=== PATIENT | female | born 1975 | race Caucasian/White ===

== ENCOUNTER 2023-04-28 08:50 | Outpatient (OUT) | payer OTHER, SELFPAY | END 2023-04-28 08:51 | disposition home or self-care (01) | PROVIDERS: PCP Internal Medicine; Visit Provider Obstetrics & Gynecology | DX: R30.0 Dysuria (principal) | CPT/HCPCS: 87086 ==

== ENCOUNTER 2023-05-01 16:47 | Emergency (ER) | payer OTHER, SELFPAY ==
[2023-05-01 17:24] VITALS: BP 152/109; PULSE 96; RESP 20; TEMP 36.6; O2SAT 97; BMI 27.4
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
== END 2023-05-01 19:35 | disposition home or self-care (01) ==
PROVIDERS: Emergency Provider Emergency Medicine; PCP Internal Medicine
DX: S16.1XXA Strain of muscle, fascia and tendon at neck level, initial encounter (principal); V53.5XXA Driver of pick-up truck or van injured in collision with car, pick-up truck or van in traffic accident, initial encounter
CPT/HCPCS: 70450; 72125; 99284

== ENCOUNTER 2024-03-28 10:57 | Outpatient (OUT) | payer OTHER, SELFPAY ==
--- NOTE | 2024-03-28 11:23 | MM_ITS ---
Patient Name: MARKO SORIANO MR#: [id number] : 1975 Exam Date: 03/28/2024 Ordering Doctor: DR BRISA OCASIO RADIOLOGY REPORT PROCEDURE: MM TOMOSYNTHESIS SCREENING BI COMPARISON: MG MAMM SCREEN 3D [place] CAD, 03/26/2023. MG MAMM SCREEN 3D [place] CAD, 03/24/2022. MG MAMM SCREEN 3D [place] CAD, 02/21/2021. MG MAMM [place] DIAG W CAD DIG, 08/26/2007. INDICATIONS: Screening Calculator Name NCI Breast Cancer Risk Assessment Tool 5 Year Breast Cancer Risk 3.20% Lifetime Breast Cancer Risk 25.30% Personal Breast Cancer No Personal Ovarian Cancer No Treatments None Family Cancers Father with prostate cancer at age 61; Uncle-paternal with prostate cancer at age ~60; Uncle-paternal with prostate cancer at age ~60; Grandmother-paternal with uterine cancer at age ~40; Mother with breast cancer at age 70. LOCATION: [facility] BREAST COMPOSITION: The breasts are almost entirely fatty. FINDINGS: DIAGNOSTIC CATEGORY 2--BENIGN FINDING: RIGHT BREAST: No significant suspicious finding. Scattered benign-appearing calcifications are present. No significant change has occurred. LEFT BREAST: No significant suspicious finding. No significant change has occurred. RECOMMENDATIONS: ROUTINE MAMMOGRAM AND CLINICAL EVALUATION IN 12 MONTHS. PLEASE NOTE: A NORMAL MAMMOGRAM DOES NOT EXCLUDE THE POSSIBILITY OF BREAST CANCER. A CLINICALLY SUSPICIOUS PALPABLE LUMP SHOULD BE BIOPSIED. Dictated by: Tra Olivares M.D. on 03/28/2024 at 11:27 Approved by: Tra Olivares M.D. on 03/28/2024 at 11:29
== END 2024-03-28 10:58 | disposition home or self-care (01) ==
LOC: MAMMO 10:57
PROVIDERS: PCP Internal Medicine; Visit Provider Obstetrics & Gynecology
DX: Z12.31 Encounter for screening mammogram for malignant neoplasm of breast (principal); Z80.42 Family history of malignant neoplasm of prostate; Z80.8 Family history of malignant neoplasm of other organs or systems; Z80.3 Family history of malignant neoplasm of breast
CPT/HCPCS: 77063; 77067

== ENCOUNTER 2025-02-09 09:58 | Outpatient (OUT) | payer OTHER, SELFPAY ==
--- NOTE | 2025-02-09 10:01 | US_ITS ---
The [address] [address] Patient Name: MARKO SORIANO MRN: [id number] date: 1975 Sex: F Assigned Patient Location: US Current Patient Location: US Accession/Order Number: [id number] Exam Date: 02/09/2025 11:43 Report Date: 02/09/2025 11:48 At the request of: BOUCHRA NGO DO Procedure: US right upper quadrant LIMITED RIGHT UPPER QUADRANT ABDOMINAL ULTRASOUND CLINICAL HISTORY: Elevated liver functions. Prior cholecystectomy. COMPARISON: CT 06/16/2021 The gallbladder is surgically absent. No intra- or extrahepatic biliary dilatation is evident. The common duct measures 3 - 4 mm. The liver is normal in echogenicity. There is a left hepatic cyst measuring 1 cm in size. There is appropriate hepatopetal flow within the main portal vein. The pancreas shows no significant sonographic abnormality. Cursory evaluation of the right kidney reveals no hydronephrosis or fluid within Conley's pouch. US/US right upper quadrant IMPRESSION: SMALL LEFT HEPATIC CYST. NO OTHER SIGNIFICANT RIGHT UPPER QUADRANT FINDINGS. Impression dictated by: Caity Kelly M.D.02/09/2025 11:48 AM Dictation Location: [place] [address] Electronically authenticated by: [id number] Y Date: 02/09/2025 11:48
== END 2025-02-09 09:59 | disposition home or self-care (01) ==
LOC: US 09:58
PROVIDERS: PCP Internal Medicine; Visit Provider Internal Medicine
DX: R74.01 Elevation of levels of liver transaminase levels (principal); K76.89 Other specified diseases of liver
CPT/HCPCS: 76705

== ENCOUNTER 2025-03-30 10:13 | Outpatient (OUT) | payer OTHER, SELFPAY ==
--- OUTSIDE RECORDS SUMMARY | 2025-03-27 11:03 | XMS_ITS ---
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) ROSELYN CAMARGO Active [facility] 02/06/2025 Active Vitamin D defici ency / E55.9(ICD-10) [facility] 02/06/2025 Active Thyroid disease / E07.9(ICD-10) [facility] 02/06/2025 Active Elevated sed rat e / R70.0(ICD-10) [facility] 02/06/2025 Active Elevated C-react clint protein (CRP) / R79.82(ICD-10) [facility] 02/06/2025 Active Elevated LFTs / R79.89(ICD-10) [facility] 02/06/2025 Active Screening-pulmon cody TB / Z11.1(ICD-10) [facility] 02/06/2025 Active Anemia of chroni c disease / D63.8(ICD-10) [facility] 02/06/2025 Active Vitamin B12 defi ciency / E53.8(ICD-10) [facility] 02/06/2025 Active Hyperuricemia / E79.0(ICD-10) [facility] 02/06/2025 Active Hypotestosterone gene / E34.9(ICD-10) [facility] 02/06/2025 Active Fatigue, unspeci fied type / R53.83(ICD-10) [facility] 02/06/2025 Active Mixed hyperlipid emia / E78.2(ICD-10) [facility] 02/06/2025 Active Iron deficiency / E61.1(ICD-10) [facility] 01/26/2025 Active Hair Loss / UNK(Unknown) ROSELYN SOLIZ Active [facility] 08/08/2024 Active Encounter for me dication management / Z79.899(ICD-10) TIFFANI TORRES Active [facility] 07/04/2024 Active Telogen effluviu m / L65.0(ICD-10) TIFFANI TORRES Active [facility] 07/04/2024 Active Hypovitaminosis D / E55.9(ICD-10) TIFFANI TORRES Active [facility] PROCEDURES No Procedure Records Found RESULTS CNOV Observed: 03/27/2025 11:15 AM Status: COMPLETED Source: [facility] Office Visit (DERMAV) MARKO WARREN ([id number]) 1975 F Date Time Provider Department 03/27/25 11:15 AM ROSELYN CAMARGO DERMAV During your visit today, we recorded the following information about you: Roselyn Camargo MD 03/27/2025 5:03 PM Signed SUBJECTIVE/OBJECTIVE ESTABLISHED PATIENT Referring provider: No ref. 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 I have seen and examined the patient. I agree with the Chief Complaint, ROS, and Past Histories independently gathered by the clinical manager client support and the remaining scribed note accurately describes [...] Other specified acquired hypothyroidism [E03.8] 09/23/2012 06/16/2016 Kle's thyroiditis [E06.3] 09/23/2012 Chronic fatigue [R53.82] 09/23/2012 [...] Refills Start End TRIAMCINOLONE ACETONIDE 10 MG/ML BCEKY* 03/27/2025 03/27/2025 Route: INTRALESIONA Level of Service: OFFICE/OUTPATIENT ESTABLISHED MOD MDM 30 MIN [58024] Disposition: Return for 4-6 week [address] Camargo for ILK inj. LOS History for Encounter Level of Service: OFFICE/OUTPATIENT ESTABLISHED MOD [facility] 30 MIN[87320] Date AND Time: 03-27-2025 5:03 PM Recorded by User: ROSELYN CAMARGO Follow-up and Disposition History for Encounter Date Provider Department Center 03/27/2025 [id number], STEPHANIEDERMAV Rej Encounter Status:Closed by ROSELYN CAMARGO on 03/27/25 PROGRESS Observed: 03/27/2025 11:15 AM Status: COMPLETED Source: [facility] HNO ID: [id number] Author: ROSELYN CAMARGO MD Service: ? Author Type: Physician Type: Progress Notes Filed: 03/27/2025 17:03 Note Text: SUBJECTIVE/OBJECTIVE ESTABLISHED PATIENT Referring provider: No ref. 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 I have seen and examined the patient. I agree with the Chief Complaint, ROS, and Past Histories independently gathered by the clinical manager client support and the remaining scribed note accurately describes my personal service to the patient. Roselyn Camargo MD Department of Dermatology PROGRESS Observed: 03/23/2025 9:00 AM Status: COMPLETED Source: [facility] HNO ID: [id number] Author: ROSELYN CAMARGO MD Service: ? Author Type: Physician Type: Progress Notes Filed: 03/23/2025 17:00 Note Text: [facility] Department of Dermatology VIRTUAL VISIT PROGRESS NOTE This Team Access Model visit is a virtual encounter. It required patient-provider interaction for the medical decision making as documented below. I have communicated my name and active licensure. The patient's identity and physical location were verified at the time of this visit. Either the patient or their legal representative government relations has been informed of the risks and benefits of -- and alternatives to -- treatment through a remote evaluation and consents to proceed with the evaluation remotely. This visit was completed virtually, using synchronous telemedicine technology ([employer]). New patient/Established patient : Established CHIEF COMPLAINT: Derm Problem HISTORY OF PRESENT ILLNESS: Marko Warren is a 49 year old female here for evaluation of significant erythema of nose. Patient location at time of appointment: [facility] #erythema Location: nose Severity: significant erythema to [...] which included preparing to see the patient, [id number] patient care, completing clinical documentation, performing a [...] Observed: 02/27/2025 11:30 AM Status: COMPLETED Source: [facility] Office Visit (DERMAV) MARKO WARREN ([id number]) 1975 F Date Time Provider Department 02/27/25 11:30 AM ROSELYN CAMARGO DERMOLIVERIO During your visit today, we recorded the following information about you: Roselyn Camargo MD 02/27/2025 2:34 PM Signed SUBJECTIVE/OBJECTIVE ESTABLISHED PATIENT Referring provider: No ref. provider found 02/27/2025 Last Visit to [facility] Dermatology: 01/05/2025 Reason(s) for Visit/History of [...] above named person served as a medical director of engineering during today's visit. I have seen and examined the patient. I agree with the Chief Complaint, ROS, and Past Histories independently gathered by the clinical manager client support and the remaining scribed note accurately describes [...] Service: OFFICE/OUTPATIENT ESTABLISHED MOD MDM 30 MIN [01903] Disposition: Return in about 4 weeks (around 03/27/2025) for 30 min procedure slot 4-6 weeks. LOS History for Encounter Level of Service: OFFICE/OUTPATIENT ESTABLISHED MOD MDM 30 MIN[82969] Date AND Time: 02-27-2025 2:34 PM Recorded by User: ROSELYN CAMARGO Follow-up and Disposition History for Encounter Date Provider Department Center 02/27/2025 [id number], STEPHANIEDERMAV Rej Encounter Status:Closed by ROSELYN CAMARGO on 02/27/25 PROGRESS Observed: 02/27/2025 11:20 AM Status: COMPLETED [id number] Author: ROSELYN CAMARGO MD Service: ? Author Type: Physician Type: Progress Notes Filed: 02/27/2025 14:34 Note Text: SUBJECTIVE/OBJECTIVE ESTABLISHED PATIENT Referring provider: No ref. provider found 02/27/2025 Last Visit to [facility] Dermatology: 01/05/2025 Reason(s) for Visit/History of [...] above named person served as a medical director of engineering during today's visit. I have seen and examined the patient. I agree with the Chief Complaint, ROS, and Past Histories independently gathered by the clinical manager client support and the remaining scribed note accurately describes my personal service to the patient. Electronically Signed: Roselyn Camargo MD at February 27, 2025 2:33 PM. Roselyn Camargo MD Department of Dermatology [facility] Observed: 02/11/2025 12:00 AM Status: COMPLETED Source: [facility] Telephone (FindlineULN) MARKO WARREN ([id number]) 1975 F Date Time Provider Department 02/11/25 AINSLEY NUGENT During your visit today, we recorded the following information about you: Ainsley Nugent MD 02/11/2025 1:11 AM Signed Please Call patient if MyChart note not read to review results/released to My Chart if tests completed at [facility]: Mildly high liver function tests, testosterone- [...] 02/06/2025 11:15 AM S tatus: F Source: [facility] Order Comment: Specimen Type : BLOOD SPECIMEN Ordering Facility: [facility] Address: [address] [place] [address] TYPE CODE TESTS RESULT OUT OF RANGE REFERENCE UNITS LAB 4537-7([facility]) ESR Bld Qn Westrgrn 5 0-20 mm/hr Performed By: #### 4537-7 ## ## [facility] CLIA [id number] [address] [place] [address] [place] [address] [place] 25([place])D3 [facility] Collected: 02/07/20 11:15 AM Status: F Source: [facility] Order Comment: Specimen Type : BLOOD SPECIMEN Ordering Facility: [facility] Address: [address] [place] [address] TYPE CODE TESTS RESULT OUT OF RANGE REFERENCE UNITS LAB 1988-(LOINC) 25([place])D3 SerPl-mCnc 69.6 31.0-80.0 ng/mL Performed By: #### 3 ## ## [facility] CLIA [id number] [address] [place], [place] [address] [id number] [facility] PROGEST SERPL-MCNC Collected: 11:15 AM Status: F Source: [facility] Order Comment: Specimen Type : BLOOD SPECIMEN Ordering Facility: [facility] Address: [address] [place] [address] TYPE CODE TESTS RESULT OUT OF RANGE [...] Progesterone (Progesterone III) [package insert V 1.0 Mauritanian]. [employer] [facility], [place], [place]. August 2015. Performed By: #### 3016-3, 2 4331-1, 82486-2, 2839-9 #### [facility] CLIA [id number] [address] [place] [address] [facility] TSH SERPL-ACNC Collected: 11:15 AM Status: F Source: [facility] Order Comment: Specimen Type : BLOOD SPECIMEN Ordering Facility: [facility] Address: [address] [place] [address] TYPE CODE TESTS RESULT OUT OF RANGE [...] Whitten, et al. 2017 Guidelines of the [place] Thyroid Association for the Diagnosis and Management of Thyroid Disease during and the . Thyroid, 2017:27:3:315-389. Performed By: #### 3016-3, 2 4331-1, 65154-7, 2839-9 #### [facility] CLIA [id number] [address] [place] [address] [place] LIPID 1996 PNL SERPL Collected: 025 11:15 AM Status: F Source: [facility] Order Comment: Specimen Type : BLOOD SPECIMEN Ordering Facility: [facility] Address: [address] [place] [address] TYPE CODE TESTS RESULT OUT OF RANGE [...] risk factor for coronary heart disease LAB 62196-8(LOINC) NonHDLc SerPl-mCnc 80 <130 mg/dL Result Comment: <130 mg/dL, Optimal 130-159 mg/dL, Near optimal/above optimal 160-189 mg/dL, Borderline high 190-219 mg/dL, High >219 mg/dL, Very high Secondary prevention optimal non HDL Cholesterol levels are recommended to be <100 mg/dL LAB FT FASTING TIME 12 hrs LAB 67418-9(LOINC) VLDLc SerPl Calc-mCnc 23 <30 mg/dL LAB 9830-1(LOINC) Cholest/HDLc SerPl 2.07 <5.10 LAB 2089-1(INC) LDLc SerPl-mCnc 57 <100 mg/dL Result Comment: <100 mg/dL, Optimal 100-129 mg/dL, Near optimal/above optimal 130-159 mg/dL, Borderline high 160-189 mg/dL, High >189 mg/dL, Very high Secondary prevention optimal LDL Cholesterol levels are recommended to be < 70 mg/dL LAB 95202-6(LOINC) LDLc/HDLc SerPl 0.76 <2.54 Result Comment: Reference: 1. National Cholesterol Education Program ATP III Guideline At-A-Glance Quick Desk Reference: National Heart, Lung, and Blood [place]. National Institutes of Health. 2001: NIH Publication No. 01-3305. 2. An International Atherosclerosis Society position paper: global recommendations for the management of dyslipidemia: executive summary, Atherosclerosis. 2014: 232(2):410-413. Performed By: #### 3016-3, 2 4331-1, 27134-3, 2839-9 #### [facility] CLIA [id number] [facility] [address] [place], [place] [address] [place] [address] STATES OF [facility] IRON+TIBC PNL SERPL Collected: 02/07/20 11:15 AM Status: F Source: [facility] Order Comment: Specimen Type : BLOOD SPECIMEN Ordering Facility: [facility] Address: [address] [place] [address] TYPE CODE TESTS RESULT OUT OF RANGE REFERENCE UNITS LAB 2498-4(INC) Iron SerPl-mCnc 88 41-186 ug/dL LAB 2500-7(LOINC) TIBC SerPl-mCnc Result Comment: Unable to re port LAB 93112-3([facility]) Iron/TIBC SerPl-sRto Result Comment: Unable to re port Performed By: #### 3016-3, 2 4331-1, 19643-2, 2839-9 #### [facility] CLIA [id number] [address] [place] [address] [place] COMP METAB 2000 PNL SERPL Collected: 11:15 AM Status: F Source: [facility] Order Comment: Specimen Type : BLOOD SPECIMEN Ordering Facility: [facility] Address: [address] [place] [address] TYPE CODE TESTS RESULT OUT OF RANGE REFERENCE UNITS LAB 2885-2(LOINC) Prot SerPl-mCnc 6.2 Low 6.3-8.0 g/dL LAB 1751-7(LOINC) Albumin SerPl-mCnc 3.7 Low 3.9-4.9 g/dL LAB 69429-3(LOINC) Calcium SerPl-mCnc 9.2 8.5-10.2 mg/dL LAB 1975-2(LOINC) Bilirub SerPl-mCnc 0.5 0.2-1.3 mg/dL LAB 6768-6(LOINC) ALP SerPl-cCnc 96 34-123 U/L LAB 1920-8(LOINC) AST SerPl-cCnc 68 High 13-35 U/L LAB 1742-6(LOINC) ALT SerPl-cCnc 88 High 7-38 U/L LAB 2345-7(LOINC) Glucose SerPl-mCnc 85 74-99 mg/dL Result Comment: The [place] Diabetes Association (ADA) provides guidance for cutoff [...] Standards of Medical Care in Diabetes 2016, [place] Diabetes Association. Diabetes Care. 2016.39(Suppl 1). LAB 3094-0(LOINC) BUN SerPl-mCnc 14 7-21 mg/ dL LAB 2160-0(LOINC) Creat SerPl-mCnc 0.80 0.58-0.96 mg/dL LAB 2951-2(LOINC) Sodium SerPl-sCnc 143 136-144 mmol/L LAB 2823-3(LOINC) Potassium SerPl-sCnc 4.7 3.7-5.1 mmol/L LAB 2075-0(LOINC) Chloride SerPl-sCnc 107 98-107 mmol/L LAB 2028-9(LOINC) CO2 SerPl-sCnc 22 22-30 mmo l/L LAB 35585-3(LOINC) Anion Gap SerPl-sCnc 14 8-15 mmol/L LAB 57079-4(LOINC) Creatinine + eGFR Pnl SerPlBld 90 >=60 [...] GFR. Performed By: #### 2243-4, 3 084-1, 02556-9 #### [facility] CLIA [id number] [address] [facility]. [address] OF [facility] URATE SERPL-MCNC Collected: 5 11:15 AM Status: F Source: [facility] Order Comment: Specimen Type : BLOOD SPECIMEN Ordering Facility: [facility] Address: [address] [place] [address] TYPE CODE TESTS RESULT OUT OF RANGE REFERENCE UNITS LAB 3084-1([facility]) Urate SerPl-mCnc 5.1 2.5-6.6 mg/dL Performed By: #### 2243-4, 3 084-1, 26683-6 #### [facility] CLIA [id number] [address] [place] [address] [place] ESTRADIOL SERPL-MCNC Collected: 025 11:15 AM Status: F Source: [facility] Order Comment: Specimen Type : BLOOD SPECIMEN Ordering Facility: [facility] Address: [address] [place], [place] [address] TYPE CODE TESTS RESULT OUT OF RANGE [...] 3243 pg/mL Second trimester : 1561 to 70264 pg/mL Third trimester : 8285 to >21408 pg/mL Post-menopausal Estradiol reference range: < 41 pg/mL Reference: 1. Estradiol - E2 (Estradiol III) [package insert V 3.0 Mauritanian]. [employer], [place], [place], April 2016. Performed By: #### 2243-4, 3 084-1, 04177-0 #### [facility] CLIA [id number] [address] [place] [address] [place] OF [facility] CRP SERPL-MCNC Collected: 11:15 AM Status: F Source: [facility] Order Comment: Specimen Type : BLOOD SPECIMEN Ordering Facility: [facility] Address: [address] [place], [place] [address] TYPE CODE TESTS RESULT OUT OF RANGE REFERENCE UNITS LAB 1988-03(LOINC) CRP SerPl-mCnc <0.3 <0.9 mg/dL Performed By: #### 2276-4, 1 988-5, 9 #### [facility] CLIA [id number] [address] [place] [address] [place] VIT B12 SERPL-MCNC Collected: 5 11:15 AM Status: F Source: [facility] Order Comment: Specimen Type : BLOOD SPECIMEN Ordering Facility: [facility] Address: [address] [place], [place] [address] TYPE CODE TESTS RESULT OUT OF RANGE REFERENCE UNITS LAB 9(LOINC) Vit B12 SerPl-mCnc 721 572-4122 pg/mL Performed By: #### 2276-4, 1 988-5, 2-9 #### [facility] CLIA [id number] [address] [place] [address] [facility] FERRITIN SERPL-MCNC Collected: 02/07/20 11:15 AM Status: F Source: [facility] Order Comment: Specimen Type : BLOOD SPECIMEN Ordering Facility: [facility] Address: [address] [place], [place] [address] TYPE CODE TESTS RESULT OUT OF RANGE REFERENCE UNITS LAB 2276-4([facility]) Ferritin SerPl-mCnc 154.9 14.7-205.1 ng/mL Performed By: #### 2276-4, 1 988-5, 2131-9 #### [facility] CLIA [id number] [address] [place] [address] [facility] CBC PNL BLD AUTO Collected: 5 11:15 AM Status: F Source: [facility] Order Comment: Specimen Type : BLOOD SPECIMEN Ordering Facility: [facility] Address: [address] [place], [place] [address] TYPE CODE TESTS RESULT OUT OF RANGE [...] MCHC RBC Auto-mCnc 34.1 30.5-36.0 g/dL LAB 97822-2(LOINC) RDW RBC-Rto 13.8 11.5-15.0 % LAB 777-3(LOINC) Platelet # Bld Auto 256 150-400 k/uL LAB 40975-0(LOINC) PMV Bld Auto 11.7 9.0-12.7 fL LAB 771-6(INC) nRBC # Bld Auto <0.01 <0.01 k/uL Performed By: #### 43009-4 # ### [facility] CLIA [id number] [place] [address] [place] CCP IGG SERPL-ACNC Collected: 02/06/2025 11:[address] atus: F Source: [facility] Order Comment: Specimen Type : BLOOD SPECIMEN Ordering Facility: [facility] Address: [address] [place] [address] TYPE CODE TESTS RESULT OUT OF RANGE REFERENCE UNITS LAB CCPIGGQ CCP ANTIBODY IGG QUALITATIVE Negative Negative LAB 87966-2([facility]) cCP IgG SerPl-aCnc <15 <20 Units Performed By: #### 99618-6 # ### [facility] CLIA [id number] [address] [place] [address] [place] PRESTON BY IFA WITH REFLEX Collected: 02/06 11:15 AM Status: F Source: [facility] Order Comment: Specimen Type : BLOOD SPECIMEN Ordering Facility: [facility] Address: [address] [place] [address] TYPE CODE TESTS RESULT OUT OF RANGE REFERENCE UNITS LAB 8061-4([facility]) PRESTON Ser Ql Negative Negative Result Comment: Anti-nuclear antibody test is used as an aid in diagnosis of systemic autoimmune diseases. Where positive and clinically warranted, follow-up using disease-specific testing is recommended. Low positive titers are not uncommon with advanced age, certain chronic infections, and malignancies among others. Test methodology: Indirect fluorescence immunoassay (IFA) using HEp-2 cells. Performed By: #### ANAIFR ## ## [facility] CLIA [id number] [address] [place] [address] OF [place] HCV AB SER QL Collected: 11:15 AM Status: F Source: [facility] Order Comment: Specimen Type : BLOOD SPECIMEN Ordering Facility: [facility] Address: [address] [place] [address] TYPE CODE TESTS RESULT OUT OF RANGE REFERENCE UNITS LAB 32303-1(LOINC) HCV Ab Ser Ql Negative Negative Result Comment: The result s uggests no evidence of infection with Hepatitis C virus. Should recent infection be suspected, repeat testing may be considered 4-6 weeks after this draw. Performed By: #### 19882-8 # ### [facility] CLIA [id number] [address] [place] [address] [place] T4 FREE SERPL-MCNC Collected: 11:15 AM Status: F Source: [facility] Order Comment: Specimen Type : BLOOD SPECIMEN Ordering Facility: [facility] Address: [address] [place] [address] TYPE CODE TESTS RESULT OUT OF RANGE REFERENCE UNITS LAB 3024-7(LOINC) T4 Free SerPl-mCnc 1.1 0.9-1.7 ng/dL Performed By: #### 3024-7, 1 1572-5, 3053-6, 2986-8 #### [facility] CLIA [id number] [address] [place] [address] [place] T3 SERPL-MCNC Collected: 5 11:15 AM Status: F Source: [facility] Order Comment: Specimen Type : BLOOD SPECIMEN Ordering Facility: [facility] Address: [address] [place] [address] TYPE CODE TESTS RESULT OUT OF RANGE REFERENCE UNITS LAB 3053-6(LOINC) T3 SerPl-mCnc 114 79-165 ng/d L Performed By: #### 3024-7, 1 1572-5, 3053-6, 2986-8 #### [facility] CLIA [id number] [address] [place] [address] [place] TESTOST SERPL-MCNC Collected: 5 11:15 AM Status: F Source: [facility] Order Comment: Specimen Type : BLOOD SPECIMEN Ordering Facility: [facility] Address: [address] [place] [address] TYPE CODE TESTS RESULT OUT OF RANGE REFERENCE UNITS LAB 2986-8(LOINC) Testost SerPl-mCnc 55 High <40 ng/dL Performed By: #### 3024-7, 1 1572-5, 3053-6, 2986-8 #### [facility] CLIA [id number] [address] [place] [address] OF [place] RHEUMATOID FACT SERPL-ACNC Collected: 02/06/2025 11:1 5 AM Status: F Source: [facility] Order Comment: Specimen Type : BLOOD SPECIMEN Ordering Facility: [facility] Address: [address] [place] [address] TYPE CODE TESTS RESULT OUT OF RANGE REFERENCE UNITS LAB 63698-2([facility]) Rheumatoid fact SerPl-aCnc <10 <16 IU/mL Performed By: #### 3024-7, 1 1572-5, 3053-6, 2986-8 #### [facility] CLIA [id number] [address] [place] [address] OF [place] BLOOD TB SCREEN Collected: 02/06/2025 11:15 AM Statu s: F Source: [facility] Order Comment: Specimen Type : BLOOD SPECIMEN Ordering Facility: [facility] Address: [address] [place] [address] TYPE CODE TESTS RESULT OUT OF RANGE REFERENCE UNITS LAB TBGNIL TB NIL 0.02 <=8.00 IU/mL LAB TBG1AG TB1 AG MINUS NIL 0.01 <0.35 IU/mL LAB TBG2AG TB2 AG MINUS NIL 0.00 <0.35 IU/mL LAB 31225-5(LOINC ) M TB tuberc IFN-g Bld Ql [...] exposure. Performed By: #### INFTBP ## ## [facility] CLIA [id number] [address] HBV CORE AB SER QL Collected: 11:15 AM Status: F Source: [facility] Order Comment: Specimen Type : BLOOD SPECIMEN Ordering Facility: [facility] Address: [address] [place] [address] TYPE CODE TESTS RESULT OUT OF RANGE REFERENCE UNITS LAB 36715-3(LOINC) HBV core Ab Ser Ql Negative Negative Result Comment: No evidence of current or past infection with Hepatitis B virus. Should recent infection be suspected, repeat testing may be considered 3-4 weeks after this draw. Performed By: #### 73670-4, 5195-3, 38707-5 #### [facility] CLIA [id number] [address] [place] [address] HBV SURFACE AG SER QL Collected: 2024 11:15 AM Status: F Source: [facility] Order Comment: Specimen Type : BLOOD SPECIMEN Ordering Facility: [facility] Address: [address] [place] [address] TYPE CODE TESTS RESULT OUT OF RANGE REFERENCE UNITS LAB 5195-3(LOINC) HBV surface Ag Ser Ql Negative Negative Performed By: #### 05913-3, 5195-3, 06938-5 #### [facility] CLIA [id number] [address] [place] [address] HBV SURFACE AB SER QL Collected: 2024 11:15 AM Status: F Source: [facility] Order Comment: Specimen Type : BLOOD SPECIMEN Ordering Facility: [facility] Address: [address] [place] [address] TYPE CODE TESTS RESULT OUT OF RANGE REFERENCE UNITS LAB 83799-7(LOINC) HBV surface Ab Ser Ql Positive Result Comment: Consistent w ith serological evidence of immunity to Hepatitis B Virus. LAB 60308-2(LOINC) HBV surface Ab Ser-aCnc 445.97 mIU/mL Result Comment: <8 mIU/mL: N o serological evidence of immunity to Hepatitis B Virus. >/= 8 to <12 mIU/mL: No serological evidence of immunity to Hepatitis B Virus. >/= 12 mIU/mL: Consistent with serological evidence of immunity to Hepatitis B Virus. Performed By: #### 55318-7, 5195-3, 32509-5 #### [facility] CLIA [id number] [address] [place] [address] CNOV Observed: 02/06/2025 10:00 AM Status: COMPLETED Source: [facility] Office Visit (JUANI) MARKO WARREN ([id number]) 1975 F Date Time Provider Department 02/06/25 [...] Name: Marko Warren 1975 [address] [place] [address] Accompanied by: self This consult was requested for my medical opinion regarding the rheumatologic evaluation of the patient's hairloss and fatigue problems, and my final recommendations will be communicated to the requesting health care provider by way of the shared medical record for internal providers or letter via the [employer] Service for external providers. February 06, [...] no Dactylitis: no H/o precedent/frequent infection(s): no Enthesopathy/[place]'s/heel/plantar tenderness: carpal tunnel syndrome Skin thickening, psoriasis, photosensitivity, purpura: no Nail changes: vertical nail ridges for months Alpecia, patchy: yes Eye inflammation: contacts SICCA: no Oral/nasal/genital ulcers: no GI problems-diarrhea/bleeding/IBD/Gluten intolerence/Dysphagia: gerd Raynaud's phenomenon/digital ulcers: no Organ inv-Serositis: no Lung disease/ILD: no Myopathy/proximal muscle weakness: no Abnormal Urine or urethritis: no Renal/liver disease: no FIRE PROTECTION INSPECTOR/PNS/sz/cva/cancer disease: no HEME-Cytopenias/LAD/Clots: no Fevers: no Fatigue: [...] use: Not Currently 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 Smoking no etoh no no gout MEDICATIONS: [...] low vitamin D 17.5, tsh 0.176;normal vitamin k49-8599; PHYSICAL EXAM:reviewed vitals BP 135/79 Pulse 76 [...] arthritis creams AND patches if needed, see manual winder for hormone recommendations, start osteoporosis treatment if [...] touching your toes, sit-ups, using row machine usp pain recommendations per primary care provider/pain clinic [...] video AND audio (virtual) or phone or [id number] patient care, completing clinical documentation, obtaining and/or [...] NAME: Marko Warren DATE: February 06, 2025 Ainsley Nugent MD [...] touching your toes, sit-ups, using row machine usp pain recommendations per primary care provider/pain clinic [...] of osteoporosis in mother [Z82.62] Order(s):DXA-FOREARM SKELETON [[id number]] Order #: [id number] FUTURE DXA-AXIAL SKELETON [[id number]] Order #: [id number] FUTURE BD DXA TRABECULAR BONE SCORE (TBS) [9395612] Order #: [id number] FUTURE RHEUMATOID FACTOR [SQRF] Order #: [id number] FUTURE CCP ANTIBODY IGG [SQCCP] Order #: [id number] FUTURE PRESTON BY IFA WITH REFLEX [SQANAIFR] Order #: [id number] FUTURE SEDIMENTATION RATE, WESTERGREN [SQWSR] Order #: [id number] FUTURE C-REACTIVE PROTEIN [SQCRP] Order #: [id number] FUTURE HEP REMOTE PANEL BL [SQHREMOP] Order #: [id number] FUTURE BLOOD TB SCREEN [SQINFTBP] Order #: [id number] FUTURE COMPREHENSIVE METABOLIC PANEL [SQCMP] Order #: [id number] FUTURE COMPLETE BLOOD COUNT [SQCBC] Order #: [id number] FUTURE VITAMIN D 25 HYDROXY [SQVITD] Order #: [id number] FUTURE VITAMIN B12 [SQB12] Order #: [id number] FUTURE URIC ACID [SQURIC] Order #: [id number] FUTURE TESTOSTERONE, TOTAL BY IMMUNOASSAY (ADULT MALES, OR INDIVIDUALS ON TESTOSTERONE THERAPY) [SQTESTO] Order #: [id number] FUTURE ESTRADIOL-17B BLD [SQE2] Order #: [id number] FUTURE PROGESTERONE [SQPROG] Order #: [id number] FUTURE T3 [SQT3] Order #: [id number] FUTURE T4 FREE/FREE THYROXINE [SQFT4] Order #: [id number] FUTURE THYROID STIMULATING HORMONE [SQTSH] Order #: [id number] FUTURE LIPID PANEL, FASTING [SQLIPB] Order #: [id number] FUTURE IRON AND TIBC [SQIRON] Order #: [id number] FUTURE FERRITIN [SQFERR] Order #: [id number] FUTURE Prescriptions as of 02/06/2025 - OLANZapine [...] touching your toes, sit-ups, 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 Author Type: Physician Type: Progress Notes Filed: 02/06/2025 11:58 Note Text: NEW CONSULT:RHEUMATOLOGY SERVICE SERVICE DATE: 02/06/2025 SERVICE TIME: 9:58 AM REASON FOR CONSULT: hairloss and fatigue REQUESTING PHYSICIAN: Martin Martinez DO PRIMARY CARE PHYSICIAN: Martin Martinez DO Patient's Name: Marko Warren 1975 [address] [place] [address] Accompanied by: self This consult was requested for my medical opinion regarding the rheumatologic evaluation of the patient's hairloss and fatigue problems, and my final recommendations will be communicated to the requesting health care provider by way of the shared medical record for internal providers or letter via the [employer] Information Postal Service for external providers. 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 Smoking no etoh no no gout MEDICATIONS: [...] low vitamin D 17.5, tsh 0.176;normal vitamin s61-9279; PHYSICAL EXAM:reviewed vitals BP 135/79 Pulse 76 [...] arthritis creams AND patches if needed, see manual winder for hormone recommendations, start osteoporosis treatment if [...] touching your toes, sit-ups, using row machine usp pain recommendations per primary care provider/pain clinic [...] video AND audio (virtual) or phone or [id number]-de-[id number] patient care, completing clinical documentation, obtaining and/or [...] Observed: 01/29/2025 2:29 PM Status: COMPLETED Source: [facility] HNO ID: [id number] Author: ?, ?, ? Service: ? Author Type: ? Type: Progress Notes Filed: 01/29/2025 14:29 Note Text: Scheduled per above PROGRESS Observed: 01/26/2025 9:17 AM Status: COMPLETED Source: [facility] HNO ID: [id number] Author: ROSELYN CAMARGO MD Service: ? Author Type: Physician Type: Progress Notes Filed: 01/26/2025 16:14 Note Text: [facility] Department of Dermatology VIRTUAL VISIT PROGRESS NOTE This Team Access Model visit is a virtual encounter. It required patient-provider interaction for the medical decision making as documented below. I have communicated my name and active licensure. The patient's identity and physical location were verified at the time of this visit. Either the patient or their legal representative government relations has been informed of the risks and benefits of -- and alternatives to -- treatment through a remote evaluation and consents to proceed with the evaluation remotely. This visit was completed virtually, using synchronous telemedicine technology ([employer]). Established patient CHIEF COMPLAINT: Hair Loss HISTORY OF PRESENT ILLNESS: Marko Warren is a 49 year old female here for evaluation of hair loss . Patient location at time of appointment: [facility] lichen planopilaris per skin, right vertex scalp, [...] which included preparing to see the patient, [id number] patient care, completing clinical documentation, performing a medically appropriate examination, counseling and educating the patient/family/caregiver, and ordering medications, tests, or procedures. The documentation for this note was completed by Amber Albarran RN, acting as scribe for Roselyn Camargo MD. January 26, 2025 1:06 PM. Provider Attestation: I, Roselyn Camargo MD, personally [...] Observed: 01/19/2025 4:20 PM Status: COMPLETED Source: [facility] Nurse Visit (DERMAV) MARKO WARREN ([id number]) 1975 F Date Time Provider Department 01/19/25 4:20 PM [facility] REJ DERMOLIVERIO During your visit today, we recorded the following information about you: Janeth Diehl RN 01/19/2025 4:26 PM Signed Nurse visit injections Patient presents for diagnosis of lichen planopilaris Here today for Injection Order in [facility]? Yes by provider Tiffani Torres MD [...] pain [R10.9] 09/24/2022 09/24/2022 [facility] and 5 week [place] for ilk. Follow-up and Disposition History for Encounter Date Provider Department Center 01/19/2025 [id number] [facility] CHERELLEDER[facility]V Cherelle Encounter Status:Closed by JANETH DIEHL on 01/19/25 PROGRESS Observed: 01/19/2025 4:08 PM Status: COMPLETED Source: [facility] HNO ID: [id number] Author: JANETH DIEHL RN Service: ? Author [...] Observed: 01/05/2025 1:00 PM Status: COMPLETED Source: [facility] HNO ID: [id number] Author: TIFFANI TORRES MD Service: ? Author [...] and ROS that were documented by my fws faculty assistant, who was scribing during the encounter, were confirmed by me and I agree with the content of these sections. I have made any required additions or deletions to the HPI/PFSH/ROS as needed. The physical exam and any procedures were performed by me, unless otherwise noted. Tiffani Torres MD CNOV Observed: 01/05/2025 1:00 PM Status: COMPLETED Source: [facility] Office Visit (DERMAV) MARKO WARREN ([id number]) 1975 F Date Time Provider Department 01/05/25 [...] and ROS that were documented by my fws faculty assistant, who was scribing during the encounter, were confirmed by me and I agree with the content of these sections. I have made any required additions or deletions to the HPI/PFSH/ROS as needed. The physical exam and any procedures were performed by me, unless otherwise noted. Tiffani Torres MD Referring Provider: TIFFANI TORRES [[id number]] Allergies As of Date: 01/05/2025 Noted Allergy Reaction CECLOR (CEFACLOR) 09/23/2012 4 - Hives CIPROFLOXACIN 09/24/2022 4 - Hives IMITREX (SUMATRIPTAN SUCCINATE) 09/23/2012 10 - Anaphylaxis Comments: Respiratory Distress TRAMADOL 08/18/2022 8 - GI Upset Comments: Nausea Date Reviewed: 01/05/2025 Reviewed by: Naye Sifuentes OCCA - Fully Assessed Reason for Visit: Established Patient Follow-Up [[id number]] Cmt: Lichen planopilaris Primary Visit Diagnosis:Lichen planopilaris [...] Observed: 01/01/2025 12:00 AM Status: COMPLETED Source: [facility] Telephone (DERMAV) MARKO WARREN ([id number]) 1975 F Date Time Provider Department 01/01/25 TIFFANI TORRES DERMAV During your visit today, we recorded the following information about you: Juliet Loera LPN 01/01/2025 10:06 AM Signed Patient sent Patient Engagement Systems message stating: I am currently taking 7.5 [...] Observed: 12/28/2024 9:50 AM Status: COMPLETED Source: [facility] ID: [id number] Author: TIFFANI TORRES MD Service: ? Author Type: Physician Type: Progress Notes Filed: 01/15/2025 23:57 Note Text: VIRTUAL VISIT PROGRESS NOTE This is a virtual visit using Patient Engagement Systems video visit. It required patient-provider interaction for the medical decision making as documented below. I have communicated my name and active licensure. The patient's identity and physical location were verified at the time of this visit. Either the patient or their legal representative government relations has been informed of the risks and [...] Observed: 12/19/2024 11:00 AM Status: COMPLETED Source: [facility] Nurse Visit (DERMAV) MARKO WARREN ([id number]) 1975 F Date Time Provider Department 12/19/24 11:00 AM [facility] CHERELLE SEGURA During your visit today, we recorded the following information about you: Cheng Gutierrez RN 12/19/2024 11:37 AM Signed Nurse visit injections Patient presents for diagnosis of lichen planopilaris Here today for Injection Order in [facility]? Yes by provider Tiffani Torres MD [...] Observed: 12/19/2024 11:00 AM Status: COMPLETED Source: [facility] ID: [id number] Author: CHENG GUTIERREZ, RN Service: ? Author Type: Registered Nurse Type: Progress Notes Filed: 12/19/2024 11:37 Note Text: Nurse visit injections Patient presents for diagnosis of lichen planopilaris Here today for Injection Order in [facility]? Yes by provider Tiffani Torres MD [...] Observed: 11/21/2024 11:15 AM Status: COMPLETED Source: [facility] ID: [id number] Author: TIFFANI TORRES MD Service: ? Author Type: Physician Type: Progress Notes Filed: 12/18/2024 14:07 Note Text: VIRTUAL VISIT PROGRESS NOTE This is a virtual visit using Patient Engagement Systems video visit. It required patient-provider interaction for the medical decision making as documented below. I have communicated my name and active licensure. The patient's identity and physical location were verified at the time of this visit. Either the patient or their legal representative government relations has been informed of the risks and [...] also feels her scalp was painful on [place]. Current treatments used for hair loss: Doxycycline [...] Abs Lymph 1.00 - 4.00 k/uL 2.17 [place]% % 4.7 Abs [place] <0.87 k/uL 0.38 Eosin% % 0.1 Abs [...] Negative Ketones, Urine Negative, Trace Negative Specific [place], Ur 1.005 - 1.030 1.006 Hemoglobin/Blood,Ur Negative, [...] Observed: 11/14/2024 11:21 AM Status: COMPLETED Source: [facility] ID: [id number] Author: TONIE LUBIN RN Service: ? Author Type: Registered Nurse Type: Progress Notes Filed: 11/14/2024 12:09 Note Text: Nurse visit injections Patient presents for diagnosis of lichen planopilaris Here today for Injection Order in [facility]? Yes by provider Tiffani Torres MD [...] Observed: 11/14/2024 11:00 AM Status: COMPLETED Source: [facility] Nurse Visit (DERMAV) MARKO WARREN ([id number]) 1975 F Date Time Provider Department 11/14/24 11:00 AM [facility] CHERELLE DERMOLIVERIO During your visit today, we recorded the following information about you: Tonie Lubin RN 11/14/2024 12:09 PM Signed Nurse visit injections Patient presents for diagnosis of lichen planopilaris Here today for Injection Order in [facility]? Yes by provider Tiffani Torres MD [...] COMPLETE Observed: 3:59 PM Status: F Source: [facility] Echocardiology Procedure Exam Date/Time Accession # Ordering Dr. Putnam Transthoracic 11/07/2024 15:59 EST [id number] MARTIN MARTINEZ DO CPT code 32060 36475 Reason for Exam (Echo Transthoracic Complete) Edema R60.[address] [facility] [address] [place] [address] Adult Echocardiogram Report Name: MARKO WARREN Study Date: 11/07/2024 03:03 PM BP: 127/93 mmHg Patient Location: [facility] Ambulatory(s) [facility] HR: 85 : 1975 Gender: Female Height: 62 in Age: 49 yrs Ethnicity: T Weight: 146 lb Reason For Study: Edema R60.0 R01.1 BSA: 1.7 m2 History: No cardiac history per patient Ordering Physician: HUBER^MARTIN Referring Physician: MARTIN MARTINEZ Performed By: Melania Cui [facility] Interpretation Summary Grade I diastolic dysfunction, (abnormal [...] Signed by: Yoav Bruno MD Transcribed by: [facility] Technologist: MELODY RITTER LOWER EXTREMITY VENOUS DUPLEX BILATERAL Observed: 11/07/2024 3:55 PM Status: F Source: [facility] Exam Date/Time: 11/07/2024 16:29 EST Reason [...] Collected: 10/20/2024 9:21 AM Status: F Source: [facility] TYPE CODE TESTS RESULT OUT OF RANGE REFERENCE UNITS LAB 2345-7([facility]) GLUCOSE:MCNC:P T:SER/PLAS:QN: 92 Normal 55-199 mg/dL LAB 3094-0([facility]) UREA NITROGEN:MCNC: PT:SER/PLAS:QN : 7 Normal 5-21 mg/dL LAB 2160-0([facility]) CREATININE:MCN C:PT:SER/PLAS: QN: 0.7 Normal 0.5-1.3 mg/dL LAB 66928-9([facility]) CALCIUM:MCNC:P T:SER/PLAS:QN: 9.2 Normal 8.9-11.1 mg/dL LAB 2951-2([facility]) SODIUM:SCNC:PT :SER/PLAS:QN: 143 Normal 135-145 mmol/L LAB 2823-3([facility]) POTASSIUM:SCNC :PT:SER/PLAS:Q N: 3.7 Normal 3.5-5.3 mmol/L LAB 2075-0([facility]) CHLORIDE:SCNC: PT:SER/PLAS:QN : 106 Normal 101-111 mmol/L LAB 2028-9([facility]) CARBON DIOXIDE:SCNC:P T:SER/PLAS:QN: 31 Normal 21-31 mmol/L LAB 6768-6([facility]) ALKALINE PHOSPHATASE:CC NC:PT:SER/PLAS :QN: 82 Normal 21-98 Int._Unit /L LAB 1975-2([facility]) BILIRUBIN:MCNC :PT:SER/PLAS:Q N: 0.6 Normal 0.0-1.1 mg/dL LAB 1751-7([facility]) ALBUMIN:MCNC:P T:SER/PLAS:QN: 3.7 Normal 3.3-5.0 gm/dL LAB 2885-2([facility]) PROTEIN:MCNC:P T:SER/PLAS:QN: 6.2 Normal 6.0-7.8 gm/dL LAB 1744-2([facility]) ALANINE AMINOTRANSFERA SE:CCNC:PT:SER /PLAS:QN:NO ADDITION OF P-5'-P 31 Normal 6-46 Int._Unit /L LAB 1920-8([facility]) ASPARTATE AMINOTRANSFERA SE:CCNC:PT:SER /PLAS:QN: 24 Normal 5-43 Int._Unit /L LAB 3097-3([facility]) UREA NITROGEN/CREAT ININE:MRTO:PT: SER/PLAS:QN: 10 Normal 10-20 No Units LAB 98787-9([facility]) ANION GAP:SCNC:PT:SE R/PLAS:QN: 10 Normal 6-16 mEq/L LAB 44585-1([facility]) GLOBULIN:MCNC: PT:SER:QN:CALC ULATED 2.5 Normal 1.4-4.0 gm/dL LAB 38737-9([facility]) ALBUMIN/GLOBUL IN:MCRTO:PT:SE R:QN: 1.5 Normal 1.1-2.2 Performed By: #### [id number] # ### [facility] [address] [place] [address] TSH Collected: 10/20/2024 9:21 AM Status: F Source: [facility] TYPE CODE TESTS RESULT OUT OF RANGE REFERENCE UNITS LAB 3016-3([facility]) THYROTROPIN:A CNC:PT:SER/PL :QN: 0.17 Low 0.34-5.60 mcIU/mL Performed By: #### [id number] # ### [facility] [address] [place] [address] EGFR Collected: 9:21 AM Status: F Source: [facility] TYPE CODE TESTS RESULT OUT OF RANGE REFERENCE UNITS LAB 54155024([facility]) eGFR 105 Normal >=59 mL/min/1 .7 3 m2 Performed By: #### [id number] #### [facility] [address] [place] [address] CBC W/ AUTO DIFF Collected: 10/20/2024 9:21 AM Statu s: F Source: [facility] TYPE CODE TESTS RESULT OUT OF RANGE REFERENCE UNITS LAB 36625-8([facility]) LEUKOCYTES^^OSWALDO ECTED FOR NUCLEATED ERYTHROCYTES:NCN C:PT:BLD:QN:AUTO MATED COUNT 6.0 Normal 4.0-11.0 E9/L LAB 789-8(LOINC) ERYTHROCYTES:NCN C:PT:BLD:QN:AUTO MATED COUNT 4.8 Normal 4.3-5.9 E12/L LAB 718-7([facility]) HEMOGLOBIN:MCNC: PT:BLD:QN: 14.5 Normal 12.0-16.0 gm/dL LAB 4544-3([facility]) HEMATOCRIT:VFR:P T:BLD:QN:AUTOMAT ED COUNT 42.6 Normal 34.0-46.0 % LAB 788-0([facility]) ERYTHROCYTE DISTRIBUTION WIDTH:RATIO:PT:R BC:QN:AUTOMATED COUNT 14.7 High 10.9-14.2 % LAB 785-6([facility]) ERYTHROCYTE MEAN CORPUSCULAR HEMOGLOBIN:ENTMA SS:PT:RBC:QN:AUT OMATED COUNT 30.5 Normal 27.0-34.0 pg LAB 786-4(INC) ERYTHROCYTE MEAN CORPUSCULAR HEMOGLOBIN CONCENTRATION:MC NC:PT:RBC:QN:AUT OMATED COUNT 34.2 Normal 31.4-36.0 gm/dL LAB 787-2([facility]) ERYTHROCYTE MEAN CORPUSCULAR VOLUME:ENTVOL:PT :RBC:QN:AUTOMATE D COUNT 89.3 Normal 80.0-100.0 fL LAB 70259-5(INC) PLATELET MEAN VOLUME:ENTVOL:PT :BLD:QN:AUTOMATE D COUNT 9.1 Normal 6.4-10.8 fL LAB 777-3(INC) PLATELETS:NCNC:P T:BLD:QN:AUTOMAT ED COUNT 236.0 Normal 150.0-500.0 E9/L LAB 64849-7(INC) NEUTROPHILS/100 LEUKOCYTES:NFR:P T:BLD:QN: 59.0 Normal 36.0-75.0 % LAB 731-0(LOINC) LYMPHOCYTES:NCNC :PT:BLD:QN:AUTOM ATED COUNT 31.3 Normal 14.0-50.0 % LAB 742-7(LOINC) MONOCYTES:NCNC:P T:BLD:QN:AUTOMAT ED COUNT 0.4 Normal 0.2-1.0 E9/L LAB 713-8(LOINC) EOSINOPHILS/100 LEUKOCYTES:NFR:P T:BLD:QN:AUTOMAT ED COUNT 2.9 Normal 0.0-8.0 % LAB 704-7(LOINC) BASOPHILS:NCNC:P T:BLD:QN:AUTOMAT ED COUNT 0.4 Normal 0.0-2.0 % LAB 751-8(INC) NEUTROPHILS:NCNC :PT:BLD:QN:AUTOM ATED COUNT 3.5 Normal 2.0-7.5 E9/L LAB 58397-5(INC) LYMPHOCYTES:NCNC :PT:BLD:QN: 1.9 Normal 1.0-4.0 E9/L LAB 68979-3(INC) EOSINOPHILS:NCNC :PT:BLD:QN: 0.2 Normal 0.0-0.5 E9/L LAB 80911-3([facility]) BASOPHILS/LEUKOC YTES:NFR.DF:PT:B LD:QN:AUTOMATED COUNT 0.0 Normal 0.0-0.2 E9/L Performed By: #### [id number] # ### [facility] [address] [place] [address] U PROTEIN/CREAT RATIO Collected: 2023 8:48 AM Status: F Source: [facility] TYPE CODE TESTS RESULT OUT OF RANGE REFERENCE UNITS LAB [id number]([facility] ) Ur Total Protein 13.6 Unknown mg/dL LAB 40874320([facility] ) U Creatinine 166.3 Unknown mg/dL LAB 29586-9([facility]) PROTEIN/CREATI NINE:RATIO:PT: URINE:QN: 8.20 Normal .00-200.00 mg/gm Cr Performed By: #### [id number] #### [facility] [address] [place] [address] CNNURSE Observed: 10/13/2024 4:20 PM Status: COMPLETED Source: [facility] Nurse Visit (DERMAV) WARRENMARKO ([id number]) 1975 F Date Time Provider Department 10/13/24 4:20 PM [facility] RE[facility] DERMAV During your visit today, we recorded the following information about you: Janeth Diehl RN 10/13/2024 4:50 PM Signed Nurse visit injections Patient presents for diagnosis of lichen planopilaris Here today for Injection Order in [facility]? Yes by provider Tiffani Torres MD [...] Observed: 10/13/2024 4:20 PM Status: COMPLETED Source: [facility] ID: [id number] Author: JANETH DIEHL RN Service: ? Author Type: Registered Nurse Type: Progress Notes Filed: 10/13/2024 16:50 Note Text: Nurse visit injections Patient presents for diagnosis of lichen planopilaris Here today for Injection Order in [facility]? Yes by provider Tiffani Torres MD [...] Observed: 08/29/2024 11:00 AM Status: COMPLETED Source: [facility] Nurse Visit (DERMAV) CHRISTIEMARKO Tomasa ([id number]) 1975 F Date Time Provider Department 08/29/24 11:00 AM [facility] RE[facility] DERMOLIVERIO During your visit today, we recorded the following information about you: Petros Metz RN 09/08/2024 9:01 AM Addendum Nurse visit injections Patient presents for diagnosis of lichen planopilaris Here today for Injection Order in [facility]? Yes by provider Tiffani Torres MD [...] Observed: 08/29/2024 9:01 AM Status: COMPLETED Source: [facility] HNO ID: [id number] Author: PETROS METZ RN Service: ? Author Type: Registered Nurse Type: Progress Notes Filed: 09/08/2024 09:01 Note Text: Nurse visit injections Patient presents for diagnosis of lichen planopilaris Here today for Injection Order in [facility]? Yes by provider Tiffani Torres MD [...] Observed: 08/08/2024 9:28 AM Status: COMPLETED Source: [facility] HNO ID: [id number] Author: TIFFANI TORRES MD Service: ? Author Type: Physician Type: Progress Notes Filed: 09/10/2024 14:15 Note Text: VIRTUAL VISIT PROGRESS NOTE This is a virtual visit using Patient [employer] Systems video visit. It required patient-provider interaction for the medical decision making as documented below. I have communicated my name and active licensure. The patient's identity and physical location were verified at the time of this visit. Either the patient or their legal representative government relations has been informed of the risks and [...] CORTISOL Collected: 8:36 AM Status: F Source: [facility] TYPE CODE TESTS RESULT OUT OF RANGE REFERENCE UNITS LAB 2143-6(LOINC) CORTISOL:MCN C:PT:SER/REE S:QN: 10.1 Unknown 6.2-19.4 microgram /dL Result Comment: Please Note: The reference interval and flagging for this test is for an AM collection. If this is a PM collection please use: Cortisol PM: 2.3-11.9 Performed at: [address] [id number] PhD Ismael Limon Performed By: #### [id number] # ### [facility] [facility] [address] [place] [address]59[address] DHEAS Collected: 08/05/2024 8:36 AM Status: F Source: [facility] TYPE CODE TESTS RESULT OUT OF RANGE REFERENCE UNITS LAB 2191-5(LOINC ) DEHYDROEPIANDROSTERONE SULFATE:MCNC:PT:SER/PLAS :QN: 62.5 Unknown 41.2-243.7 microgr am/dL Result Comment: Performed at : [address] [id number] PhD Ismael Limon Performed By: #### [id number] #### [facility] [address] [place] [address] 74577 PROLACTIN Collected: 4 8:36 AM Status: F Source: [facility] TYPE CODE TESTS RESULT OUT OF RANGE REFERENCE UNITS LAB 55771913(LOINC) Prolactin 6.95 Normal 3.34-26.72 ng/ mL Performed By: #### [id number] # ### [facility] [address] [place] [address] 82360 T3 REVERSE Collected: 4 8:36 AM Status: F Source: [facility] TYPE CODE TESTS RESULT OUT OF RANGE REFERENCE UNITS LAB 3052-8(LOINC) TRIIODOTHYRO NINE.REVERSE :MCNC:PT:SER /PLAS:QN: 10.7 Unknown 9.2-24.1 ng/dL Result Comment: This test wa s developed and its performance characteristics determined by [facility]. It has not been cleared or approved by the Food and Drug Administration. Performed at: [address] [id number] MD Manuel Sanchez Performed By: #### [id number] #### [facility] [address] [place] [address] FREE T4 Collected: 08/05/2024 8:36 AM Status: F Source: [facility] TYPE CODE TESTS RESULT OUT OF RANGE REFERENCE UNITS LAB 3024-7(LOINC) THYROXINE.ZAID E:MCNC:PT:SER /PLAS:QN: 0.96 Normal 0.58-1.64 ng/dL Performed By: #### [id number] # ### [facility] [address] [place] [address] T3 FREE Collected: 08/05/2024 8:36 AM Status: F Source: [facility] TYPE CODE TESTS RESULT OUT OF RANGE REFERENCE UNITS LAB 3051-0(LOINC) TRIIODOTHYRON INE.FREE:MCNC :PT:SER/PLAS: QN: 4.1 Unknown 2.0-4.4 pg/mL Result Comment: Performed at : [address] [id number] PhD Ismael Limon Performed By: #### [id number] # ### [facility] [address] [place] [address] 768[address] PROGESTERONE Collected: 08/05/2024 8:36 AM Status: F Source: [facility] TYPE CODE TESTS RESULT OUT OF RANGE REFERENCE UNITS LAB 69391062(LOINC ) Progesterone Lvl 1.52 Unknown ng/mL Result Comment: 'F NONPREGNA NT FOLLICULAR = 0.10 - 0.60' 'LUTEAL = 3.00 - 17.5' 'MIDLUTEAL = 3.30 - 18.6' 'POST-MENOPAUSE = 0.10 - 0.40' '-FIRST TRIMESTER = 8.30 - 66.5' 'SECOND TRIMESTER = 18.9 - 66.1' 'THIRD TRIMESTER = 35.8 - 312.4' 'MALES = 0.14 - 2.06' Performed By: #### [id number] # ### [facility] [address] [place] [address] TESTOSTERONE F&T Collected: 8:36 AM Status: F Source: [facility] TYPE CODE TESTS RESULT OUT OF RANGE REFERENCE UNITS LAB 2991-8(LOINC) TESTOSTERONE .FREE:MCNC:P T:SER/PLAS:Q N: 0.8 Unknown 0.0-4.2 pg/mL Result Comment: Performed at : [address] [id number] PhD Ismael Limon Performed at: [address] [id number] MD Manuel Sanchez LAB 2986-8([facility]) TESTOSTERONE :MCNC:PT:SER /PLAS:QN: 8 Unknown 4-50 ng/dL Performed By: #### [id number] #### [facility] [address] [place] [address] 75[address] ESTRADIOL Collected: 8:36 AM Status: F Source: [facility] TYPE CODE TESTS RESULT OUT OF RANGE REFERENCE UNITS LAB 2243-4([facility]) ESTRADIOL:MC NC:PT:SER/PL :QN: <5.0 Unknown pg/mL Result Comment: Adult Female Range Follicular phase 12.5 - 166.0 Ovulation phase 85.8 - 498.0 Luteal phase 43.8 - 211.0 Postmenopausal <6.0 - 54.7 1st trimester 215.0 - >4300.0 Qiana ECLIA methodology Performed at: [address] [id number] PhD Ismael Limon Performed By: #### [id number] # ### [facility] [address] [place] [address] TSH Collected: 08/05/2024 8:36 AM Status: F Source: [facility] TYPE CODE TESTS RESULT OUT OF RANGE REFERENCE UNITS LAB 3016-3([facility]) THYROTROPIN:A CNC:PT:SER/PL :QN: 0.01 Low 0.34-5.60 mcIU/mL Performed By: #### [id number] # ### [facility] [address] [place] [address] LAB MISCELLANEOUS-LC Collected: 024 8:36 AM Status: F Source: [facility] TYPE CODE TESTS RESULT OUT OF RANGE REFERENCE UNITS LAB CD:[id number] 85([facility]) Lab Miscellaneous COMMENT Unknown Result Comment: Test Ordered : 356141 Dihydrotestosterone Dihydrotestosterone 7.0 ng/dL ES This test was developed and its performance characteristics determined by [employer]. It has not been cleared or approved by the Food and Drug Administration. Reference Range: Adult Female: 4 - 22 Performed at: [address] [id number] PhD Ismael Limon LAB CD:[id number] 11([facility]) Test Code 064525 Unknown LAB 04531632([facility]) Test Name Dihydrotestoste Unknown Performed By: #### [id number] #### [facility] [address] [place] [address] 71620 VITAMIN D 25 HYDROXY Collected: 08/05/2024 8:36 AM S tatus: F Source: [facility] TYPE CODE TESTS RESULT OUT OF RANGE REFERENCE UNITS LAB 1988-3([facility]) CALCIDIOL:MCN C:PT:SER/PLAS :QN: 74.3 Normal 30.0-100.0 ng/mL Performed By: #### [id number] #### [facility] [address] [place] [address] ESTROGENS TOTAL Collected: 8:36 AM Status: F Source: [facility] TYPE CODE TESTS RESULT OUT OF RANGE REFERENCE UNITS LAB 2254-1([facility]) ESTROGEN:MCN C:PT:SER/REE S:QN: 93 Unknown pg/mL Result Comment: Prepubertal < 40 Female Cycle: 1-10 Days 16 - 328 11-20 Days 34 - 501 21-30 Days 48 - 350 Post-Menopausal 40 - 244 Performed at: [facility] [place] [address] [place], [place] [id number] MD Manuel Sanchez Performed By: #### [id number] #### [facility] [address] [place] [address] CNNURSE Observed: 07/25/2024 2:00 PM Status: COMPLETED Source: [facility] Nurse Visit (DERMAV) MARKO WARREN ([id number]) 1975 F Date Time Provider Department 07/25/24 2:00 PM [facility]SE [facility] REJ DERMAV During your visit today, we recorded the following information about you: Robert Ramírez RN 07/25/2024 2:38 PM Signed Nurse visit injections Patient presents for diagnosis of lichen planopilaris Here today for Injection Order in [facility]? Yes by provider Tiffani Torres MD [...] Observed: 07/25/2024 2:00 PM Status: COMPLETED Source: [facility] ID: [id number] Author: ROBERT RAMÍREZ RN Service: ? Author Type: Registered Nurse Type: Progress Notes Filed: 07/25/2024 14:38 Note Text: Nurse visit injections Patient presents for diagnosis of lichen planopilaris Here today for Injection Order in [facility]? Yes by provider Tiffani Torres MD [...] Collected: 07/21/20 6:22 AM Status: F Source: [facility] TYPE CODE TESTS RESULT OUT OF RANGE REFERENCE UNITS LAB 8061-4(LOINC) NUCLEAR AB:PRTHR:PT: SER:ORD: Negative Unknown Negative Result Comment: Performed at : [address] [id number] PhD Ismael Limon Performed By: #### [id number] #### [facility] [address] [place] [address] RF QUANT Collected: 07/21/2024 6:22 AM Status: F Source: [facility] TYPE CODE TESTS RESULT OUT OF RANGE REFERENCE UNITS LAB 16273-7(LOINC) RHEUMATOID FACTOR:ACNC:PT :SER/PLAS:QN: <10.0 Unknown <14.0 Internati onal_Unit /mL Result Comment: [facility]formed at : [facility] [id number] PhD Ismale Limon Performed By: #### [id number] #### [facility] [address] [place] [address] 53392 CRP Collected: 07/21/2024 6:22 AM Status: F Source: [facility] TYPE CODE TESTS RESULT OUT OF RANGE REFERENCE UNITS LAB 1988-5(LOINC) C REACTIVE PROTEIN:MCNC:P T:SER/PLAS:QN: 0.1 Normal <=1.9 mg/dL Performed By: #### [id number] # ### [facility] [address] [place] [address] 79976 SED RATE AUTOMATED Collected: 07/21/2024 6:22 AM Sta tus: F Source: [facility] TYPE CODE TESTS RESULT OUT OF RANGE REFERENCE UNITS LAB 47924-8([facility]) ERYTHROCYTE SEDIMENTATION RATE:ELIZABETH:PT:BLD:QN : 3 Normal 0-34 mm/hr Performed By: #### [id number] #### [facility] [address] [place] [address] CNPN Observed: 07/21/2024 12:00 AM Status: COMPLETED Source: [facility] Telephone (DERMAV) MARKO WARREN ([id number]) 1975 F Date Time Provider Department 07/21/24 [...] Observed: 07/18/2024 4:07 PM Status: COMPLETED Source: [facility] HNO ID: [id number] Author: TONIE LUBIN RN Service: ? Author [...] Observed: 07/18/2024 4:00 PM Status: COMPLETED Source: [facility] Nurse Visit (DERMAV) MARKO WARREN ([id number]) 1975 F Date Time Provider Department 07/18/24 4:00 PM NURSE [facility] CHERELLE DERMOLIVERIO During your visit today, we [...] Observed: 07/07/2024 4:40 PM Status: COMPLETED Source: [facility] Office Visit (DERMAV) MARKO WARREN ([id number]) 1975 F Date Time Provider Department 07/07/24 [...] and ROS that were documented by my fws faculty assistant, who was scribing during the encounter, [...] skin eruption [R21] Order(s):SKIN / NAIL BIOPSY [1412112] Order #: [id number]: 1 SURGICAL PATHOLOGY [[id number]] Order #: [id number] STANDING SURGICAL PATHOLOGY [[id number]] Order #: [id number]. #:[id number] doxycycline monohydrate (MONODOX) 100 mg capsuleTake 1 [...] for Encounter Date Provider Department Center 07/07/2024 [id number]-GHAMXDEKRHELEN TORRES Encounter Status:Closed by TIFFANI HOWADR on 08/06/24 SURGICAL PATHOLOGY Collected: 07/07/2024 4:39 PM Sta tus: F Source: [facility] Order Comment: Specimen Type : TISSUE SPECIMEN Ordering Facility: [facility] Address: [address] [place] [address] TYPE CODE TESTS RESULT OUT OF RANGE REFERENCE UNITS PATHOLOGY [id number] CASE REPORT Result Comment: Surgical Pat hology Report Case: [id number] Authorizing Provider: Tiffani Torres MD Collected: 07/07/2024 04:39 PM Ordering Location: Dermatology Received: 07/07/2024 05:13 PM Pathologist: Javier Duncan MD, PhD Specimen: Skin, Right Vertex Scalp PATHOLOGY [id number] FINAL DIAGNOSIS Result Comment: A. Skin, rig ht vertex scalp, punch biopsy: - Compatible with lichen planopilaris, see comment. AF/EB 07/14/2024 OLOGY [id number] DIAGNOSIS COMMENT Result Comment: A. Sections demonstrate [...] clinical setting. Clinical correlation remains essential. PATHOLOGY [id number] GROSS DESCRIPTION A. Skin Result Comment: Received in formalin is a cylindrical segment of skin and subcutaneous tissue measuring 0.4 x 0.4 x 0.4 cm. The specimen is not sectioned. Totally submitted in one cassette. July 11, 2024 12:11 PM [place] [address] PATHOLOGY [facility] FINAL PERFORMING LAB Result Comment: Diagnostic i nterpretation performed at [place] [address] CLIA# [id number] Spline Rolling Machine Job Setter: Jovi Sellers M.D. Performed By: #### S #### [facility] CLIA [id number] [address] [place], [place] [address]K [address] OF [place] PROGRESS Observed: 07/07/2024 4:26 PM Status: COMPLETED Source: [facility] HNO ID: [id number] Author: TIFFANI TORRES MD Service: ? Author [...] and ROS that were documented by my fws faculty assistant, who was scribing during the encounter, were confirmed by me and I agree with the content of these sections. I have made any required additions or deletions to the HPI/PFSH/ROS as needed. The physical exam and any procedures were performed by me, unless otherwise noted. Tiffani Torres MD PROGRESS Observed: 07/04/2024 10:04 AM Status: COMPLETED [facility] [id number] Author: TIFFANI TORRES MD Service: ? Author Type: Physician Type: Progress Notes Filed: 08/05/2024 11:00 Note Text: VIRTUAL VISIT PROGRESS NOTE This is a virtual visit using Patient Engagement Systems video visit. It required patient-provider interaction for the medical decision making as documented below. I have communicated my name and active licensure. The patient's identity and physical location were verified at the time of this visit. Either the patient or their legal representative government relations has been informed of the risks and [...] Abs Lymph 1.00 - 4.00 k/uL 2.17 [place]% % 4.7 Abs [place] <0.87 k/uL 0.38 Eosin% % 0.1 Abs [...] Negative Ketones, Urine Negative, Trace Negative Specific Durand, Ur 1.005 - 1.030 1.006 Hemoglobin/Blood,Ur Negative, [...] Past Histories independently gathered by the clinical manager client support and the remaining scribed note accurately describes my personal service to the patient. Tiffani Torres MD. IRON Collected: 10:32 AM Status: F Source: [facility] TYPE CODE TESTS RESULT OUT OF RANGE REFERENCE UNITS LAB 2498-4(LOINC) IRON:MCNC:PT :SER/PLAS:QN : 64 Normal 35-153 microgram/ dL Performed By: #### [id number] # ### [facility] [address] [place] [address] TIBC CALCULATED Collected: 06/03/2024 10:32 AM Statu s: F Source: [facility] TYPE CODE TESTS RESULT OUT OF RANGE REFERENCE UNITS LAB 2500-7(LOINC) IRON BINDING CAPACITY:MCNC:P T:SER/PLAS:QN: 365 Normal 250-400 microgram /dL LAB 52865177(LOINC) Transferrin 261 Normal 200-370 mg/d L Performed By: #### [id number] #### [facility] [address] [place] [address] FERRITIN Collected: 10:32 AM Status: F Source: [facility] TYPE CODE TESTS RESULT OUT OF RANGE REFERENCE UNITS LAB 2276-4(LOINC) FERRITIN:MCNC :PT:SER/PLAS: QN: 28 Normal 11-307 ng/mL Performed By: #### [id number] # ### [facility] [address] [place] [address] TSH Collected: 10:32 AM Status: F Source: [facility] TYPE CODE TESTS RESULT OUT OF RANGE REFERENCE UNITS LAB 3016-3(LOINC) THYROTROPIN: ACNC:PT:SER/ PLAS:QN: 0.37 Normal 0.34-5.60 mcIU/mL Performed By: #### [id number] # ### [facility] [address] [place] [address] CBC W/ AUTO DIFF Collected: 06/03/2024 10:32 AM Stat us: F Source: [facility] TYPE CODE TESTS RESULT OUT OF RANGE REFERENCE UNITS LAB 80666-0(LOINC) LEUKOCYTES^^OSWALDO ECTED FOR NUCLEATED ERYTHROCYTES:NCN C:PT:BLD:QN:AUTO MATED COUNT 5.7 Normal 4.0-11.0 E9/L LAB 789-8(INC) ERYTHROCYTES:NCN C:PT:BLD:QN:AUTO MATED COUNT 5.0 Normal 4.3-5.9 E12/L LAB 718-7(INC) HEMOGLOBIN:MCNC: PT:BLD:QN: 14.9 Normal 12.0-16.0 gm/dL LAB 4544-3([facility]) HEMATOCRIT:VFR:P T:BLD:QN:AUTOMAT ED COUNT 44.8 Normal 34.0-46.0 % LAB 788-0([facility]) ERYTHROCYTE DISTRIBUTION WIDTH:RATIO:PT:R BC:QN:AUTOMATED COUNT 13.8 Normal 10.9-14.2 % LAB 785-6([facility]) ERYTHROCYTE MEAN CORPUSCULAR HEMOGLOBIN:ENTMA SS:PT:RBC:QN:AUT OMATED COUNT 29.7 Normal 27.0-34.0 pg LAB 786-4([facility]) ERYTHROCYTE MEAN CORPUSCULAR HEMOGLOBIN CONCENTRATION:MC NC:PT:RBC:QN:AUT OMATED COUNT 33.2 Normal 31.4-36.0 gm/dL LAB 787-2([facility]) ERYTHROCYTE MEAN CORPUSCULAR VOLUME:ENTVOL:PT :RBC:QN:AUTOMATE D COUNT 89.4 Normal 80.0-100.0 fL LAB 66723-4([facility]) PLATELET MEAN VOLUME:ENTVOL:PT :BLD:QN:AUTOMATE D COUNT 9.9 Normal 6.4-10.8 fL LAB 777-3([facility]) PLATELETS:NCNC:P T:BLD:QN:AUTOMAT ED COUNT 223.0 Normal 150.0-500.0 E9/L LAB 41563-6([facility]) NEUTROPHILS/100 LEUKOCYTES:NFR:P T:BLD:QN: 61.7 Normal 36.0-75.0 % LAB 731-0(INC) LYMPHOCYTES:NCNC :PT:BLD:QN:AUTOM ATED COUNT 31.3 Normal 14.0-50.0 % LAB 742-7(INC) MONOCYTES:NCNC:P T:BLD:QN:AUTOMAT ED COUNT 0.3 Normal 0.2-1.0 E9/L LAB 713-8(INC) EOSINOPHILS/100 LEUKOCYTES:NFR:P T:BLD:QN:AUTOMAT ED COUNT 1.7 Normal 0.0-8.0 % LAB 704-7(LOINC) BASOPHILS:NCNC:P T:BLD:QN:AUTOMAT ED COUNT 0.4 Normal 0.0-2.0 % LAB 751-8(LOINC) NEUTROPHILS:NCNC :PT:BLD:QN:AUTOM ATED COUNT 3.5 Normal 2.0-7.5 E9/L LAB 50105-0([facility]) LYMPHOCYTES:NCNC :PT:BLD:QN: 1.8 Normal 1.0-4.0 E9/L LAB 08125-7([facility]) EOSINOPHILS:NCNC :PT:BLD:QN: 0.1 Normal 0.0-0.5 E9/L LAB 48021-1([facility]) BASOPHILS/LEUKOC YTES:NFR.DF:PT:B LD:QN:AUTOMATED COUNT 0.0 Normal 0.0-0.2 E9/L Performed By: #### [id number] # ### [facility] [address] [place] [address] T3 TOTAL Collected: 4 10:32 AM Status: F Source: [facility] TYPE CODE TESTS RESULT OUT OF RANGE REFERENCE UNITS LAB 3053-6([facility]) TRIIODOTHYRON INE:MCNC:PT:S ER/PLAS:QN: 112 Unknown 71-180 ng/dL Result Comment: Performed at : [facility] [address] [id number] PhD Ismael Limon Performed By: #### [id number] #### [facility] [address] [place] [address] FREE T4 Collected: 4 10:32 AM Status: F Source: [facility] TYPE CODE TESTS RESULT OUT OF RANGE REFERENCE UNITS LAB 3024-7([facility]) THYROXINE.ZAID E:MCNC:PT:SER /PLAS:QN: 1.04 Normal 0.58-1.64 ng/dL Performed By: #### [id number] # ### [facility] [address] [place] [address] ALLERGIES DATE TYPE / CODE NAME / CODE REACTION SEVERITY SOURCE 09/24/2022 DRUG INGREDI/4195 45180(SNOMED CT) CIPROFLOXACIN [facility] 08/18/2022 DRUG INGREDI/4195 06267(SNOMED CT) TRAMADOL GI UPSET [facility] 09/23/2012 DRUG INGREDI/4195 30875(SNOMED CT) CEFACLOR [facility] 09/23/2012 DRUG INGREDI/4195 87629(SNOMED CT) SUMATRIPTAN SUCCINATE ANAPHYLAXIS [facility] /038542681 (SNOMED CT) ciprofloxacin XN6938-8 [facility] MELVI023226536 (SNOMED CT) Ceclor Unknown [facility] MELVI262098417 (SNOMED CT) Imitrex Unknown [facility] MELVI350987517 (SNOMED CT) traMADol [id number] [facility] ENCOUNTERS ADMIT/DISCHARGE ACCOUNT NUMBER ADMITTING ENCOUNTER CLASS LOCATION SOURCE 03/27/2025/03/27/20 [id number] Ambulatory [facility] 03/23/2025/03/23/20 [id number] Ambulatory [facility] ing:[facility] 02/27/2025/02/28/20 25 [id number] Ambulatory [facility] ing:[facility] 02/06/2025/02/07/20 25 [id number] [facility] [place] [facility] 02/06/2025/02/07/20 25 [id number] Ambulatory [facility] ing[facility] 01/26/2025/01/27/20 [id number] Ambulatory [facility]Build ing:[facility] 01/19/2025/01/20/20 [id number] Ambulatory [facility] HospitalBuild ing:[facility] 01/05/2025/01/05/20 [id number] Ambulatory [facility] HospitalBuild ing:[facility] 12/26/2024/12/26/19 [id number] Ambulatory [facility] HospitalBuild ing:[facility] 12/19/2024/12/19/19 [id number] Ambulatory [facility] HospitalBuild ing:[facility] 11/21/2024/11/21/19 [id number] AMBER ELI [facility] 11/21/2024/11/21/19 [id number] Ambulatory [facility] HospitalBuild ing:[facility] 11/14/2024/11/14/19 [id number] [facility] 11/07/2024/11/07/20 24 [id number] MARTIN MARTINEZ [facility] 10/20/2024 [id number] MARTIN MARTINEZ [facility] 10/20/2024/10/20/20 24 [id number] MARTIN MARTINEZ [facility] 10/13/2024/10/13/20 24 [id number] [facility] 08/29/2024/08/29/20 24 [id number] [facility] 08/08/2024/08/08/20 24 [id number] Ambulatory [facility] ing:[facility] 08/05/2024 [id number] Moses Francois [facility] 08/05/2024/08/05/20 24 [id number] Moses Francois [facility] 07/25/2024/07/25/20 24 [id number] Ambulatory [facility] ing:[facility] 07/21/2024 [id number] MARTIN MARTINEZ [facility] 07/21/2024/07/21/20 24 [id number] MARTIN MARTINEZ [facility] 07/18/2024/07/18/20 24 [id number] Ambulatory [facility] HospitalBuild ing:[facility] 07/07/2024/08/29/20 24 [id number] Ambulatory [facility] HospitalBuild ing:[facility] 07/04/2024/08/29/20 24 [id number] [facility]/06/03/20 [id number] MARTIN MARTINEZ Ambulatory [facility]: [facility] 06/03/2024 [id number] MARTIN MARTINEZ Ambulatory [facility]: [facility] PAYERS ENCOUNTER GUARANTOR PAYER SUBSCRIBER SOURCE 03/27/2025 Primary Insuranc e:MMO SUPERMED PPOPolicy Number: [id number] Date:8986-12-57Aewr Name:Patrice CARO: [id number] [place] [address] [facility] 03/23/2025 Primary Insuranc e:MMO SUPERMED PPOPolicy Number: [id number] Date:0898-31-00Fmdl Name:Patrice CARO: [id number] [place] [address] [facility] 02/27/2025 Primary Insuranc e:MMO SUPERMED PPOPolicy Number: [id number] Date:4921-43-44Ftbh Name:Patrice CARO: [id number] [place] [address] [facility] 02/06/2025 Primary Insuranc e:MMO SUPERMED PPOPolicy Number: [id number] Date:6123-99-39Ffrg Name:Patrice CARO: [id number] [place] [address] [facility] 02/06/2025 Primary Insuranc e:MMO SUPERMED PPOPolicy Number: [id number] Date:1028-84-16Dqbr Name:Patrice WARRENB: [id number] [place] [address] [facility] 01/26/2025 Primary Insuranc e:MMO SUPERMED PPOPolicy Number: [id number] Date:3756-73-60Clco Name:Patrice WARRENB: [id number] [place] [address] [facility] 01/19/2025 Primary Insuranc e:MMO SUPERMED PPOPolicy Number: [id number] Date:2640-03-88Wlcs Name:Patrice Randolph NOLANB: [id number] [place] [address] [facility] 01/05/2025 Primary Insuranc e:MMO SUPERMED PPOPolicy Number: [id number] Date:8420-24-74Czou Name:Patrice Randolph GORDO: [id number] [place] [address] [facility] 12/26/2024 Primary Insuranc e:MMO SUPERMED PPOPolicy Number: [id number] Date:4703-07-13Gpxg Name:Patrice Randolph GORDO: [id number] [place] [address] [facility] 12/19/2024 Primary Insuranc e:MMO SUPERMED PPOPolicy Number: [id number] Date:0125-78-43Eisg Name:Patrice Randolph NOLANB: [id number] [place] [address] [facility] 11/21/2024 ALEXANDRIAFIDE Randolph NOLANB: [place] Kiml: [id number] (HP) Primary Insurance:MEDICAL MUTUALPolicy Number: [id number] Date:2546-74-17UY [address] [address]PZ: MARKO [place] [facility] 11/21/2024 Primary Insuranc e:MMO SUPERMED PPOPolicy Number: [id number] Date:0003-44-35Yuil Name:Patrice Randolph NOLANB: [id number] [place], [facility]57 [facility] 11/14/2024 Primary Insuranc e:MMO SUPERMED PPOPolicy Number: [id number] Date:0006-10-01Yoss Name:Patrice Randolph GORDO: [id number] [place], [facility]57 [facility] 11/07/2024 MARKO CARO: [place] HOLCOMBTel: [id number] (HP) Primary Insurance:MEDICAL MUTUALPolicy Number: [id number] Date:9718-96-42ME [address] [address]PV: MARKO [place] [facility] 10/20/2024 ALEXANDRIAFIDE Randolph GORDO: [place] HOLCOMBTejes: (HP) Primary Insurance:MEDICAL MUTUALPolicy Number: [id number] Date:6086-56-57ZB [address] [address]ZP: MARKO [place] [facility] 10/13/2024 Primary Insuranc e:MMO SUPERMED PPOPolicy Number: [id number] Date:7782-18-19Bvsh Name:Patrice Randolph GORDO: [id number] [place], [facility]57 [facility] 08/29/2024 Primary Insuranc e:MMO SUPERMED PPOPolicy Number: [id number] Date:8383-12-47Jhcl Name:Patrice Randolph NOLANB: [id number] [place] [address] [facility] 08/08/2024 Primary Insuranc e:MMO SUPERMED PPOPolicy Number: [id number] Date:5977-61-65Zcdt Name:Patrice WARRENB: [id number] [place] [address] [facility] 08/05/2024 MARKO Randolph NOLANB: [place] HOLCOMBTel: (HP) Primary Insurance:MEDICAL MUTUALPolicy Number: [id number] Date:3514-57-08RX [place] [id number]: MARKO [place] [facility] 07/25/2024 Primary Insuranc e:MMO SUPERMED PPOPolicy Number: [id number] Date:0922-91-86Yyuh Name:Patrice Randolph NOLANB: [id number] [place], [facility]57 [facility] 07/21/2024 ALEXANDRIAFIDE Randolph GORDO: [place] HOLCOMBTel: (HP) Primary Insurance:MEDICAL MUTUALPolicy Number: [id number] Date:9535-75-14TY [address] [place] [address]SN: MARKO [place] [facility] 07/18/2024 Primary Insuranc e:MMO SUPERMED PPOPolicy Number: [id number] Date:2944-53-21Fblv Name:Patrice WARRENOPAL: [id number] [place] [address] [facility] 07/07/2024 Primary Insuranc e:MMO SUPERMED PPOPolicy Number: [id number] Date:8069-12-30Kant Name:Patrice CARO: [id number] [place] [address] [facility] 07/04/2024 Primary Insuranc e:MMO SUPERMED PPOPolicy Number: [id number] Date:3781-35-68Mvzy Name:Patrice CARO: [id number] [place] [address] [facility] 06/03/2024 MARKO CARO: [place] Lott: () Primary Insurance:MEDICAL MUTUALPolicy Number: [id number] Date:2174-13-15[address], [place] [address]TT: MARKO [place] [facility]
--- NOTE | 2025-03-30 10:16 | MM_ITS ---
Patient Name: MARKO SORIANO MR#: [id number] : 1975 Exam Date: 03/30/2025 Ordering Doctor: DR BRISA OCASIO RADIOLOGY REPORT PROCEDURE: MM TOMOSYNTHESIS SCREENING BI COMPARISON: MM TOMOSYNTHESIS SCREENING BI, 03/28/2024. MG MAMM SCREEN 3D MONSERRAT CAD, 03/26/2023. MG MAMM SCREEN 3D MONSERRAT CAD, 03/24/2022. MG MAMM MONSERRAT DIAG W CAD DIG, 08/26/2007. INDICATIONS: Screening Calculator Name NCI Breast Cancer Risk Assessment Tool 5 Year Breast Cancer Risk 2.90% Lifetime Breast Cancer Risk 24.70% Personal Breast Cancer No Personal Ovarian Cancer No Treatments None Family Cancers Father with prostate cancer at age 61; Uncle-paternal with prostate cancer at age ~60; Uncle-paternal with prostate cancer at age ~60; Grandmother-paternal with uterine cancer at age ~40; Mother with breast cancer at age 70. LOCATION: [facility] BREAST COMPOSITION: The breasts are almost entirely fatty. FINDINGS: RIGHT BREAST: No significant suspicious finding. Benign-appearing calcifications are present. Benign-appearing lymph nodes are noted along the right chest wall. LEFT BREAST: No significant suspicious finding. Benign-appearing lymph nodes are noted along the left chest wall. DIAGNOSTIC CATEGORY 2--BENIGN FINDING: RECOMMENDATIONS: ROUTINE MAMMOGRAM AND CLINICAL EVALUATION IN 12 MONTHS. PLEASE NOTE: A NORMAL MAMMOGRAM DOES NOT EXCLUDE THE POSSIBILITY OF BREAST CANCER. A CLINICALLY SUSPICIOUS PALPABLE LUMP SHOULD BE BIOPSIED. Dictated by: Crow Roth MD on 03/30/2025 at 17:00 Approved by: Crow Roth MD on 03/30/2025 at 17:02
== END 2025-03-30 10:14 | disposition home or self-care (01) ==
LOC: MAMMO 10:13
PROVIDERS: PCP Internal Medicine; Visit Provider Obstetrics & Gynecology
DX: Z12.31 Encounter for screening mammogram for malignant neoplasm of breast (principal); Z80.42 Family history of malignant neoplasm of prostate; Z80.3 Family history of malignant neoplasm of breast; Z80.8 Family history of malignant neoplasm of other organs or systems
CPT/HCPCS: 77063; 77067; 80076

== ENCOUNTER 2025-03-30 10:47 | Outpatient (OUT) | payer OTHER, SELFPAY ==
--- OUTSIDE RECORDS SUMMARY | 2024-09-19 07:00 | XMS_ITS ---
Author Organization [facility] Address [address] [place] [address] Care Team Providers Care [employer] Portal Consultant Name Role Phone Amber Rosario Primary Care Provider [phone] REASON FOR VISIT 6 month f/u Encounters Encounter Location Date Provider Diagnosis [facility] [address] [place] [address] 09/19/2024 Amber Rosario Plan Of Treatment Next Appt Details Provider Name:Amber Rosario, 06/04/2025 08:30:00 AM, [address], [place], [address], Progress Notes * KOLTON SORIANOHDOB:[birth year] (49 yo F)Acc No.[id number]:09/19/2024 Behavioral Health Patient: MARKO MALIN Appointment Provider: Tomasa Rosario :1975 A ge:49 Y S ex:Female Date:09/19/2024 Address:[address] , [id number] Subjective: * Chief Complaints: * 1 . 6 month f/u. * Medical History: Objective: * Vitals: Assessment: Plan: * Treatment: * Images: * Electronic signature of JN Pacheco FNP on 03/30/2025 at 10:50 AM EDT Sign off status: Pending * Appointment Provider: Tomasa Rosario Date: 11/19/2023 Generated for Printi ng/Faxing/eTransmitting on: 0 03/30/2025 10:50 AM EDT
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
--- OUTSIDE RECORDS SUMMARY | 2025-03-27 11:03 | XMS_ITS ---
Author Name Auto Generated Organization [place] Care Team Providers Care Prototype Engineer Name Role Phone AINSLEY NUGENT Referring Unavailable MARTIN MARTINEZ Primary Care Unavailable HUBER, MARTIN Attending Unavailable BALL, MARTIN Admitting Unavailable Printy, Moses Carey Attending Unavailable Printy, Moses Carey Admitting Unavailable BALL, MARTIN Admitting Unavailable BALL, MARTIN Attending Unavailable ELI, AMBER Harvey Admitting Unavailable ELI, AMBER Harvey Attending Unavailable ELI, AMBER Harvey Referring Unavailable BALL, MARTIN Referring Unavailable BALL, MARTIN Admitting Unavailable BALL, MARTIN Attending Unavailable MD Yoav Bruno Consulting Unavailable Yoav Bruno Consulting Unavailable Yoav Bruno Consulting Unavailable HUBER, MARTIN Attending Unavailable BALL, MARTIN Admitting Unavailable BALL, MARTIN Attending Unavailable BALL, MARTIN Admitting Unavailable BALL, MARTIN Admitting Unavailable BALL, MARTIN Attending Unavailable Printy, Moses Carey Admitting Unavailable Printy, Moses Carey Attending Unavailable BALL, MARTIN Admitting Unavailable BALL, MARTIN Attending Unavailable MARTIN MARTINEZ E Primary Care Unavailable ROSELYN CAMARGO Attending Unavailable MARTIN MARTINEZ E Primary Care Unavailable AINSLEY NUGENT Attending Unavailable HUBER, MARTIN E Primary Care Unavailable TROVATOROSELYN Attending Unavailable HUBER, MARTIN E Primary Care Unavailable TROVATO, ROSELYN Attending Unavailable MARTIN MARTINEZ E Primary Care Unavailable TROVATOROSELYN Attending Unavailable HUBER, MARTIN E Primary Care Unavailable BALL, MARTIN E Primary Care Unavailable SELF Referring Unavailable BALL, MARTIN E Primary Care Unavailable BALL, MARTIN E Primary Care Unavailable BALL, MARTIN E Primary Care Unavailable HUBER, MARTIN E Primary Care Unavailable TIFFANI TORRES Attending Unavailab le TIFFANI TORRES Attending Unavailab le MARTIN MARTINEZ E Primary Care Unavailable TIFFANI TORRES Attending Unavailab le MARTIN MARTINEZ E Primary Care Unavailable HUBER, MARTIN E Primary Care Unavailable MARTIN MARTINEZ Primary Care Unavailable TIFFANI TORRES Attending Unavailab MARTIN Funes Primary Care Unavailable TIFFANI TORRES Attending Unavailab MARTIN Funes Primary Care Unavailable TIFFANI TORRES Attending Unavailab TIFFANI Arora Referring Unavailab MARTIN Funes Primary Care Unavailable PROBLEMS DATE TYPE CONDITION / CODE ATTENDING STATUS [facility] 03/27/2025 Active 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(ICD-10) ROSELYN CAMARGO Active [facility] 02/06/2025 Active Vitamin D defici ency / E55.9(ICD-10) [facility] 02/06/2025 Active Thyroid disease / E07.9(ICD-10) [facility] 02/06/2025 Active Elevated sed rat e / R70.0(ICD-10) [facility] 02/06/2025 Active Elevated C-react clint protein (CRP) / R79.82(ICD-10) [facility] 02/06/2025 Active Elevated LFTs / R79.89(ICD-10) [facility] 02/06/2025 Active Screening-pulmon cody TB / Z11.1(ICD-10) [facility] 02/06/2025 Active Anemia of chroni c disease / D63.8(ICD-10) [facility] 02/06/2025 Active Vitamin B12 defi ciency / E53.8(ICD-10) [facility] 02/06/2025 Active Hyperuricemia / E79.0(ICD-10) [facility] 02/06/2025 Active Hypotestosterone gene / E34.9(ICD-10) [facility] 02/06/2025 Active Fatigue, unspeci fied type / R53.83(ICD-10) [facility] 02/06/2025 Active Mixed hyperlipid emia / E78.2(ICD-10) [facility] 02/06/2025 Active Iron deficiency / E61.1(ICD-10) [facility] 01/26/2025 Active Hair Loss / UNK(Unknown) ROSELYN SOLIZ Active [facility] 08/08/2024 Active Encounter for me dication management / Z79.899(ICD-10) TIFFANI TORRES Active [facility] 07/04/2024 Active Telogen effluviu m / L65.0(ICD-10) TIFFANI TORRES Active [facility] 07/04/2024 Active Hypovitaminosis D / E55.9(ICD-10) TIFFANI TORRES Active [facility] PROCEDURES No Procedure Records Found RESULTS CNOV Observed: 03/27/2025 11:15 AM Status: COMPLETED Source: [facility] Office Visit (DERMAV) MARKO WARREN ([id number]) 1975 F Date Time Provider Department 03/27/25 11:15 AM ROSELYN CAMARGO DERMAV During your visit today, we recorded the following information about you: Roselyn Camargo MD 03/27/2025 5:03 PM Signed SUBJECTIVE/OBJECTIVE ESTABLISHED PATIENT Referring provider: No ref. provider found 03/27/2025 Last Visit to [facility] Dermatology: 02/27/2025 Reason(s) for Visit/History of Present Illness (HPI): Marko Warren is a 49 year old female. Patient presents with: Hair Loss #Follow-up: - Follow-up Diagnosis: lichen plano pilaris - Current treatments: fluocinonide (LIDEX) 0.05 % external solution - Ciclopirox 1 % sham; Use 2-3x weekly as needed - Minoxidil 5% - ILK 02/27/2025 - Doxycycline 100 mg BID on since June - hydroxychloroquine to 200 mg twice daily - oral progesterone 100 mg every other day - dex pulse dose given flare and acute shed 4mg x 2 consecutive days x 4 weeks Previous treatment - minoxidil stopped due to low BP - Naltrexone 4.5 mg stopped due to high liver enzymes - How are they doing since last visit? No significant growth, increased decadron for scalp pain took the med -Wednesday Stopped Doxycycline due to sunburn on nose. No / Not applicable Contraception: PAST MEDICAL HISTORY Diagnosis Date Depression Ectopic Generalized anxiety disorder Migraine, intractable Ovarian cyst Unspecified hypothyroidism since 1999, age 25 Hypothyroidism Social History Tobacco Use Smoking status: Never Smokeless tobacco: Never Vaping Use Vaping status: Never Used Substance Use Topics Alcohol use: Not Currently Drug use: No ALLERGIES Allergen Reactions Ceclor [Cefaclor] Hives Ciprofloxacin Hives Imitrex [Sumatripta* Anaphylaxis Respiratory Distress Tramadol GI Upset Nausea Current Outpatient Medications Medication Sig fluocinonide (LIDEX) [...] 1 tablet on 2 consecutive days for 2 weeks then stop dexAMETHasone (DECADRON) 4 mg tablet Take 1 tab daily on Wednesday and Wednesday for 4 weeks hydrOXYchloroQUINE (PLAQUENIL) 200 mg tablet Take 1 tablet by mouth two times a day. OLANZapine (ZYPREXA) 7.5 mg tablet Take 7.5 mg by mouth daily at bedtime. doxycycline monohydrate (MONODOX) 100 mg capsule Take 1 capsule by mouth two times a day. (Patient not taking: Reported on 03/27/2025) naltrexone capsule 4.5 mg (CPD) Take 1 [...] by mouth every morning. on an empty stomach. Wait one hour before eating or taking other medications. Vit-Iron Fumarate-FA (CO-BROOKE FA) 29-1 mg Tab Take 1 tab once daily ROS: As per HPI. PHYSICAL EXAM: Pleasant female in no apparent distress. Appropriate mood and affect. A skin exam of the scalp was performed, with pertinent findings as noted below. ASSESSMENT AND PLAN Skin Exam 1. LICHEN PLANOPILARIS Dry flaking scalp with moderate background erythema not at goal - chronic Continue previous tx: - fluocinonide (LIDEX) 0.05 % external solution - Ciclopirox 1 % sham; Use 2-3x weekly as needed - Minoxidil 5% - ILK --> today and continue in 4 weeks hydroxychloroquine to 200 mg twice daily - STOP Doxycycline 100 mg BID --> CAUSING SUNBURNS - HOLD --> Naltrexone 4.5 mg daily --> PT WITH LFT ELEVATION - WAITING FOR RECHECK - CONSIDER RESTARTING AT 3 MG DAIY Continue dex pulse dose given flare and acute shed - 3 mg on 2 consecutive days x 1 week, 2 mg on 2 consecutive days x 1 week, 1` mg on 2 consecutive days x 1 week then stop Briefly discussed oral methotrexate, oral Ilana - pt declines at this time (ADR reviewed, but not limited to: hypertension, skin atrophy and impaired wound healing, peripheral edema, nausea/vomiting, increased risk of gastric ulcerations, increased risk of infection, hyperglycemia and risk of adrenal insufficiency with tapering, ocular issues including cataracts, glaucoma, insomnia, mood instability, muscle weakness, osteopenia/osteoporosis and risk of osteonecrosis of the hip. Instructed patient to stop medication and go to ER immediately if develops new onset hip pain.) Avoid minox orally d/t hypotension (consider lower dose) Intralesional Corticosteroid Procedure Note: After discussion of various treatment options, including observation, the patient elected intralesional corticosteroid injection. Informed verbal consent was obtained. The patient was made aware of possible side effects, including transient atrophy and telangiectasias. The injection sites were cleaned with alcohol swabs. Triamcinolone acetonide 2.5 AND 5 mg/mL was injected in the deep dermal/upper subcutaneous plane using a 1/2 inch long 30-gauge needle at 0.5-1 cm intervals, ~0.1 mL with each injection. The total amount of triamcinolone injected was 2 mL (ILK2.5) and 3 mL (ILK5) at the following site(s): see below. Blood loss did not exceed pinpoint bleeding at the injection sites. The patient tolerated the procedure well without complications. Total lesions: (frontal hairline, frontal scalp, mid scalp, scalp vertex, left parietal scalp, right parietal scalp) - 6 lesions Related Medications Ciclopirox 1 % sham Use 2-3x weekly as needed. Massage shampoo into scalp until lather. Leave on for 3 to 5 minutes, then rinse thoroughly. dexAMETHasone (DECADRON) 4 mg tablet Take 1 tab daily on Wednesday and Wednesday for 4 weeks hydrOXYchloroQUINE (PLAQUENIL) 200 mg tablet Take 1 tablet by mouth two times a day. dexAMETHasone (DECADRON) 1 mg tablet Take 3 tablets daily on 2 consecutive days for 2 weeks. Then take 2 tablets daily on 2 consecutive days for 2 weeks then take 1 tablet on 2 consecutive days for 2 weeks then stop fluocinonide (LIDEX) 0.05 % external solution Apply to affected areas on scalp 3x weekly. Leave on for at least 8 hrs. Scalp treatment only, do not apply to lengths. triamcinolone acetonide 10 mg injection (KeNALog 10) 2. DISTURBANCE OF SKIN SENSATION Related Medications dexAMETHasone (DECADRON) 1 mg tablet Take 3 tablets daily on 2 consecutive days for 2 weeks. Then take 2 tablets daily on 2 consecutive days for 2 weeks then take 1 tablet on 2 consecutive days for 2 weeks then stop triamcinolone acetonide 10 mg injection (KeNALog 10) The above reflects my independent exam and review. I saw and examined the patient myself personally. Parts of the HPI, ROS,exam and impression/plan may have been copied from my personal previous clinical note and remain pertinent. Currrent changes have been made and documented today. Other parts or data were deleted if not relevant for today. Plan as outlined. Prescription drug management: The risks, side effects, benefits, and expected outcomes were discussed with the patient. - Discussed the importance of photoprotection. Recommend over the counter medication: sunscreen with SPF 30+ and broad spectrum protection. Follow Up: Return for 4-6 week [address] Camargo for ILK inj. Attestation: The documentation for this note was completed by Chery Oviedo LPN/Tonie Deutsch RN acting as scribe for Roselyn Camargo MD. Electronically Signed: Chery Oviedo LPN on March 27, 2025 11:18 AM. The above named person served as a medical sql server bi developer during today's visit. I have seen and examined the patient. I agree with the Chief Complaint, ROS, and Past Histories independently gathered by the clinical support group manager and the remaining scribed note accurately describes my personal service to the patient. 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 Leave on for at least 8 hrs. Scalp treatment only, do not apply to lengths. - dexAMETHasone (DECADRON) 1 mg tablet Take 3 tablets daily on 2 consecutive days for 2 weeks. Then take 2 tablets daily on 2 consecutive days for 2 weeks then take 1 tablet on 2 consecutive days for 2 weeks then stop - dexAMETHasone (DECADRON) 4 mg tablet Take 1 tab daily on Wednesday and Wednesday for 4 weeks - hydrOXYchloroQUINE (PLAQUENIL) 200 mg tablet Take 1 tablet by mouth two times a day. - OLANZapine (ZYPREXA) 7.5 mg tablet Take 7.5 mg by mouth daily at bedtime. - doxycycline monohydrate (MONODOX) 100 mg capsule Take 1 capsule by mouth two times a day. - naltrexone capsule 4.5 mg (CPD) Take 1 capsule by mouth once daily. - Ciclopirox 1 % sham Use 2-3x weekly as needed. Massage shampoo into scalp until lather. Leave on for 3 to 5 minutes, then rinse thoroughly. - gabapentin (NEURONTIN) 600 mg tablet Take 1,200 mg by mouth three times a day. - estradiol (ESTRACE) 2 mg tablet with testoterone - rosuvastatin calcium (CRESTOR ORAL) Take by mouth. - metFORMIN (GLUCOPHAGE) 500 mg tablet TAKE 1 TABLET BY MOUTH TWICE A DAY FOR 90 DAYS - Progesterone Micronized 100 mg inst Use 1 Suppository vaginally once daily. - levothyroxine (SYNTHROID) 137 mcg tablet Take 1 tablet by mouth every morning. on an empty stomach. Wait one hour before eating or taking other medications. - Vit-Iron Fumarate-FA (CO-BROOKE FA) 29-1 mg Tab Take 1 tab once daily Facility-Administered Medications as of 03/27/2025 - triamcinolone acetonide 20 mg injection (KeNALog 10) Problem List As Of Date 03/27/2025 Noted Resolved Other specified acquired hypothyroidism [E03.8] 09/23/2012 06/16/2016 Kel's thyroiditis [E06.3] 09/23/2012 Chronic fatigue [R53.82] 09/23/2012 Paresthesias [R20.2] 09/23/2012 Maternal age 35+, multigravida, antepartum [O09*11/14/2013 Previous delivery affecting ,*11/15/2013 Obesity in , antepartum [O99.210] 11/15/2013 Diarrhea [R19.7] 09/24/2022 09/24/2022 Rectal bleeding [K62.5] 09/24/2022 09/24/2022 Abdominal pain [R10.9] 09/24/2022 09/24/2022 Hair loss [L65.9] 02/06/2025 Thyroid disease [E07.9] 02/06/2025 Vitamin D deficiency [E55.9] 02/06/2025 Family history of rheumatoid arthritis [Z82.61] 02/06/2025 Family history of osteoporosis in mother [Z82.6*02/06/2025 Postmenopausal osteoporosis of multiple sites [*02/06/2025 Prescriptions ordered this encounter Disp Refills Start End TRIAMCINOLONE ACETONIDE 10 MG/ML BECKY* 03/27/2025 03/27/2025 Route: INTRALESIONA Level of Service: OFFICE/OUTPATIENT ESTABLISHED MOD MDM 30 MIN [68538] Disposition: Return for 4-6 week [address] Camargo for ILK inj. LOS History for Encounter Level of Service: OFFICE/OUTPATIENT ESTABLISHED MOD [facility] 30 MIN[53991] Date AND Time: 03-27-2025 5:03 PM Recorded by User: ROSELYN CAMARGO Follow-up and Disposition History for Encounter Date Provider Department Center 03/27/2025 [id number], STEPHANIEDERMAV Rej Encounter Status:Closed by ROSELYN CAMARGO on 03/27/25 PROGRESS Observed: 03/27/2025 11:15 AM Status: COMPLETED Source: [facility] HNO ID: [id number] Author: ROSELYN CAMARGO MD Service: ? Author Type: Physician Type: Progress Notes Filed: 03/27/2025 17:03 Note Text: SUBJECTIVE/OBJECTIVE ESTABLISHED PATIENT Referring provider: No ref. provider found 03/27/2025 Last Visit to [facility] Dermatology: 02/27/2025 Reason(s) for Visit/History of Present Illness (HPI): Marko Warren is a 49 year old female. Patient presents with: Hair Loss #Follow-up: - Follow-up Diagnosis: lichen plano pilaris - Current treatments: fluocinonide (LIDEX) 0.05 % external solution - Ciclopirox 1 % sham; Use 2-3x weekly as needed - Minoxidil 5% - ILK 02/27/2025 - Doxycycline 100 mg BID on since June - hydroxychloroquine to 200 mg twice daily - oral progesterone 100 mg every other day - dex pulse dose given flare and acute shed 4mg x 2 consecutive days x 4 weeks Previous treatment - minoxidil stopped due to low BP - Naltrexone 4.5 mg stopped due to high liver enzymes - How are they doing since last visit? No significant growth, increased decadron for scalp pain took the med -Wednesday Stopped Doxycycline due to sunburn on nose. No / Not applicable Contraception: PAST MEDICAL HISTORY Diagnosis Date Depression Ectopic Generalized anxiety disorder Migraine, intractable Ovarian cyst Unspecified hypothyroidism since 1999, age 25 Hypothyroidism Social History Tobacco Use Smoking status: Never Smokeless tobacco: Never Vaping Use Vaping status: Never Used Substance Use Topics Alcohol use: Not Currently Drug use: No ALLERGIES Allergen Reactions Ceclor [Cefaclor] Hives Ciprofloxacin Hives Imitrex [Sumatripta* Anaphylaxis Respiratory Distress Tramadol GI Upset Nausea Current Outpatient Medications Medication Sig fluocinonide (LIDEX) [...] 1 tablet on 2 consecutive days for 2 weeks then stop dexAMETHasone (DECADRON) 4 mg tablet Take 1 tab daily on Wednesday and Wednesday for 4 weeks hydrOXYchloroQUINE (PLAQUENIL) 200 mg tablet Take 1 tablet by mouth two times a day. OLANZapine (ZYPREXA) 7.5 mg tablet Take 7.5 mg by mouth daily at bedtime. doxycycline monohydrate (MONODOX) 100 mg capsule Take 1 capsule by mouth two times a day. (Patient not taking: Reported on 03/27/2025) naltrexone capsule 4.5 mg (CPD) Take 1 [...] by mouth every morning. on an empty stomach. Wait one hour before eating or taking other medications. Vit-Iron Fumarate-FA (CO-BROOKE FA) 29-1 mg Tab Take 1 tab once daily ROS: As per HPI. PHYSICAL EXAM: Pleasant female in no apparent distress. Appropriate mood and affect. A skin exam of the scalp was performed, with pertinent findings as noted below. ASSESSMENT AND PLAN Skin Exam 1. LICHEN PLANOPILARIS Dry flaking scalp with moderate background erythema not at goal - chronic Continue previous tx: - fluocinonide (LIDEX) 0.05 % external solution - Ciclopirox 1 % sham; Use 2-3x weekly as needed - Minoxidil 5% - ILK --> today and continue in 4 weeks hydroxychloroquine to 200 mg twice daily - STOP Doxycycline 100 mg BID --> CAUSING SUNBURNS - HOLD --> Naltrexone 4.5 mg daily --> PT WITH LFT ELEVATION - WAITING FOR RECHECK - CONSIDER RESTARTING AT 3 MG DAIY Continue dex pulse dose given flare and acute shed - 3 mg on 2 consecutive days x 1 week, 2 mg on 2 consecutive days x 1 week, 1` mg on 2 consecutive days x 1 week then stop Briefly discussed oral methotrexate, oral Ilana - pt declines at this time (ADR reviewed, but not limited to: hypertension, skin atrophy and impaired wound healing, peripheral edema, nausea/vomiting, increased risk of gastric ulcerations, increased risk of infection, hyperglycemia and risk of adrenal insufficiency with tapering, ocular issues including cataracts, glaucoma, insomnia, mood instability, muscle weakness, osteopenia/osteoporosis and risk of osteonecrosis of the hip. Instructed patient to stop medication and go to ER immediately if develops new onset hip pain.) Avoid minox orally d/t hypotension (consider lower dose) Intralesional Corticosteroid Procedure Note: After discussion of various treatment options, including observation, the patient elected intralesional corticosteroid injection. Informed verbal consent was obtained. The patient was made aware of possible side effects, including transient atrophy and telangiectasias. The injection sites were cleaned with alcohol swabs. Triamcinolone acetonide 2.5 AND 5 mg/mL was injected in the deep dermal/upper subcutaneous plane using a 1/2 inch long 30-gauge needle at 0.5-1 cm intervals, ~0.1 mL with each injection. The total amount of triamcinolone injected was 2 mL (ILK2.5) and 3 mL (ILK5) at the following site(s): see below. Blood loss did not exceed pinpoint bleeding at the injection sites. The patient tolerated the procedure well without complications. Total lesions: (frontal hairline, frontal scalp, mid scalp, scalp vertex, left parietal scalp, right parietal scalp) - 6 lesions Related Medications Ciclopirox 1 % sham Use 2-3x weekly as needed. Massage shampoo into scalp until lather. Leave on for 3 to 5 minutes, then rinse thoroughly. dexAMETHasone (DECADRON) 4 mg tablet Take 1 tab daily on Wednesday and Wednesday for 4 weeks hydrOXYchloroQUINE (PLAQUENIL) 200 mg tablet Take 1 tablet by mouth two times a day. dexAMETHasone (DECADRON) 1 mg tablet Take 3 tablets daily on 2 consecutive days for 2 weeks. Then take 2 tablets daily on 2 consecutive days for 2 weeks then take 1 tablet on 2 consecutive days for 2 weeks then stop fluocinonide (LIDEX) 0.05 % external solution Apply to affected areas on scalp 3x weekly. Leave on for at least 8 hrs. Scalp treatment only, do not apply to lengths. triamcinolone acetonide 10 mg injection (KeNALog 10) 2. DISTURBANCE OF SKIN SENSATION Related Medications dexAMETHasone (DECADRON) 1 mg tablet Take 3 tablets daily on 2 consecutive days for 2 weeks. Then take 2 tablets daily on 2 consecutive days for 2 weeks then take 1 tablet on 2 consecutive days for 2 weeks then stop triamcinolone acetonide 10 mg injection (KeNALog 10) The above reflects my independent exam and review. I saw and examined the patient myself personally. Parts of the HPI, ROS,exam and impression/plan may have been copied from my personal previous clinical note and remain pertinent. Currrent changes have been made and documented today. Other parts or data were deleted if not relevant for today. Plan as outlined. Prescription drug management: The risks, side effects, benefits, and expected outcomes were discussed with the patient. - Discussed the importance of photoprotection. Recommend over the counter medication: sunscreen with SPF 30+ and broad spectrum protection. Follow Up: Return for 4-6 week [address] Camargo for ILK inj. Attestation: The documentation for this note was completed by Chery Oviedo LPN/Tonie Deutsch RN acting as scribe for Roselyn Camargo MD. Electronically Signed: Chery Oviedo LPN on March 27, 2025 11:18 AM. The above named person served as a medical sql server bi developer during today's visit. I have seen and examined the patient. I agree with the Chief Complaint, ROS, and Past Histories independently gathered by the clinical support group manager and the remaining scribed note accurately describes my personal service to the patient. Roselyn Camargo MD Department of Dermatology PROGRESS Observed: 03/23/2025 9:00 AM Status: COMPLETED Source: [facility] HNO ID: [id number] Author: ROSELYN CAMARGO MD Service: ? Author Type: Physician Type: Progress Notes Filed: 03/23/2025 17:00 Note Text: [facility] Department of Dermatology VIRTUAL VISIT PROGRESS NOTE This Team Access Model visit is a virtual encounter. It required patient-provider interaction for the medical decision making as documented below. I have communicated my name and active licensure. The patient's identity and physical location were verified at the time of this visit. Either the patient or their legal senior sales representative has been informed of the risks and benefits of -- and alternatives to -- treatment through a remote evaluation and consents to proceed with the evaluation remotely. This visit was completed virtually, using synchronous telemedicine technology (Or[employer]). New patient/Established patient : Established CHIEF COMPLAINT: Derm Problem HISTORY OF PRESENT ILLNESS: Marko Warren is a 49 year old female here for evaluation of significant erythema of nose. Patient location at time of appointment: [facility] #erythema Location: nose Severity: significant erythema to [...] 1 tablet on 2 consecutive days for 2 weeks then stop dexAMETHasone (DECADRON) 4 mg tablet [...] by mouth every morning. on an empty stomach. Wait one hour before eating or taking other [...] - erythema on nose in photodistribution ASSESSMENT AND PLAN: 49 year old female with: 1. [...] which included preparing to see the patient, [id number] patient care, completing clinical documentation, performing a medically appropriate examination, counseling and educating the patient/family/caregiver, and ordering medications, tests, or procedures. The documentation for this note was partially completed by Janeth Diehl RN acting as scribe for Roselyn Camargo MD Provider Attestation: I, Roselyn Camargo MD, personally performed the services described in this documentation. All medical record entries made by the scribe were at my direction and in my presence. I have reviewed the chart and discharge instructions (if applicable) and agree that the record reflects my personal performance and is accurate and complete. Electronically Signed: Roselyn Camargo MD. March 23, 2025 4:58 PM RTC as scheduled or sooner if something concerning arises. Roselyn Camargo MD March 23, 2025 CNOV Observed: 02/27/2025 11:30 AM Status: COMPLETED Source: [facility] Office Visit (DERMAV) MARKO WARREN ([id number]) 1975 F Date Time Provider Department 02/27/25 11:30 AM ROSELYN CAMARGO DERMOLIVERIO During your visit today, we recorded the following information about you: Roselyn Camargo MD 02/27/2025 2:34 PM Signed SUBJECTIVE/OBJECTIVE ESTABLISHED PATIENT Referring provider: No ref. provider found 02/27/2025 Last Visit to [facility] Dermatology: 01/05/2025 Reason(s) for Visit/History of Present Illness (HPI): Marko Warren is a 49 year old female. Patient presents with: Hair Loss #Follow-up: - Follow-up Diagnosis: lichen plano pilaris - Hair sill till falling out. Started Nutrafol and thinks she was allergic to it. Developed hives. Also gained about 10 lbs since starting the decadron. Current treatments: - fluocinonide (LIDEX) 0.05 % external solution - Ciclopirox 1 % sham; Use 2-3x weekly as needed - Minoxidil 5% - ILK 01/19/25 - Doxycycline 100 mg BID on since June - Naltrexone 4.5 mg daily - hydroxychloroquine to 200 mg twice daily - oral progesterone 100 mg every other day - dex pulse dose given flare and acute shed 4mg x 2 consecutive days x 4 weeks Previous treatment - minoxidil stopped due to low BP - Naltrexone 4.5 mg stopped due to high liver enzymes No / Not applicable Contraception: none PAST MEDICAL HISTORY Diagnosis Date Depression Ectopic Generalized anxiety disorder Migraine, intractable Ovarian cyst Unspecified hypothyroidism since 1999, age 25 Hypothyroidism Social History Tobacco Use Smoking status: Never Smokeless tobacco: Never Vaping Use Vaping status: Never Used Substance Use Topics Alcohol use: Not Currently Drug use: No ALLERGIES Allergen Reactions Ceclor [Cefaclor] Hives Ciprofloxacin Hives Imitrex [Sumatripta* Anaphylaxis Respiratory Distress Tramadol GI Upset Nausea Current Outpatient Medications Medication Sig dexAMETHasone (DECADRON) 1 mg tablet Take 3 tablets daily on 2 consecutive days for 2 weeks. Then take 2 tablets daily on 2 consecutive days for 2 weeks then take 1 tablet on 2 consecutive days for 2 weeks then stop dexAMETHasone (DECADRON) 4 mg tablet [...] Take 1 capsule by mouth once daily. fluocinonide (LIDEX) 0.05 % external solution Apply to affected areas on scalp 3x weekly. Leave on for at least 8 hrs. Scalp treatment only, do not apply to lengths. Ciclopirox 1 % sham Use 2-3x weekly [...] by mouth every morning. on an empty stomach. Wait one hour before eating or taking other medications. Vit-Iron Fumarate-FA (CO-BROOKE FA) 29-1 mg Tab Take 1 tab once daily ROS: As per HPI. PHYSICAL EXAM: Pleasant female in no apparent distress. Appropriate mood and affect. A skin exam of the scalp was performed, with pertinent findings as noted below. ASSESSMENT AND PLAN Skin Exam 1. LICHEN PLANOPILARIS Dry flaking scalp with moderate background erythema not at goal - chronic Continue previous tx: - fluocinonide (LIDEX) 0.05 % external solution - Ciclopirox 1 % sham; Use 2-3x weekly as needed - Minoxidil 5% - ILK --> today and continue in 4 weeks - Doxycycline 100 mg BID on since June - Naltrexone 4.5 mg daily - hydroxychloroquine to 200 mg twice daily - oral progesterone 100 mg every other day Continue dex pulse dose given flare and acute shed 4mg x 2 consecutive days x 8 weeks (currently completed several weeks When completes 8 week course of above - start taper as instructed over course of 6 weeks (see rx sig) (ADR reviewed, but not limited to: hypertension, skin atrophy and impaired wound healing, peripheral edema, nausea/vomiting, increased risk of gastric ulcerations, increased risk of infection, hyperglycemia and risk of adrenal insufficiency with tapering, ocular issues including cataracts, glaucoma, insomnia, mood instability, muscle weakness, osteopenia/osteoporosis and risk of osteonecrosis of the hip. Instructed patient to stop medication and go to ER immediately if develops new onset hip pain.) Avoid minox orally d/t hypotension (consider lower dose) Intralesional Corticosteroid Procedure Note: After discussion of various treatment options, including observation, the patient elected intralesional corticosteroid injection. Informed verbal consent was obtained. The patient was made aware of possible side effects, including transient atrophy and telangiectasias. The injection sites were cleaned with alcohol swabs. Triamcinolone acetonide 2.5 AND 5 mg/mL was injected in the deep dermal/upper subcutaneous plane using a 1/2 inch long 30-gauge needle at 0.5-1 cm intervals, ~0.1 mL with each injection. The total amount of triamcinolone injected was 2 mL (ILK2.5) and 3 mL (ILK5) at the following site(s): see below. Blood loss did not exceed pinpoint bleeding at the injection sites. The patient tolerated the procedure well without complications. Total lesions: entire scalp (frontal hairline, frontal scalp, mid scalp, scalp vertex, left parietal scalp, right parietal scalp) - 6 lesions Related Medications fluocinonide (LIDEX) 0.05 % external solution Apply to affected areas on scalp 3x weekly. Leave on for at least 8 hrs. Scalp treatment only, do not apply to lengths. Ciclopirox 1 % sham Use 2-3x weekly as needed. Massage shampoo into scalp until lather. Leave on for 3 to 5 minutes, then rinse thoroughly. dexAMETHasone (DECADRON) 4 mg tablet Take 1 tab daily on Wednesday and Wednesday for 4 weeks hydrOXYchloroQUINE (PLAQUENIL) 200 mg tablet Take 1 tablet by mouth two times a day. dexAMETHasone (DECADRON) 1 mg tablet Take 3 tablets daily on 2 consecutive days for 2 weeks. Then take 2 tablets daily on 2 consecutive days for 2 weeks then take 1 tablet on 2 consecutive days for 2 weeks then stop triamcinolone acetonide 20 mg injection (KeNALog 10) 2. DISTURBANCE OF SKIN SENSATION Related Medications dexAMETHasone (DECADRON) 1 mg tablet Take 3 tablets daily on 2 consecutive days for 2 weeks. Then take 2 tablets daily on 2 consecutive days for 2 weeks then take 1 tablet on 2 consecutive days for 2 weeks then stop triamcinolone acetonide 20 mg injection (KeNALog 10) The above reflects my independent exam and review. I saw and examined the patient myself personally. Parts of the HPI, ROS,exam and impression/plan may have been copied from my personal previous clinical note and remain pertinent. Currrent changes have been made and documented today. Other parts or data were deleted if not relevant for today. Plan as outlined. Prescription drug management: The risks, side effects, benefits, and expected outcomes were discussed with the patient. - Discussed the importance of photoprotection. Recommend over the counter medication: sunscreen with SPF 30+ and broad spectrum protection. Follow Up: Return in about 4 weeks (around 03/27/2025) for 30 min procedure slot 4-6 weeks. Attestation: The documentation for this note was completed by Collette East MA acting as scribe for Roselyn Camargo MD. Electronically Signed: oCllette East MA on February 27, 2025 11:45 AM. The above named person served as a medical sql server bi developer during today's visit. I have seen and examined the patient. I agree with the Chief Complaint, ROS, and Past Histories independently gathered by the clinical support group manager and the remaining scribed note accurately describes my personal service to the patient. Electronically Signed: Roselyn Camargo MD at February 27, 2025 2:33 PM. Roselyn Camargo MD Department of Dermatology Allergies As of Date: 02/27/2025 Noted Allergy Reaction CECLOR (CEFACLOR) 09/23/2012 4 - Hives CIPROFLOXACIN 09/24/2022 4 - Hives IMITREX (SUMATRIPTAN SUCCINATE) 09/23/2012 10 - Anaphylaxis Comments: Respiratory Distress TRAMADOL 08/18/2022 8 - GI Upset Comments: Nausea Date Reviewed: 02/27/2025 Reviewed by: Collette East MA - Fully Assessed Reason for Visit: Hair Loss [933] Primary Visit Diagnosis:Lichen planopilaris [L66.10] Other Visit Diagnosis:Disturbance of skin sensation [R20.9] Order(s):dexAMETHasone (DECADRON) 1 mg tabletTake 3 tablets daily on 2 consecutive days for 2 weeks. Then take 2 tablets daily on 2 consecutive days for 2 weeks then take 1 tablet on 2 consecutive days for 2 weeks then stopDisp: 24 tabletRfl: 0 triamcinolone acetonide 20 mg injection (KeNALog 10)Disp: Rfl: Prescriptions as of 02/27/2025 - dexAMETHasone (DECADRON) 1 mg tablet Take 3 tablets daily on 2 consecutive days for 2 weeks. Then take 2 tablets daily on 2 consecutive days for 2 weeks then take 1 tablet on 2 consecutive days for 2 weeks then stop - dexAMETHasone (DECADRON) 4 mg tablet Take 1 tab daily on Wednesday and Wednesday for 4 weeks - hydrOXYchloroQUINE (PLAQUENIL) 200 mg tablet Take 1 tablet by mouth two times a day. - OLANZapine (ZYPREXA) 7.5 mg tablet Take 7.5 mg by mouth daily at bedtime. - doxycycline monohydrate (MONODOX) 100 mg capsule Take 1 capsule by mouth two times a day. - naltrexone capsule 4.5 mg (CPD) Take 1 capsule by mouth once daily. - fluocinonide (LIDEX) 0.05 % external solution Apply to affected areas on scalp 3x weekly. Leave on for at least 8 hrs. Scalp treatment only, do not apply to lengths. - Ciclopirox 1 % sham Use 2-3x weekly as needed. Massage shampoo into scalp until lather. Leave on for 3 to 5 minutes, then rinse thoroughly. - gabapentin (NEURONTIN) 600 mg tablet Take 1,200 mg by mouth three times a day. - estradiol (ESTRACE) 2 mg tablet with testoterone - rosuvastatin calcium (CRESTOR ORAL) Take by mouth. - metFORMIN (GLUCOPHAGE) 500 mg tablet TAKE 1 TABLET BY MOUTH TWICE A DAY FOR 90 DAYS - Progesterone Micronized 100 mg inst Use 1 Suppository vaginally once daily. - levothyroxine (SYNTHROID) 137 mcg tablet Take 1 tablet by mouth every morning. on an empty stomach. Wait one hour before eating or taking other medications. - Vit-Iron Fumarate-FA (CO- FA) 29-1 mg Tab Take 1 tab once daily Facility-Administered Medications as of 02/27/2025 - triamcinolone acetonide 20 mg injection (KeNALog 10) (Completed) - triamcinolone acetonide 20 mg injection (KeNALog 10) Problem List As Of Date 02/27/2025 Noted Resolved Other specified acquired hypothyroidism [E03.8] 09/23/2012 06/16/2016 Kel's thyroiditis [E06.3] 09/23/2012 Chronic fatigue [R53.82] 09/23/2012 Paresthesias [R20.2] 09/23/2012 Maternal age 35+, multigravida, antepartum [O09*11/14/2013 Previous delivery affecting ,*11/15/2013 Obesity in , antepartum [O99.210] 11/15/2013 Diarrhea [R19.7] 09/24/2022 09/24/2022 Rectal bleeding [K62.5] 09/24/2022 09/24/2022 Abdominal pain [R10.9] 09/24/2022 09/24/2022 Hair loss [L65.9] 02/06/2025 Thyroid disease [E07.9] 02/06/2025 Vitamin D deficiency [E55.9] 02/06/2025 Family history of rheumatoid arthritis [Z82.61] 02/06/2025 Family history of osteoporosis in mother [Z82.6*02/06/2025 Postmenopausal osteoporosis of multiple sites [*02/06/2025 Prescriptions ordered this encounter Disp Refills Start End DEXAMETHASONE 1 MG TABLET 24 t* 0 02/27/2025 Sig: Take 3 tablets daily on 2 consecutive days for 2 weeks. Then take 2 tablets daily on 2 consecutive days for 2 weeks then take 1 tablet on 2 consecutive days for 2 weeks then stop TRIAMCINOLONE ACETONIDE 10 MG/ML BECKY* 02/27/2025 02/27/2025 Route: INTRADERM. Level of Service: OFFICE/OUTPATIENT ESTABLISHED MOD MDM 30 MIN [28718] Disposition: Return in about 4 weeks (around 03/27/2025) for 30 min procedure slot 4-6 weeks. LOS History for Encounter Level of Service: OFFICE/OUTPATIENT ESTABLISHED MOD MDM 30 MIN[13608] Date AND Time: 02-27-2025 2:34 PM Recorded by User: ROSELYN CAMARGO Follow-up and Disposition History for Encounter Date Provider Department Center 02/27/2025 [id number], STEPHANIEDERMAV Rej Encounter Status:Closed by ROSELYN CAMARGO on 02/27/25 PROGRESS Observed: 02/27/2025 11:20 AM Status: COMPLETED [id number] Author: ROSELYN CAMARGO MD Service: ? Author Type: Physician Type: Progress Notes Filed: 02/27/2025 14:34 Note Text: SUBJECTIVE/OBJECTIVE ESTABLISHED PATIENT Referring provider: No ref. provider found 02/27/2025 Last Visit to [facility] Dermatology: 01/05/2025 Reason(s) for Visit/History of Present Illness (HPI): Marko Warren is a 49 year old female. Patient presents with: Hair Loss #Follow-up: - Follow-up Diagnosis: lichen plano pilaris - Hair sill till falling out. Started Nutrafol and thinks she was allergic to it. Developed hives. Also gained about 10 lbs since starting the decadron. Current treatments: - fluocinonide (LIDEX) 0.05 % external solution - Ciclopirox 1 % sham; Use 2-3x weekly as needed - Minoxidil 5% - ILK 01/19/25 - Doxycycline 100 mg BID on since June - Naltrexone 4.5 mg daily - hydroxychloroquine to 200 mg twice daily - oral progesterone 100 mg every other day - dex pulse dose given flare and acute shed 4mg x 2 consecutive days x 4 weeks Previous treatment - minoxidil stopped due to low BP - Naltrexone 4.5 mg stopped due to high liver enzymes No / Not applicable Contraception: none PAST MEDICAL HISTORY Diagnosis Date Depression Ectopic Generalized anxiety disorder Migraine, intractable Ovarian cyst Unspecified hypothyroidism since 1999, age 25 Hypothyroidism Social History Tobacco Use Smoking status: Never Smokeless tobacco: Never Vaping Use Vaping status: Never Used Substance Use Topics Alcohol use: Not Currently Drug use: No ALLERGIES Allergen Reactions Ceclor [Cefaclor] Hives Ciprofloxacin Hives Imitrex [Sumatripta* Anaphylaxis Respiratory Distress Tramadol GI Upset Nausea Current Outpatient Medications Medication Sig dexAMETHasone (DECADRON) 1 mg tablet Take 3 tablets daily on 2 consecutive days for 2 weeks. Then take 2 tablets daily on 2 consecutive days for 2 weeks then take 1 tablet on 2 consecutive days for 2 weeks then stop dexAMETHasone (DECADRON) 4 mg tablet [...] Take 1 capsule by mouth once daily. fluocinonide (LIDEX) 0.05 % external solution Apply to affected areas on scalp 3x weekly. Leave on for at least 8 hrs. Scalp treatment only, do not apply to lengths. Ciclopirox 1 % sham Use 2-3x weekly [...] by mouth every morning. on an empty stomach. Wait one hour before eating or taking other medications. Vit-Iron Fumarate-FA (CO-BROOKE FA) 29-1 mg Tab Take 1 tab once daily ROS: As per HPI. PHYSICAL EXAM: Pleasant female in no apparent distress. Appropriate mood and affect. A skin exam of the scalp was performed, with pertinent findings as noted below. ASSESSMENT AND PLAN Skin Exam 1. LICHEN PLANOPILARIS Dry flaking scalp with moderate background erythema not at goal - chronic Continue previous tx: - fluocinonide (LIDEX) 0.05 % external solution - Ciclopirox 1 % sham; Use 2-3x weekly as needed - Minoxidil 5% - ILK --> today and continue in 4 weeks - Doxycycline 100 mg BID on since June - Naltrexone 4.5 mg daily - hydroxychloroquine to 200 mg twice daily - oral progesterone 100 mg every other day Continue dex pulse dose given flare and acute shed 4mg x 2 consecutive days x 8 weeks (currently completed several weeks When completes 8 week course of above - start taper as instructed over course of 6 weeks (see rx sig) (ADR reviewed, but not limited to: hypertension, skin atrophy and impaired wound healing, peripheral edema, nausea/vomiting, increased risk of gastric ulcerations, increased risk of infection, hyperglycemia and risk of adrenal insufficiency with tapering, ocular issues including cataracts, glaucoma, insomnia, mood instability, muscle weakness, osteopenia/osteoporosis and risk of osteonecrosis of the hip. Instructed patient to stop medication and go to ER immediately if develops new onset hip pain.) Avoid minox orally d/t hypotension (consider lower dose) Intralesional Corticosteroid Procedure Note: After discussion of various treatment options, including observation, the patient elected intralesional corticosteroid injection. Informed verbal consent was obtained. The patient was made aware of possible side effects, including transient atrophy and telangiectasias. The injection sites were cleaned with alcohol swabs. Triamcinolone acetonide 2.5 AND 5 mg/mL was injected in the deep dermal/upper subcutaneous plane using a 1/2 inch long 30-gauge needle at 0.5-1 cm intervals, ~0.1 mL with each injection. The total amount of triamcinolone injected was 2 mL (ILK2.5) and 3 mL (ILK5) at the following site(s): see below. Blood loss did not exceed pinpoint bleeding at the injection sites. The patient tolerated the procedure well without complications. Total lesions: entire scalp (frontal hairline, frontal scalp, mid scalp, scalp vertex, left parietal scalp, right parietal scalp) - 6 lesions Related Medications fluocinonide (LIDEX) 0.05 % external solution Apply to affected areas on scalp 3x weekly. Leave on for at least 8 hrs. Scalp treatment only, do not apply to lengths. Ciclopirox 1 % sham Use 2-3x weekly as needed. Massage shampoo into scalp until lather. Leave on for 3 to 5 minutes, then rinse thoroughly. dexAMETHasone (DECADRON) 4 mg tablet Take 1 tab daily on Wednesday and Wednesday for 4 weeks hydrOXYchloroQUINE (PLAQUENIL) 200 mg tablet Take 1 tablet by mouth two times a day. dexAMETHasone (DECADRON) 1 mg tablet Take 3 tablets daily on 2 consecutive days for 2 weeks. Then take 2 tablets daily on 2 consecutive days for 2 weeks then take 1 tablet on 2 consecutive days for 2 weeks then stop triamcinolone acetonide 20 mg injection (KeNALog 10) 2. DISTURBANCE OF SKIN SENSATION Related Medications dexAMETHasone (DECADRON) 1 mg tablet Take 3 tablets daily on 2 consecutive days for 2 weeks. Then take 2 tablets daily on 2 consecutive days for 2 weeks then take 1 tablet on 2 consecutive days for 2 weeks then stop triamcinolone acetonide 20 mg injection (KeNALog 10) The above reflects my independent exam and review. I saw and examined the patient myself personally. Parts of the HPI, ROS,exam and impression/plan may have been copied from my personal previous clinical note and remain pertinent. Currrent changes have been made and documented today. Other parts or data were deleted if not relevant for today. Plan as outlined. Prescription drug management: The risks, side effects, benefits, and expected outcomes were discussed with the patient. - Discussed the importance of photoprotection. Recommend over the counter medication: sunscreen with SPF 30+ and broad spectrum protection. Follow Up: Return in about 4 weeks (around 03/27/2025) for 30 min procedure slot 4-6 weeks. Attestation: The documentation for this note was completed by Collette East MA acting as scribe for Roselyn Camargo MD. Electronically Signed: Collette East MA on February 27, 2025 11:45 AM. The above named person served as a medical sql server bi developer during today's visit. I have seen and examined the patient. I agree with the Chief Complaint, ROS, and Past Histories independently gathered by the clinical support group manager and the remaining scribed note accurately describes my personal service to the patient. Electronically Signed: Roselyn Camargo MD at February 27, 2025 2:33 PM. Roselyn Camargo MD Department of Dermatology [facility] Observed: 02/11/2025 12:00 AM Status: COMPLETED Source: [facility] Telephone ([facility] MARKO WARREN ([id number]) 1975 F Date Time Provider Department 02/11/25 AINSLEY NUGENT During your visit today, we recorded the following information about you: Ainsley Nugent MD 02/11/2025 1:11 AM Signed Please Call patient if MyChart note not read to review results/released to My Chart if tests completed at [facility]: Mildly high liver function tests, testosterone- care per primary care provider. normal labs and no inflammation. Continue same vitamin D intake with food. Negative testing for autoimmune/rheumatological diseases such as rheumatoid arthritis/lupus/etc. Happy to further review and discuss at follow up visit. Thank you. 02/06/25 high ast 68, alt 88, testosterone 55;normal rest of cmp, cbc, flp, iron 88, esr 5, crp<0.3, vitamin D 69.6, vitamin b12-534, uric acid 5.1, tsh 0.688, ferritin 154, estradiol 17b<25, progesterone 2.1;negative RF<10, CCP<15,PRESTON, hepatitis panel, quantiferon tb; Bonnie Meyer MA 02/12/2025 6:59 AM Signed Pt was notified via . Allergies As of Date: 02/11/2025 Noted Allergy Reaction CECLOR (CEFACLOR) 09/23/2012 4 - Hives CIPROFLOXACIN 09/24/2022 4 - Hives IMITREX (SUMATRIPTAN SUCCINATE) 09/23/2012 10 - Anaphylaxis Comments: Respiratory Distress TRAMADOL 08/18/2022 8 - GI Upset Comments: Nausea Date Reviewed: 02/06/2025 Reviewed by: Keri Sellers LPN - Fully Assessed Reason for Visit: Results [95] Prescriptions as of 02/12/2025 - OLANZapine (ZYPREXA) 7.5 mg tablet Take 7.5 mg by mouth daily at bedtime. - dexAMETHasone (DECADRON) 4 mg tablet Take 1 tab daily on Wednesday and Wednesday for 4 weeks - doxycycline monohydrate (MONODOX) 100 mg capsule Take 1 capsule by mouth two times a day. - hydrOXYchloroQUINE (PLAQUENIL) 200 mg tablet Take 1 tablet by mouth two times a day. - naltrexone capsule 4.5 mg (CPD) Take 1 capsule by mouth once daily. - fluocinonide (LIDEX) 0.05 % external solution Apply to affected areas on scalp 3x weekly. Leave on for at least 8 hrs. Scalp treatment only, do not apply to lengths. - Ciclopirox 1 % sham Use 2-3x weekly as needed. Massage shampoo into scalp until lather. Leave on for 3 to 5 minutes, then rinse thoroughly. - gabapentin (NEURONTIN) 600 mg tablet Take 1,200 mg by mouth three times a day. - estradiol (ESTRACE) 2 mg tablet with testoterone - rosuvastatin calcium (CRESTOR ORAL) Take by mouth. - metFORMIN (GLUCOPHAGE) 500 mg tablet TAKE 1 TABLET BY MOUTH TWICE A DAY FOR 90 DAYS - Progesterone Micronized 100 mg inst Use 1 Suppository vaginally once daily. - levothyroxine (SYNTHROID) 137 mcg tablet Take 1 tablet by mouth every morning. on an empty stomach. Wait one hour before eating or taking other medications. - Vit-Iron Fumarate-FA (CO-BROOKE FA) 29-1 mg Tab Take 1 tab once daily Facility-Administered Medications as of 02/12/2025 - triamcinolone acetonide 20 mg injection (KeNALog 10) Problem List As Of Date 02/11/2025 Noted Resolved Other specified acquired hypothyroidism [E03.8] 09/23/2012 06/16/2016 Kel's thyroiditis [E06.3] 09/23/2012 Chronic fatigue [R53.82] 09/23/2012 Paresthesias [R20.2] 09/23/2012 Maternal age 35+, multigravida, antepartum [O09*11/14/2013 Previous delivery affecting ,*11/15/2013 Obesity in , antepartum [O99.210] 11/15/2013 Diarrhea [R19.7] 09/24/2022 09/24/2022 Rectal bleeding [K62.5] 09/24/2022 09/24/2022 Abdominal pain [R10.9] 09/24/2022 09/24/2022 Hair loss [L65.9] 02/06/2025 Thyroid disease [E07.9] 02/06/2025 Vitamin D deficiency [E55.9] 02/06/2025 Family history of rheumatoid arthritis [Z82.61] 02/06/2025 Family history of osteoporosis in mother [Z82.6*02/06/2025 Postmenopausal osteoporosis of multiple sites [*02/06/2025 Encounter Status:Closed by BONNIE MEYER on 02/12/25 ESR BLD QN WESTRGRN Collected: 02/06/2025 11:15 AM S tatus: F Source: [facility] Order Comment: Specimen Type : BLOOD SPECIMEN Ordering Facility: [facility] Address: [address] [place] [address] TYPE CODE TESTS RESULT OUT OF RANGE REFERENCE UNITS LAB 4537-7([facility]) ESR Bld Qn Westrgrn 5 0-20 mm/hr Performed By: #### [id number] ## ## [facility] [facility] CLIA [id number] [address] [place] [address] [place] [address] [place] 25([place])D3 [facility] Collected: 02/07/20 11:15 AM Status: F Source: [facility] Order Comment: Specimen Type : BLOOD SPECIMEN Ordering Facility: [facility] Address: [address] [place] [address] TYPE CODE TESTS RESULT OUT OF RANGE REFERENCE UNITS LAB 1988-(LOINC) 25([place])D3 SerPl-mCnc 69.6 31.0-80.0 ng/mL Performed By: #### 3 ## ## [facility] CLIA [id number] [address] [place], [place] [address] [id number] [facility] PROGEST SERPL-MCNC Collected: 11:15 AM Status: F Source: [facility] Order Comment: Specimen Type : BLOOD SPECIMEN Ordering Facility: [facility] Address: [address] [place] [address] TYPE CODE TESTS RESULT OUT OF RANGE REFERENCE UNITS LAB 2839-9(LOINC) Progest SerPl-mCnc 2.1 See comment ng/mL Result Comment: Menstrual Cy alva Progesterone Reference Ranges: Follicular: <1.0 ng/mL Ovulation: <12.1 ng/mL Luteal: 1.8 to 23.9 ng/mL. Progesterone Reference Ranges vary by gestational period: First Trimester: 11.0 to 44.3 ng/mL Second Trimester: 25.4 to 83.3 ng/mL Third Trimester: 58.7 to 214 ng/mL Post menopausal Progesterone: <0.5 ng/mL Reference: 1. Progesterone (Progesterone III) [package insert V 1.0 Stateless]. [employer], [place], [place]. August 2015. Performed By: #### 3016-3, 2 4331-1, 49301-0, 2839-9 #### [facility] CLIA [id number] [facility] [place] [address] [facility] TSH SERPL-ACNC Collected: 11:15 AM Status: F Source: [facility] Order Comment: Specimen Type : BLOOD SPECIMEN Ordering Facility: [facility] Address: [address] [place] [address] TYPE CODE TESTS RESULT OUT OF RANGE REFERENCE UNITS LAB 3016-3(LOINC) TSH SerPl-aCnc 0.688 0.270-4.200 mIU/L Result Comment: If the patie nt is , TSH reference range varies by gestational period: First Trimester (weeks 9-12): 0.180-2.990 mIU/L Second Trimester: 0.110-3.980 mIU/L Third Trimester: 0.480-4.710 mIU/L Librado Rodriguez et al. A Practical Approach for the Verifications and Determination of Site- and Trimester-Specific Reference Intervals for Thyroid Function tests in . Thyroid, 2019:29:3:412-420. Regulo Whitten, et al. 2017 Guidelines of the [place] Thyroid Association for the Diagnosis and Management of Thyroid Disease during and the . Thyroid, 2017:27:3:315-389. Performed By: #### 3016-3, 2 4331-1, 48890-9, 2839-9 #### [facility] CLIA [id number] [address] [facility] [place] [address] [place] LIPID 1996 PNL SERPL Collected: 025 11:15 AM Status: F Source: [facility] Order Comment: Specimen Type : BLOOD SPECIMEN Ordering Facility: [facility] Address: [address] [place] [address] TYPE CODE TESTS RESULT OUT OF RANGE REFERENCE UNITS LAB 2093-3(LOINC) Cholest SerPl-mCnc 155 <200 mg/dL Result Comment: <200 mg/dL, Desirable 200-239 mg/dL, Borderline high >239 mg/dL, High LAB 2571-8(LOINC) Trigl SerPl-mCnc 113 <150 mg/dL Result Comment: <150 mg/dL, Normal 150-199 mg/dL, Borderline high 200-499 mg/dL, High >499 mg/dL, Very high LAB 2085-9(LOINC) HDLc SerPl-mCnc 75 >39 mg/dL Result Comment: 40-59 mg/dL, Acceptable >59 mg/dL, High: Negative risk factor for coronary heart disease <40 mg/dL, Low: Positive risk factor for coronary heart disease LAB 35784-5(LOINC) NonHDLc SerPl-mCnc 80 <130 mg/dL Result Comment: <130 mg/dL, Optimal 130-159 mg/dL, Near optimal/above optimal 160-189 mg/dL, Borderline high 190-219 mg/dL, High >219 mg/dL, Very high Secondary prevention optimal non HDL Cholesterol levels are recommended to be <100 mg/dL LAB FT FASTING TIME 12 hrs LAB 50122-0(LOINC) VLDLc SerPl Calc-mCnc 23 <30 mg/dL LAB 9830-1(LOINC) Cholest/HDLc SerPl 2.07 <5.10 LAB 2089-1(INC) LDLc SerPl-mCnc 57 <100 mg/dL Result Comment: <100 mg/dL, Optimal 100-129 mg/dL, Near optimal/above optimal 130-159 mg/dL, Borderline high 160-189 mg/dL, High >189 mg/dL, Very high Secondary prevention optimal LDL Cholesterol levels are recommended to be < 70 mg/dL LAB 82206-5(LOINC) LDLc/HDLc SerPl 0.76 <2.54 Result Comment: Reference: 1. National Cholesterol Education Program ATP III Guideline At-A-Glance Quick Desk Reference: National Heart, Lung, and Blood [place]. National Institutes of Health. 2001: NIH Publication No. 01-3305. 2. An International Atherosclerosis Society position paper: global recommendations for the management of dyslipidemia: executive summary, Atherosclerosis. 2014: 232(2):410-413. Performed By: #### 3016-3, 2 4331-1, 66926-7, 2839-9 #### [facility] CLIA [id number] [address] [place], [place] [id number] [place] [address] STATES OF [facility] IRON+TIBC PNL SERPL Collected: 02/07/20 11:15 AM Status: F Source: [facility] Order Comment: Specimen Type : BLOOD SPECIMEN Ordering Facility: [facility] Address: [address] [place] [address] TYPE CODE TESTS RESULT OUT OF RANGE REFERENCE UNITS LAB 2498-4(INC) Iron SerPl-mCnc 88 41-186 ug/dL LAB 2500-7(LOINC) TIBC SerPl-mCnc Result Comment: Unable to re port LAB 16039-2([facility]) Iron/TIBC SerPl-sRto Result Comment: Unable to re port Performed By: #### 3016-3, 2 4331-1, 29619-3, 2839-9 #### [facility] CLIA [id number] [facility] [place] [address] [place] COMP METAB 2000 PNL SERPL Collected: 11:15 AM Status: F Source: [facility] Order Comment: Specimen Type : BLOOD SPECIMEN Ordering Facility: [facility] Address: [address] [place] [address] TYPE CODE TESTS RESULT OUT OF RANGE REFERENCE UNITS LAB 2885-2(LOINC) Prot SerPl-mCnc 6.2 Low 6.3-8.0 g/dL LAB 1751-7(LOINC) Albumin SerPl-mCnc 3.7 Low 3.9-4.9 g/dL LAB 75895-9(LOINC) Calcium SerPl-mCnc 9.2 8.5-10.2 mg/dL LAB 1975-2(LOINC) Bilirub SerPl-mCnc 0.5 0.2-1.3 mg/dL LAB 6768-6(LOINC) ALP SerPl-cCnc 96 34-123 U/L LAB 1920-8(LOINC) AST SerPl-cCnc 68 High 13-35 U/L LAB 1742-6(LOINC) ALT SerPl-cCnc 88 High 7-38 U/L LAB 2345-7(LOINC) Glucose SerPl-mCnc 85 74-99 mg/dL Result Comment: The [place] Diabetes Association (ADA) provides guidance for cutoff values for fasting glucose and random glucose. The ADA defines fasting as no caloric intake for at least 8 hours. Fasting plasma glucose results between 100 to 125 mg/dL indicate increased risk for diabetes (prediabetes). Fasting plasma glucose results greater than or equal to 126 mg/dL meet the criteria for diagnosis of diabetes. In the absence of unequivocal hyperglycemia, results should be confirmed by repeat testing. In a patient with classic symptoms of hyperglycemia or hyperglycemic crisis, random plasma glucose results greater than or equal to 200 mg/dL meet the criteria for diagnosis of diabetes. Reference: Standards of Medical Care in Diabetes 2016, [place] Diabetes Association. Diabetes Care. 2016.39(Suppl 1). LAB 3094-0(LOINC) BUN SerPl-mCnc 14 7-21 mg/ dL LAB 2160-0(LOINC) Creat SerPl-mCnc 0.80 0.58-0.96 mg/dL LAB 2951-2(LOINC) Sodium SerPl-sCnc 143 136-144 mmol/L LAB 2823-3(LOINC) Potassium SerPl-sCnc 4.7 3.7-5.1 mmol/L LAB 2075-0(LOINC) Chloride SerPl-sCnc 107 98-107 mmol/L LAB 2028-9(LOINC) CO2 SerPl-sCnc 22 22-30 mmo l/L LAB 66769-4(LOINC) Anion Gap SerPl-sCnc 14 8-15 mmol/L LAB 09479-6(LOINC) Creatinine + eGFR Pnl SerPlBld 90 >=60 mL/min/1. 73m??? Result Comment: Estimated Gl omerular Filtration Rate (eGFR) is calculated using the 2020 CKD-EPI creatinine equation. This equation utilizes serum creatinine, sex, and age as parameters. The creatinine assay has traceable calibration to isotope dilution-mass spectrometry. Refer to KDIGO guidelines for clinical interpretation. In patients with unstable renal function, e.g. those with acute kidney injury, the eGFR may not accurately reflect actual GFR. Performed By: #### 2243-4, 3 084-1, 66280-1 #### [facility] CLIA [id number] [facility] OF [facility] URATE SERPL-MCNC Collected: 5 11:15 AM Status: F Source: [facility] Order Comment: Specimen Type : BLOOD SPECIMEN Ordering Facility: [facility] Address: [address] [place] [address] TYPE CODE TESTS RESULT OUT OF RANGE REFERENCE UNITS LAB 3084-1([facility]) Urate SerPl-mCnc 5.1 2.5-6.6 mg/dL Performed By: #### 2243-4, 3 084-1, 09100-3 #### [facility] CLIA [id number] [facility] [place] [address] [place] ESTRADIOL SERPL-MCNC Collected: 025 11:15 AM Status: F Source: [facility] Order Comment: Specimen Type : BLOOD SPECIMEN Ordering Facility: [facility] Address: [address] [place], [place] [address] TYPE CODE TESTS RESULT OUT OF RANGE REFERENCE UNITS LAB 2243-4(LOINC) Estradiol SerPl-mCnc <25 8-37 pg/mL Result Comment: This test is not suitable for patients receiving treatment with the drug Fulvestrant (Faslodex). The drug causes an interference leading to falsely elevated estradiol results. Menstrual cycle Estradiol reference ranges: Follicular : < 234 pg/mL Ovulation : 41 to 398 pg/mL Luteal : < 342 pg/mL Estradiol reference ranges vary by gestational period: First trimester : 154 to 3243 pg/mL Second trimester : 1561 to 90191 pg/mL Third trimester : 8285 to >04856 pg/mL Post-menopausal Estradiol reference range: < 41 pg/mL Reference: 1. Estradiol - E2 (Estradiol III) [package insert V 3.0 Stateless]. [employer], [place], [place], April 2016. Performed By: #### 2243-4, 3 084-1, 98579-2 #### [facility] CLIA [id number] [address] [place] [address] [place] OF [facility] CRP SERPL-MCNC Collected: 11:15 AM Status: F Source: [facility] Order Comment: Specimen Type : BLOOD SPECIMEN Ordering Facility: [facility] Address: [address] [place], [place] [address] TYPE CODE TESTS RESULT OUT OF RANGE REFERENCE UNITS LAB 1988-03(LOINC) CRP SerPl-mCnc <0.3 <0.9 mg/dL Performed By: #### 2276-4, 1 988-5, 9 #### [facility] CLIA [id number] [facility] [place] [address] [place] VIT B12 SERPL-MCNC Collected: 5 11:15 AM Status: F Source: [facility] Order Comment: Specimen Type : BLOOD SPECIMEN Ordering Facility: [facility] Address: [address] [place], [place] [address] TYPE CODE TESTS RESULT OUT OF RANGE REFERENCE UNITS LAB 9(LOINC) Vit B12 SerPl-mCnc 023 431-4765 pg/mL Performed By: #### 2276-4, 1 988-5, 2-9 #### [facility] CLIA [id number] [address] [place] [address] [facility] FERRITIN SERPL-MCNC Collected: 02/07/20 11:15 AM Status: F Source: [facility] Order Comment: Specimen Type : BLOOD SPECIMEN Ordering Facility: [facility] Address: [address] [place], [place] [address] TYPE CODE TESTS RESULT OUT OF RANGE REFERENCE UNITS LAB 2276-4([facility]) Ferritin SerPl-mCnc 154.9 14.7-205.1 ng/mL Performed By: #### 2276-4, 1 988-5, 2131-9 #### [facility] CLIA [id number] [address] [place] [address] [facility] CBC PNL BLD AUTO Collected: 5 11:15 AM Status: F Source: [facility] Order Comment: Specimen Type : BLOOD SPECIMEN Ordering Facility: [facility] Address: [address] [place], [place] [address] TYPE CODE TESTS RESULT OUT OF RANGE REFERENCE UNITS LAB 6690-2(LOINC) WBC # Bld Auto 6.93 3.70-11.00 k/uL LAB 789-8(LOINC) RBC # Bld Auto 4.59 3.90-5.20 m/uL LAB 718-7(LOINC) Hgb Bld-mCnc 13.8 11.5-15.5 g/dL LAB 4544-3(LOINC) Hct VFr Bld Auto 40.5 36.0-46.0 % LAB 787-2(LOINC) MCV RBC Auto 88.2 80.0-100.0 fL LAB 785-6(LOINC) MCH RBC Qn Auto 30.1 26.0-34.0 pg LAB 786-4(LOINC) MCHC RBC Auto-mCnc 34.1 30.5-36.0 g/dL LAB 25198-3(LOINC) RDW RBC-Rto 13.8 11.5-15.0 % LAB 777-3(LOINC) Platelet # Bld Auto 256 150-400 k/uL LAB 96702-0(LOINC) PMV Bld Auto 11.7 9.0-12.7 fL LAB 771-6(INC) nRBC # Bld Auto <0.01 <0.01 k/uL Performed By: #### 07152-6 # ### [facility] CLIA [id number] [facility] [place] [address] [place] CCP IGG SERPL-ACNC Collected: 02/06/2025 11:[address] atus: F Source: [facility] Order Comment: Specimen Type : BLOOD SPECIMEN Ordering Facility: [facility] Address: [address] [place] [address] TYPE CODE TESTS RESULT OUT OF RANGE REFERENCE UNITS LAB CCPIGGQ CCP ANTIBODY IGG QUALITATIVE Negative Negative LAB 92048-4([facility]) cCP IgG SerPl-aCnc <15 <20 Units Performed By: #### 41719-2 # ### [facility] CLIA [id number] [address] [place] [address] [place] BY IFA WITH REFLEX Collected: 02/06 11:15 AM Status: F Source: [facility] Order Comment: Specimen Type : BLOOD SPECIMEN Ordering Facility: [facility] Address: [address] [place] [address] TYPE CODE TESTS RESULT OUT OF RANGE REFERENCE UNITS LAB 8061-4([facility]) PRESTON Ser Ql Negative Negative Result Comment: Anti-nuclear antibody test is used as an aid in diagnosis of systemic autoimmune diseases. Where positive and clinically warranted, follow-up using disease-specific testing is recommended. Low positive titers are not uncommon with advanced age, certain chronic infections, and malignancies among others. Test methodology: Indirect fluorescence immunoassay (IFA) using HEp-2 cells. Performed By: #### ANAIFR ## ## [facility] CLIA [id number] [address] [place] [address] [place] HCV AB SER QL Collected: 11:15 AM Status: F Source: [facility] Order Comment: Specimen Type : BLOOD SPECIMEN Ordering Facility: [facility] Address: [address] [place] [address] TYPE CODE TESTS RESULT OUT OF RANGE REFERENCE UNITS LAB 64123-1(LOINC) HCV Ab Ser Ql Negative Negative Result Comment: The result s uggests no evidence of infection with Hepatitis C virus. Should recent infection be suspected, repeat testing may be considered 4-6 weeks after this draw. Performed By: #### 09972-8 # ### [facility] CLIA [id number] [address] [place] [address] [place] T4 FREE SERPL-MCNC Collected: 11:15 AM Status: F Source: [facility] Order Comment: Specimen Type : BLOOD SPECIMEN Ordering Facility: [facility] Address: [address] [place] [address] TYPE CODE TESTS RESULT OUT OF RANGE REFERENCE UNITS LAB 3024-7(LOINC) T4 Free SerPl-mCnc 1.1 0.9-1.7 ng/dL Performed By: #### 3024-7, 1 1572-5, 3053-6, 2986-8 #### [facility] CLIA [id number] [address] [place] [address] [place] T3 SERPL-MCNC Collected: 5 11:15 AM Status: F Source: [facility] Order Comment: Specimen Type : BLOOD SPECIMEN Ordering Facility: [facility] Address: [address] [place] [address] TYPE CODE TESTS RESULT OUT OF RANGE REFERENCE UNITS LAB 3053-6(LOINC) T3 SerPl-mCnc 114 79-165 ng/d L Performed By: #### 3024-7, 1 1572-5, 3053-6, 2986-8 #### [facility] CLIA [id number] [address] [place] [address] [place] TESTOST SERPL-MCNC Collected: 5 11:15 AM Status: F Source: [facility] Order Comment: Specimen Type : BLOOD SPECIMEN Ordering Facility: [facility] Address: [address] [place] [address] TYPE CODE TESTS RESULT OUT OF RANGE REFERENCE UNITS LAB 2986-8(LOINC) Testost SerPl-mCnc 55 High <40 ng/dL Performed By: #### 3024-7, 1 1572-5, 3053-6, 2986-8 #### [facility] CLIA [id number] [address] [place] [address] [place] RHEUMATOID FACT SERPL-ACNC Collected: 02/06/2025 11:1 5 AM Status: F Source: [facility] Order Comment: Specimen Type : BLOOD SPECIMEN Ordering Facility: [facility] Address: [address] [place] [address] TYPE CODE TESTS RESULT OUT OF RANGE REFERENCE UNITS LAB 01891-5([facility]) Rheumatoid fact SerPl-aCnc <10 <16 IU/mL Performed By: #### 3024-7, 1 1572-5, 3053-6, 2986-8 #### [facility] CLIA [id number] [address] [place] [address] [place] BLOOD TB SCREEN Collected: 02/06/2025 11:15 AM Statu s: F Source: [facility] Order Comment: Specimen Type : BLOOD SPECIMEN Ordering Facility: [facility] Address: [address] [place] [address] TYPE CODE TESTS RESULT OUT OF RANGE REFERENCE UNITS LAB TBGNIL TB NIL 0.02 <=8.00 IU/mL LAB TBG1AG TB1 AG MINUS NIL 0.01 <0.35 IU/mL LAB TBG2AG TB2 AG MINUS NIL 0.00 <0.35 IU/mL LAB 19531-4(LOINC ) M TB tuberc IFN-g Bld Ql Negative LAB TBMITN MITOGEN MINUS NIL 3.36 >=0.50 IU/mL LAB TBGINT TB GAMMA INTERPRETATION Infection with M. tuberculosis complex is unlikely. If latent tuberculosis infection is highly suspected, a negative result does not rule out the infection. Specimens from immunocompromised patients and those <5 years of age may show false negative results. In case of a contact investigation, please repeat 8-12 weeks after a known exposure. Performed By: #### INFTBP ## ## [facility] CLIA [id number] [address] HBV CORE AB SER QL Collected: 11:15 AM Status: F Source: [facility] Order Comment: Specimen Type : BLOOD SPECIMEN Ordering Facility: [facility] Address: [address] [place] [address] TYPE CODE TESTS RESULT OUT OF RANGE REFERENCE UNITS LAB 85361-3(LOINC) HBV core Ab Ser Ql Negative Negative Result Comment: No evidence of current or past infection with Hepatitis B virus. Should recent infection be suspected, repeat testing may be considered 3-4 weeks after this draw. Performed By: #### 70673-5, 5195-3, 40636-0 #### [facility] CLIA [id number] [address] [place] [address] HBV SURFACE AG SER QL Collected: 2024 11:15 AM Status: F Source: [facility] Order Comment: Specimen Type : BLOOD SPECIMEN Ordering Facility: [facility] Address: [address] [place] [address] TYPE CODE TESTS RESULT OUT OF RANGE REFERENCE UNITS LAB 5195-3(LOINC) HBV surface Ag Ser Ql Negative Negative Performed By: #### 41038-6, 5195-3, 59237-4 #### [facility] CLIA [id number] [address] [place] [address] HBV SURFACE AB SER QL Collected: 2024 11:15 AM Status: F Source: [facility] Order Comment: Specimen Type : BLOOD SPECIMEN Ordering Facility: [facility] Address: [address] [place] [address] TYPE CODE TESTS RESULT OUT OF RANGE REFERENCE UNITS LAB 84024-0(LOINC) HBV surface Ab Ser Ql Positive Result Comment: Consistent w ith serological evidence of immunity to Hepatitis B Virus. LAB 31891-2(LOINC) HBV surface Ab Ser-aCnc 445.97 mIU/mL Result Comment: <8 mIU/mL: N o serological evidence of immunity to Hepatitis B Virus. >/= 8 to <12 mIU/mL: No serological evidence of immunity to Hepatitis B Virus. >/= 12 mIU/mL: Consistent with serological evidence of immunity to Hepatitis B Virus. Performed By: #### 63235-0, 5195-3, 23146-7 #### [facility] CLIA [id number] [address] [place] [address] CNOV Observed: 02/06/2025 10:00 AM Status: COMPLETED Source: [facility] Office Visit (JUANI) MARKO WARREN ([id number]) 1975 F Date Time Provider Department 02/06/25 10:00 AM AINSLEY NUGENT During your visit today, we recorded the following information about you: Pulse Blood pressure Weight Height 76/minute 135/79 69 kg 1.575 m Ainsley Nugent MD 02/06/2025 11:58 AM Signed NEW CONSULT:RHEUMATOLOGY SERVICE SERVICE DATE: 02/06/2025 SERVICE TIME: 9:58 AM REASON FOR CONSULT: hairloss and fatigue REQUESTING PHYSICIAN: Martin Martinez DO PRIMARY CARE PHYSICIAN: Martin Martinez DO Patient's Name: Marko Warren 1975 [address] [place] [address] Accompanied by: self This consult was requested for my medical opinion regarding the rheumatologic evaluation of the patient's hairloss and fatigue problems, and my final recommendations will be communicated to the requesting health care provider by way of the shared medical record for internal providers or letter via the [employer] for external providers. February 06, 2025 SUBJECTIVE Ms. Warren is a 49 year old female who presents for hairloss and fatigue eval. 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 No adverse effects with meds. No other complaints. Patient denies fever, chills, cp, dyspnea, nausea, vomiting, night sweats, scalp tenderness, visual changes, sutton, bowel/bladder changes, weight changes or other complaints. COMPLETE REVIEW OF SYSTEMS: RHEUM. ROS: Joint pain: ? Carpal tunnel syndrome symptoms Joint swelling: R ankle Am stiffness: no Low back pain: no Dactylitis: no H/o precedent/frequent infection(s): no Enthesopathy/Warrenton's/heel/plantar tenderness: carpal tunnel syndrome Skin thickening, psoriasis, photosensitivity, purpura: no Nail changes: vertical nail ridges for months Alpecia, patchy: yes Eye inflammation: contacts SICCA: no Oral/nasal/genital ulcers: no GI problems-diarrhea/bleeding/IBD/Gluten intolerence/Dysphagia: gerd Raynaud's phenomenon/digital ulcers: no Organ inv-Serositis: no Lung disease/ILD: no Myopathy/proximal muscle weakness: no Abnormal Urine or urethritis: no Renal/liver disease: no LOCOMOTIVE SWITCH OPERATOR/PNS/sz/cva/cancer disease: no HEME-Cytopenias/LAD/Clots: no Fevers: no Fatigue: yes, sleeps 8 hrs/night PMR/GCA ROS: negative Patient denies history of Gout or Pseudogout, Psoriasis, Rheumatic Fever, PUD, Liver Disease, Hepatitis , Kidney Disease, Kidney Stones, DM, HTN, CAD, Dyslipidemia, PAD, Sinusitis, Asthma, TB infection or exposure, Pneumonias, Anemia, Seizures, Stroke, MS, Clots, Cancer, Transfusions, Tattoos , and Alcohol dependency. Other ROS:The remainder of the review of systems is negative. All other reviewed and negative other than HPI. PATIENT REPORTS: Cardiac stress test:stable Breast exam:negative Pap exam: normal, last menses with hysterectomy 2019 due to migraines, YES taking hormones; G9, P4, 5miscarriage Colonoscopy: hemorrhoids with banding Bone Density:yes ago osteopenia Was on fosamax for years, off now History of Fractures:R arm fracture 2nd grade Height Loss: 1/2 IMMUNIZATION HX: Immunization History Administered Date(s) Administered COVID-19 original vaccine, full dose, monovalent (MODERNA) 11/20/2020 12/18/2020 09/20/2021 Pneumovax no Flu shot no Tetanus yes Last PPD: negative PAST MEDICAL HISTORY: PMH depression, s/p lap for ectopic , anxiety, migraines, ovarian cyst, thyroid disease, gerd,hysterectomy 2019 due to migraines,hemorrhoids with banding, R arm fracture 2nd grade, s/p appy, s/p csection, s/p DANDC, s/p ravaginal retrieval of egg, s/p epigatric hernia repair, s/p cholecystectomy, s/p wisdom teeth extraction, PAST MEDICAL HISTORY Diagnosis Date Depression Ectopic Generalized anxiety disorder Migraine, intractable Ovarian cyst Unspecified hypothyroidism since 1999, age 25 Hypothyroidism PAST SURGICAL HISTORY: s/p appy, s/p csection, s/p DANDC, s/p ravaginal retrieval of egg, s/p epigatric hernia repair, s/p cholecystectomy, s/p wisdom teeth extraction, PAST SURGICAL HISTORY Procedure Laterality Date APPENDECTOMY DELIVERY ONLY x2 2010 and 2011 , low transverse DILATION AND CURETTAGE DXAND/THER NONOBSTETRIC 5 Dilation AND curettage LAPS ABD PRTMANDOMENTUM DX W/WO SPEC BR/WA SPX 11/08/2008 Laparoscopy (ecotopic ) LAPS ABD PRTMANDOMENTUM DX W/WO SPEC BR/WA SPX 11/08/2009 Laparoscopy: aovrian-utine adhesions. PAST SURGICAL HISTORY OF transvaginal retrival of egg. 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 Skin, right vertex scalp, punch biopsy: - Compatible with lichen planopilaris,04/29/23 feet xrays-Mild soft tissue swelling around the first MTP join 09/2012 low vitamin D 17.5, tsh 0.176;normal vitamin [id number]; PHYSICAL EXAM:reviewed vitals BP 135/79 Pulse 76 Ht 157.5 cm (5' 2 ) Wt 69 kg (152 lb 1.9 oz) LMP 03/18/2016 (Approximate) BMI 27.82 kg/m? General Appearance: WD/WN, NAD. Appropriate grooming. Very pleasant. Upset, crying, Ambulates fair without assistance or without assistive devices SKIN: No rash, no psoriasis, no purpura, no ulcers, no skin thickening/tightness, no telangiectasias. HEENT: yes patchy alopecia, normal temporal artery pulsations, non-tender, scalp non-tender, no conjunctival injection or icterus, no oral ulcers, no thrush, normal nasal mucosa, no sinus tenderness, normal TM's. no glasses, fair dentition NECK: neck supple w/o masses, no thyromegaly, no LAD. LUNGS: CTA, Good respiratory effort. HEART: RRR, - m/r/g ABDOMEN: soft, non-tender, no HSM/masses/bruits. EXTREMITIES: Adequate pulses b/l UE ; No clubbing,discoloration,sclerodactyly, periungual erythema, digital ulcers, nail pitting, edema, varicosities. MUSCULOSK: No joint deformities, no rheumatoid nodules, calcifications or tophi. No SI tenderness, no arnav's tenderness, no heel/plantar tenderness, lumbar flexion full, negative Zaira's test, tinel's and karel tests Swoll JTS:no Tend. JTS:improved R ankle/hands/wrists, fair range of motion; no warmth/erythema No clinical synovitis in the DIP's, PIP's, MCP's, wrists, elbows, shoulders, knees, ankles, midfoot, or toes. no knee effusions bilateral. Shoulder exam:fair range of motion; no warmth/erythema Hip rom without pain LIMITATION of Motion of Joints: no Thoracic/Lumbar Spine: No percussion tenderness SLR:negative No instability in any upper or lower extremity joints. NEURO: Mental Status: alert and oriented x 3, anxious, CN II - XII grossly intact Motor: 5/5 proximally and distally b/l Sensory: intact to fine touch TENDER POINTS: 0/18 Gait: see above Toe and heel walk normal. Tone: normal IMPRESSION/DIAGNOSIS:February 06, 2025 L65.9 Hair loss (primary encounter diagnosis) R79.89 Elevated LFTs D63.8 Anemia of chronic disease R70.0 Elevated sed rate R79.82 Elevated C-reactive protein (CRP) E55.9 Vitamin D deficiency E53.8 Vitamin B12 deficiency Z11.1 Screening-pulmonary TB M81.0 Postmenopausal osteoporosis of multiple sites E61.1 Iron deficiency E07.9 Thyroid disease E34.9 Hypotestosteronemia E79.0 Hyperuricemia E78.2 Mixed hyperlipidemia R53.82 Chronic fatigue Z82.61 Family history of rheumatoid arthritis Z82.62 Family history of osteoporosis in mother Ms. Warren is a 49 year old Wfemale with PMH depression, s/p lap for ectopic , anxiety, migraines, ovarian cyst, thyroid disease, gerd,hysterectomy 2019 due to migraines,hemorrhoids with banding, R arm fracture 2nd grade, s/p appy, s/p csection, s/p DANDC, s/p ravaginal retrieval of egg, s/p epigatric hernia repair, s/p cholecystectomy, s/p wisdom teeth extraction, presents with 1999 diagnosed with thyroid disease 05/2024 hairloss worsening 3months severe fatigue, sleeps fine but does not wake rested Takes medication to stay asleep 3months ago derm started plaquenil 2tabs daily, no changes with hairloss, may try ANGELA inhibitor 10/2024 R ankle swelling off and on, unable to wear shoes 01/26/25 saw derm for hairloss, off minoxidil due to low BP and R ankle swelling 01/05/25 saw derm for lichen planopilaris Possible Carpal tunnel syndrome symptoms Scalp Steroid injections no change with hairloss Reports pain 10/17 Has findings of low vitamin D, chronic fatigue, osteopenia of multiple areas, 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 RECOMMENDATION/PLAN: Office Visit on 02/06/25 DXA-FOREARM SKELETON DXA-AXIAL SKELETON BD DXA TRABECULAR BONE SCORE (TBS) RHEUMATOID FACTOR CCP ANTIBODY IGG PRESTON BY IFA WITH REFLEX SEDIMENTATION RATE, WESTERGREN C-REACTIVE PROTEIN HEP REMOTE PANEL BL BLOOD TB SCREEN COMPREHENSIVE METABOLIC PANEL COMPLETE BLOOD COUNT VITAMIN D 25 HYDROXY VITAMIN B12 URIC ACID TESTOSTERONE, TOTAL BY IMMUNOASSAY (ADULT MALES, OR INDIVIDUALS ON TESTOSTERONE THERAPY) ESTRADIOL-17B BLD PROGESTERONE T3 T4 FREE/FREE THYROXINE THYROID STIMULATING HORMONE LIPID PANEL, FASTING IRON AND TIBC FERRITIN Reviewed all available labs/tests with patient Provided printed info February 06, 2025 check above orders Modified February 06, 2025 HAQ0, pain 100%; May apply over the counter arthritis creams and or patches (biofreeze, icy hot, asper cream, tiger balm, capsacin, lidocaine, salon pas, voltaren gel, etc.) or over the counter pain patches to painful joints up to four times a day. Avoid contact with eyes. May take Extra Strength acetaminophen 500mg every 4-6hours for joint pain. Do not exceed 3000mg /day. Decrease stress Improve sleep May apply heat/ice 20minutes on and off to areas of pain Avoid aggravating triggers If needed, may take Calcium 1200mg daily with food in DIVIDED doses If labs normal, take Vitamin D 4000 International Units daily with food Recommend goal: exercising 30minutes 3-5 times a week Recommend weight-bearing aerobic exercises such as walking, dancing, low impact aerobics, elliptical machine, stair climbing, gardening, biking, water exercises flexibility exercises and strength training exercises Recommend avoiding high impact exercises such as jumping, running or jogging or movements where you bend forward and twist the waist, for instance- touching your toes, sit-ups, using row machine penitentiary pain recommendations per primary care provider/pain clinic Nonfasting labs as scheduled Additional time spent with patient on healthy lifestyle, healthy food and anti-inflammatory diet (with emphasis on whole plant based diet), avoiding refined carbs/sugars and processed food, appropriate exercise (stretching, cardio and strengthening), good sleep hygiene, stress mgt, and supplementing vital deficiencies and maintaining healthy wt and BMI. Additional information provided with references and educational information. Bone Health Recommendations: -Bone Density: After age 70 yrs, sooner if new clinical risk factors, or systemic steroid use of 3 months or more. -Vitamin D supplementation recommended, optimal dose is the dose necessary to achieve Vitamin D 25-OH blood level in range of 40-60 ng/mL. -Recommended daily dose of calcium: 1000-1200mg total a day in divided doses. Calcium from dietary sources, if not sufficient, or if with h/o calcium nephrolithiasis would recommend Calcium Citrate supplement, as it is recommended to avoid calcium carbonate products, which as main dietary calcium source. The after visit summary has information on dietary calcium and instructions on reading calcium label and converting the %DV to mg. -Regular weight-bearing and muscle-strengthening exercise -Avoidance of tobacco smoking, excessive alcohol intake and excessive caffeine intake. -Fall and fracture precautions -Continued regular dental follow up visits and good dental/gum care Stressed the importance of following up with PCP and specialists for his/her chronic diseases, health, CV, and cancer screening and continued care. Will follow disease activity/progression and adjust therapeutic regimen to disease activity and severity. Discussed medication dosage, usage, goals of therapy, and side effects. Available test results were reviewed Additional time spent with the patient to discuss their questions. Additional time spent with the patient devoted to discussing treatment strategy, planning, and implementation. Discussed findings, impression and plan with patient. Patient understands above plan; questions asked and answered. Patient agrees to plan as noted above. Of the 60 minute long appointment visit, Total time spent on this visit, with more than 50% of time spent via video AND audio (virtual) or phone or face to face with patient, in consultation, and in addition to Counseling and Coordination of Care, explanation of diagnosis, and planning of further management; I spent a total of 60 minutes on the date of the service during phone/virtual or office visit with an additional 10-15 minutes which included preparing to talk with the patient via video AND audio (virtual) or phone or [id number] patient care, completing clinical documentation, obtaining and/or reviewing separately obtained history, review all available records, performing a medically appropriate examination, counseling and educating the patient/family/caregiver, ordering medications, tests, or procedures, communicating with other HCPs (not separately reported), independently interpreting results (not separately reported), communicating results to the patient/family/caregiver and care coordination (not separately reported) Follow up: 6-12months, earlier if needed Recommendations to share with referring physician/Primary care physician : Dear Dr.Benjamin Maria Dolores Martinez, : I had the pleasure of talking with your patient, Marko Warren. I have enclosed a copy of my clinic note with my assessment and recommendations for this patient. Recommendations for your consideration as you deem necessary: -Continuous follow up with Primary care physician for cardiovascular disease prevention, for age appropriate cancer screening and routine health maintenance and wellness, and infection precautions and age appropriate immunization recommended. Thank you for allowing me to participate in the care of your patient. Ainsley Nugent MD I will relay my findings and recommendations to the physician requesting the consult by letter/electronic shared medical records. cc Martin Martinez DO SIGNATURE: Ainsley Nugent MD PATIENT NAME: Marko Wraren DATE: February 06, 2025 Ainsley Nugent MD 02/06/2025 10:35 AM Addendum May apply over the counter arthritis creams and or patches (biofreeze, icy hot, asper cream, tiger balm, capsacin, lidocaine, salon pas, voltaren gel, etc.) or over the counter pain patches to painful joints up to four times a day. Avoid contact with eyes. May take Extra Strength acetaminophen 500mg every 4-6hours for joint pain. Do not exceed 3000mg /day. Decrease stress Improve sleep May apply heat/ice 20minutes on and off to areas of pain Avoid aggravating triggers If needed, may take Calcium 1200mg daily with food in DIVIDED doses If labs normal, take Vitamin D 4000 International Units daily with food Recommend goal: exercising 30minutes 3-5 times a week Recommend weight-bearing aerobic exercises such as walking, dancing, low impact aerobics, elliptical machine, stair climbing, gardening, biking, water exercises flexibility exercises and strength training exercises Recommend avoiding high impact exercises such as jumping, running or jogging or movements where you bend forward and twist the waist, for instance- touching your toes, sit-ups, using row machine penitentiary pain recommendations per primary care provider/pain clinic Nonfasting labs as scheduled Thank you. BONE MINERAL DENSITY PATIENT INSTRUCTIONS Bone mineral density testing measures the amount of calcium in certain parts of your bones. This information determines how strong your bones are. The test is used to detect osteoporosis, a disease in which the bone's mineral content and density are low, increasing a person's risk of fractures. The lumbar spine (lower back) and the hip are the skeletal sites usually examined. For the test, remember that: 1. You cannot take this test if you are . 2. Eat a normal diet on the day of the test. 3. Take your medications as you normally would. 4. DO NOT take calcium supplements (such as Tums) for 24 hours before the test. 5. On the day of the test, leave valuables (jewelry or credit cards) at home. 6. The test should be performed prior to oral, rectal or IV contrast studies, or at least 7 days after any of these studies. For the test, you may be asked to wear a hospital gown. You will lie on your back, on a padded table, in a comfortable position. Generally, you can resume your usual activities immediately. Allergies As of Date: 02/06/2025 Noted Allergy Reaction CECLOR (CEFACLOR) 09/23/2012 4 - Hives CIPROFLOXACIN 09/24/2022 4 - Hives IMITREX (SUMATRIPTAN SUCCINATE) 09/23/2012 10 - Anaphylaxis Comments: Respiratory Distress TRAMADOL 08/18/2022 8 - GI Upset Comments: Nausea Date Reviewed: 02/06/2025 Reviewed by: Keri Sellers LPN - Fully Assessed Reason for Visit: New Patient [172] Cmt: LPP (per derm), Kel's (primary)- where there's one there could be more ; fatigue- beyond tired X 3 months. Intermittent-bilat swelling to ankles Primary Visit Diagnosis:Hair loss [L65.9] Other Visit Diagnoses:Elevated LFTs [R79.89] Anemia of chronic disease [D63.8] Elevated sed rate [R70.0] Elevated C-reactive protein (CRP) [R79.82] Vitamin D deficiency [E55.9] Vitamin B12 deficiency [E53.8] Screening-pulmonary TB [Z11.1] Postmenopausal osteoporosis of multiple sites [M81.0] Iron deficiency [E61.1] Thyroid disease [E07.9] Hypotestosteronemia [E34.9] Hyperuricemia [E79.0] Mixed hyperlipidemia [E78.2] Chronic fatigue [R53.82] Family history of rheumatoid arthritis [Z82.61] Family history of osteoporosis in mother [Z82.62] Order(s):DXA-FOREARM SKELETON [3086593] Order #: [id number] FUTURE DXA-AXIAL SKELETON [[id number]] Order #: [id number] FUTURE BD DXA TRABECULAR BONE SCORE (TBS) [[id number]] Order #: [id number] FUTURE RHEUMATOID FACTOR [SQRF] Order #: [id number] FUTURE CCP ANTIBODY IGG [SQCCP] Order #: [id number] FUTURE PRESTON BY IFA WITH REFLEX [SQANAIFR] Order #: [id number] FUTURE SEDIMENTATION RATE, WESTERGREN [SQWSR] Order #: [id number] FUTURE C-REACTIVE PROTEIN [SQCRP] Order #: [id number] FUTURE HEP REMOTE PANEL BL [SQHREMOP] Order #: [id number] FUTURE BLOOD TB SCREEN [SQINFTBP] Order #: [id number] FUTURE COMPREHENSIVE METABOLIC PANEL [SQCMP] Order #: [id number] FUTURE COMPLETE BLOOD COUNT [SQCBC] Order #: [id number] FUTURE VITAMIN D 25 HYDROXY [SQVITD] Order #: [id number] FUTURE VITAMIN B12 [SQB12] Order #: [id number] FUTURE URIC ACID [SQURIC] Order #: [id number] FUTURE TESTOSTERONE, TOTAL BY IMMUNOASSAY (ADULT MALES, OR INDIVIDUALS ON TESTOSTERONE THERAPY) [SQTESTO] Order #: [id number] FUTURE ESTRADIOL-17B BLD [SQE2] Order #: [id number] FUTURE PROGESTERONE [SQPROG] Order #: [id number] FUTURE T3 [SQT3] Order #: [id number] FUTURE T4 FREE/FREE THYROXINE [SQFT4] Order #: [id number] FUTURE THYROID STIMULATING HORMONE [SQTSH] Order #: [id number] FUTURE LIPID PANEL, FASTING [SQLIPB] Order #: [id number] FUTURE IRON AND TIBC [SQIRON] Order #: [id number] FUTURE FERRITIN [SQFERR] Order #: [id number] FUTURE Prescriptions as of 02/06/2025 - OLANZapine (ZYPREXA) 7.5 mg tablet Take 7.5 mg by mouth daily at bedtime. - dexAMETHasone (DECADRON) 4 mg tablet Take 1 tab daily on Wednesday and Wednesday for 4 weeks - doxycycline monohydrate (MONODOX) 100 mg capsule Take 1 capsule by mouth two times a day. - hydrOXYchloroQUINE (PLAQUENIL) 200 mg tablet Take 1 tablet by mouth two times a day. - naltrexone capsule 4.5 mg (CPD) Take 1 capsule by mouth once daily. - fluocinonide (LIDEX) 0.05 % external solution Apply to affected areas on scalp 3x weekly. Leave on for at least 8 hrs. Scalp treatment only, do not apply to lengths. - Ciclopirox 1 % sham Use 2-3x weekly as needed. Massage shampoo into scalp until lather. Leave on for 3 to 5 minutes, then rinse thoroughly. - gabapentin (NEURONTIN) 600 mg tablet Take 1,200 mg by mouth three times a day. - estradiol (ESTRACE) 2 mg tablet with testoterone - rosuvastatin calcium (CRESTOR ORAL) Take by mouth. - metFORMIN (GLUCOPHAGE) 500 mg tablet TAKE 1 TABLET BY MOUTH TWICE A DAY FOR 90 DAYS - Progesterone Micronized 100 mg inst Use 1 Suppository vaginally once daily. - levothyroxine (SYNTHROID) 137 mcg tablet Take 1 tablet by mouth every morning. on an empty stomach. Wait one hour before eating or taking other medications. - Vit-Iron Fumarate-FA (CO-BROOKE FA) 29-1 mg Tab Take 1 tab once daily Facility-Administered Medications as of 02/06/2025 - triamcinolone acetonide 20 mg injection (KeNALog 10) Problem List As Of Date 02/06/2025 Noted Resolved Other specified acquired hypothyroidism [E03.8] 09/23/2012 06/16/2016 Kel's thyroiditis [E06.3] 09/23/2012 Chronic fatigue [R53.82] 09/23/2012 Paresthesias [R20.2] 09/23/2012 Maternal age 35+, multigravida, antepartum [O09*11/14/2013 Previous delivery affecting ,*11/15/2013 Obesity in , antepartum [O99.210] 11/15/2013 Diarrhea [R19.7] 09/24/2022 09/24/2022 Rectal bleeding [K62.5] 09/24/2022 09/24/2022 Abdominal pain [R10.9] 09/24/2022 09/24/2022 Hair loss [L65.9] 02/06/2025 Thyroid disease [E07.9] 02/06/2025 Vitamin D deficiency [E55.9] 02/06/2025 Family history of rheumatoid arthritis [Z82.61] 02/06/2025 Family history of osteoporosis in mother [Z82.6*02/06/2025 Postmenopausal osteoporosis of multiple sites [*02/06/2025 Other instructions from your clinician: May apply over the counter arthritis creams and or patches (biofreeze, icy hot, asper cream, tiger balm, capsacin, lidocaine, salon pas, voltaren gel, etc.) or over the counter pain patches to painful joints up to four times a day. Avoid contact with eyes. May take Extra Strength acetaminophen 500mg every 4-6hours for joint pain. Do not exceed 3000mg /day. Decrease stress Improve sleep May apply heat/ice 20minutes on and off to areas of pain Avoid aggravating triggers If needed, may take Calcium 1200mg daily with food in DIVIDED doses If labs normal, take Vitamin D 4000 International Units daily with food Recommend goal: exercising 30minutes 3-5 times a week Recommend weight-bearing aerobic exercises such as walking, dancing, low impact aerobics, elliptical machine, stair climbing, gardening, biking, water exercises flexibility exercises and strength training exercises Recommend avoiding high impact exercises such as jumping, running or jogging or movements where you bend forward and twist the waist, for instance- touching your toes, sit-ups, using row machine longitudinal float operator pain recommendations per primary care provider/pain clinic Nonfasting labs as scheduled Thank you. BONE MINERAL DENSITY PATIENT INSTRUCTIONS Bone mineral density testing measures the amount of calcium in certain parts of your bones. This information determines how strong your bones are. The test is used to detect osteoporosis, a disease in which the bone's mineral content and density are low, increasing a person's risk of fractures. The lumbar spine (lower back) and the hip are the skeletal sites usually examined. For the test, remember that: 1. You cannot take this test if you are . 2. Eat a normal diet on the day of the test. 3. Take your medications as you normally would. 4. DO NOT take calcium supplements (such as Tums) for 24 hours before the test. 5. On the day of the test, leave valuables (jewelry or credit cards) at home. 6. The test should be performed prior to oral, rectal or IV contrast studies, or at least 7 days after any of these studies. For the test, you may be asked to wear a hospital gown. You will lie on your back, on a padded table, in a comfortable position. Generally, you can resume your usual activities immediately. Medications Discontinued During This Encounter Prescriptions - finasteride (PROSCAR) 5 mg tablet (Discontinued) Take half a tablet (2.5 mg) by mouth once daily. - tacrolimus (PROTOPIC) 0.1 % ointment (Discontinued) Use twice daily as directed to rash on the face - QUEtiapine (SEROQUEL) 100 mg tablet (Discontinued) Take 100 mg by mouth daily at bedtime. - minoxidil (LONITEN) 2.5 mg tablet (Discontinued) Take 0.5 tablets by mouth once daily. - hyoscyamine SR (LEVBID) 0.375 mg 12 hr tablet (Discontinued) take 1 tablet by mouth twice a day Letter Text Encounter Status:Closed by AINSLEY NUGENT on 02/06/25 PROGRESS Observed: 02/06/2025 9:57 AM Status: COMPLETED Source: [facility] HNO ID: [id number] Author: AINSLEY NUGENT MD Service: ? Author Type: Physician Type: Progress Notes Filed: 02/06/2025 11:58 Note Text: NEW CONSULT:RHEUMATOLOGY SERVICE SERVICE DATE: 02/06/2025 SERVICE TIME: 9:58 AM REASON FOR CONSULT: hairloss and fatigue REQUESTING PHYSICIAN: Martin Martinez DO PRIMARY CARE PHYSICIAN: Martin Martinez DO Patient's Name: Marko Warren 1975 [address] [place] [address] Accompanied by: self This consult was requested for my medical opinion regarding the rheumatologic evaluation of the patient's hairloss and fatigue problems, and my final recommendations will be communicated to the requesting health care provider by way of the shared medical record for internal providers or letter via the [employer] for external providers. February 06, 2025 SUBJECTIVE Ms. Warren is a 49 year old female who presents for hairloss and fatigue eval. 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 No adverse effects with meds. No other complaints. Patient denies fever, chills, cp, dyspnea, nausea, vomiting, night sweats, scalp tenderness, visual changes, sutton, bowel/bladder changes, weight changes or other complaints. COMPLETE REVIEW OF SYSTEMS: RHEUM. ROS: Joint pain: ? Carpal tunnel syndrome symptoms Joint swelling: R ankle Am stiffness: no Low back pain: no Dactylitis: no H/o precedent/frequent infection(s): no Enthesopathy/Arnav's/heel/plantar tenderness: carpal tunnel syndrome Skin thickening, psoriasis, photosensitivity, purpura: no Nail changes: vertical nail ridges for months Alpecia, patchy: yes Eye inflammation: contacts SICCA: no Oral/nasal/genital ulcers: no GI problems-diarrhea/bleeding/IBD/Gluten intolerence/Dysphagia: gerd Raynaud's phenomenon/digital ulcers: no Organ inv-Serositis: no Lung disease/ILD: no Myopathy/proximal muscle weakness: no Abnormal Urine or urethritis: no Renal/liver disease: no LOCOMOTIVE SWITCH OPERATOR/PNS/sz/cva/cancer disease: no HEME-Cytopenias/LAD/Clots: no Fevers: no Fatigue: yes, sleeps 8 hrs/night PMR/GCA ROS: negative Patient denies history of Gout or Pseudogout, Psoriasis, Rheumatic Fever, PUD, Liver Disease, Hepatitis , Kidney Disease, Kidney Stones, DM, HTN, CAD, Dyslipidemia, PAD, Sinusitis, Asthma, TB infection or exposure, Pneumonias, Anemia, Seizures, Stroke, MS, Clots, Cancer, Transfusions, Tattoos , and Alcohol dependency. Other ROS:The remainder of the review of systems is negative. All other reviewed and negative other than HPI. PATIENT REPORTS: Cardiac stress test:stable Breast exam:negative Pap exam: normal, last menses with hysterectomy 2019 due to migraines, YES taking hormones; G9, P4, 5miscarriage Colonoscopy: hemorrhoids with banding Bone Density:yes ago osteopenia Was on fosamax for years, off now History of Fractures:R arm fracture 2nd grade Height Loss: 1/2 IMMUNIZATION HX: Immunization History Administered Date(s) Administered COVID-19 original vaccine, full dose, monovalent (MODERNA) 11/20/2020 12/18/2020 09/20/2021 Pneumovax no Flu shot no Tetanus yes Last PPD: negative PAST MEDICAL HISTORY: PMH depression, s/p lap for ectopic , anxiety, migraines, ovarian cyst, thyroid disease, gerd,hysterectomy 2019 due to migraines,hemorrhoids with banding, R arm fracture 2nd grade, s/p appy, s/p csection, s/p DANDC, s/p ravaginal retrieval of egg, s/p epigatric hernia repair, s/p cholecystectomy, s/p wisdom teeth extraction, PAST MEDICAL HISTORY Diagnosis Date Depression Ectopic Generalized anxiety disorder Migraine, intractable Ovarian cyst Unspecified hypothyroidism since 1999, age 25 Hypothyroidism PAST SURGICAL HISTORY: s/p appy, s/p csection, s/p DANDC, s/p ravaginal retrieval of egg, s/p epigatric hernia repair, s/p cholecystectomy, s/p wisdom teeth extraction, PAST SURGICAL HISTORY Procedure Laterality Date APPENDECTOMY DELIVERY ONLY x2 2010 and 2011 , low transverse DILATION AND CURETTAGE DXAND/THER NONOBSTETRIC 5 Dilation AND curettage LAPS ABD PRTMANDOMENTUM DX W/WO SPEC BR/WA SPX 11/08/2008 Laparoscopy (ecotopic ) LAPS ABD PRTMANDOMENTUM DX W/WO SPEC BR/WA SPX 11/08/2009 Laparoscopy: aovrian-utine adhesions. PAST SURGICAL HISTORY OF transvaginal retrival of egg. 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 Skin, right vertex scalp, punch biopsy: - Compatible with lichen planopilaris,04/29/23 feet xrays-Mild soft tissue swelling around the first MTP join 09/2012 low vitamin D 17.5, tsh 0.176;normal vitamin [id number]; PHYSICAL EXAM:reviewed vitals BP 135/79 Pulse 76 Ht 157.5 cm (5' 2 ) Wt 69 kg (152 lb 1.9 oz) LMP 03/18/2016 (Approximate) BMI 27.82 kg/m? General Appearance: WD/WN, NAD. Appropriate grooming. Very pleasant. Upset, crying, Ambulates fair without assistance or without assistive devices SKIN: No rash, no psoriasis, no purpura, no ulcers, no skin thickening/tightness, no telangiectasias. HEENT: yes patchy alopecia, normal temporal artery pulsations, non-tender, scalp non-tender, no conjunctival injection or icterus, no oral ulcers, no thrush, normal nasal mucosa, no sinus tenderness, normal TM's. no glasses, fair dentition NECK: neck supple w/o masses, no thyromegaly, no LAD. LUNGS: CTA, Good respiratory effort. HEART: RRR, - m/r/g ABDOMEN: soft, non-tender, no HSM/masses/bruits. EXTREMITIES: Adequate pulses b/l UE ; No clubbing,discoloration,sclerodactyly, periungual erythema, digital ulcers, nail pitting, edema, varicosities. MUSCULOSK: No joint deformities, no rheumatoid nodules, calcifications or tophi. No SI tenderness, no arnav's tenderness, no heel/plantar tenderness, lumbar flexion full, negative Zaira's test, tinel's and karel tests Swoll JTS:no Tend. JTS:improved R ankle/hands/wrists, fair range of motion; no warmth/erythema No clinical synovitis in the DIP's, PIP's, MCP's, wrists, elbows, shoulders, knees, ankles, midfoot, or toes. no knee effusions bilateral. Shoulder exam:fair range of motion; no warmth/erythema Hip rom without pain LIMITATION of Motion of Joints: no Thoracic/Lumbar Spine: No percussion tenderness SLR:negative No instability in any upper or lower extremity joints. NEURO: Mental Status: alert and oriented x 3, anxious, CN II - XII grossly intact Motor: 5/5 proximally and distally b/l Sensory: intact to fine touch TENDER POINTS: 0/18 Gait: see above Toe and heel walk normal. Tone: normal IMPRESSION/DIAGNOSIS:February 06, 2025 L65.9 Hair loss (primary encounter diagnosis) R79.89 Elevated LFTs D63.8 Anemia of chronic disease R70.0 Elevated sed rate R79.82 Elevated C-reactive protein (CRP) E55.9 Vitamin D deficiency E53.8 Vitamin B12 deficiency Z11.1 Screening-pulmonary TB M81.0 Postmenopausal osteoporosis of multiple sites E61.1 Iron deficiency E07.9 Thyroid disease E34.9 Hypotestosteronemia E79.0 Hyperuricemia E78.2 Mixed hyperlipidemia R53.82 Chronic fatigue Z82.61 Family history of rheumatoid arthritis Z82.62 Family history of osteoporosis in mother Ms. Warren is a 49 year old Wfemale with PMH depression, s/p lap for ectopic , anxiety, migraines, ovarian cyst, thyroid disease, gerd,hysterectomy 2019 due to migraines,hemorrhoids with banding, R arm fracture 2nd grade, s/p appy, s/p csection, s/p DANDC, s/p ravaginal retrieval of egg, s/p epigatric hernia repair, s/p cholecystectomy, s/p wisdom teeth extraction, presents with 1999 diagnosed with thyroid disease 05/2024 hairloss worsening 3months severe fatigue, sleeps fine but does not wake rested Takes medication to stay asleep 3months ago derm started plaquenil 2tabs daily, no changes with hairloss, may try ANGELA inhibitor 10/2024 R ankle swelling off and on, unable to wear shoes 01/26/25 saw derm for hairloss, off minoxidil due to low BP and R ankle swelling 01/05/25 saw derm for lichen planopilaris Possible Carpal tunnel syndrome symptoms Scalp Steroid injections no change with hairloss Reports pain 10/17 Has findings of low vitamin D, chronic fatigue, osteopenia of multiple areas, 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 RECOMMENDATION/PLAN: Office Visit on 02/06/25 DXA-FOREARM SKELETON DXA-AXIAL SKELETON BD DXA TRABECULAR BONE SCORE (TBS) RHEUMATOID FACTOR CCP ANTIBODY IGG PRESTON BY IFA WITH REFLEX SEDIMENTATION RATE, WESTERGREN C-REACTIVE PROTEIN HEP REMOTE PANEL BL BLOOD TB SCREEN COMPREHENSIVE METABOLIC PANEL COMPLETE BLOOD COUNT VITAMIN D 25 HYDROXY VITAMIN B12 URIC ACID TESTOSTERONE, TOTAL BY IMMUNOASSAY (ADULT MALES, OR INDIVIDUALS ON TESTOSTERONE THERAPY) ESTRADIOL-17B BLD PROGESTERONE T3 T4 FREE/FREE THYROXINE THYROID STIMULATING HORMONE LIPID PANEL, FASTING IRON AND TIBC FERRITIN Reviewed all available labs/tests with patient Provided printed info February 06, 2025 check above orders Modified February 06, 2025 HAQ0, pain 100%; May apply over the counter arthritis creams and or patches (biofreeze, icy hot, asper cream, tiger balm, capsacin, lidocaine, salon pas, voltaren gel, etc.) or over the counter pain patches to painful joints up to four times a day. Avoid contact with eyes. May take Extra Strength acetaminophen 500mg every 4-6hours for joint pain. Do not exceed 3000mg /day. Decrease stress Improve sleep May apply heat/ice 20minutes on and off to areas of pain Avoid aggravating triggers If needed, may take Calcium 1200mg daily with food in DIVIDED doses If labs normal, take Vitamin D 4000 International Units daily with food Recommend goal: exercising 30minutes 3-5 times a week Recommend weight-bearing aerobic exercises such as walking, dancing, low impact aerobics, elliptical machine, stair climbing, gardening, biking, water exercises flexibility exercises and strength training exercises Recommend avoiding high impact exercises such as jumping, running or jogging or movements where you bend forward and twist the waist, for instance- touching your toes, sit-ups, using row machine pen[facility] pain recommendations per primary care provider/pain clinic Nonfasting labs as scheduled Additional time spent with patient on healthy lifestyle, healthy food and anti-inflammatory diet (with emphasis on whole plant based diet), avoiding refined carbs/sugars and processed food, appropriate exercise (stretching, cardio and strengthening), good sleep hygiene, stress mgt, and supplementing vital deficiencies and maintaining healthy wt and BMI. Additional information provided with references and educational information. Bone Health Recommendations: -Bone Density: After age 70 yrs, sooner if new clinical risk factors, or systemic steroid use of 3 months or more. -Vitamin D supplementation recommended, optimal dose is the dose necessary to achieve Vitamin D 25-OH blood level in range of 40-60 ng/mL. -Recommended daily dose of calcium: 1000-1200mg total a day in divided doses. Calcium from dietary sources, if not sufficient, or if with h/o calcium nephrolithiasis would recommend Calcium Citrate supplement, as it is recommended to avoid calcium carbonate products, which as main dietary calcium source. The after visit summary has information on dietary calcium and instructions on reading calcium label and converting the %DV to mg. -Regular weight-bearing and muscle-strengthening exercise -Avoidance of tobacco smoking, excessive alcohol intake and excessive caffeine intake. -Fall and fracture precautions -Continued regular dental follow up visits and good dental/gum care Stressed the importance of following up with PCP and specialists for his/her chronic diseases, health, CV, and cancer screening and continued care. Will follow disease activity/progression and adjust therapeutic regimen to disease activity and severity. Discussed medication dosage, usage, goals of therapy, and side effects. Available test results were reviewed Additional time spent with the patient to discuss their questions. Additional time spent with the patient devoted to discussing treatment strategy, planning, and implementation. Discussed findings, impression and plan with patient. Patient understands above plan; questions asked and answered. Patient agrees to plan as noted above. Of the 60 minute long appointment visit, Total time spent on this visit, with more than 50% of time spent via video AND audio (virtual) or phone or face to face with patient, in consultation, and in addition to Counseling and Coordination of Care, explanation of diagnosis, and planning of further management; I spent a total of 60 minutes on the date of the service during phone/virtual or office visit with an additional 10-15 minutes which included preparing to talk with the patient via video AND audio (virtual) or phone or [id number] patient care, completing clinical documentation, obtaining and/or reviewing separately obtained history, review all available records, performing a medically appropriate examination, counseling and educating the patient/family/caregiver, ordering medications, tests, or procedures, communicating with other HCPs (not separately reported), independently interpreting results (not separately reported), communicating results to the patient/family/caregiver and care coordination (not separately reported) Follow up: 6-12months, earlier if needed Recommendations to share with referring physician/Primary care physician : Dear Dr.Benjamin Maria Dolores Martinez, DO : I had the pleasure of talking with your patient, Marko Warren. I have enclosed a copy of my clinic note with my assessment and recommendations for this patient. Recommendations for your consideration as you deem necessary: -Continuous follow up with Primary care physician for cardiovascular disease prevention, for age appropriate cancer screening and routine health maintenance and wellness, and infection precautions and age appropriate immunization recommended. Thank you for allowing me to participate in the care of your patient. Ainsley Nugent MD I will relay my findings and recommendations to the physician requesting the consult by letter/electronic shared medical records. cc Martin Martinez DO SIGNATURE: Ainsley Nugent MD PATIENT NAME: Marko Warren DATE: February 06, 2025 PROGRESS Observed: 01/29/2025 2:29 PM Status: COMPLETED Source: [facility] HNO ID: [id number] Author: ?, ?, ? Service: ? Author Type: ? Type: Progress Notes Filed: 01/29/2025 14:29 Note Text: Scheduled per above PROGRESS Observed: 01/26/2025 9:17 AM Status: COMPLETED Source: [facility] HNO ID: [id number] Author: ROSELYN CAMARGO MD Service: ? Author Type: Physician Type: Progress Notes Filed: 01/26/2025 16:14 Note Text: [facility] Department of Dermatology VIRTUAL VISIT PROGRESS NOTE This Team Access Model visit is a virtual encounter. It required patient-provider interaction for the medical decision making as documented below. I have communicated my name and active licensure. The patient's identity and physical location were verified at the time of this visit. Either the patient or their legal senior sales representative has been informed of the risks and benefits of -- and alternatives to -- treatment through a remote evaluation and consents to proceed with the evaluation remotely. This visit was completed virtually, using synchronous telemedicine technology (OrangeSlyce). Established patient CHIEF COMPLAINT: Hair Loss HISTORY OF PRESENT ILLNESS: Marko Warren is a 49 year old female here for evaluation of hair loss . Patient location at time of appointment: [facility] lichen planopilaris per skin, right vertex scalp, punch biopsy on 07/07/24 #hair loss Location: all over but does have 2 bald areas at the crown of hew head, associated with tenderness in that specific area Severity: severe, lost 3/4 of her hair Duration:May 2024 Current treatments: - fluocinonide (LIDEX) 0.05 % external solution - Ciclopirox 1 % sham; Use 2-3x weekly as needed - Minoxidil 5% - ILK 01/19/25 - Doxycycline 100 mg BID on since June - Naltrexone 4.5 mg daily - hydroxychloroquine to 200 mg twice daily - oral progesterone 100 mg every other day Previous treatment - minoxidil stopped due to low BP Today reports:getting worse, it will come out in clumps and unable to even brush her hair Personal Dermatologic History History of skin cancer: No History of chronic skin disease: No Family History History of skin cancer: No Past Medical History PAST MEDICAL HISTORY Diagnosis Date Depression Ectopic Generalized anxiety disorder Migraine, intractable Ovarian cyst Unspecified hypothyroidism since 1999, age 25 Hypothyroidism Medications Current Outpatient Medications Medication Sig doxycycline monohydrate (MONODOX) 100 mg capsule Take 1 capsule by mouth two times a day. hydrOXYchloroQUINE (PLAQUENIL) 200 mg tablet Take 1 tablet by mouth two times a day. naltrexone capsule 4.5 mg (CPD) Take 1 capsule by mouth once daily. minoxidil (LONITEN) 2.5 mg tablet Take 0.5 tablets by mouth once daily. tacrolimus (PROTOPIC) 0.1 % ointment Use twice daily as directed to rash on the face fluocinonide (LIDEX) 0.05 % external solution Apply to affected areas on scalp 3x weekly. Leave on for at least 8 hrs. Scalp treatment only, do not apply to lengths. Ciclopirox 1 % sham Use 2-3x weekly as needed. Massage shampoo into scalp until lather. Leave on for 3 to 5 minutes, then rinse thoroughly. finasteride (PROSCAR) 5 mg tablet Take half a tablet (2.5 mg) by mouth once daily. gabapentin (NEURONTIN) 600 mg tablet Take 1,200 mg by mouth three times a day. hyoscyamine SR (LEVBID) 0.375 mg 12 hr tablet take 1 tablet by mouth twice a day estradiol (ESTRACE) 2 mg tablet QUEtiapine (SEROQUEL) 100 mg tablet Take 100 mg by mouth daily at bedtime. rosuvastatin calcium (CRESTOR ORAL) Take by mouth. metFORMIN (GLUCOPHAGE) 500 mg tablet TAKE 1 TABLET BY MOUTH TWICE A DAY FOR 90 DAYS Progesterone Micronized 100 mg inst Use 1 Suppository vaginally once daily. levothyroxine (SYNTHROID) 137 mcg tablet Take 1 tablet by mouth every morning. on an empty stomach. Wait one hour before eating or taking other medications. (Patient taking differently: Take 88 mcg by mouth every morning. on an empty stomach. Wait one hour before eating or taking other medications.) Vit-Iron Fumarate-FA (CO- FA) 29-1 mg Tab [...] the following: face Pertinent findings include: - erythematous patch on nose - difficult to evaluate hair given styling in place ASSESSMENT AND PLAN: 49 year old female with: 1. 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 Continue previous tx: - fluocinonide (LIDEX) 0.05 % external solution - Ciclopirox 1 % sham; Use 2-3x weekly as needed - Minoxidil 5% - ILK --> continue in 4 weeks - Doxycycline 100 mg BID on since June - Naltrexone 4.5 mg daily - hydroxychloroquine to 200 mg twice daily - oral progesterone 100 mg every other day Start dex pulse dose given flare and acute shed 4mg x 2 consecutive days x 4 weeks Will re-evaluate at follow up and decide to taper or continue at 4 mg based on eval Will do ILK at follow up (ADR reviewed, but not limited to: hypertension, skin atrophy and impaired wound healing, peripheral edema, nausea/vomiting, increased risk of gastric ulcerations, increased risk of infection, hyperglycemia and risk of adrenal insufficiency with tapering, ocular issues including cataracts, glaucoma, insomnia, mood instability, muscle weakness, osteopenia/osteoporosis and risk of osteonecrosis of the hip. Instructed patient to stop medication and go to ER immediately if develops new onset hip pain.) Avoid minox orally d/t hypotension (consider lower dose) I spent a total of 20 minutes on the date of the service which included preparing to see the patient, [id number] patient care, completing clinical documentation, performing a medically appropriate examination, counseling and educating the patient/family/caregiver, and ordering medications, tests, or procedures. The documentation for this note was completed by Amber Albarran RN, acting as scribe for Roselyn Camargo MD. January 26, 2025 1:06 PM. Provider Attestation: I, Roselyn aCmargo MD, personally performed the services described in this documentation. All medical record entries made by the scribe were at my direction and in my presence. I have reviewed the chart and discharge instructions (if applicable) and agree that the record reflects my personal performance and is accurate and complete. Electronically Signed: Roselyn Camargo MD. January 26, 2025 4:12 PM RTC 4 weeks or sooner if something concerning arises. Roselyn Camargo MD January 26, 2025 CNNURSE Observed: 01/19/2025 4:20 PM Status: COMPLETED Source: [facility] Nurse Visit (DERMAV) MARKO WARREN ([id number]) 1975 F Date Time Provider Department 01/19/25 4:20 PM NURSE DERM [facility] During your visit today, we recorded the following information about you: Janeth Diehl RN 01/19/2025 4:26 PM Signed Nurse visit injections Patient presents for diagnosis of lichen planopilaris Here today for Injection Order in [facility]? Yes by provider Tiffani Torres MD Injection # 6 Last office visit 01/05/25 with Tiffani Torres MD , Orders for Kenalog (triamcinolone) To be administered every 6 weeks (ok per Dr. Torres for her to have injections at 4 weeks) Additional medications used for condition topical She stopped taking doxycycline due to GI upset. Patient comments on effect of injections: worsening Assessment on current condition: erythema with scale on scalp. Widened part noted She is also noting inflammation to her legs and believes it is related to her oral minoxidil. Per Dr. Torres, patient can d/c medication. Verbal consent for injections with nurse today. Patient aware of risks of medication, as previously explained by practitioner and reviewed today. Patient give 5 mg of intralesional steroid/triamcinolone injections route: intralesional to scalp. Total of 4 ml administered. 30 lesions. Patient tolerated injection(s) well. F/U 6 weeks for further injections as ordered. F/u with Dr. Camargo for hair loss follow up and to discuss effects from minoxidil. Janeth Diehl RN January 19, 2025 4:09 PM Allergies As of Date: 01/19/2025 Noted Allergy Reaction CECLOR (CEFACLOR) 09/23/2012 4 - Hives CIPROFLOXACIN 09/24/2022 4 - Hives IMITREX (SUMATRIPTAN SUCCINATE) 09/23/2012 10 - Anaphylaxis Comments: Respiratory Distress TRAMADOL 08/18/2022 8 - GI Upset Comments: Nausea Date Reviewed: 01/19/2025 Reviewed by: Janeth Diehl RN - Fully Assessed Reason for Visit: Injections [199] Primary Visit Diagnosis:Lichen planopilaris [L66.10] Prescriptions as of 01/19/2025 - doxycycline monohydrate (MONODOX) 100 mg capsule Take 1 capsule by mouth two times a day. - hydrOXYchloroQUINE (PLAQUENIL) 200 mg tablet Take 1 tablet by mouth two times a day. - naltrexone capsule 4.5 mg (CPD) Take 1 capsule by mouth once daily. - minoxidil (LONITEN) 2.5 mg tablet Take 0.5 tablets by mouth once daily. - tacrolimus (PROTOPIC) 0.1 % ointment Use twice daily as directed to rash on the face - fluocinonide (LIDEX) 0.05 % external solution Apply to affected areas on scalp 3x weekly. Leave on for at least 8 hrs. Scalp treatment only, do not apply to lengths. - Ciclopirox 1 % sham Use 2-3x weekly as needed. Massage shampoo into scalp until lather. Leave on for 3 to 5 minutes, then rinse thoroughly. - finasteride (PROSCAR) 5 mg tablet Take half a tablet (2.5 mg) by mouth once daily. - gabapentin (NEURONTIN) 600 mg tablet Take 1,200 mg by mouth three times a day. - hyoscyamine SR (LEVBID) 0.375 mg 12 hr tablet take 1 tablet by mouth twice a day - estradiol (ESTRACE) 2 mg tablet - QUEtiapine (SEROQUEL) 100 mg tablet Take 100 mg by mouth daily at bedtime. - rosuvastatin calcium (CRESTOR ORAL) Take by mouth. - metFORMIN (GLUCOPHAGE) 500 mg tablet TAKE 1 TABLET BY MOUTH TWICE A DAY FOR 90 DAYS - Progesterone Micronized 100 mg inst Use 1 Suppository vaginally once daily. - levothyroxine (SYNTHROID) 137 mcg tablet Take 1 tablet by mouth every morning. on an empty stomach. Wait one hour before eating or taking other medications. - Vit-Iron Fumarate-FA (CO- FA) 29-1 mg Tab Take 1 tab once daily Facility-Administered Medications as of 01/19/2025 - triamcinolone acetonide 20 mg injection (KeNALog 10) Problem List As Of Date 01/19/2025 Noted Resolved Other specified acquired hypothyroidism [E03.8] 09/23/2012 06/16/2016 [facility] thyroiditis [E06.3] 09/23/2012 Fatigue [R53.83] 09/23/2012 06/16/2016 Paresthesias [R20.2] 09/23/2012 Maternal age 34+, multigravida, antepartum [O09*11/14/2013 Previous delivery affecting ,*11/15/2013 Obesity in , antepartum [O99.210] 11/15/2013 Diarrhea [R19.7] 09/24/2022 09/24/2022 Rectal bleeding [K62.5] 09/24/2022 09/24/2022 Abdominal pain [R10.9] 09/24/2022 09/24/2022 [facility] and 5 week NV for ilk. Follow-up and Disposition History for Encounter Date Provider Department Center 01/19/2025 [id number] CHERELLEDERMAV Cherelle Encounter Status:Closed by JANETH DIEHL on 01/19/25 PROGRESS Observed: 01/19/2025 4:08 PM Status: COMPLETED Source: [facility] HNO ID: [id number] Author: JANETH DIEHL RN Service: ? Author Type: Registered Nurse Type: Progress Notes Filed: 01/19/2025 16:26 Note Text: Nurse visit injections Patient presents for diagnosis of lichen planopilaris Here today for Injection Order in Epic? Yes by provider Tiffani Torres MD Injection # 6 Last office visit 01/05/25 with Tiffani Torres MD , Orders for Kenalog (triamcinolone) To be administered every 6 weeks (ok per Dr. Torres for her to have injections at 4 weeks) Additional medications used for condition topical She stopped taking doxycycline due to GI upset. Patient comments on effect of injections: worsening Assessment on current condition: erythema with scale on scalp. Widened part noted She is also noting inflammation to her legs and believes it is related to her oral minoxidil. Per Dr. Torres, patient can d/c medication. Verbal consent for injections with nurse today. Patient aware of risks of medication, as previously explained by practitioner and reviewed today. Patient give 5 mg of intralesional steroid/triamcinolone injections route: intralesional to scalp. Total of 4 ml administered. 30 lesions. Patient tolerated injection(s) well. F/U 6 weeks for further injections as ordered. F/u with Dr. Camargo for hair loss follow up and to discuss effects from minoxidil. Janeth Diehl RN January 19, 2025 4:09 PM PROGRESS Observed: 01/05/2025 1:00 PM Status: COMPLETED Source: [facility] HNO ID: [id number] Author: TIFFANI TORRES MD Service: ? Author Type: Physician Type: Progress Notes Filed: 01/15/2025 22:22 Note Text: CC: Hair loss, follow up HPI: This pleasant 49 year old female here for hair loss follow up. The condition is worsening. Associated scalp symptoms (+/-): tenderness and pruritus Current treatment Topical: - fluocinonide (LIDEX) 0.05 % external solution - Ciclopirox 1 % sham; Use 2-3x weekly as needed - Tacrolimus 0.1 % ointment - ILK 12/19/2024 Systemic: - oral finasteride 2.5 mg/day - Doxycycline 100 mg BID - Naltrexone 7.5 mg daily Current Outpatient Medications Medication Sig naltrexone capsule 4.5 mg (CPD) Take 1 capsule by mouth once daily. minoxidil (LONITEN) 2.5 mg tablet Take 0.5 tablets by mouth once daily. tacrolimus (PROTOPIC) 0.1 % ointment Use twice daily as directed to rash on the face hydrOXYchloroQUINE (PLAQUENIL) 200 mg tablet Take 200 mg (1 tablet) every other day alternating with 2 tablets (400 mg) every other day. doxycycline monohydrate (MONODOX) 100 mg capsule Take 1 capsule by mouth two times a day. fluocinonide (LIDEX) 0.05 % external solution Apply to affected areas on scalp 3x weekly. Leave on for at least 8 hrs. Scalp treatment only, do not apply to lengths. Ciclopirox 1 % sham Use 2-3x weekly as needed. Massage shampoo into scalp until lather. Leave on for 3 to 5 minutes, then rinse thoroughly. finasteride (PROSCAR) 5 mg tablet Take half a tablet (2.5 mg) by mouth once daily. gabapentin (NEURONTIN) 600 mg tablet Take 1,200 mg by mouth three times a day. hyoscyamine SR (LEVBID) 0.375 mg 12 hr tablet take 1 tablet by mouth twice a day estradiol (ESTRACE) 2 mg tablet TAKE 1 TABLET BY MOUTH EVERY DAY FOR 90 DAYS (Patient not taking: Reported on 08/29/2024) QUEtiapine (SEROQUEL) 100 mg tablet Take 100 mg by mouth daily at bedtime. rosuvastatin calcium (CRESTOR ORAL) Take by mouth. metFORMIN (GLUCOPHAGE) 500 mg tablet TAKE 1 TABLET BY MOUTH TWICE A DAY FOR 90 DAYS Progesterone Micronized 100 mg inst Use 1 Suppository vaginally once daily. levothyroxine (SYNTHROID) 137 mcg tablet Take 1 tablet by mouth every morning. on an empty stomach. Wait one hour before eating or taking other medications. (Patient taking differently: Take 88 mcg by mouth every morning. on an empty stomach. Wait one hour before eating or taking other medications.) Vit-Iron Fumarate-FA (CO- FA) 29-1 mg Tab Take 1 tab once daily Current Facility-Administered Medications Medication Dose Route Frequency triamcinolone acetonide 20 mg injection (KeNALog 10) 20 mg INTRALESIONAL q 6 WEEKS Allergies:Ceclor [Cefaclor], Ciprofloxacin, Imitrex [Sumatriptan Succinate], and Tramadol REVIEW OF SYSTEMS: No fevers, no chills, no weightloss, no night sweats Skin as noted above PHYSICAL EXAM: Well appearing, pleasant, in NAD Alert and oriented x3 Mood and affect: normal Skin exam performed including scalp and noted to be normal with the exception of: - right medial thigh with 5 mm soft rubbery nodule with regular borders Scalp: Pattern of thinning: diffuse Part width: increased Miniaturized hairs: some Regrowing hairs: Present Associated findings: erythema and scale Hair pull test: Positive ASSESSMENT / PLAN: Lichen planopilaris Medical complexity: chronic illness - not at treatment goal - increase hydroxychloroquine to 200 mg twice daily for now - decrease vaginal progesterone to 100 mg every other day - continue intralesional steroid/triamcinolone injections every 6-8 weeks RTC 3 months The documentation for this note was completed by Collette East MA acting as scribe for Tiffani Torres MD. January 05, 2025 7:38 AM. The HPI, PMH, and ROS that were documented by my student assistant, who was scribing during the encounter, were confirmed by me and I agree with the content of these sections. I have made any required additions or deletions to the HPI/PFSH/ROS as needed. The physical exam and any procedures were performed by me, unless otherwise noted. Tiffani Torres MD CNOV Observed: 01/05/2025 1:00 PM Status: COMPLETED Source: [facility] Office Visit (DERMAV) MARKO WARREN ([id number]) 1975 F Date Time Provider Department 01/05/25 1:00 PM TIFFANI TORRES DERMOLIVERIO During your visit today, we recorded the following information about you: Tiffani Torres MD 01/15/2025 10:22 PM Signed CC: Hair loss, follow up HPI: This pleasant 49 year old female here for hair loss follow up. The condition is worsening. Associated scalp symptoms (+/-): tenderness and pruritus Current treatment Topical: - fluocinonide (LIDEX) 0.05 % external solution - Ciclopirox 1 % sham; Use 2-3x weekly as needed - Tacrolimus 0.1 % ointment - ILK 12/19/2024 Systemic: - oral finasteride 2.5 mg/day - Doxycycline 100 mg BID - Naltrexone 7.5 mg daily Current Outpatient Medications Medication Sig naltrexone capsule 4.5 mg (CPD) Take 1 capsule by mouth once daily. minoxidil (LONITEN) 2.5 mg tablet Take 0.5 tablets by mouth once daily. tacrolimus (PROTOPIC) 0.1 % ointment Use twice daily as directed to rash on the face hydrOXYchloroQUINE (PLAQUENIL) 200 mg tablet Take 200 mg (1 tablet) every other day alternating with 2 tablets (400 mg) every other day. doxycycline monohydrate (MONODOX) 100 mg capsule Take 1 capsule by mouth two times a day. fluocinonide (LIDEX) 0.05 % external solution Apply to affected areas on scalp 3x weekly. Leave on for at least 8 hrs. Scalp treatment only, do not apply to lengths. Ciclopirox 1 % sham Use 2-3x weekly as needed. Massage shampoo into scalp until lather. Leave on for 3 to 5 minutes, then rinse thoroughly. finasteride (PROSCAR) 5 mg tablet Take half a tablet (2.5 mg) by mouth once daily. gabapentin (NEURONTIN) 600 mg tablet Take 1,200 mg by mouth three times a day. hyoscyamine SR (LEVBID) 0.375 mg 12 hr tablet take 1 tablet by mouth twice a day estradiol (ESTRACE) 2 mg tablet TAKE 1 TABLET BY MOUTH EVERY DAY FOR 90 DAYS (Patient not taking: Reported on 08/29/2024) QUEtiapine (SEROQUEL) 100 mg tablet Take 100 mg by mouth daily at bedtime. rosuvastatin calcium (CRESTOR ORAL) Take by mouth. metFORMIN (GLUCOPHAGE) 500 mg tablet TAKE 1 TABLET BY MOUTH TWICE A DAY FOR 90 DAYS Progesterone Micronized 100 mg inst Use 1 Suppository vaginally once daily. levothyroxine (SYNTHROID) 137 mcg tablet Take 1 tablet by mouth every morning. on an empty stomach. Wait one hour before eating or taking other medications. (Patient taking differently: Take 88 mcg by mouth every morning. on an empty stomach. Wait one hour before eating or taking other medications.) Vit-Iron Fumarate-FA (CO-BROOKE FA) 29-1 mg Tab Take 1 tab once daily Current Facility-Administered Medications Medication Dose Route Frequency triamcinolone acetonide 20 mg injection (KeNALog 10) 20 mg INTRALESIONAL q 6 WEEKS Allergies:Ceclor [Cefaclor], Ciprofloxacin, Imitrex [Sumatriptan Succinate], and Tramadol REVIEW OF SYSTEMS: No fevers, no chills, no weightloss, no night sweats Skin as noted above PHYSICAL EXAM: Well appearing, pleasant, in NAD Alert and oriented x3 Mood and affect: normal Skin exam performed including scalp and noted to be normal with the exception of: - right medial thigh with 5 mm soft rubbery nodule with regular borders Scalp: Pattern of thinning: diffuse Part width: increased Miniaturized hairs: some Regrowing hairs: Present Associated findings: erythema and scale Hair pull test: Positive ASSESSMENT / PLAN: Lichen planopilaris Medical complexity: chronic illness - not at treatment goal - increase hydroxychloroquine to 200 mg twice daily for now - decrease vaginal progesterone to 100 mg every other day - continue intralesional steroid/triamcinolone injections every 6-8 weeks RTC 3 months The documentation for this note was completed by Collette East MA acting as scribe for Tiffani Torres MD. January 05, 2025 7:38 AM. The HPI, PMH, and ROS that were documented by my student assistant, who was scribing during the encounter, were confirmed by me and I agree with the content of these sections. I have made any required additions or deletions to the HPI/PFSH/ROS as needed. The physical exam and any procedures were performed by me, unless otherwise noted. Tiffani Torres MD Referring Provider: TIFFANI TORRES [[id number]] Allergies As of Date: 01/05/2025 Noted Allergy Reaction CECLOR (CEFACLOR) 09/23/2012 4 - Hives CIPROFLOXACIN 09/24/2022 4 - Hives IMITREX (SUMATRIPTAN SUCCINATE) 09/23/2012 10 - Anaphylaxis Comments: Respiratory Distress TRAMADOL 08/18/2022 8 - GI Upset Comments: Nausea Date Reviewed: 01/05/2025 Reviewed by: Naye Sifeuntes OCCA - Fully Assessed Reason for Visit: Established Patient Follow-Up [[id number]] Cmt: Lichen planopilaris Primary Visit Diagnosis:Lichen planopilaris [L66.10] Other Visit Diagnosis:Encounter for medication management [Z79.899] Order(s):hydrOXYchloroQUINE (PLAQUENIL) 200 mg tabletTake 1 tablet by mouth two times a day.Disp: 180 tabletRfl: 1 Prescriptions as of 01/15/2025 - doxycycline monohydrate (MONODOX) 100 mg capsule Take 1 capsule by mouth two times a day. - hydrOXYchloroQUINE (PLAQUENIL) 200 mg tablet Take 1 tablet by mouth two times a day. - naltrexone capsule 4.5 mg (CPD) Take 1 capsule by mouth once daily. - minoxidil (LONITEN) 2.5 mg tablet Take 0.5 tablets by mouth once daily. - tacrolimus (PROTOPIC) 0.1 % ointment Use twice daily as directed to rash on the face - fluocinonide (LIDEX) 0.05 % external solution Apply to affected areas on scalp 3x weekly. Leave on for at least 8 hrs. Scalp treatment only, do not apply to lengths. - Ciclopirox 1 % sham Use 2-3x weekly as needed. Massage shampoo into scalp until lather. Leave on for 3 to 5 minutes, then rinse thoroughly. - finasteride (PROSCAR) 5 mg tablet Take half a tablet (2.5 mg) by mouth once daily. - gabapentin (NEURONTIN) 600 mg tablet Take 1,200 mg by mouth three times a day. - hyoscyamine SR (LEVBID) 0.375 mg 12 hr tablet take 1 tablet by mouth twice a day - estradiol (ESTRACE) 2 mg tablet - QUEtiapine (SEROQUEL) 100 mg tablet Take 100 mg by mouth daily at bedtime. - rosuvastatin calcium (CRESTOR ORAL) Take by mouth. - metFORMIN (GLUCOPHAGE) 500 mg tablet TAKE 1 TABLET BY MOUTH TWICE A DAY FOR 90 DAYS - Progesterone Micronized 100 mg inst Use 1 Suppository vaginally once daily. - levothyroxine (SYNTHROID) 137 mcg tablet Take 1 tablet by mouth every morning. on an empty stomach. Wait one hour before eating or taking other medications. - Vit-Iron Fumarate-FA (CO- FA) 29-1 mg Tab Take 1 tab once daily Facility-Administered Medications as of 01/15/2025 - triamcinolone acetonide 20 mg injection (KeNALog 10) Problem List As Of Date 01/05/2025 Noted Resolved Other specified acquired hypothyroidism [E03.8] 09/23/2012 06/16/2016 Kel's thyroiditis [E06.3] 09/23/2012 Fatigue [R53.83] 09/23/2012 06/16/2016 Paresthesias [R20.2] 09/23/2012 Maternal age 35+, multigravida, antepartum [O09*11/14/2013 Previous delivery affecting ,*11/15/2013 Obesity in , antepartum [O99.210] 11/15/2013 Diarrhea [R19.7] 09/24/2022 09/24/2022 Rectal bleeding [K62.5] 09/24/2022 09/24/2022 Abdominal pain [R10.9] 09/24/2022 09/24/2022 Prescriptions ordered this encounter Disp Refills Start End HYDROXYCHLOROQUINE 200 MG TABLET 180 * 1 01/05/2025 Route: ORAL Sig: Take 1 tablet by mouth two times a day. Medications Discontinued During This Encounter Prescriptions - hydrOXYchloroQUINE (PLAQUENIL) 200 mg tablet (Discontinued) Take 200 mg (1 tablet) every other day alternating with 2 tablets (400 mg) every other day. Encounter Status:Closed by TIFFANI HOWARD on 01/15/25 MARI Observed: 01/01/2025 12:00 AM Status: COMPLETED Source: [facility] Telephone (DERMAV) MARKO WARREN ([id number]) 1975 F Date Time Provider Department 01/01/25 TIFFANI TORRES DERMAV During your visit today, we recorded the following information about you: Juliet Loera LPN 01/01/2025 10:06 AM Signed Patient sent [employer] message stating: I am currently taking 7.5 Naltrexone but you sent the Rx for 4.5. Please send 7.5 to [facility] Thanks Alexandria Loera LPN January 01, 2025 10:06 AM Tiffani Torres MD 01/10/2025 2:21 PM Signed Patient called and dose discussed, she will take 4.5 mg once daily. Tiffani Torres MD Allergies As of Date: 01/01/2025 Noted Allergy Reaction CECLOR (CEFACLOR) 09/23/2012 4 - Hives CIPROFLOXACIN 09/24/2022 4 - Hives IMITREX (SUMATRIPTAN SUCCINATE) 09/23/2012 10 - Anaphylaxis Comments: Respiratory Distress TRAMADOL 08/18/2022 8 - GI Upset Comments: Nausea Date Reviewed: 12/19/2024 Reviewed by: Cheng Gutierrez, RN - Fully Assessed Reason for Visit: Refill Request [94] Prescriptions as of 01/10/2025 - hydrOXYchloroQUINE (PLAQUENIL) 200 mg tablet Take 1 tablet by mouth two times a day. - naltrexone capsule 4.5 mg (CPD) Take 1 capsule by mouth once daily. - minoxidil (LONITEN) 2.5 mg tablet Take 0.5 tablets by mouth once daily. - tacrolimus (PROTOPIC) 0.1 % ointment Use twice daily as directed to rash on the face - doxycycline monohydrate (MONODOX) 100 mg capsule Take 1 capsule by mouth two times a day. - fluocinonide (LIDEX) 0.05 % external solution Apply to affected areas on scalp 3x weekly. Leave on for at least 8 hrs. Scalp treatment only, do not apply to lengths. - Ciclopirox 1 % sham Use 2-3x weekly as needed. Massage shampoo into scalp until lather. Leave on for 3 to 5 minutes, then rinse thoroughly. - finasteride (PROSCAR) 5 mg tablet Take half a tablet (2.5 mg) by mouth once daily. - gabapentin (NEURONTIN) 600 mg tablet Take 1,200 mg by mouth three times a day. - hyoscyamine SR (LEVBID) 0.375 mg 12 hr tablet take 1 tablet by mouth twice a day - estradiol (ESTRACE) 2 mg tablet - QUEtiapine (SEROQUEL) 100 mg tablet Take 100 mg by mouth daily at bedtime. - rosuvastatin calcium (CRESTOR ORAL) Take by mouth. - metFORMIN (GLUCOPHAGE) 500 mg tablet TAKE 1 TABLET BY MOUTH TWICE A DAY FOR 90 DAYS - Progesterone Micronized 100 mg inst Use 1 Suppository vaginally once daily. - levothyroxine (SYNTHROID) 137 mcg tablet Take 1 tablet by mouth every morning. on an empty stomach. Wait one hour before eating or taking other medications. - Vit-Iron Fumarate-FA (CO-BROOKE FA) 29-1 mg Tab Take 1 tab once daily Facility-Administered Medications as of 01/10/2025 - triamcinolone acetonide 20 mg injection (KeNALog 10) Problem List As Of Date 01/01/2025 Noted Resolved Other specified acquired hypothyroidism [E03.8] 09/23/2012 06/16/2016 Kel's thyroiditis [E06.3] 09/23/2012 Fatigue [R53.83] 09/23/2012 06/16/2016 Paresthesias [R20.2] 09/23/2012 Maternal age 35+, multigravida, antepartum [O09*11/14/2013 Previous delivery affecting ,*11/15/2013 Obesity in , antepartum [O99.210] 11/15/2013 Diarrhea [R19.7] 09/24/2022 09/24/2022 Rectal bleeding [K62.5] 09/24/2022 09/24/2022 Abdominal pain [R10.9] 09/24/2022 09/24/2022 Encounter Status:Closed by TIFFANI HOWARD on 01/10/25 PROGRESS Observed: 12/28/2024 9:50 AM Status: COMPLETED Source: [facility] ID: [id number] Author: TIFFANI TORRES MD Service: ? Author Type: Physician Type: Progress Notes Filed: 01/15/2025 23:57 Note Text: VIRTUAL VISIT PROGRESS NOTE This is a virtual visit using [employer] video visit. It required patient-provider interaction for the medical decision making as documented below. I have communicated my name and active licensure. The patient's identity and physical location were verified at the time of this visit. Either the patient or their legal senior sales representative has been informed of the risks and benefits of -- and alternatives to -- treatment through a remote evaluation and consents to proceed with the evaluation remotely. Established patient No chief complaint on file. HPI: Marko Warren is a 49 year old female who presents for hair loss. The condition is worsening. The patient has not had previous similar episode(s). Most of the hair loss is diffuse. Associated symptoms: denies itching, burning, pain or flaking Body hair: normal HAIR CARE PRACTICES: Hair care used: Hair drying, straightening and coloring Frequency of shampooing: every other day Hair dye and frequency: every 6-8 weeks TRIGGERS Serious illness/infections: No. COVID infection in the past 6 months: No. Hospitilization/surgery: No. Emotional stress: No. Vaccinations: No. Chemical hair treatments: No. Recent weight changes?: stable Crash diet(s) in the last 6 months?: No. GYNECOLOGIC HISTORY MENSTRUATION: regular q 28-30 days Current Outpatient Medications Medication Sig naltrexone capsule 4.5 mg (CPD) Take 1 capsule by mouth once daily. minoxidil (LONITEN) 2.5 mg tablet Take 0.5 tablets by mouth once daily. tacrolimus (PROTOPIC) 0.1 % ointment Use twice daily as directed to rash on the face hydrOXYchloroQUINE (PLAQUENIL) 200 mg tablet Take 200 mg (1 tablet) every other day alternating with 2 tablets (400 mg) every other day. doxycycline monohydrate (MONODOX) 100 mg capsule Take 1 capsule by mouth two times a day. fluocinonide (LIDEX) 0.05 % external solution Apply to affected areas on scalp 3x weekly. Leave on for at least 8 hrs. Scalp treatment only, do not apply to lengths. Ciclopirox 1 % sham Use 2-3x weekly as needed. Massage shampoo into scalp until lather. Leave on for 3 to 5 minutes, then rinse thoroughly. finasteride (PROSCAR) 5 mg tablet Take half a tablet (2.5 mg) by mouth once daily. gabapentin (NEURONTIN) 600 mg tablet Take 1,200 mg by mouth three times a day. hyoscyamine SR (LEVBID) 0.375 mg 12 hr tablet take 1 tablet by mouth twice a day estradiol (ESTRACE) 2 mg tablet TAKE 1 TABLET BY MOUTH EVERY DAY FOR 90 DAYS (Patient not taking: Reported on 08/29/2024) QUEtiapine (SEROQUEL) 100 mg tablet Take 100 mg by mouth daily at bedtime. rosuvastatin calcium (CRESTOR ORAL) Take by mouth. metFORMIN (GLUCOPHAGE) 500 mg tablet TAKE 1 TABLET BY MOUTH TWICE A DAY FOR 90 DAYS Progesterone Micronized 100 mg inst Use 1 Suppository vaginally once daily. levothyroxine (SYNTHROID) 137 mcg tablet Take 1 tablet by mouth every morning. on an empty stomach. Wait one hour before eating or taking other medications. (Patient taking differently: Take 88 mcg by mouth every morning. on an empty stomach. Wait one hour before eating or taking other medications.) Vit-Iron Fumarate-FA (CO- FA) 29-1 mg Tab Take 1 tab once daily Current Facility-Administered Medications Medication Dose Route Frequency triamcinolone acetonide 20 mg injection (KeNALog 10) 20 mg INTRALESIONAL q 6 WEEKS Allergies:Ceclor [Cefaclor], Ciprofloxacin, Imitrex [Sumatriptan Succinate], and Tramadol PAST MEDICAL HISTORY Diagnosis Date Depression Ectopic Generalized anxiety disorder Migraine, intractable Ovarian cyst Unspecified hypothyroidism since 1999, age 25 Hypothyroidism REVIEW OF SYSTEMS: No fevers, no chills, no weightloss, no night sweats Skin as noted above VIDEO EXAM: (performed via video enabled technology) Well appearing, pleasant, in NAD Alert and oriented x3 Mood and affect: normal Skin exam performed including scalp and noted to be normal with the exception of: - alopecic patches with erythema and scale ASSESSMENT / PLAN: Diagnoses and all orders for this visit: Lichen planopilaris Medical complexity: chronic illness - not at treatment goal - minoxidil (LONITEN) 2.5 mg tablet; Take 0.5 tablets by mouth once daily. - naltrexone capsule 4.5 mg (CPD); Take 1 capsule by mouth once daily. RTC 4 months Tiffani Torres MD. CNNURSE Observed: 12/19/2024 11:00 AM Status: COMPLETED Source: [facility] Nurse Visit (DERMAV) MARKO WARREN ([id number]) 1975 F Date Time Provider Department 12/19/24 11:00 AM NURSE [facility]M [facility] CHERELLE SEGURA During your visit today, we recorded the following information about you: Cheng Gutierrez RN 12/19/2024 11:37 AM Signed Nurse visit injections Patient presents for diagnosis of lichen planopilaris Here today for Injection Order in [facility]? Yes by provider Tiffani Torres MD Injection # 5 Last office visit 07/07/24 with Tiffani Torres MD , Orders for Kenalog (triamcinolone) To be administered every 6 weeks Additional medications used for condition topical She stopped taking doxycycline due to GI upset. Patient comments on effect of injections: worsening Assessment on current condition: erythema with scale on scalp. Widened part noted Verbal consent for injections with nurse today. Patient aware of risks of medication, as previously explained by practitioner and reviewed today. Patient give 5 mg of intralesional steroid/triamcinolone injections route: intralesional to scalp. Total of 4 ml's administered. 30 lesions. Patient tolerated injection(s) well. F/U 6 weeks for further injections as ordered. Allergies As of Date: 12/19/2024 Noted Allergy Reaction CECLOR (CEFACLOR) 09/23/2012 4 - Hives CIPROFLOXACIN 09/24/2022 4 - Hives IMITREX (SUMATRIPTAN SUCCINATE) 09/23/2012 10 - Anaphylaxis Comments: Respiratory Distress TRAMADOL 08/18/2022 8 - GI Upset Comments: Nausea Date Reviewed: 12/19/2024 Reviewed by: Cheng Gutierrez RN - Fully Assessed Reason for Visit: Procedure [88] Primary Visit Diagnosis:Lichen planopilaris [L66.10] Order(s):[START ON 12/20/2024] triamcinolone acetonide 20 mg injection (KeNALog 10)Disp: Rfl: Prescriptions as of 12/19/2024 - tacrolimus (PROTOPIC) 0.1 % ointment Use twice daily as directed to rash on the face - hydrOXYchloroQUINE (PLAQUENIL) 200 mg tablet Take 200 mg (1 tablet) every other day alternating with 2 tablets (400 mg) every other day. - doxycycline monohydrate (MONODOX) 100 mg capsule Take 1 capsule by mouth two times a day. - fluocinonide (LIDEX) 0.05 % external solution Apply to affected areas on scalp 3x weekly. Leave on for at least 8 hrs. Scalp treatment only, do not apply to lengths. - Ciclopirox 1 % sham Use 2-3x weekly as needed. Massage shampoo into scalp until lather. Leave on for 3 to 5 minutes, then rinse thoroughly. - finasteride (PROSCAR) 5 mg tablet Take half a tablet (2.5 mg) by mouth once daily. - gabapentin (NEURONTIN) 600 mg tablet Take 1,200 mg by mouth three times a day. - hyoscyamine SR (LEVBID) 0.375 mg 12 hr tablet take 1 tablet by mouth twice a day - dicyclomine (BENTYL) 20 mg tablet TAKE 1 TABLET BY MOUTH TWICE A DAY - BACLOFEN ORAL Take by mouth. - predniSONE (DELTASONE) 20 mg tablet Take 1 tablet by mouth twice daily. - loperamide HCl (IMODIUM) 2 mg tab Take 1 tablet by mouth once daily. - Gatorade Sports Drink Use as directed for Miralax / Gatorade Bowel Prep Kit - estradiol (ESTRACE) 2 mg tablet TAKE 1 TABLET BY MOUTH EVERY DAY FOR 90 DAYS - QUEtiapine (SEROQUEL) 100 mg tablet Take 100 mg by mouth daily at bedtime. - rosuvastatin calcium (CRESTOR ORAL) Take by mouth. - metFORMIN (GLUCOPHAGE) 500 mg tablet TAKE 1 TABLET BY MOUTH TWICE A DAY FOR 90 DAYS - Progesterone Micronized 100 mg inst Use 1 Suppository vaginally once daily. - levothyroxine (SYNTHROID) 137 mcg tablet Take 1 tablet by mouth every morning. on an empty stomach. Wait one hour before eating or taking other medications. - aspirin, enteric coated (ECOTRIN LOW STRENGTH) 81 mg EC tablet Take 1 tablet by mouth once daily. - Vit-Iron Fumarate-FA (CO- FA) 29-1 mg Tab Take 1 tab once daily Facility-Administered Medications as of 12/19/2024 - triamcinolone acetonide 20 mg injection (KeNALog 10) Problem List As Of Date 12/19/2024 Noted Resolved Other specified acquired hypothyroidism [E03.8] 09/23/2012 06/16/2016 Kel's thyroiditis [E06.3] 09/23/2012 Fatigue [R53.83] 09/23/2012 06/16/2016 Paresthesias [R20.2] 09/23/2012 Maternal age 35+, multigravida, antepartum [O09*11/14/2013 Previous delivery affecting ,*11/15/2013 Obesity in , antepartum [O99.210] 11/15/2013 Diarrhea [R19.7] 09/24/2022 09/24/2022 Rectal bleeding [K62.5] 09/24/2022 09/24/2022 Abdominal pain [R10.9] 09/24/2022 09/24/2022 Prescriptions ordered this encounter Disp Refills Start End TRIAMCINOLONE ACETONIDE 10 MG/ML BECKY* 12/20/2024 04/25/2025 Route: INTRALESIONA Encounter Status:Closed by CHENG GUTIERREZ on 12/19/24 PROGRESS Observed: 12/19/2024 11:00 AM Status: COMPLETED Source: [facility] ID: [id number] Author: CHENG GUTIERREZ, RN Service: ? Author Type: Registered Nurse Type: Progress Notes Filed: 12/19/2024 11:37 Note Text: Nurse visit injections Patient presents for diagnosis of lichen planopilaris Here today for Injection Order in [facility]? Yes by provider Tiffani Torres MD Injection # 5 Last office visit 07/07/24 with Tiffani Torres MD , Orders for Kenalog (triamcinolone) To be administered every 6 weeks Additional medications used for condition topical She stopped taking doxycycline due to GI upset. Patient comments on effect of injections: worsening Assessment on current condition: erythema with scale on scalp. Widened part noted Verbal consent for injections with nurse today. Patient aware of risks of medication, as previously explained by practitioner and reviewed today. Patient give 5 mg of intralesional steroid/triamcinolone injections route: intralesional to scalp. Total of 4 ml's administered. 30 lesions. Patient tolerated injection(s) well. F/U 6 weeks for further injections as ordered. PROGRESS Observed: 11/21/2024 11:15 AM Status: COMPLETED Source: [facility] ID: [id number] Author: TIFFANI TORRES MD Service: ? Author Type: Physician Type: Progress Notes Filed: 12/18/2024 14:07 Note Text: VIRTUAL VISIT PROGRESS NOTE This is a virtual visit using [employer] video visit. It required patient-provider interaction for the medical decision making as documented below. I have communicated my name and active licensure. The patient's identity and physical location were verified at the time of this visit. Either the patient or their legal senior sales representative has been informed of the risks and benefits of -- and alternatives to -- treatment through a remote evaluation and consents to proceed with the evaluation remotely. Established patient No chief complaint on file. HPI: Marko Warren is a 49 year old female who presents for hair loss. Patient states her condition is worsened, notes quarter sized bald areas on back of scalp. Patient reports Oct to Oct was normal, noticed new shedding after Jack. Patient also feels her scalp was painful on [place]. Current treatments used for hair loss: Doxycycline 100 mg PO twice daily Intralesional steroid/triamcinolone injections Naltrexone 7.5 mg once daily Finasteride 2.5 mg once daily Tacrolimus 0.1% ointment TRIGGERS Serious illness/infections: No. COVID infection in the past 6 months: No. Hospitilization/surgery: No. Emotional stress: No. Vaccinations: No. Chemical hair treatments: No. Recent weight changes?: stable Crash diet(s) in the last 6 months?: No. Current Outpatient Medications Medication Sig doxycycline monohydrate (MONODOX) 100 mg capsule Take 1 capsule by mouth two times a day. tacrolimus (PROTOPIC) 0.1 % ointment Use twice daily as directed to rash on the face fluocinonide (LIDEX) 0.05 % external solution Apply to affected areas on scalp 3x weekly. Leave on for at least 8 hrs. Scalp treatment only, do not apply to lengths. Ciclopirox 1 % sham Use 2-3x weekly as needed. Massage shampoo into scalp until lather. Leave on for 3 to 5 minutes, then rinse thoroughly. finasteride (PROSCAR) 5 mg tablet Take half a tablet (2.5 mg) by mouth once daily. gabapentin (NEURONTIN) 600 mg tablet Take 1,200 mg by mouth three times a day. hyoscyamine SR (LEVBID) 0.375 mg 12 hr tablet take 1 tablet by mouth twice a day dicyclomine (BENTYL) 20 mg tablet TAKE 1 TABLET BY MOUTH TWICE A DAY BACLOFEN ORAL Take by mouth. predniSONE (DELTASONE) 20 mg tablet Take 1 tablet by mouth twice daily. loperamide HCl (IMODIUM) 2 mg tab Take 1 tablet by mouth once daily. Gatorade Sports Drink Use as directed for Miralax / Gatorade Bowel Prep Kit estradiol (ESTRACE) 2 mg tablet TAKE 1 TABLET BY MOUTH EVERY DAY FOR 90 DAYS (Patient not taking: Reported on 08/29/2024) QUEtiapine (SEROQUEL) 100 mg tablet Take 100 mg by mouth daily at bedtime. rosuvastatin calcium (CRESTOR ORAL) Take by mouth. metFORMIN (GLUCOPHAGE) 500 mg tablet TAKE 1 TABLET BY MOUTH TWICE A DAY FOR 90 DAYS Progesterone Micronized 100 mg inst Use 1 Suppository vaginally once daily. levothyroxine (SYNTHROID) 137 mcg tablet Take 1 tablet by mouth every morning. on an empty stomach. Wait one hour before eating or taking other medications. (Patient taking differently: Take 88 mcg by mouth every morning. on an empty stomach. Wait one hour before eating or taking other medications.) aspirin, enteric coated (ECOTRIN LOW STRENGTH) 81 mg EC tablet Take 1 tablet by mouth once daily. Vit-Iron Fumarate-FA (CO- FA) 29-1 mg Tab Take 1 tab once daily No current facility-administered medications for this visit. Allergies:Ceclor [Cefaclor], Ciprofloxacin, Imitrex [Sumatriptan Succinate], and Tramadol PAST MEDICAL HISTORY Diagnosis Date Depression Ectopic Generalized anxiety disorder Migraine, intractable Ovarian cyst Unspecified hypothyroidism since 1999, age 25 Hypothyroidism REVIEW OF SYSTEMS: No fevers, no chills, no weightloss, no night sweats Skin as noted above VIDEO EXAM: (performed via video enabled technology) Well appearing, pleasant, in NAD Alert and oriented x3 Mood and affect: normal Skin exam performed including scalp and noted to be normal with the exception of: - scattered round alopecic patches with erythema Part width: increased Associated findings: erythema and scale Data reviewed: Latest Ref Rng 06/02/2023 WBC 3.70 - 11.00 k/uL 8.11 RBC 3.90 - 5.20 m/uL 4.89 Hemoglobin 11.5 - 15.5 g/dL 14.2 Hematocrit 36.0 - 46.0 % 43.4 MCV 80.0 - 100.0 fL 88.8 MCH 26.0 - 34.0 pg 29.0 MCHC 30.5 - 36.0 g/dL 32.7 RDW-CV 11.5 - 15.0 % 13.2 Platelet Count 150 - 400 k/uL 240 MPV 9.0 - 12.7 fL 11.0 Neut% % 68.1 Abs Neut (ANC) 1.45 - 7.50 k/uL 5.52 Lymph% % 26.8 Abs Lymph 1.00 - 4.00 k/uL 2.17 [place]% % 4.7 Abs [place] <0.87 k/uL 0.38 Eosin% % 0.1 Abs Eosin <0.46 k/uL <0.03 Baso% % 0.2 Abs Baso <0.11 k/uL <0.03 Immature Gran % % 0.1 IMMATURE GRANS (ABS) <0.10 k/uL <0.03 NRBC /100 WBC 0.0 Absolute nRBC <0.01 k/uL <0.01 DTYPE Auto Protein, Total 6.3 - 8.0 g/dL 7.5 Albumin 3.9 - 4.9 g/dL 4.9 Calcium 8.5 - 10.2 mg/dL 9.9 Bilirubin, Total 0.2 - 1.3 mg/dL 0.4 Alkaline Phosphatase 34 - 123 U/L 67 AST 13 - 35 U/L 17 ALT 7 - 38 U/L 14 Glucose 74 - 99 mg/dL 113 (H) BUN 7 - 21 mg/dL 5 (L) Creatinine 0.58 - 0.96 mg/dL 0.71 Sodium 136 - 144 mmol/L 142 Potassium 3.7 - 5.1 mmol/L 3.9 Chloride 97 - 105 mmol/L 104 CO2 22 - 30 mmol/L 26 Anion Gap 9 - 18 mmol/L 12 eGFR >=60 mL/min/1.73m? 105 Color yellow Colorless Clarity Clear Clear Glucose, Urine Trace, Negative Negative Bilirubin, Urine Negative Negative Ketones, Urine Negative, Trace Negative Specific [place], Ur 1.005 - 1.030 1.006 Hemoglobin/Blood,Ur Negative, Trace 1+ ! pH, Urine 5.0 - 8.0 6.0 Protein, Urine Trace, Negative Negative Urobilinogen Negative Normal Nitrites Negative Negative Leukest Negative, 25 Nguyen/uL Negative WBC, Urine 0-5 /HPF 0-5 /HPF RBC, Urine 0-3 /HPF 0-3 /HPF Epithelial Cells /HPF Few SARS-CoV-2 (Agent of COVID-19) RNA See comment Not detected Influenza A RNA Not Detected Not detected Influenza B RNA Not Detected Not detected Respiratory syncytial virus (RSV) RNA Not Detected Not detected Magnesium 1.7 - 2.3 mg/dL 2.1 Lipase 16 - 61 U/L 29 Legend: (H) High (L) Low ! 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 Discussed medication dosage, usage, goals of therapy, and side effects including but not limited to eye toxicity, irreversible retinal damage, dizziness, nausea, headache, rash, skin discoloration, decreased blood counts, bone marrow failure, proximal muscle weakness, liver function abnormalities, hypoglycemia and cardiac toxicity. Recommended regular eye exams at least once a year and a baseline eye exam. Lab monitoring discussed including baseline CBC, CMP and G6PD. RTC 4 months Tiffani Torres MD. PROGRESS Observed: 11/14/2024 11:21 AM Status: COMPLETED Source: [facility] ID: [id number] Author: TONIE LUBIN RN Service: ? Author Type: Registered Nurse Type: Progress Notes Filed: 11/14/2024 12:09 Note Text: Nurse visit injections Patient presents for diagnosis of lichen planopilaris Here today for Injection Order in [facility]? Yes by provider Tiffani Torres MD Injection # 4 Last office visit 07/07/2024 with Tiffani Torres MD , VV 08-08-24 Orders for Kenalog (triamcinolone) To be administered every 6 weeks Additional medications used for condition topical She stopped taking doxycycline due to GI upset. Patient comments on effect of injections: worsening Assessment on current condition: erythema with scale on scalp. Widened part noted Verbal consent for injections with nurse today. Patient aware of risks of medication, as previously explained by practitioner and reviewed today. Patient given 5 mg of intralesional steroid/triamcinolone injections route: intralesional to scalp. Total of 4 ml's administered. 15 lesions. Patient tolerated injection(s) well. F/U 6 weeks for further injections as ordered. Tonie Lubin RN November 14, 2024 11:22 AM CNNURSE Observed: 11/14/2024 11:00 AM Status: COMPLETED Source: [facility] Nurse Visit (DERMAV) MARKO WARREN ([id number]) 1975 F Date Time Provider Department 11/14/24 11:00 AM NURSE DERM [facility]ER[facility] DERMOLIVER[facility] During your visit today, we recorded the following information about you: Tonie Lubin RN 11/14/2024 12:09 PM Signed Nurse visit injections Patient presents for diagnosis of lichen planopilaris Here today for Injection Order in [facility]? Yes by provider Tiffani Torres MD Injection # 4 Last office visit 07/07/2024 with Tiffani Torres MD , VV 08-08-24 Orders for Kenalog (triamcinolone) To be administered every 6 weeks Additional medications used for condition topical She stopped taking doxycycline due to GI upset. Patient comments on effect of injections: worsening Assessment on current condition: erythema with scale on scalp. Widened part noted Verbal consent for injections with nurse today. Patient aware of risks of medication, as previously explained by practitioner and reviewed today. Patient given 5 mg of intralesional steroid/triamcinolone injections route: intralesional to scalp. Total of 4 ml's administered. 15 lesions. Patient tolerated injection(s) well. F/U 6 weeks for further injections as ordered. Tonie Lubin RN November 14, 2024 11:22 AM Allergies As of Date: 11/14/2024 Noted Allergy Reaction CECLOR (CEFACLOR) 09/23/2012 4 - Hives CIPROFLOXACIN 09/24/2022 4 - Hives IMITREX (SUMATRIPTAN SUCCINATE) 09/23/2012 10 - Anaphylaxis Comments: Respiratory Distress TRAMADOL 08/18/2022 8 - GI Upset Comments: Nausea Date Reviewed: 10/13/2024 Reviewed by: Janeth Diehl RN - Fully Assessed Reason for Visit: Injection (Intralesional) [1129] Primary Visit Diagnosis:Lichen planopilaris [L66.10] Prescriptions as of 11/14/2024 - doxycycline monohydrate (MONODOX) 100 mg capsule Take 1 capsule by mouth two times a day. - tacrolimus (PROTOPIC) 0.1 % ointment Use twice daily as directed to rash on the face - fluocinonide (LIDEX) 0.05 % external solution Apply to affected areas on scalp 3x weekly. Leave on for at least 8 hrs. Scalp treatment only, do not apply to lengths. - Ciclopirox 1 % sham Use 2-3x weekly as needed. Massage shampoo into scalp until lather. Leave on for 3 to 5 minutes, then rinse thoroughly. - finasteride (PROSCAR) 5 mg tablet Take half a tablet (2.5 mg) by mouth once daily. - gabapentin (NEURONTIN) 600 mg tablet Take 1,200 mg by mouth three times a day. - hyoscyamine SR (LEVBID) 0.375 mg 12 hr tablet take 1 tablet by mouth twice a day - dicyclomine (BENTYL) 20 mg tablet TAKE 1 TABLET BY MOUTH TWICE A DAY - BACLOFEN ORAL Take by mouth. - predniSONE (DELTASONE) 20 mg tablet Take 1 tablet by mouth twice daily. - loperamide HCl (IMODIUM) 2 mg tab Take 1 tablet by mouth once daily. - Gatorade Sports Drink Use as directed for Miralax / Gatorade Bowel Prep Kit - estradiol (ESTRACE) 2 mg tablet TAKE 1 TABLET BY MOUTH EVERY DAY FOR 90 DAYS - QUEtiapine (SEROQUEL) 100 mg tablet Take 100 mg by mouth daily at bedtime. - rosuvastatin calcium (CRESTOR ORAL) Take by mouth. - metFORMIN (GLUCOPHAGE) 500 mg tablet TAKE 1 TABLET BY MOUTH TWICE A DAY FOR 90 DAYS - Progesterone Micronized 100 mg inst Use 1 Suppository vaginally once daily. - levothyroxine (SYNTHROID) 137 mcg tablet Take 1 tablet by mouth every morning. on an empty stomach. Wait one hour before eating or taking other medications. - aspirin, enteric coated (ECOTRIN LOW STRENGTH) 81 mg EC tablet Take 1 tablet by mouth once daily. - Vit-Iron Fumarate-FA (CO-BR[place] FA) 29-1 mg Tab Take 1 tab once daily Problem List As Of Date 11/14/2024 Noted Resolved Other specified acquired hypothyroidism [E03.8] 09/23/2012 06/16/2016 Kel's thyroiditis [E06.3] 09/23/2012 Fatigue [R53.83] 09/23/2012 06/16/2016 Paresthesias [R20.2] 09/23/2012 Maternal age 35+, multigravida, antepartum [O09*11/14/2013 Previous delivery affecting ,*11/15/2013 Obesity in , antepartum [O99.210] 11/15/2013 Diarrhea [R19.7] 09/24/2022 09/24/2022 Rectal bleeding [K62.5] 09/24/2022 09/24/2022 Abdominal pain [R10.9] 09/24/2022 09/24/2022 Encounter Status:Closed by TONIE LUBIN on 11/14/24 ECHO TRANSTHORACIC COMPLETE Observed: 3:59 PM Status: F Source: [facility] Echocardiology Procedure Exam Date/Time Accession # Ordering Dr. Putnam Transthoracic 11/07/2024 15:59 EST [id number] MARTIN MARTINEZ DO CPT code 99012 13736 Reason for Exam (Echo Transthoracic Complete) Edema R60.0 R01.1 Report [facility] [address] [place] [address] Adult Echocardiogram Report Name: MARKO WARREN Study Date: 11/07/2024 03:03 PM BP: 127/93 mmHg Patient Location: [facility] Ambulatory(s) [facility] HR: 85 : 1975 Gender: Female Height: 62 in Age: 49 yrs Ethnicity: T Weight: 146 lb Reason For Study: Edema R60.0 R01.1 BSA: 1.7 m2 History: No cardiac history per patient Ordering Physician: HUBER^MARTIN Referring Physician: MARTIN MARTINEZ Performed By: Melania Cui [facility] Interpretation Summary Grade I diastolic dysfunction, (abnormal relaxation pattern). There is normal left ventricular wall thickness. The left ventricle is normal in size. Ejection Fraction = 60-65%. Procedure A complete two-dimensional transthoracic echocardiogram was performed (2D, M- mode, spectral and color flow Doppler). Study quality is good. Left Ventricle The left ventricle is normal in size. There is normal left ventricular wall thickness. Ejection Fraction = 60-65%. The left ventricular wall motion is normal. Grade I diastolic dysfunction, (abnormal relaxation pattern). Left Atrium The left atrial size is normal. Echocardiology Report Right Atrium Right atrial size is normal. Right Ventricle The right ventricular systolic function is normal. The right ventricle is normal size. The right ventricular wall motion is normal. Aortic Valve The aortic valve is trileaflet. No aortic regurgitation. There is no aortic stenosis. Mitral Valve The mitral valve is normal in structure and function. There is no mitral regurgitation noted. No mitral valve stenosis. Tricuspid Valve Structurally normal tricuspid valve. There is trace tricuspid regurgitation. Pulmonic Valve There is no pulmonic valve regurgitation. Arteries The aortic root is normal in size. Normal ascending aorta. Pulmonary artery diameter is normal. Venous The inferior vena cava is normal in size, and collapses normally with respiration. Effusion There is no pericardial effusion. MMode/2D Measurements & Calculations RVDd: 2.8 cm LVIDd: 4.7 cm FS: 30.8 % Ao root diam: 3.0 cm IVSd: 0.82 cm LVIDs: 3.3 cm EDV(Teich): 102.4 ml Ao root area: 7.0 cm2 LVPWd: 0.77 cm ESV(Teich): 42.5 ml LA dimension: 3.7 cm EF(Teich): 58.4 % asc Aorta Diam: 3.2 cm LVLd ap4: 7.4 cm EDV(MOD-sp2): 70.1 ml SV(MOD-sp4): 57.1 ml EDV(MOD-sp4): 92.6 ml ESV(MOD-sp2): 27.7 ml LVLs ap4: 6.0 cm EF(MOD-sp2): 60.5 % ESV(MOD-sp4): 35.5 ml EF(MOD-sp4): 61.7 % TAPSE: 2.6 cm IVC Diam: 1.5 cm RVIDd/LVIDd: 0.60 EF (MOD-bp): 63.0 % LA Vol Index: 23.4 ml/m2 Doppler Measurements & Calculations MV E max elizabeth: 77.5 cm/sec MV dec time: 0.16 sec Ao V2 max: 144.5 cm/sec LV V1 max P.3 mmHg MV A max elizabeth: 72.7 cm/sec Ao max P.3 mmHg LV V1 max: 104.1 cm/sec MV E/A: 1.1 Lat Peak E' Elizabeth: 8.8 cm/sec Echocardiology Report E/E' Lat: 8.8 Med Peak E' Elizabeth: 7.4 cm/sec E/E' Med: 10.5 TR max elizabeth: 263.7 cm/sec RAP systole: 3.0 mmHg AV VR: 0.72 TR max P.8 mmHg RVSP(TR): 30.8 mmHg FINAL REPORT Dictated: 11/07/2024 3:03 pm Yoav Bruno MD Signed (Electronic Signature): 11/08/2024 2:11 pm Signed by: Yoav Bruno MD Transcribed by: [facility] Technologist: MELODY RITTER LOWER EXTREMITY VENOUS DUPLEX BILATERAL Observed: 11/07/2024 3:55 PM Status: F Source: [facility] Exam Date/Time: 11/07/2024 16:29 EST Reason for Exam: R60.0 R01.1 Report IMPRESSION: NO EVIDENCE OF VENOUS THROMBOSIS INVOLVING VISUALIZED DEEP VEINS OF BOTH LEGS. CLINICAL HISTORY: R60.0 R01.1. Bilateral lower leg swelling. COMMENT: The external iliac veins, greater saphenous veins, common femoral veins, femoral veins, deep femoral veins, and popliteal veins bilaterally demonstrate spontaneous phasic venous flow with augmentation, non-pulsatility, and compressibility every 2 cm. The posterior tibial and peroneal deep calf veins bilaterally compress. Ordering Provider: MARTIN MARTINEZ FINAL REPORT Dictated: 11/09/2024 11:49 am Mariusz Sheehan M.D. Signed (Electronic Signature): 11/09/2024 11:49 am Signed by: Mariusz Sheehan M.D. Transcribed by: ALEKS Technologist: MELANIE BACON Collected: 10/20/2024 9:21 AM Status: F Source: [facility] TYPE CODE TESTS RESULT OUT OF RANGE REFERENCE UNITS LAB 2345-7([facility]) GLUCOSE:MCNC:P T:SER/PLAS:QN: 92 Normal 55-199 mg/dL LAB 3094-0([facility]) UREA NITROGEN:MCNC: PT:SER/PLAS:QN : 7 Normal 5-21 mg/dL LAB 2160-0([facility]) CREATININE:MCN C:PT:SER/PLAS: QN: 0.7 Normal 0.5-1.3 mg/dL LAB 89463-5([facility]) CALCIUM:MCNC:P T:SER/PLAS:QN: 9.2 Normal 8.9-11.1 mg/dL LAB 2951-2([facility]) SODIUM:SCNC:PT :SER/PLAS:QN: 143 Normal 135-145 mmol/L LAB 2823-3([facility]) POTASSIUM:SCNC :PT:SER/PLAS:Q N: 3.7 Normal 3.5-5.3 mmol/L LAB 2075-0([facility]) CHLORIDE:SCNC: PT:SER/PLAS:QN : 106 Normal 101-111 mmol/L LAB 2028-9([facility]) CARBON DIOXIDE:SCNC:P T:SER/PLAS:QN: 31 Normal 21-31 mmol/L LAB 6768-6([facility]) ALKALINE PHOSPHATASE:CC NC:PT:SER/PLAS :QN: 82 Normal 21-98 Int._Unit /L LAB 1975-2([facility]) BILIRUBIN:MCNC :PT:SER/PLAS:Q N: 0.6 Normal 0.0-1.1 mg/dL LAB 1751-7([facility]) ALBUMIN:MCNC:P T:SER/PLAS:QN: 3.7 Normal 3.3-5.0 gm/dL LAB 2885-2([facility]) PROTEIN:MCNC:P T:SER/PLAS:QN: 6.2 Normal 6.0-7.8 gm/dL LAB 1744-2([facility]) ALANINE AMINOTRANSFERA SE:CCNC:PT:SER /PLAS:QN:NO ADDITION OF P-5'-P 31 Normal 6-46 Int._Unit /L LAB 1920-8([facility]) ASPARTATE AMINOTRANSFERA SE:CCNC:PT:SER /PLAS:QN: 24 Normal 5-43 Int._Unit /L LAB 3097-3([facility]) UREA NITROGEN/CREAT ININE:MRTO:PT: SER/PLAS:QN: 10 Normal 10-20 No Units LAB 94943-7([facility]) ANION GAP:SCNC:PT:SE R/PLAS:QN: 10 Normal 6-16 mEq/L LAB 39503-1([facility]) GLOBULIN:MCNC: PT:SER:QN:CALC ULATED 2.5 Normal 1.4-4.0 gm/dL LAB 37267-1([facility]) ALBUMIN/GLOBUL IN:MCRTO:PT:SE R:QN: 1.5 Normal 1.1-2.2 Performed By: #### [id number] # ### [facility] [address] [place] [address] TSH Collected: 10/20/2024 9:21 AM Status: F Source: [facility] TYPE CODE TESTS RESULT OUT OF RANGE REFERENCE UNITS LAB 3016-3([facility]) THYROTROPIN:A CNC:PT:SER/PL :QN: 0.17 Low 0.34-5.60 mcIU/mL Performed By: #### [id number] # ### [facility] [address] [place] [address] EGFR Collected: 9:21 AM Status: F Source: [facility] TYPE CODE TESTS RESULT OUT OF RANGE REFERENCE UNITS LAB 73413224([facility]) eGFR 105 Normal >=59 mL/min/1 .7 3 m2 Performed By: #### [id number] #### [facility] [address] [place] [address] CBC W/ AUTO DIFF Collected: 10/20/2024 9:21 AM Statu s: F Source: [facility] TYPE CODE TESTS RESULT OUT OF RANGE REFERENCE UNITS LAB 02539-6([facility]) LEUKOCYTES^^OSWALDO ECTED FOR NUCLEATED ERYTHROCYTES:NCN C:PT:BLD:QN:AUTO MATED COUNT 6.0 Normal 4.0-11.0 E9/L LAB 789-8(LOINC) ERYTHROCYTES:NCN C:PT:BLD:QN:AUTO MATED COUNT 4.8 Normal 4.3-5.9 E12/L LAB 718-7([facility]) HEMOGLOBIN:MCNC: PT:BLD:QN: 14.5 Normal 12.0-16.0 gm/dL LAB 4544-3([facility]) HEMATOCRIT:VFR:P T:BLD:QN:AUTOMAT ED COUNT 42.6 Normal 34.0-46.0 % LAB 788-0([facility]) ERYTHROCYTE DISTRIBUTION WIDTH:RATIO:PT:R BC:QN:AUTOMATED COUNT 14.7 High 10.9-14.2 % LAB 785-6([facility]) ERYTHROCYTE MEAN CORPUSCULAR HEMOGLOBIN:ENTMA SS:PT:RBC:QN:AUT OMATED COUNT 30.5 Normal 27.0-34.0 pg LAB 786-4(INC) ERYTHROCYTE MEAN CORPUSCULAR HEMOGLOBIN CONCENTRATION:MC NC:PT:RBC:QN:AUT OMATED COUNT 34.2 Normal 31.4-36.0 gm/dL LAB 787-2([facility]) ERYTHROCYTE MEAN CORPUSCULAR VOLUME:ENTVOL:PT :RBC:QN:AUTOMATE D COUNT 89.3 Normal 80.0-100.0 fL LAB 66984-2(INC) PLATELET MEAN VOLUME:ENTVOL:PT :BLD:QN:AUTOMATE D COUNT 9.1 Normal 6.4-10.8 fL LAB 777-3(INC) PLATELETS:NCNC:P T:BLD:QN:AUTOMAT ED COUNT 236.0 Normal 150.0-500.0 E9/L LAB 82485-0(INC) NEUTROPHILS/100 LEUKOCYTES:NFR:P T:BLD:QN: 59.0 Normal 36.0-75.0 % LAB 731-0(LOINC) LYMPHOCYTES:NCNC :PT:BLD:QN:AUTOM ATED COUNT 31.3 Normal 14.0-50.0 % LAB 742-7(LOINC) MONOCYTES:NCNC:P T:BLD:QN:AUTOMAT ED COUNT 0.4 Normal 0.2-1.0 E9/L LAB 713-8(LOINC) EOSINOPHILS/100 LEUKOCYTES:NFR:P T:BLD:QN:AUTOMAT ED COUNT 2.9 Normal 0.0-8.0 % LAB 704-7(LOINC) BASOPHILS:NCNC:P T:BLD:QN:AUTOMAT ED COUNT 0.4 Normal 0.0-2.0 % LAB 751-8(INC) NEUTROPHILS:NCNC :PT:BLD:QN:AUTOM ATED COUNT 3.5 Normal 2.0-7.5 E9/L LAB 52412-2(INC) LYMPHOCYTES:NCNC :PT:BLD:QN: 1.9 Normal 1.0-4.0 E9/L LAB 63083-8(INC) EOSINOPHILS:NCNC :PT:BLD:QN: 0.2 Normal 0.0-0.5 E9/L LAB 62499-1([facility]) BASOPHILS/LEUKOC YTES:NFR.DF:PT:B LD:QN:AUTOMATED COUNT 0.0 Normal 0.0-0.2 E9/L Performed By: #### [id number] # ### [facility] [address] [place] [address] U PROTEIN/CREAT RATIO Collected: 2023 8:48 AM Status: F Source: [facility] TYPE CODE TESTS RESULT OUT OF RANGE REFERENCE UNITS LAB 23531530([facility] ) Ur Total Protein 13.6 Unknown mg/dL LAB 00144261([facility] ) U Creatinine 166.3 Unknown mg/dL LAB 51352-9([facility]) PROTEIN/CREATI NINE:RATIO:PT: URINE:QN: 8.20 Normal .00-200.00 mg/gm Cr Performed By: #### [id number] #### [facility] [address] [place] [address] CNNURSE Observed: 10/13/2024 4:20 PM Status: COMPLETED Source: [facility] Nurse Visit (DERMAV) WARRENMARKO ([id number]) 1975 F Date Time Provider Department 10/13/24 4:20 PM NURSE D[facility]M [facility] REJ DERMAV During your visit today, we recorded the following information about you: Janeth Diehl RN 10/13/2024 4:50 PM Signed Nurse visit injections Patient presents for diagnosis of lichen planopilaris Here today for Injection Order in [facility]? Yes by provider Tiffani Torres MD Injection # 3 Last office visit 07/07/2024 with Tiffani Torres MD , VV 08-08-24 Orders for Kenalog (triamcinolone) To be administered every 6 weeks Additional medications used for condition topical She stopped taking doxycycline due to GI upset. Patient comments on effect of injections: worsening Assessment on current condition: erythema with scale on scalp. Widened part noted Verbal consent for injections with nurse today. Patient aware of risks of medication, as previously explained by practitioner and reviewed today. Patient given 5 mg of intralesional steroid/triamcinolone injections route: intralesional to scalp. Total of 3 ml's administered. 15 lesions. Patient tolerated injection(s) well. F/U 6 weeks for further injections as ordered. Janeth Diehl RN October 13, 2024 4:20 PM Allergies As of Date: 10/13/2024 Noted Allergy Reaction CECLOR (CEFACLOR) 09/23/2012 4 - Hives CIPROFLOXACIN 09/24/2022 4 - Hives IMITREX (SUMATRIPTAN SUCCINATE) 09/23/2012 10 - Anaphylaxis Comments: Respiratory Distress TRAMADOL 08/18/2022 8 - GI Upset Comments: Nausea Date Reviewed: 10/13/2024 Reviewed by: Janeth Diehl RN - Fully Assessed Reason for Visit: Injections [199] Primary Visit Diagnosis:Lichen planopilaris [L66.10] Prescriptions as of 10/13/2024 - tacrolimus (PROTOPIC) 0.1 % ointment Use twice daily as directed to rash on the face - fluocinonide (LIDEX) 0.05 % external solution Apply to affected areas on scalp 3x weekly. Leave on for at least 8 hrs. Scalp treatment only, do not apply to lengths. - Ciclopirox 1 % sham Use 2-3x weekly as needed. Massage shampoo into scalp until lather. Leave on for 3 to 5 minutes, then rinse thoroughly. - finasteride (PROSCAR) 5 mg tablet Take half a tablet (2.5 mg) by mouth once daily. - doxycycline monohydrate (MONODOX) 100 mg capsule Take 1 capsule by mouth two times a day. - gabapentin (NEURONTIN) 600 mg tablet Take 1,200 mg by mouth three times a day. - hyoscyamine SR (LEVBID) 0.375 mg 12 hr tablet take 1 tablet by mouth twice a day - dicyclomine (BENTYL) 20 mg tablet TAKE 1 TABLET BY MOUTH TWICE A DAY - BACLOFEN ORAL Take by mouth. - predniSONE (DELTASONE) 20 mg tablet Take 1 tablet by mouth twice daily. - loperamide HCl (IMODIUM) 2 mg tab Take 1 tablet by mouth once daily. - Gatorade Sports Drink Use as directed for Miralax / Gatorade Bowel Prep Kit - estradiol (ESTRACE) 2 mg tablet TAKE 1 TABLET BY MOUTH EVERY DAY FOR 90 DAYS - QUEtiapine (SEROQUEL) 100 mg tablet Take 100 mg by mouth daily at bedtime. - rosuvastatin calcium (CRESTOR ORAL) Take by mouth. - metFORMIN (GLUCOPHAGE) 500 mg tablet TAKE 1 TABLET BY MOUTH TWICE A DAY FOR 90 DAYS - Progesterone Micronized 100 mg inst Use 1 Suppository vaginally once daily. - levothyroxine (SYNTHROID) 137 mcg tablet Take 1 tablet by mouth every morning. on an empty stomach. Wait one hour before eating or taking other medications. - aspirin, enteric coated (ECOTRIN LOW STRENGTH) 81 mg EC tablet Take 1 tablet by mouth once daily. - Vit-Iron Fumarate-FA (CO- FA) 29-1 mg Tab Take 1 tab once daily Facility-Administered Medications as of 10/13/2024 - triamcinolone acetonide 20 mg injection (KeNALog 10) Problem List As Of Date 10/13/2024 Noted Resolved Other specified acquired hypothyroidism [E03.8] 09/23/2012 06/16/2016 Kel's thyroiditis [E06.3] 09/23/2012 Fatigue [R53.83] 09/23/2012 06/16/2016 Paresthesias [R20.2] 09/23/2012 Maternal age 35+, multigravida, antepartum [O09*11/14/2013 Previous delivery affecting ,*11/15/2013 Obesity in , antepartum [O99.210] 11/15/2013 Diarrhea [R19.7] 09/24/2022 09/24/2022 Rectal bleeding [K62.5] 09/24/2022 09/24/2022 Abdominal pain [R10.9] 09/24/2022 09/24/2022 Encounter Status:Closed by JANETH DIEHL on 10/13/24 PROGRESS Observed: 10/13/2024 4:20 PM Status: COMPLETED Source: [facility] ID: [id number] Author: JANETH DIEHL RN Service: ? Author Type: Registered Nurse Type: Progress Notes Filed: 10/13/2024 16:50 Note Text: Nurse visit injections Patient presents for diagnosis of lichen planopilaris Here today for Injection Order in [facility]? Yes by provider Tiffani Torres MD Injection # 3 Last office visit 07/07/2024 with Tiffani Torres MD , VV 08-08-24 Orders for Kenalog (triamcinolone) To be administered every 6 weeks Additional medications used for condition topical She stopped taking doxycycline due to GI upset. Patient comments on effect of injections: worsening Assessment on current condition: erythema with scale on scalp. Widened part noted Verbal consent for injections with nurse today. Patient aware of risks of medication, as previously explained by practitioner and reviewed today. Patient given 5 mg of intralesional steroid/triamcinolone injections route: intralesional to scalp. Total of 3 ml's administered. 15 lesions. Patient tolerated injection(s) well. F/U 6 weeks for further injections as ordered. Janeth Diehl RN October 13, 2024 4:20 PM CNNURSE Observed: 08/29/2024 11:00 AM Status: COMPLETED Source: [facility] Nurse Visit (DERMAV) CHRISTIEMARKO Tomasa ([id number]) 1975 F Date Time Provider Department 08/29/24 11:00 AM NURSE D[facility]M [facility] REJ DERMOLIVERIO During your visit today, we recorded the following information about you: Petros Metz RN 09/08/2024 9:01 AM Addendum Nurse visit injections Patient presents for diagnosis of lichen planopilaris Here today for Injection Order in [facility]? Yes by provider Tiffani Torres MD Injection # 2 Last office visit 07/07/2024 with Tiffani Torres MD , VV 08-08-24 Orders for Kenalog (triamcinolone) To be administered every 6 weeks Additional medications used for condition topical Patient comments on effect of injections: worsening Assessment on current condition: erythema with scale on scalp. Widened part noted Verbal consent for injections with nurse today. Patient aware of risks of medication, as previously explained by practitioner and reviewed today. Patient given 5 mg of intralesional steroid/triamcinolone injections route: intralesional to scalp. Total of 3 ml's administered. 15 lesions. Patient tolerated injection(s) well. F/U 6 weeks for further injections as ordered. 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 Leave on for at least 8 hrs. Scalp treatment only, do not apply to lengths. - Ciclopirox 1 % sham Use 2-3x weekly as needed. Massage shampoo into scalp until lather. Leave on for 3 to 5 minutes, then rinse thoroughly. - finasteride (PROSCAR) 5 mg tablet Take half a tablet (2.5 mg) by mouth once daily. - doxycycline monohydrate (MONODOX) 100 mg capsule Take 1 capsule by mouth two times a day. - gabapentin (NEURONTIN) 600 mg tablet Take 1,200 mg by mouth three times a day. - hyoscyamine SR (LEVBID) 0.375 mg 12 hr tablet take 1 tablet by mouth twice a day - dicyclomine (BENTYL) 20 mg tablet TAKE 1 TABLET BY MOUTH TWICE A DAY - BACLOFEN ORAL Take by mouth. - predniSONE (DELTASONE) 20 mg tablet Take 1 tablet by mouth twice daily. - loperamide HCl (IMODIUM) 2 mg tab Take 1 tablet by mouth once daily. - Gatorade Sports Drink Use as directed for Miralax / Gatorade Bowel Prep Kit - estradiol (ESTRACE) 2 mg tablet TAKE 1 TABLET BY MOUTH EVERY DAY FOR 90 DAYS - QUEtiapine (SEROQUEL) 100 mg tablet Take 100 mg by mouth daily at bedtime. - rosuvastatin calcium (CRESTOR ORAL) Take by mouth. - metFORMIN (GLUCOPHAGE) 500 mg tablet TAKE 1 TABLET BY MOUTH TWICE A DAY FOR 90 DAYS - Progesterone Micronized 100 mg inst Use 1 Suppository vaginally once daily. - levothyroxine (SYNTHROID) 137 mcg tablet Take 1 tablet by mouth every morning. on an empty stomach. Wait one hour before eating or taking other medications. - aspirin, enteric coated (ECOTRIN LOW STRENGTH) 81 mg EC tablet Take 1 tablet by mouth once daily. - Vit-Iron Fumarate-FA (CO- FA) 29-1 mg Tab Take 1 tab once daily Facility-Administered Medications as of 09/08/2024 - triamcinolone acetonide 20 mg injection (KeNALog 10) Problem List As Of Date 08/29/2024 Noted Resolved Other specified acquired hypothyroidism [E03.8] 09/23/2012 06/16/2016 Kel's thyroiditis [E06.3] 09/23/2012 Fatigue [R53.83] 09/23/2012 06/16/2016 Paresthesias [R20.2] 09/23/2012 Maternal age 35+, multigravida, antepartum [O09*11/14/2013 Previous delivery affecting ,*11/15/2013 Obesity in , antepartum [O99.210] 11/15/2013 Diarrhea [R19.7] 09/24/2022 09/24/2022 Rectal bleeding [K62.5] 09/24/2022 09/24/2022 Abdominal pain [R10.9] 09/24/2022 09/24/2022 Encounter Status:Closed by PETROS METZ on 08/29/24 PROGRESS Observed: 08/29/2024 9:01 AM Status: COMPLETED Source: [facility]NO ID: [id number] Author: PETROS METZ RN Service: ? Author Type: Registered Nurse Type: Progress Notes Filed: 09/08/2024 09:01 Note Text: Nurse visit injections Patient presents for diagnosis of lichen planopilaris Here today for Injection Order in [facility]? Yes by provider Tiffani Torres MD Injection # 2 Last office visit 07/07/2024 with Tiffani Torres MD , VV 08-08-24 Orders for Kenalog (triamcinolone) To be administered every 6 weeks Additional medications used for condition topical Patient comments on effect of injections: worsening Assessment on current condition: erythema with scale on scalp. Widened part noted Verbal consent for injections with nurse today. Patient aware of risks of medication, as previously explained by practitioner and reviewed today. Patient given 5 mg of intralesional steroid/triamcinolone injections route: intralesional to scalp. Total of 3 ml's administered. 15 lesions. Patient tolerated injection(s) well. F/U 6 weeks for further injections as ordered. Petros Metz RN August 29, 2024 11:52 AM PROGRESS Observed: 08/08/2024 9:28 AM Status: COMPLETED Source: [facility]NO ID: [id number] Author: TIFFANI TORRES MD Service: ? Author Type: Physician Type: Progress Notes Filed: 09/10/2024 14:15 Note Text: VIRTUAL VISIT PROGRESS NOTE This is a virtual visit using [employer] video visit. It required patient-provider interaction for the medical decision making as documented below. I have communicated my name and active licensure. The patient's identity and physical location were verified at the time of this visit. Either the patient or their legal senior sales representative has been informed of the risks and benefits of -- and alternatives to -- treatment through a remote evaluation and consents to proceed with the evaluation remotely. Established patient Patient presents with: Hair Loss HPI: Marko Warren is a 48 year old female who presents for hair loss. Patient reports her hair loss has slowed down. Had no issues with biopsy site. Tolerating medication well. Will continue to monitor for side effects. Current Outpatient Medications Medication Sig doxycycline monohydrate (MONODOX) 100 mg capsule Take 1 capsule by mouth two times a day. gabapentin (NEURONTIN) 600 mg tablet Take 1,200 mg by mouth three times a day. doxycycline (VIBRAMYCIN) 50 mg capsule Take 1 capsule by mouth two times a day. Ciclopirox 1 % sham Use 2-3x weekly as needed. Massage shampoo into scalp until lather. Leave on for 3 to 5 minutes, then rinse thoroughly. fluocinonide (LIDEX) 0.05 % external solution Apply 1 ml to scalp roots 3x weekly. Leave on for at least 8 hrs. Scalp treatment only, do not apply to lengths. hyoscyamine SR (LEVBID) 0.375 mg 12 hr tablet take 1 tablet by mouth twice a day dicyclomine (BENTYL) 20 mg tablet TAKE 1 TABLET BY MOUTH TWICE A DAY BACLOFEN ORAL Take by mouth. predniSONE (DELTASONE) 20 mg tablet Take 1 tablet by mouth twice daily. loperamide HCl (IMODIUM) 2 mg tab Take 1 tablet by mouth once daily. Gatorade Sports Drink Use as directed for Miralax / Gatorade Bowel Prep Kit estradiol (ESTRACE) 2 mg tablet TAKE 1 TABLET BY MOUTH EVERY DAY FOR 90 DAYS QUEtiapine (SEROQUEL) 100 mg tablet Take 100 mg by mouth daily at bedtime. rosuvastatin calcium (CRESTOR ORAL) Take by mouth. metFORMIN (GLUCOPHAGE) 500 mg tablet TAKE 1 TABLET BY MOUTH TWICE A DAY FOR 90 DAYS Progesterone Micronized 100 mg inst Use 1 Suppository vaginally once daily. levothyroxine (SYNTHROID) 137 mcg tablet Take 1 tablet by mouth every morning. on an empty stomach. Wait one hour before eating or taking other medications. (Patient taking differently: Take 88 mcg by mouth every morning. on an empty stomach. Wait one hour before eating or taking other medications.) aspirin, enteric coated (ECOTRIN LOW STRENGTH) 81 mg EC tablet Take 1 tablet by mouth once daily. Vit-Iron Fumarate-FA (CO- FA) 29-1 mg Tab Take 1 tab once daily Current Facility-Administered Medications Medication Dose Route Frequency triamcinolone acetonide 20 mg injection (KeNALog 10) 20 mg INTRALESIONAL q 6 WEEKS Allergies:Ceclor [Cefaclor], Ciprofloxacin, Imitrex [Sumatriptan Succinate], and Tramadol PAST MEDICAL HISTORY Diagnosis Date Depression Ectopic Generalized anxiety disorder Migraine, intractable Ovarian cyst Unspecified hypothyroidism since 1999, age 25 Hypothyroidism REVIEW OF SYSTEMS: No fevers, no chills, no weightloss, no night sweats Skin as noted above VIDEO EXAM: (performed via video enabled technology) Well appearing, pleasant, in NAD Alert and oriented x3 Mood and affect: normal Skin exam performed including scalp and noted to be normal with the exception of: - decreased density favoring central scalp ASSESSMENT / PLAN: Marko was seen today for hair loss. Diagnoses and all orders for this visit: Lichen planopilaris - Discussed etiology of hair loss in detail - Discussed that the clinical course of LPP is unpredictable - Discussed treatment aimed to preserve the remaining hair and help to control symptoms, but will not regrow the hair that has already been lost - Discussed treatment options including topical corticosteroid, intralesional steroid injections, oral tetracyclines, low dose hydroxychloroquine -Options discussed in reserve: hydroxychloroquine Plan: - doxycycline 100mg BID for a total of 3 months - tacrolimus (PROTOPIC) 0.1 % ointment; Use twice daily as directed to rash on the face - fluocinonide (LIDEX) 0.05 % external solution; Apply to affected areas on scalp 3x weekly. Leave on for at least 8 hrs. Scalp treatment only, do not apply to lengths. - Ciclopirox 1 % sham; Use 2-3x weekly as needed. Massage shampoo into scalp until lather. Leave on for 3 to 5 minutes, then rinse thoroughly. - finasteride (PROSCAR) 5 mg tablet; Take half a tablet (2.5 mg) by mouth once daily. RTC 4 months Tiffani Torres MD. CORTISOL Collected: 8:36 AM Status: F Source: [facility] TYPE CODE TESTS RESULT OUT OF RANGE REFERENCE UNITS LAB 2143-6(LOINC) CORTISOL:MCN C:PT:SER/REE S:QN: 10.1 Unknown 6.2-19.4 microgram /dL Result Comment: Please Note: The reference interval and flagging for this test is for an AM collection. If this is a PM collection please use: Cortisol PM: 2.3-11.9 Performed at: [address] [id number] PhD Ismael Limon Performed By: #### [id number] # ### [facility] [address] [place] [address] DHEAS Collected: 08/05/2024 8:36 AM Status: F Source: [facility] TYPE CODE TESTS RESULT OUT OF RANGE REFERENCE UNITS LAB 2191-5(LOINC ) DEHYDROEPIANDROSTERONE SULFATE:MCNC:PT:SER/PLAS :QN: 62.5 Unknown 41.2-243.7 microgr am/dL Result Comment: Performed at : [address] [id number] PhD Ismael Limon Performed By: #### [id number] #### [facility] [address] [place] [address] PROLACTIN Collected: 4 8:36 AM Status: F Source: [facility] TYPE CODE TESTS RESULT OUT OF RANGE REFERENCE UNITS LAB 25410988(LOINC) Prolactin 6.95 Normal 3.34-26.72 ng/ mL Performed By: #### [id number] # ### [facility] [address] [place] [address] T3 REVERSE Collected: 4 8:36 AM Status: F Source: [facility] TYPE CODE TESTS RESULT OUT OF RANGE REFERENCE UNITS LAB 3052-8(LOINC) TRIIODOTHYRO NINE.REVERSE :MCNC:PT:SER /PLAS:QN: 10.7 Unknown 9.2-24.1 ng/dL Result Comment: This test wa s developed and its performance characteristics determined by [facility]. It has not been cleared or approved by the Food and Drug Administration. Performed at: [address] [id number] MD Manuel Sanchez Performed By: #### [id number] #### [facility] [address] [place] [address] FREE T4 Collected: 08/05/2024 8:36 AM Status: F Source: [facility] TYPE CODE TESTS RESULT OUT OF RANGE REFERENCE UNITS LAB 3024-7(LOINC) THYROXINE.ZAID E:MCNC:PT:SER /PLAS:QN: 0.96 Normal 0.58-1.64 ng/dL Performed By: #### [id number] # ### [facility] [address] [place] [address] T3 FREE Collected: 08/05/2024 8:36 AM Status: F Source: [facility] TYPE CODE TESTS RESULT OUT OF RANGE REFERENCE UNITS LAB 3051-0(LOINC) TRIIODOTHYRON INE.FREE:MCNC :PT:SER/PLAS: QN: 4.1 Unknown 2.0-4.4 pg/mL Result Comment: Performed at : [address] [id number] PhD Ismael Limon Performed By: #### [id number] # ### [facility] [address] [place] [address] PROGESTERONE Collected: 08/05/2024 8:36 AM Status: F Source: [facility] TYPE CODE TESTS RESULT OUT OF RANGE REFERENCE UNITS LAB 50877642(LOINC ) Progesterone Lvl 1.52 Unknown ng/mL Result Comment: 'F NONPREGNA NT FOLLICULAR = 0.10 - 0.60' 'LUTEAL = 3.00 - 17.5' 'MIDLUTEAL = 3.30 - 18.6' 'POST-MENOPAUSE = 0.10 - 0.40' '-FIRST TRIMESTER = 8.30 - 66.5' 'SECOND TRIMESTER = 18.9 - 66.1' 'THIRD TRIMESTER = 35.8 - 312.4' 'MALES = 0.14 - 2.06' Performed By: #### [id number] # ### [facility] [address] [place] [address] TESTOSTERONE F&T Collected: 8:36 AM Status: F Source: [facility] TYPE CODE TESTS RESULT OUT OF RANGE REFERENCE UNITS LAB 2991-8(LOINC) TESTOSTERONE .FREE:MCNC:P T:SER/PLAS:Q N: 0.8 Unknown 0.0-4.2 pg/mL Result Comment: Performed at : [address] [id number] PhD Ismael Limon Performed at: [address] [id number] MD Manuel Sanchez LAB 2986-8([facility]) TESTOSTERONE :MCNC:PT:SER /PLAS:QN: 8 Unknown 4-50 ng/dL Performed By: #### [id number] #### [facility] [address] [place] [address] ESTRADIOL Collected: 8:36 AM Status: F Source: [facility] TYPE CODE TESTS RESULT OUT OF RANGE REFERENCE UNITS LAB 2243-4([facility]) ESTRADIOL:MC NC:PT:SER/PL :QN: <5.0 Unknown pg/mL Result Comment: Adult Female Range Follicular phase 12.5 - 166.0 Ovulation phase 85.8 - 498.0 Luteal phase 43.8 - 211.0 Postmenopausal <6.0 - 54.7 1st trimester 215.0 - >4300.0 Qiana ECLIA methodology Performed at: [address] [id number] PhD Ismael Limon Performed By: #### [id number] # ### [facility] [address] [place] [address] TSH Collected: 08/05/2024 8:36 AM Status: F Source: [facility] TYPE CODE TESTS RESULT OUT OF RANGE REFERENCE UNITS LAB 3016-3([facility]) THYROTROPIN:A CNC:PT:SER/PL :QN: 0.01 Low 0.34-5.60 mcIU/mL Performed By: #### [id number] # ### [facility] [address] [place] [address] LAB MISCELLANEOUS-LC Collected: 024 8:36 AM Status: F Source: [facility] TYPE CODE TESTS RESULT OUT OF RANGE REFERENCE UNITS LAB CD:[id number]([facility]) Lab Miscellaneous COMMENT Unknown Result Comment: Test Ordered : [id number] Dihydrotestosterone Dihydrotestosterone 7.0 ng/dL ES This test was developed and its performance characteristics determined by [employer]. It has not been cleared or approved by the Food and Drug Administration. Reference Range: Adult Female: 4 - 22 Performed at: [address] [id number] PhD Ismael Limon LAB CD:[id number]([facility]) Test Code 602862 Unknown LAB 82303186([facility]) Test Name Dihydrotestoste Unknown Performed By: #### [id number] #### [facility] [address] [place] [address] VITAMIN D 25 HYDROXY Collected: 08/05/2024 8:36 AM S tatus: F Source: [facility] TYPE CODE TESTS RESULT OUT OF RANGE REFERENCE UNITS LAB 1988-3([facility]) CALCIDIOL:MCN C:PT:SER/PLAS :QN: 74.3 Normal 30.0-100.0 ng/mL Performed By: #### [id number] #### [facility] [address] [place] [address] ESTROGENS TOTAL Collected: 8:36 AM Status: F Source: [facility] TYPE CODE TESTS RESULT OUT OF RANGE REFERENCE UNITS LAB 2254-1([facility]) ESTROGEN:MCN C:PT:SER/REE S:QN: 93 Unknown pg/mL Result Comment: Prepubertal < 40 Female Cycle: 1-10 Days 16 - 328 11-20 Days 34 - 501 21-30 Days 48 - 350 Post-Menopausal 40 - 244 Performed at: [facility] [place] [address] [place], [place] [id number] MD Manuel Sanchez Performed By: #### [id number] #### [facility] [address] [place] [address] CNNURSE Observed: 07/25/2024 2:00 PM Status: COMPLETED Source: [facility] Nurse Visit (DERMAV) MARKO WARREN ([id number]) 1975 F Date Time Provider Department 07/25/24 2:00 PM NURSE [facility]M [facility] REJ DERMAV During your visit today, we recorded the following information about you: Robert Ramírez RN 07/25/2024 2:38 PM Signed Nurse visit injections Patient presents for diagnosis of lichen planopilaris Here today for Injection Order in [facility]? Yes by provider Tiffani Torres MD Injection # 1 Last office visit 07/07/2024 with Tiffani Torres MD Orders for Kenalog (triamcinolone) To be administered every 6 weeks Additional medications used for condition topical Patient comments on effect of injections: worsening Assessment on current condition: erythema with scale on scalp. Widened part noted Verbal consent for injections with nurse today. Patient aware of risks of medication, as previously explained by practitioner and reviewed today. Patient given 5 mg of intralesional steroid/triamcinolone injections route: intralesional to scalp. Total of 3.8 ml's administered. Patient tolerated injection(s) well. F/U 6 weeks for further injections as ordered. F/U with provider or for any concerns following injection. 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 - gabapentin (NEURONTIN) 600 mg tablet Take 1,200 mg by mouth three times a day. - doxycycline (VIBRAMYCIN) 50 mg capsule Take 1 capsule by mouth two times a day. - Ciclopirox 1 % sham Use 2-3x weekly as needed. Massage shampoo into scalp until lather. Leave on for 3 to 5 minutes, then rinse thoroughly. - fluocinonide (LIDEX) 0.05 % external solution Apply 1 ml to scalp roots 3x weekly. Leave on for at least 8 hrs. Scalp treatment only, do not apply to lengths. - hyoscyamine SR (LEVBID) 0.375 mg 12 hr tablet take 1 tablet by mouth twice a day - dicyclomine (BENTYL) 20 mg tablet TAKE 1 TABLET BY MOUTH TWICE A DAY - BACLOFEN ORAL Take by mouth. - predniSONE (DELTASONE) 20 mg tablet Take 1 tablet by mouth twice daily. - loperamide HCl (IMODIUM) 2 mg tab Take 1 tablet by mouth once daily. - Gatorade Sports Drink Use as directed for Miralax / Gatorade Bowel Prep Kit - estradiol (ESTRACE) 2 mg tablet TAKE 1 TABLET BY MOUTH EVERY DAY FOR 90 DAYS - QUEtiapine (SEROQUEL) 100 mg tablet Take 100 mg by mouth daily at bedtime. - rosuvastatin calcium (CRESTOR ORAL) Take by mouth. - metFORMIN (GLUCOPHAGE) 500 mg tablet TAKE 1 TABLET BY MOUTH TWICE A DAY FOR 90 DAYS - Progesterone Micronized 100 mg inst Use 1 Suppository vaginally once daily. - levothyroxine (SYNTHROID) 137 mcg tablet Take 1 tablet by mouth every morning. on an empty stomach. Wait one hour before eating or taking other medications. - aspirin, enteric coated (ECOTRIN LOW STRENGTH) 81 mg EC tablet Take 1 tablet by mouth once daily. - Vit-Iron Fumarate-FA (CO-BROOKE FA) 29-1 mg Tab Take 1 tab once daily Facility-Administered Medications as of 07/27/2024 - triamcinolone acetonide 20 mg injection (KeNALog 10) Problem List As Of Date 07/25/2024 Noted Resolved Other specified acquired hypothyroidism [E03.8] 09/23/2012 06/16/2016 Kel's thyroiditis [E06.3] 09/23/2012 Fatigue [R53.83] 09/23/2012 06/16/2016 Paresthesias [R20.2] 09/23/2012 Maternal age 35+, multigravida, antepartum [O09*11/14/2013 Previous delivery affecting ,*11/15/2013 Obesity in , antepartum [O99.210] 11/15/2013 Diarrhea [R19.7] 09/24/2022 09/24/2022 Rectal bleeding [K62.5] 09/24/2022 09/24/2022 Abdominal pain [R10.9] 09/24/2022 09/24/2022 Prescriptions ordered this encounter Disp Refills Start End TRIAMCINOLONE ACETONIDE 10 MG/ML BECKY* 07/25/2024 01/09/2025 Route: INTRALESIONA Encounter Status:Closed by ROBERT RAMÍREZ on 07/25/24 PROGRESS Observed: 07/25/2024 2:00 PM Status: COMPLETED Source: [facility] ID: [id number] Author: ROBERT RAMÍREZ RN Service: ? Author Type: Registered Nurse Type: Progress Notes Filed: 07/25/2024 14:38 Note Text: Nurse visit injections Patient presents for diagnosis of lichen planopilaris Here today for Injection Order in [facility]? Yes by provider Tiffani Torres MD Injection # 1 Last office visit 07/07/2024 with Tiffani Torres MD Orders for Kenalog (triamcinolone) To be administered every 6 weeks Additional medications used for condition topical Patient comments on effect of injections: worsening Assessment on current condition: erythema with scale on scalp. Widened part noted Verbal consent for injections with nurse today. Patient aware of risks of medication, as previously explained by practitioner and reviewed today. Patient given 5 mg of intralesional steroid/triamcinolone injections route: intralesional to scalp. Total of 3.8 ml's administered. Patient tolerated injection(s) well. F/U 6 weeks for further injections as ordered. F/U with provider or for any concerns following injection. Robert Ramírez RN July 25, 2024 2:31 PM PRESTON W/REFLEX IF POS Collected: 07/21/20 6:22 AM Status: F Source: [facility] TYPE CODE TESTS RESULT OUT OF RANGE REFERENCE UNITS LAB 8061-4(LOINC) NUCLEAR AB:PRTHR:PT: SER:ORD: Negative Unknown Negative Result Comment: Performed at : [address] [id number] PhD Ismael Limon Performed By: #### [id number] #### [facility] [address] [place] [address] RF QUANT Collected: 07/21/2024 6:22 AM Status: F Source: [facility] TYPE CODE TESTS RESULT OUT OF RANGE REFERENCE UNITS LAB 15113-7(LOINC) RHEUMATOID FACTOR:ACNC:PT :SER/PLAS:QN: <10.0 Unknown <14.0 Internati onal_Unit /mL Result Comment: Performed at : [facility] [id number] PhD Ismael Limon Performed By: #### [id number] #### [facility] [address] [place] [address] CRP Collected: 07/21/2024 6:22 AM Status: F Source: [facility] TYPE CODE TESTS RESULT OUT OF RANGE REFERENCE UNITS LAB 1988-5(LOINC) C REACTIVE PROTEIN:MCNC:P T:SER/PLAS:QN: 0.1 Normal <=1.9 mg/dL Performed By: #### [id number] # ### [facility] [address] [place] [address] SED RATE AUTOMATED Collected: 07/21/2024 6:22 AM Sta tus: F Source: [facility] TYPE CODE TESTS RESULT OUT OF RANGE REFERENCE UNITS LAB 07123-6([facility]) ERYTHROCYTE SEDIMENTATION RATE:ELIZABETH:PT:BLD:QN : 3 Normal 0-34 mm/hr Performed By: #### [id number] #### [facility] [address] [place] [address] CNPN Observed: 07/21/2024 12:00 AM Status: COMPLETED Source: [facility] Telephone (DERMAV) MARKO WARREN ([id number]) 1975 F Date Time Provider Department 07/21/24 TIFFANI TORRES DERMAV During your visit today, we recorded the following information about you: Allergies As of Date: 07/21/2024 Noted Allergy Reaction CECLOR (CEFACLOR) 09/23/2012 4 - Hives CIPROFLOXACIN 09/24/2022 4 - Hives IMITREX (SUMATRIPTAN SUCCINATE) 09/23/2012 10 - Anaphylaxis Comments: Respiratory Distress TRAMADOL 08/18/2022 8 - GI Upset Comments: Nausea Date Reviewed: 07/07/2024 Reviewed by: Shannan Lee LPN - Fully Assessed Prescriptions as of 08/01/2024 - doxycycline monohydrate (MONODOX) 100 mg capsule Take 1 capsule by mouth two times a day. - gabapentin (NEURONTIN) 600 mg tablet Take 1,200 mg by mouth three times a day. - doxycycline (VIBRAMYCIN) 50 mg capsule Take 1 capsule by mouth two times a day. - Ciclopirox 1 % sham Use 2-3x weekly as needed. Massage shampoo into scalp until lather. Leave on for 3 to 5 minutes, then rinse thoroughly. - fluocinonide (LIDEX) 0.05 % external solution Apply 1 ml to scalp roots 3x weekly. Leave on for at least 8 hrs. Scalp treatment only, do not apply to lengths. - hyoscyamine SR (LEVBID) 0.375 mg 12 hr tablet take 1 tablet by mouth twice a day - dicyclomine (BENTYL) 20 mg tablet TAKE 1 TABLET BY MOUTH TWICE A DAY - BACLOFEN ORAL Take by mouth. - predniSONE (DELTASONE) 20 mg tablet Take 1 tablet by mouth twice daily. - loperamide HCl (IMODIUM) 2 mg tab Take 1 tablet by mouth once daily. - Gatorade Sports Drink Use as directed for Miralax / Gatorade Bowel Prep Kit - estradiol (ESTRACE) 2 mg tablet TAKE 1 TABLET BY MOUTH EVERY DAY FOR 90 DAYS - QUEtiapine (SEROQUEL) 100 mg tablet Take 100 mg by mouth daily at bedtime. - rosuvastatin calcium (CRESTOR ORAL) Take by mouth. - metFORMIN (GLUCOPHAGE) 500 mg tablet TAKE 1 TABLET BY MOUTH TWICE A DAY FOR 90 DAYS - Progesterone Micronized 100 mg inst Use 1 Suppository vaginally once daily. - levothyroxine (SYNTHROID) 137 mcg tablet Take 1 tablet by mouth every morning. on an empty stomach. Wait one hour before eating or taking other medications. - aspirin, enteric coated (ECOTRIN LOW STRENGTH) 81 mg EC tablet Take 1 tablet by mouth once daily. - Vit-Iron Fumarate-FA (CO-BROOKE FA) 29-1 mg Tab Take 1 tab once daily Facility-Administered Medications as of 08/01/2024 - triamcinolone acetonide 20 mg injection (KeNALog 10) Problem List As Of Date 07/21/2024 Noted Resolved Other specified acquired hypothyroidism [E03.8] 09/23/2012 06/16/2016 Kel's thyroiditis [E06.3] 09/23/2012 Fatigue [R53.83] 09/23/2012 06/16/2016 Paresthesias [R20.2] 09/23/2012 Maternal age 35+, multigravida, antepartum [O09*11/14/2013 Previous delivery affecting ,*11/15/2013 Obesity in , antepartum [O99.210] 11/15/2013 Diarrhea [R19.7] 09/24/2022 09/24/2022 Rectal bleeding [K62.5] 09/24/2022 09/24/2022 Abdominal pain [R10.9] 09/24/2022 09/24/2022 Encounter Status:Closed by TIFFANI HOWARD on 08/01/24 PROGRESS Observed: 07/18/2024 4:07 PM Status: COMPLETED Source: [facility] HNO ID: [id number] Author: TONIE LUBIN RN Service: ? Author Type: Registered Nurse Type: Progress Notes Filed: 07/18/2024 17:00 Note Text: PROCEDURE FOLLOW UP PATIENT ID CONFIRMED: YES PATIENT ID VERIFIED BY: Tonie Lubin RN The biopsy site was reviewed by Tonie Lubin RN in-person. CLINICIAN: Tonie Lubin RN PATIENT RETURNS FOR: suture removal PATIENT IS S/P: Punch biopsy Pathology results: Patient previously notified. DATE OF PROCEDURE: 07/07/2024 SITE LOCATION: scalp WOUND MANAGEMENT: Punch biopsy site with primary closure: Wound is well approximated without signs of infection; appears to be healing well. Patient denies any problems or concerns. Sutures removed easily, and patient tolerated well. FOLLOW UP: PRN Tonie Lubin RN July 18, 2024 4:09 PM CNNURSE Observed: 07/18/2024 4:00 PM Status: COMPLETED Source: [facility] Nurse Visit (DERMAV) MARKO WARREN ([id number]) 1975 F Date Time Provider Department 07/18/24 4:00 PM NURSE D[facility]M [facility] During your visit today, we recorded the following information about you: Tonie Lubin RN 07/18/2024 5:00 PM Signed PROCEDURE FOLLOW UP PATIENT ID CONFIRMED: YES PATIENT ID VERIFIED BY: Tonie Lubin RN The biopsy site was reviewed by Tonie Lubin RN in-person. CLINICIAN: Tonie Lubin RN PATIENT RETURNS FOR: suture removal PATIENT IS S/P: Punch biopsy Pathology results: Patient previously notified. DATE OF PROCEDURE: 07/07/2024 SITE LOCATION: scalp WOUND MANAGEMENT: Punch biopsy site with primary closure: Wound is well approximated without signs of infection; appears to be healing well. Patient denies any problems or concerns. Sutures removed easily, and patient tolerated well. FOLLOW UP: DARREN Lubin RN July 18, 2024 4:09 PM Allergies As of Date: 07/18/2024 Noted Allergy Reaction CECLOR (CEFACLOR) 09/23/2012 4 - Hives CIPROFLOXACIN 09/24/2022 4 - Hives IMITREX (SUMATRIPTAN SUCCINATE) 09/23/2012 10 - Anaphylaxis Comments: Respiratory Distress TRAMADOL 08/18/2022 8 - GI Upset Comments: Nausea Date Reviewed: 07/07/2024 Reviewed by: Shannan Lee LPN - Fully Assessed Primary Visit Diagnosis:Encounter for removal of sutures [Z48.02] Prescriptions as of 07/18/2024 - gabapentin (NEURONTIN) 600 mg tablet Take 1,200 mg by mouth three times a day. - doxycycline (VIBRAMYCIN) 50 mg capsule Take 1 capsule by mouth two times a day. - Ciclopirox 1 % sham Use 2-3x weekly as needed. Massage shampoo into scalp until lather. Leave on for 3 to 5 minutes, then rinse thoroughly. - fluocinonide (LIDEX) 0.05 % external solution Apply 1 ml to scalp roots 3x weekly. Leave on for at least 8 hrs. Scalp treatment only, do not apply to lengths. - hyoscyamine SR (LEVBID) 0.375 mg 12 hr tablet take 1 tablet by mouth twice a day - dicyclomine (BENTYL) 20 mg tablet TAKE 1 TABLET BY MOUTH TWICE A DAY - BACLOFEN ORAL Take by mouth. - predniSONE (DELTASONE) 20 mg tablet Take 1 tablet by mouth twice daily. - loperamide HCl (IMODIUM) 2 mg tab Take 1 tablet by mouth once daily. - Gatorade Sports Drink Use as directed for Miralax / Gatorade Bowel Prep Kit - estradiol (ESTRACE) 2 mg tablet TAKE 1 TABLET BY MOUTH EVERY DAY FOR 90 DAYS - QUEtiapine (SEROQUEL) 100 mg tablet Take 100 mg by mouth daily at bedtime. - rosuvastatin calcium (CRESTOR ORAL) Take by mouth. - metFORMIN (GLUCOPHAGE) 500 mg tablet TAKE 1 TABLET BY MOUTH TWICE A DAY FOR 90 DAYS - Progesterone Micronized 100 mg inst Use 1 Suppository vaginally once daily. - levothyroxine (SYNTHROID) 137 mcg tablet Take 1 tablet by mouth every morning. on an empty stomach. Wait one hour before eating or taking other medications. - aspirin, enteric coated (ECOTRIN LOW STRENGTH) 81 mg EC tablet Take 1 tablet by mouth once daily. - Vit-Iron Fumarate-FA (CO-BROOKE FA) 29-1 mg Tab Take 1 tab once daily Problem List As Of Date 07/18/2024 Noted Resolved Other specified acquired hypothyroidism [E03.8] 09/23/2012 06/16/2016 Kel's thyroiditis [E06.3] 09/23/2012 Fatigue [R53.83] 09/23/2012 06/16/2016 Paresthesias [R20.2] 09/23/2012 Maternal age 35+, multigravida, antepartum [O09*11/14/2013 Previous delivery affecting ,*11/15/2013 Obesity in , antepartum [O99.210] 11/15/2013 Diarrhea [R19.7] 09/24/2022 09/24/2022 Rectal bleeding [K62.5] 09/24/2022 09/24/2022 Abdominal pain [R10.9] 09/24/2022 09/24/2022 Encounter Status:Closed by TONIE LUBIN on 07/18/24 CNOV Observed: 07/07/2024 4:40 PM Status: COMPLETED Source: [facility] Office Visit (DERMAV) MARKO WARREN ([id number]) 1975 F Date Time Provider Department 07/07/24 4:40 PM TIFFANI TORRES DERMAV During your visit today, we recorded the following information about you: Tiffani Torres MD 10/12/2024 11:21 AM Addendum Established patient CHIEF COMPLAINT: Procedure HISTORY OF PRESENT ILLNESS: Marko Warren is a 49 year old female who presents for punch biopsy. Indication for procedure: worsening alopecia Past Medical History PAST MEDICAL HISTORY Diagnosis Date Depression Ectopic Generalized anxiety disorder Migraine, intractable Ovarian cyst Unspecified hypothyroidism since 1999, age 25 Hypothyroidism PAST SURGICAL HISTORY Procedure Laterality Date APPENDECTOMY DELIVERY ONLY x2 2010 and 2011 , low transverse DILATION AND CURETTAGE DXAND/THER NONOBSTETRIC 5 Dilation AND curettage LAPS ABD PRTMANDOMENTUM DX W/WO SPEC BR/WA SPX 11/08/2008 Laparoscopy (ecotopic ) LAPS ABD PRTMANDOMENTUM DX W/WO SPEC BR/WA SPX 11/08/2009 Laparoscopy: aovrian-utine adhesions. PAST SURGICAL HISTORY OF transvaginal retrival of egg. REPAIR EPIGASTRIC HERNIA,REDUC Medications Current Outpatient Medications Medication Sig tacrolimus (PROTOPIC) 0.1 % ointment Use twice daily as directed to rash on the face fluocinonide (LIDEX) 0.05 % external solution Apply to affected areas on scalp 3x weekly. Leave on for at least 8 hrs. Scalp treatment only, do not apply to lengths. Ciclopirox 1 % sham Use 2-3x weekly as needed. Massage shampoo into scalp until lather. Leave on for 3 to 5 minutes, then rinse thoroughly. finasteride (PROSCAR) 5 mg tablet Take half a tablet (2.5 mg) by mouth once daily. doxycycline monohydrate (MONODOX) 100 mg capsule Take 1 capsule by mouth two times a day. gabapentin (NEURONTIN) 600 mg tablet Take 1,200 mg by mouth three times a day. hyoscyamine SR (LEVBID) 0.375 mg 12 hr tablet take 1 tablet by mouth twice a day dicyclomine (BENTYL) 20 mg tablet TAKE 1 TABLET BY MOUTH TWICE A DAY BACLOFEN ORAL Take by mouth. predniSONE (DELTASONE) 20 mg tablet Take 1 tablet by mouth twice daily. loperamide HCl (IMODIUM) 2 mg tab Take 1 tablet by mouth once daily. Gatorade Sports Drink Use as directed for Miralax / Gatorade Bowel Prep Kit estradiol (ESTRACE) 2 mg tablet TAKE 1 TABLET BY MOUTH EVERY DAY FOR 90 DAYS (Patient not taking: Reported on 08/29/2024) QUEtiapine (SEROQUEL) 100 mg tablet Take 100 mg by mouth daily at bedtime. rosuvastatin calcium (CRESTOR ORAL) Take by mouth. metFORMIN (GLUCOPHAGE) 500 mg tablet TAKE 1 TABLET BY MOUTH TWICE A DAY FOR 90 DAYS Progesterone Micronized 100 mg inst Use 1 Suppository vaginally once daily. levothyroxine (SYNTHROID) 137 mcg tablet Take 1 tablet by mouth every morning. on an empty stomach. Wait one hour before eating or taking other medications. (Patient taking differently: Take 88 mcg by mouth every morning. on an empty stomach. Wait one hour before eating or taking other medications.) aspirin, enteric coated (ECOTRIN LOW STRENGTH) 81 mg EC tablet Take 1 tablet by mouth once daily. Vit-Iron Fumarate-FA (CO-BROOKE FA) 29-1 mg Tab Take 1 tab once daily Current Facility-Administered Medications Medication Dose Route Frequency triamcinolone acetonide 20 mg injection (KeNALog 10) 20 mg INTRALESIONAL q 6 WEEKS Allergies ALLERGIES Allergen Reactions Ceclor [Cefaclor] Hives Ciprofloxacin Hives Imitrex [Sumatripta* Anaphylaxis Respiratory Distress Tramadol GI Upset Nausea Physical EXAM: Right Vertex Scalp Punch biopsy alopecic patches with erythema and perifollicular scale R/O LPP ASSESSMENT / PLAN: Scarring alopecia Rash and nonspecific skin eruption Start: - doxycycline (VIBRAMYCIN) 50 mg capsule; Take 1 capsule by mouth two times a day. - Ciclopirox 1 % sham; Use 2-3x weekly as needed. Massage shampoo into scalp until lather. Leave on for 3 to 5 minutes, then rinse thoroughly. - fluocinonide (LIDEX) 0.05 % external solution; Apply 1 ml to scalp roots 3x weekly. Leave on for at least 8 hrs. Scalp treatment only, do not apply to lengths. - doxycycline monohydrate (MONODOX) 100 mg capsule; Take 1 capsule by mouth two times a day. PROCEDURE NOTE SKIN / NAIL BIOPSY - Right Vertex Scalp Type of biopsy: punch Informed consent: discussed and consent obtained Timeout: patient name, date of , surgical site, and procedure verified Procedure prep: Patient was prepped and draped in usual sterile fashion Prep type: Isopropyl alcohol Anesthesia: the lesion was anesthetized in a standard fashion Anesthetic: 1% lidocaine w/ epinephrine 1-100,000 buffered w/ 8.4% NaHCO3 Punch size: 4 mm Suture size: 4-0 Suture type: Prolene (polypropylene) Hemostasis achieved with: suture Outcome: patient tolerated procedure well Post-procedure details: wound care instructions given Specimen A - Surgical Pathology Punch biopsy alopecic patches with erythema and perifollicular scale R/O LPP RTC 10 day suture removal The documentation for this note was completed by Shannan Lee LPN acting as scribe for Tiffani Torres MD. July 07, 2024 4:35 PM. The HPI, PMH, and ROS that were documented by my student assistant, who was scribing during the encounter, were confirmed by me and I agree with the content of these sections. I have made any required additions or deletions to the HPI/PFSH/ROS as needed. The physical exam and any procedures were performed by me, unless otherwise noted. MD Fifi Mantilla, Tiffani Trejo MD 07/07/2024 4:55 PM Addendum Scalp biopsy instructions If you normally use topical steroids in your scalp (clobetasol, fluocinolone, fluocinonide etc.), please stop one week prior to your biopsy You will be instructed to wash your scalp well after 24 hrs for the following 3 days after your biopsy. This can be done with ordinary soap and water. You don?t need to shampoo the entire scalp unless you want to. The area however, must be washed for 5 seconds with light application of soapy water. Then rinse with fresh water. A light face cloth is fine. You may dye and colour your hair one week after the biopsy. Styling products can be used on the scalp the next day after the biopsy. Please apply petroleum jelly to the biopsy site for the first 5 days after the biopsy. A virtual or in office follow up appointment should be scheduled 4-6 weeks after your appointment. You will need to schedule a suture removal appointment with one of our nurses for 10 days after the biopsy day. Allergies As of Date: 07/07/2024 Noted Allergy Reaction CECLOR (CEFACLOR) 09/23/2012 4 - Hives CIPROFLOXACIN 09/24/2022 4 - Hives IMITREX (SUMATRIPTAN SUCCINATE) 09/23/2012 10 - Anaphylaxis Comments: Respiratory Distress TRAMADOL 08/18/2022 8 - GI Upset Comments: Nausea Date Reviewed: 07/07/2024 Reviewed by: Shannan Lee LPN - Fully Assessed Reason for Visit: Procedure [88] Primary Visit Diagnosis:Scarring alopecia [L66.9] Other Visit Diagnosis:Rash and nonspecific skin eruption [R21] Order(s):SKIN / NAIL BIOPSY [7106312] Order #: [id number]: 1 SURGICAL PATHOLOGY [SBH9352] Order #: [id number] STANDING SURGICAL PATHOLOGY [[id number]] Order #: [id number]. #:[id number] doxycycline monohydrate (MONODOX) 100 mg capsuleTake 1 capsule by mouth two times a day.Disp: 180 capsuleRfl: 0 Prescriptions as of 10/12/2024 - tacrolimus (PROTOPIC) 0.1 % ointment Use twice daily as directed to rash on the face - fluocinonide (LIDEX) 0.05 % external solution Apply to affected areas on scalp 3x weekly. Leave on for at least 8 hrs. Scalp treatment only, do not apply to lengths. - Ciclopirox 1 % sham Use 2-3x weekly as needed. Massage shampoo into scalp until lather. Leave on for 3 to 5 minutes, then rinse thoroughly. - finasteride (PROSCAR) 5 mg tablet Take half a tablet (2.5 mg) by mouth once daily. - doxycycline monohydrate (MONODOX) 100 mg capsule Take 1 capsule by mouth two times a day. - gabapentin (NEURONTIN) 600 mg tablet Take 1,200 mg by mouth three times a day. - hyoscyamine SR (LEVBID) 0.375 mg 12 hr tablet take 1 tablet by mouth twice a day - dicyclomine (BENTYL) 20 mg tablet TAKE 1 TABLET BY MOUTH TWICE A DAY - BACLOFEN ORAL Take by mouth. - predniSONE (DELTASONE) 20 mg tablet Take 1 tablet by mouth twice daily. - loperamide HCl (IMODIUM) 2 mg tab Take 1 tablet by mouth once daily. - Gatorade Sports Drink Use as directed for Miralax / Gatorade Bowel Prep Kit - estradiol (ESTRACE) 2 mg tablet TAKE 1 TABLET BY MOUTH EVERY DAY FOR 90 DAYS - QUEtiapine (SEROQUEL) 100 mg tablet Take 100 mg by mouth daily at bedtime. - rosuvastatin calcium (CRESTOR ORAL) Take by mouth. - metFORMIN (GLUCOPHAGE) 500 mg tablet TAKE 1 TABLET BY MOUTH TWICE A DAY FOR 90 DAYS - Progesterone Micronized 100 mg inst Use 1 Suppository vaginally once daily. - levothyroxine (SYNTHROID) 137 mcg tablet Take 1 tablet by mouth every morning. on an empty stomach. Wait one hour before eating or taking other medications. - aspirin, enteric coated (ECOTRIN LOW STRENGTH) 81 mg EC tablet Take 1 tablet by mouth once daily. - Vit-Iron Fumarate-FA (CO-BROOKE FA) 29-1 mg Tab Take 1 tab once daily Facility-Administered Medications as of 10/12/2024 - triamcinolone acetonide 20 mg injection (KeNALog 10) Problem List As Of Date 07/07/2024 Noted Resolved Other specified acquired hypothyroidism [E03.8] 09/23/2012 06/16/2016 Kel's thyroiditis [E06.3] 09/23/2012 Fatigue [R53.83] 09/23/2012 06/16/2016 Paresthesias [R20.2] 09/23/2012 Maternal age 35+, multigravida, antepartum [O09*11/14/2013 Previous delivery affecting ,*11/15/2013 Obesity in , antepartum [O99.210] 11/15/2013 Diarrhea [R19.7] 09/24/2022 09/24/2022 Rectal bleeding [K62.5] 09/24/2022 09/24/2022 Abdominal pain [R10.9] 09/24/2022 09/24/2022 Other instructions from your clinician: Scalp biopsy instructions If you normally use topical steroids in your scalp (clobetasol, fluocinolone, fluocinonide etc.), please stop one week prior to your biopsy You will be instructed to wash your scalp well after 24 hrs for the following 3 days after your biopsy. This can be done with ordinary soap and water. You don?t need to shampoo the entire scalp unless you want to. The area however, must be washed for 5 seconds with light application of soapy water. Then rinse with fresh water. A light face cloth is fine. You may dye and colour your hair one week after the biopsy. Styling products can be used on the scalp the next day after the biopsy. Please apply petroleum jelly to the biopsy site for the first 5 days after the biopsy. A virtual or in office follow up appointment should be scheduled 4-6 weeks after your appointment. You will need to schedule a suture removal appointment with one of our nurses for 10 days after the biopsy day. Prescriptions ordered this encounter Disp Refills Start End DOXYCYCLINE HYCLATE 50 MG CAPSULE 60 c* 2 07/07/2024 08/08/2024 Route: ORAL Sig: Take 1 capsule by mouth two times a day. CICLOPIROX 1 % SHAMPOO 120 * 5 07/07/2024 08/08/2024 Sig: Use 2-3x weekly as needed. Massage shampoo into scalp until lather. Leave on for 3 to 5 minutes, then rinse thoroughly. FLUOCINONIDE 0.05 % TOPICAL SOLUTION 60 mL 3 07/07/2024 08/08/2024 Sig: Apply 1 ml to scalp roots 3x weekly. Leave on for at least 8 hrs. Scalp treatment only, do not apply to lengths. DOXYCYCLINE MONOHYDRATE 100 MG CAPSU* 180 * 0 07/21/2024 Route: ORAL Sig: Take 1 capsule by mouth two times a day. Disposition: Return if symptoms worsen or fail to improve. Follow-up and Disposition History for Encounter Date Provider Department Center 07/07/2024 [id number] TORRES Encounter Status:Closed by TIFFANI HOWARD on 08/06/24 SURGICAL PATHOLOGY Collected: 07/07/2024 4:39 PM Sta tus: F Source: [facility] Order Comment: Specimen Type : TISSUE SPECIMEN Ordering Facility: [facility] Address: [address] [place] [address] TYPE CODE TESTS RESULT OUT OF RANGE REFERENCE UNITS PATHOLOGY [id number] CASE REPORT Result Comment: Surgical Pat hology Report Case: [id number] Authorizing Provider: Tiffani Torres MD Collected: 07/07/2024 04:39 PM Ordering Location: Dermatology Received: 07/07/2024 05:13 PM Pathologist: Javier Duncan MD, PhD Specimen: Skin, Right Vertex Scalp PATHOLOGY [id number] FINAL DIAGNOSIS Result Comment: A. Skin, rig ht vertex scalp, punch biopsy: - Compatible with lichen planopilaris, see comment. AF/EB 07/14/2024 OLOGY [id number] DIAGNOSIS COMMENT Result Comment: A. Sections demonstrate decreased numbers of hair follicles with some variation in follicle diameter and several follicles display prominent perifollicular mucinous fibroplasia. Sebaceous glands and arrector katie muscles are preserved. The stratum corneum exhibits orthokeratosis and the epidermis is largely unremarkable. There is a mildly dense, superficial perivascular and periadnexal inflammatory infiltrate composed of lymphocytes. Eosinophils are absent. To further characterize this case, special stains were performed and compared to appropriate controls. The Movat and Verhoeff-Van Gieson stain (VVG) stains highlight dystrophic elastic fibers in the dermis with perifollicular elastic fiber loss. The GMS stain is negative for organisms within the specimen. The Gram stain does not demonstrate bacterial organisms within the specimen. The clinical chart and photos are reviewed. 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 Clinical correlation remains essential. PATHOLOGY [id number] GROSS DESCRIPTION A. Skin Result Comment: Received in formalin is a cylindrical segment of skin and subcutaneous tissue measuring 0.4 x 0.4 x 0.4 cm. The specimen is not sectioned. Totally submitted in one cassette. July 11, 2024 12:11 PM Gross [place] [address] PATHOLOGY [facility] Result Comment: Diagnostic i nterpretation performed at [place] [address] CLIA# [id number] [employer] Worker: Jovi Sellers M.D. Performed By: #### S #### [facility] CLIA [id number] [address] [place], [place] [address]K [address] OF [place] PROGRESS Observed: 07/07/2024 4:26 PM Status: COMPLETED Source: [facility] HNO ID: [id number] Author: TIFFANI TORRES MD Service: ? Author Type: Physician Type: Progress Notes Filed: 10/12/2024 11:21 Note Text: Established patient CHIEF COMPLAINT: Procedure HISTORY OF PRESENT ILLNESS: Marko Warren is a 49 year old female who presents for punch biopsy. Indication for procedure: worsening alopecia Past Medical History PAST MEDICAL HISTORY Diagnosis Date Depression Ectopic Generalized anxiety disorder Migraine, intractable Ovarian cyst Unspecified hypothyroidism since 1999, age 25 Hypothyroidism PAST SURGICAL HISTORY Procedure Laterality Date APPENDECTOMY DELIVERY ONLY x2 2010 and 2011 , low transverse DILATION AND CURETTAGE DXAND/THER NONOBSTETRIC 5 Dilation AND curettage LAPS ABD PRTMANDOMENTUM DX W/WO SPEC BR/WA SPX 11/08/2008 Laparoscopy (ecotopic ) LAPS ABD PRTMANDOMENTUM DX W/WO SPEC BR/WA SPX 11/08/2009 Laparoscopy: aovrian-utine adhesions. PAST SURGICAL HISTORY OF transvaginal retrival of egg. REPAIR EPIGASTRIC HERNIA,REDUC Medications Current Outpatient Medications Medication Sig tacrolimus (PROTOPIC) 0.1 % ointment Use twice daily as directed to rash on the face fluocinonide (LIDEX) 0.05 % external solution Apply to affected areas on scalp 3x weekly. Leave on for at least 8 hrs. Scalp treatment only, do not apply to lengths. Ciclopirox 1 % sham Use 2-3x weekly as needed. Massage shampoo into scalp until lather. Leave on for 3 to 5 minutes, then rinse thoroughly. finasteride (PROSCAR) 5 mg tablet Take half a tablet (2.5 mg) by mouth once daily. doxycycline monohydrate (MONODOX) 100 mg capsule Take 1 capsule by mouth two times a day. gabapentin (NEURONTIN) 600 mg tablet Take 1,200 mg by mouth three times a day. hyoscyamine SR (LEVBID) 0.375 mg 12 hr tablet take 1 tablet by mouth twice a day dicyclomine (BENTYL) 20 mg tablet TAKE 1 TABLET BY MOUTH TWICE A DAY BACLOFEN ORAL Take by mouth. predniSONE (DELTASONE) 20 mg tablet Take 1 tablet by mouth twice daily. loperamide HCl (IMODIUM) 2 mg tab Take 1 tablet by mouth once daily. Gatorade Sports Drink Use as directed for Miralax / Gatorade Bowel Prep Kit estradiol (ESTRACE) 2 mg tablet TAKE 1 TABLET BY MOUTH EVERY DAY FOR 90 DAYS (Patient not taking: Reported on 08/29/2024) QUEtiapine (SEROQUEL) 100 mg tablet Take 100 mg by mouth daily at bedtime. rosuvastatin calcium (CRESTOR ORAL) Take by mouth. metFORMIN (GLUCOPHAGE) 500 mg tablet TAKE 1 TABLET BY MOUTH TWICE A DAY FOR 90 DAYS Progesterone Micronized 100 mg inst Use 1 Suppository vaginally once daily. levothyroxine (SYNTHROID) 137 mcg tablet Take 1 tablet by mouth every morning. on an empty stomach. Wait one hour before eating or taking other medications. (Patient taking differently: Take 88 mcg by mouth every morning. on an empty stomach. Wait one hour before eating or taking other medications.) aspirin, enteric coated (ECOTRIN LOW STRENGTH) 81 mg EC tablet Take 1 tablet by mouth once daily. Vit-Iron Fumarate-FA (CO-BROOKE FA) 29-1 mg Tab Take 1 tab once daily Current Facility-Administered Medications Medication Dose Route Frequency triamcinolone acetonide 20 mg injection (KeNALog 10) 20 mg INTRALESIONAL q 6 WEEKS Allergies ALLERGIES Allergen Reactions Ceclor [Cefaclor] Hives Ciprofloxacin Hives Imitrex [Sumatripta* Anaphylaxis Respiratory Distress Tramadol GI Upset Nausea Physical EXAM: Right Vertex Scalp Punch biopsy alopecic patches with erythema and perifollicular scale R/O LPP ASSESSMENT / PLAN: Scarring alopecia Rash and nonspecific skin eruption Start: - doxycycline (VIBRAMYCIN) 50 mg capsule; Take 1 capsule by mouth two times a day. - Ciclopirox 1 % sham; Use 2-3x weekly as needed. Massage shampoo into scalp until lather. Leave on for 3 to 5 minutes, then rinse thoroughly. - fluocinonide (LIDEX) 0.05 % external solution; Apply 1 ml to scalp roots 3x weekly. Leave on for at least 8 hrs. Scalp treatment only, do not apply to lengths. - doxycycline monohydrate (MONODOX) 100 mg capsule; Take 1 capsule by mouth two times a day. PROCEDURE NOTE SKIN / NAIL BIOPSY - Right Vertex Scalp Type of biopsy: punch Informed consent: discussed and consent obtained Timeout: patient name, date of , surgical site, and procedure verified Procedure prep: Patient was prepped and draped in usual sterile fashion Prep type: Isopropyl alcohol Anesthesia: the lesion was anesthetized in a standard fashion Anesthetic: 1% lidocaine w/ epinephrine 1-100,000 buffered w/ 8.4% NaHCO3 Punch size: 4 mm Suture size: 4-0 Suture type: Prolene (polypropylene) Hemostasis achieved with: suture Outcome: patient tolerated procedure well Post-procedure details: wound care instructions given Specimen A - Surgical Pathology Punch biopsy alopecic patches with erythema and perifollicular scale R/O LPP RTC 10 day suture removal The documentation for this note was completed by Shannan Lee LPN acting as scribe for Tiffani Torres MD. July 07, 2024 4:35 PM. The HPI, PMH, and ROS that were documented by my student assistant, who was scribing during the encounter, were confirmed by me and I agree with the content of these sections. I have made any required additions or deletions to the HPI/PFSH/ROS as needed. The physical exam and any procedures were performed by me, unless otherwise noted. Tiffani Torres MD PROGRESS Observed: 07/04/2024 10:04 AM Status: COMPLETED [id number] Author: TIFFANI TORRES MD Service: ? Author Type: Physician Type: Progress Notes Filed: 08/05/2024 11:00 Note Text: VIRTUAL VISIT PROGRESS NOTE This is a virtual visit using [employer] video visit. It required patient-provider interaction for the medical decision making as documented below. I have communicated my name and active licensure. The patient's identity and physical location were verified at the time of this visit. Either the patient or their legal senior sales representative has been informed of the risks and benefits of -- and alternatives to -- treatment through a remote evaluation and consents to proceed with the evaluation remotely. Established patient CC: HAIR LOSS HPI: Marko Warren is a 48 year old female who presents for hair loss/shedding. Patient's shedding and density loss was first noticed ~1 ago. The condition is rapidly worsening in the past 6 months. The patient has not had previous similar episode(s). Most of the hair loss is diffuse and has lost ~50% of her density. Associated symptoms: some itching, pain and flaking Body hair: normal Patient noted changes after she stopped progesterone in April, however notes she restarted and her hair shedding has not stopped. HAIR CARE PRACTICES: Hair care used: Hair drying, straightening and coloring Frequency of shampooing: every other day Hair dye and frequency: every 6-8 weeks Current treatments used for hair loss: none TRIGGERS Serious illness/infections: No. COVID infection in the past 6 months: No. Hospitilization/surgery: No. Emotional stress: No. Vaccinations: No. Chemical hair treatments: No. Recent weight changes?: stable Crash diet(s) in the last 6 months?: No. GYNECOLOGIC HISTORY MENSTRUATION: regular q 28-30 days Current Outpatient Medications Medication Sig hyoscyamine SR (LEVBID) 0.375 mg 12 hr tablet take 1 tablet by mouth twice a day dicyclomine (BENTYL) 20 mg tablet TAKE 1 TABLET BY MOUTH TWICE A DAY BACLOFEN ORAL Take by mouth. predniSONE (DELTASONE) 20 mg tablet Take 1 tablet by mouth twice daily. loperamide HCl (IMODIUM) 2 mg tab Take 1 tablet by mouth once daily. Gatorade Sports Drink Use as directed for Miralax / Gatorade Bowel Prep Kit estradiol (ESTRACE) 2 mg tablet TAKE 1 TABLET BY MOUTH EVERY DAY FOR 90 DAYS QUEtiapine (SEROQUEL) 100 mg tablet Take 100 mg by mouth daily at bedtime. rosuvastatin calcium (CRESTOR ORAL) Take by mouth. metFORMIN (GLUCOPHAGE) 500 mg tablet TAKE 1 TABLET BY MOUTH TWICE A DAY FOR 90 DAYS Progesterone Micronized 100 mg inst Use 1 Suppository vaginally once daily. levothyroxine (SYNTHROID) 137 mcg tablet Take 1 tablet by mouth every morning. on an empty stomach. Wait one hour before eating or taking other medications. (Patient taking differently: Take 88 mcg by mouth every morning. on an empty stomach. Wait one hour before eating or taking other medications.) aspirin, enteric coated (ECOTRIN LOW STRENGTH) 81 mg EC tablet Take 1 tablet by mouth once daily. Vit-Iron Fumarate-FA (CO- FA) 29-1 mg Tab Take 1 tab once daily No current facility-administered medications for this visit. Gabapentin 300 mg Stopped metformin (was taking for hair loss) Allergies:Ceclor [Cefaclor], Ciprofloxacin, Imitrex [Sumatriptan Succinate], and Tramadol PAST MEDICAL HISTORY Diagnosis Date Depression Ectopic Generalized anxiety disorder Migraine, intractable Ovarian cyst Unspecified hypothyroidism since 1999, age 25 Hypothyroidism FAMILY HISTORY: Hair loss or thinning - no history of androgenetic alopecia Breast cancer - mother SOCIAL HISTORY: Smoker: no Diet: balanced Patient takes daily multivitamin, also takes zinc REVIEW OF SYSTEMS: No fevers, no chills, no weightloss, no night sweats Skin as noted above VIDEO EXAM: (performed via video enabled technology) Well appearing, pleasant, in NAD Alert and oriented x3 Mood and affect: normal Skin exam performed including scalp and noted to be normal with the exception of: - diffuse thinning favoring central scalp with mild erythema noted Eyebrows, eyelashes:partial loss Body hair: normal Nails: no pitting Hirsutism: absent Data reviewed: Latest Ref Rng 06/02/2023 WBC 3.70 - 11.00 k/uL 8.11 RBC 3.90 - 5.20 m/uL 4.89 Hemoglobin 11.5 - 15.5 g/dL 14.2 Hematocrit 36.0 - 46.0 % 43.4 MCV 80.0 - 100.0 fL 88.8 MCH 26.0 - 34.0 pg 29.0 MCHC 30.5 - 36.0 g/dL 32.7 RDW-CV 11.5 - 15.0 % 13.2 Platelet Count 150 - 400 k/uL 240 MPV 9.0 - 12.7 fL 11.0 Neut% % 68.1 Abs Neut (ANC) 1.45 - 7.50 k/uL 5.52 Lymph% % 26.8 Abs Lymph 1.00 - 4.00 k/uL 2.17 [place]% % 4.7 Abs [place] <0.87 k/uL 0.38 Eosin% % 0.1 Abs Eosin <0.46 k/uL <0.03 Baso% % 0.2 Abs Baso <0.11 k/uL <0.03 Immature Gran % % 0.1 IMMATURE GRANS (ABS) <0.10 k/uL <0.03 NRBC /100 WBC 0.0 Absolute nRBC <0.01 k/uL <0.01 DTYPE Auto Protein, Total 6.3 - 8.0 g/dL 7.5 Albumin 3.9 - 4.9 g/dL 4.9 Calcium 8.5 - 10.2 mg/dL 9.9 Bilirubin, Total 0.2 - 1.3 mg/dL 0.4 Alkaline Phosphatase 34 - 123 U/L 67 AST 13 - 35 U/L 17 ALT 7 - 38 U/L 14 Glucose 74 - 99 mg/dL 113 (H) BUN 7 - 21 mg/dL 5 (L) Creatinine 0.58 - 0.96 mg/dL 0.71 Sodium 136 - 144 mmol/L 142 Potassium 3.7 - 5.1 mmol/L 3.9 Chloride 97 - 105 mmol/L 104 CO2 22 - 30 mmol/L 26 Anion Gap 9 - 18 mmol/L 12 eGFR >=60 mL/min/1.73m? 105 Color yellow Colorless Clarity Clear Clear Glucose, Urine Trace, Negative Negative Bilirubin, Urine Negative Negative Ketones, Urine Negative, Trace Negative Specific [place], Ur 1.005 - 1.030 1.006 Hemoglobin/Blood,Ur Negative, Trace 1+ ! pH, Urine 5.0 - 8.0 6.0 Protein, Urine Trace, Negative Negative Urobilinogen Negative Normal Nitrites Negative Negative Leukest Negative, 25 Nguyen/uL Negative WBC, Urine 0-5 /HPF 0-5 /HPF RBC, Urine 0-3 /HPF 0-3 /HPF Epithelial Cells /HPF Few SARS-CoV-2 (Agent of COVID-19) RNA See comment Not detected Influenza A RNA Not Detected Not detected Influenza B RNA Not Detected Not detected Respiratory syncytial virus (RSV) RNA Not Detected Not detected Magnesium 1.7 - 2.3 mg/dL 2.1 Lipase 16 - 61 U/L 29 Legend: (H) High (L) Low ! Abnormal TSH. 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 Patient does have a history of hypothyroidism which can be associated with lichen planopilaris. Given Virtual visit today, hard to assess for scarring. - Lab work to exclude other potential triggers recommended: free testosterone, DHEAS, zinc, 25-OH vitamin D Recommended office visit for assessment and scalp biopsy to confirm diagnosis. - Discussed importance of maintaining a healthy weight, low stress level and eat sufficient protein (60 grams per day) - Start Biotin Forte with zinc 3 mg daily for 3 months RTC 4 months Tiffani Torres MD.The documentation for this note was completed by Tiffani Torres MD acting as scribe for Tiffani Torres MD. July 04, 2024 10:04 AM. I have seen and examined the patient. I agree with the Chief Complaint, ROS, and Past Histories independently gathered by the clinical support group manager and the remaining scribed note accurately describes my personal service to the patient. Tiffani Torres MD. IRON Collected: 10:32 AM Status: F Source: [facility] TYPE CODE TESTS RESULT OUT OF RANGE REFERENCE UNITS LAB 2498-4(LOINC) IRON:MCNC:PT :SER/PLAS:QN : 64 Normal 35-153 microgram/ dL Performed By: #### [id number] # ### [facility] [address] [place] [address] TIBC CALCULATED Collected: 06/03/2024 10:32 AM Statu s: F Source: [facility] TYPE CODE TESTS RESULT OUT OF RANGE REFERENCE UNITS LAB 2500-7(LOINC) IRON BINDING CAPACITY:MCNC:P T:SER/PLAS:QN: 365 Normal 250-400 microgram /dL LAB 15688635(LOINC) Transferrin 261 Normal 200-370 mg/d L Performed By: #### [id number] #### [facility] [address] [place] [address] FERRITIN Collected: 10:32 AM Status: F Source: [facility] TYPE CODE TESTS RESULT OUT OF RANGE REFERENCE UNITS LAB 2276-4(LOINC) FERRITIN:MCNC :PT:SER/PLAS: QN: 28 Normal 11-307 ng/mL Performed By: #### [id number] # ### [facility] [address] [place] [address] TSH Collected: 10:32 AM Status: F Source: [facility] TYPE CODE TESTS RESULT OUT OF RANGE REFERENCE UNITS LAB 3016-3(LOINC) THYROTROPIN: ACNC:PT:SER/ PLAS:QN: 0.37 Normal 0.34-5.60 mcIU/mL Performed By: #### [id number] # ### [facility] [address] [place] [address] CBC W/ AUTO DIFF Collected: 06/03/2024 10:32 AM Stat us: F Source: [facility] TYPE CODE TESTS RESULT OUT OF RANGE REFERENCE UNITS LAB 01153-1(LOINC) LEUKOCYTES^^OSWALDO ECTED FOR NUCLEATED ERYTHROCYTES:NCN C:PT:BLD:QN:AUTO MATED COUNT 5.7 Normal 4.0-11.0 E9/L LAB 789-8(INC) ERYTHROCYTES:NCN C:PT:BLD:QN:AUTO MATED COUNT 5.0 Normal 4.3-5.9 E12/L LAB 718-7(INC) HEMOGLOBIN:MCNC: PT:BLD:QN: 14.9 Normal 12.0-16.0 gm/dL LAB 4544-3([facility]) HEMATOCRIT:VFR:P T:BLD:QN:AUTOMAT ED COUNT 44.8 Normal 34.0-46.0 % LAB 788-0([facility]) ERYTHROCYTE DISTRIBUTION WIDTH:RATIO:PT:R BC:QN:AUTOMATED COUNT 13.8 Normal 10.9-14.2 % LAB 785-6([facility]) ERYTHROCYTE MEAN CORPUSCULAR HEMOGLOBIN:ENTMA SS:PT:RBC:QN:AUT OMATED COUNT 29.7 Normal 27.0-34.0 pg LAB 786-4([facility]) ERYTHROCYTE MEAN CORPUSCULAR HEMOGLOBIN CONCENTRATION:MC NC:PT:RBC:QN:AUT OMATED COUNT 33.2 Normal 31.4-36.0 gm/dL LAB 787-2([facility]) ERYTHROCYTE MEAN CORPUSCULAR VOLUME:ENTVOL:PT :RBC:QN:AUTOMATE D COUNT 89.4 Normal 80.0-100.0 fL LAB 58851-6([facility]) PLATELET MEAN VOLUME:ENTVOL:PT :BLD:QN:AUTOMATE D COUNT 9.9 Normal 6.4-10.8 fL LAB 777-3([facility]) PLATELETS:NCNC:P T:BLD:QN:AUTOMAT ED COUNT 223.0 Normal 150.0-500.0 E9/L LAB 01241-4([facility]) NEUTROPHILS/100 LEUKOCYTES:NFR:P T:BLD:QN: 61.7 Normal 36.0-75.0 % LAB 731-0(INC) LYMPHOCYTES:NCNC :PT:BLD:QN:AUTOM ATED COUNT 31.3 Normal 14.0-50.0 % LAB 742-7(INC) MONOCYTES:NCNC:P T:BLD:QN:AUTOMAT ED COUNT 0.3 Normal 0.2-1.0 E9/L LAB 713-8(INC) EOSINOPHILS/100 LEUKOCYTES:NFR:P T:BLD:QN:AUTOMAT ED COUNT 1.7 Normal 0.0-8.0 % LAB 704-7(LOINC) BASOPHILS:NCNC:P T:BLD:QN:AUTOMAT ED COUNT 0.4 Normal 0.0-2.0 % LAB 751-8(LOINC) NEUTROPHILS:NCNC :PT:BLD:QN:AUTOM ATED COUNT 3.5 Normal 2.0-7.5 E9/L LAB 66325-2([facility]) LYMPHOCYTES:NCNC :PT:BLD:QN: 1.8 Normal 1.0-4.0 E9/L LAB 68402-2([facility]) EOSINOPHILS:NCNC :PT:BLD:QN: 0.1 Normal 0.0-0.5 E9/L LAB 10455-2([facility]) BASOPHILS/LEUKOC YTES:NFR.DF:PT:B LD:QN:AUTOMATED COUNT 0.0 Normal 0.0-0.2 E9/L Performed By: #### [id number] # ### [facility] [address] [place] [address] T3 TOTAL Collected: 4 10:32 AM Status: F Source: [facility] TYPE CODE TESTS RESULT OUT OF RANGE REFERENCE UNITS LAB 3053-6([facility]) TRIIODOTHYRON INE:MCNC:PT:S ER/PLAS:QN: 112 Unknown 71-180 ng/dL Result Comment: Performed at : [facility] [address] [id number] PhD Ismael Limon Performed By: #### [id number] #### [facility] [address] [place] [address] FREE T4 Collected: 4 10:32 AM Status: F Source: [facility] TYPE CODE TESTS RESULT OUT OF RANGE REFERENCE UNITS LAB 3024-7([facility]) THYROXINE.ZAID E:MCNC:PT:SER /PLAS:QN: 1.04 Normal 0.58-1.64 ng/dL Performed By: #### [id number] # ### [facility] [address] [place] [address] ALLERGIES DATE TYPE / CODE NAME / CODE REACTION SEVERITY SOURCE 09/24/2022 DRUG INGREDI/4195 35385(SNOMED CT) CIPROFLOXACIN [facility] 08/18/2022 DRUG INGREDI/4195 88897(SNOMED CT) TRAMADOL GI UPSET [facility] 09/23/2012 DRUG INGREDI/4195 54980(SNOMED CT) CEFACLOR [facility] 09/23/2012 DRUG INGREDI/4195 38462(SNOMED CT) SUMATRIPTAN SUCCINATE ANAPHYLAXIS [facility] /[id number] (SNOMED CT) ciprofloxacin [id number] [facility] [id number] (SNOMED CT) Ceclor Unknown [facility] [id number] (SNOMED CT) Imitrex Unknown [facility] [id number] (SNOMED CT) traMADol [id number] [facility] ENCOUNTERS ADMIT/DISCHARGE ACCOUNT NUMBER ADMITTING ENCOUNTER CLASS LOCATION SOURCE 03/27/2025/03/27/20 [id number] Ambulatory [facility] 03/23/2025/03/23/20 [id number] Ambulatory [facility] 02/27/2025/02/28/20 25 [id number] Ambulatory [facility] 02/06/2025/02/07/20 25 [id number] [facility] 02/06/2025/02/07/20 25 [id number] Ambulatory [facility] 01/26/2025/01/27/20 [id number] Ambulatory [facility] 01/19/2025/01/20/20 [id number] Ambulatory [facility] 01/05/2025/01/05/20 [id number] Ambulatory [facility] 12/26/2024/12/26/19 [id number] Ambulatory [facility] 12/19/2024/12/19/19 [id number] Ambulatory [facility] 11/21/2024/11/21/19 [id number] AMBER ELI [facility] 11/21/2024/11/21/19 [id number] Ambulatory [facility] 11/14/2024/11/14/19 [id number] [facility] 11/07/2024/11/07/20 24 [id number] MARTIN MARTINEZ [facility] 10/20/2024 [id number] MARTIN MARTINEZ [facility] 10/20/2024/10/20/20 24 [id number] MARTIN MARTINEZ [facility] 10/13/2024/10/13/20 24 [id number] [facility] 08/29/2024/08/29/20 24 [id number] [facility] 08/08/2024/08/08/20 24 [id number] Ambulatory [facility] 08/05/2024 [id number] Moses Francois [facility] 08/05/2024/08/05/20 24 [id number] [facility]Building: FT [facility] 07/25/2024/07/25/20 24 [id number] Ambulatory [facility]Build ing:[facility] 07/21/2024 [id number] MARTIN MARTINEZ Ambulatory [facility]MCBuilding: FT LAB [facility] 07/21/2024/07/21/20 24 [id number] MARTIN MARTINEZ Ambulatory [facility] 07/18/2024/07/18/20 24 [id number] Ambulatory [facility] HospitalBuild ing:AVDE [facility] 07/07/2024/08/29/20 24 [id number] Ambulatory [facility] HospitalBuild ing:AVDE [facility] 07/04/2024/08/29/20 24 [id number] [facility] [id number] MARTIN MARTINEZ Ambulatory FTBuilding: [facility] 06/03/2024 [id number] MARTIN MARTINEZ Ambulatory FTBuilding: [facility] [employer] ENC[employer]TER [employer]AR[employer] 03/27/2025 Primary Insuranc e:MMO SUPERMED PPOPolicy Number: [id number] Date:4421-47-66Vyyo Name:Patrice CARO: [id number] [place] [address] [facility] 03/23/2025 Primary Insuranc e:MMO SUPERMED PPOPolicy Number: [id number] Date:3324-05-34Ozes Name:Patrice CARO: [id number] [place] [address] [facility] 02/27/2025 Primary Insuranc e:MMO SUPERMED PPOPolicy Number: [id number] Date:9293-60-69Fjnz Name:Patrice CARO: [id number] [place] [address] [facility] 02/06/2025 Primary Insuranc e:MMO SUPERMED PPOPolicy Number: [id number] Date:4041-47-25Uqdn Name:Patrice CARO: [id number] [place] [address] [facility] 02/06/2025 Primary Insuranc e:MMO SUPERMED PPOPolicy Number: [id number] Date:7006-78-23Gwbj Name:Patrice WARRENB: [id number] [place] [address] [facility] 01/26/2025 Primary Insuranc e:MMO SUPERMED PPOPolicy Number: [id number] Date:6650-77-49Sivz Name:Patrice WARRENB: [id number] [place] [address] [facility] 01/19/2025 Primary Insuranc e:MMO SUPERMED PPOPolicy Number: [id number] Date:3616-74-48Zbdu Name:Patrice Randolph NOLANB: [id number] [place] [address] [facility] 01/05/2025 Primary Insuranc e:MMO SUPERMED PPOPolicy Number: [id number] Date:9549-33-32Bihy Name:Patrice Randolph GORDO: [id number] [place] [address] [facility] 12/26/2024 Primary Insuranc e:MMO SUPERMED PPOPolicy Number: [id number] Date:0279-39-95Esjq Name:Patrice Randolph GORDO: [id number] [place] [address] [facility] 12/19/2024 Primary Insuranc e:MMO SUPERMED PPOPolicy Number: [id number] Date:7692-11-24Mhxw Name:Patrice Randolph NOLANB: [id number] [place] [address] [facility] 11/21/2024 ALEXANDRIAFIDE Randolph NOLANB: ANDERSON Kiml: [id number] (HP) Primary Insurance:MEDICAL MUTUALPolicy Number: [id number] Date:1445-96-51NS [address] [address]IL: MARKO [place] [facility] 11/21/2024 Primary Insuranc e:MMO SUPERMED PPOPolicy Number: [id number] Date:3305-41-99Pewm Name:Patrice Randolph NOLANB: [id number] [place], [facility] 11/14/2024 Primary Insuranc e:MMO SUPERMED PPOPolicy Number: [id number] Date:9029-02-46Txgr Name:Patrice Randolph GORDO: [id number] [place], [facility]57 [facility] 11/07/2024 MARKO CARO: ANDERSON HOLCOMBTel: [id number] (HP) Primary Insurance:MEDICAL MUTUALPolicy Number: [id number] Date:5216-64-38HQ [address] [address]ZG: MARKO [place] [facility] 10/20/2024 ALEXANDRIAFIDE Randolph GORDO: ANDERSON HOLCOMBTejes: (HP) Primary Insurance:MEDICAL MUTUALPolicy Number: [id number] Date:2836-10-79NB [address] [address]PL: MARKO [place] [facility] 10/13/2024 Primary Insuranc e:MMO SUPERMED PPOPolicy Number: [id number] Date:7367-30-52Lrdv Name:Patrice Randolph GORDO: [id number] [place], [facility]57 [facility] 08/29/2024 Primary Insuranc e:MMO SUPERMED PPOPolicy Number: [id number] Date:3926-38-84Yhxf Name:Patrice Randolph NOLANB: [id number] [place] [address] [facility] 08/08/2024 Primary Insuranc e:MMO SUPERMED PPOPolicy Number: [id number] Date:8063-83-42Hwpl Name:Patrice WARRENB: [id number] [place] [address] [facility] 08/05/2024 MARKO Randolph NOLANB: ANDERSON HOLCOMBTel: (HP) Primary Insurance:MEDICAL MUTUALPolicy Number: [id number] Date:0950-33-07OM [place] [id number]: MARKO [place] [facility] 07/25/2024 Primary Insuranc e:MMO SUPERMED PPOPolicy Number: [id number] Date:4704-99-57Vegf Name:Patrice Randolph NOLANB: [id number] [place], [facility]57 [facility] 07/21/2024 ALEXANDRIAFIDE Randolph GORDO: ANDERSON HOLCOMBTel: (HP) Primary Insurance:MEDICAL MUTUALPolicy Number: [id number] Date:9762-64-90AI [address] [place] [address]OJ: MARKO [place] [facility] 07/18/2024 Primary Insuranc e:MMO SUPERMED PPOPolicy Number: [id number] Date:7186-90-63Uwax Name:Patrice WARRENOPAL: [id number] [place] [address] [facility] 07/07/2024 Primary Insuranc e:MMO SUPERMED PPOPolicy Number: [id number] Date:9095-41-47Bgfh Name:Patrice CARO: [id number] [place] [address] [facility] 07/04/2024 Primary Insuranc e:MMO SUPERMED PPOPolicy Number: [id number] Date:7751-40-94Adbc Name:Patrice CARO: [id number] [place] [address] [facility] 06/03/2024 MARKO CARO: ANDERSON Lott: () Primary Insurance:MEDICAL MUTUALPolicy Number: [id number] Date:2536-16-71[address], [place] [address]TF: MAKRO [place] [facility]
--- OUTSIDE RECORDS SUMMARY | 2025-03-27 11:15 | XMS_ITS | Encounter Summary ---
Author Organization [facility] Address [address] [place] [address] Care Team Providers Care Flower Stripper Name Role Phone Martin Martinez Primary Care Provider [phone] Moses Francois MD Unavailable [phone] Source Comments In the event this information is protected by the Federal Confidentiality of Alcohol and Drug AbusePatient Records regulations: The Federal rules restrict any use of the information to criminally investigate or prosecute any alcohol or drug abuse patient.[facility] Reason for Visit * Reason Comments Hair Loss Encounter Details Date Type Department Care Team (Late st Contact Info) Description 03/27/2025 11:15 AM EDT Office Visit Dermatology [address] [place] [address] [place] [address] [place], [place] [phone] Lichen planopilaris (Primary Dx); Disturbance of skin sensation Social History Tobacco Use Types Packs/Day Years Used Date Smoking Tobacco: Never Smokeless Tobacco: Never Alcohol Use Standard Drinks/Week Comments Not Currently 0 (1 standard drink = 0.6 oz pur e alcohol) Area Deprivation Index Answer Date Sammy rded National Score (1-100), lower number is lower ri sk 65 08/08/2024 State Score (1-10), lower number is lower risk 4 08/08/2024 Data from: https://www.neighborhoodatlas.medicine.[facility]/. Last address used for calculation 6 [address] [...] Progress Notes * Roselyn Dan MD - 03/27/2025 11:15 AM EDT SUBJECTIVE/OBJECTIVE ESTABLISHED PATIENT Referring provider: No ref. provider found 03/27/2025 Last Visit to [facility] Dermatology: 02/27/2025 Reason(s) for Visit/History of Present Illness (HPI): João Warren is a 49 year old female. [...] with pertinent findings as noted below. ASSESSMENT & PLAN Skin Exam 1. LICHEN PLANOPILARIS Dry [...] LFT ELEVATION - WAITING FOR RECHECK - CONSIDERRESTARTING AT 3 MG DAIY Continue dex pulse dose given flare and acute shed - 3 mg on 2 consecutive days x 1 week, 2 mg on 2consecutive days x 1 week, 1` mg on [...] cleaned with alcohol swabs. Triamcinolone acetonide 2.5 & 5 mg/mL was injected in the deep [...] min procedure slot Dr. Dan for ILK inj. Attestation: The documentation for this note was completed by Chery Oviedo LPN/Tonie Deutsch RN acting as scribefor Roselyn Dan MD. Electronically Signed: Chery Oviedo LPN on March 27, 2025 11:18 AM. The above named person served as a medical hospitality services manager during today's visit. I have seen and examined the patient. I agree with the Chief Complaint, ROS, and Past Histories independently gathered by the clinical support services specialist and the remaining scribed note accurately describes my personal service to the patient. Roselyn Dan MD Department of Dermatology documented in this encounter Plan of Treatment Upcoming Encounters Date Type Department Care Team (Late st Contact Info) Description 04/25/2025 1:30 PM EDT Office Visit Dermatology [address] [address] [place] [address] [place] [address] Return for 4-6 week [address] 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] 01/01/2026 1:00 PM EST Office Visit Rheumatology [address] [place] [address] Nicci Coleman MD [address] [facility] [address] [place], [place] [phone] follow documented as of this encounter Visit Diagnoses Diagnosis Lichen planopilaris- Primary Lichen planus Disturbance of skin sensation documented in this encounter Administered Medications Inactive Administered Medications - up to 3 most recent administrations Medication Order MAR Action Action Date Dose Rate Site triamcinolone acetonide 10 mg injection (KeNALog 10) 10 mg, INTRALESIONAL, ONCE, 1 dose, On Tu03/27/25 at 1600, ILK 5 x 3 cc ILK2.5 x 2 ccIndications:Lichen planopilaris,Disturbance of skin sensation Given 03/27/2025 4:00 PM EDT 10 mg Other documented in this encounter Care Teams Flower Stripper Relationship Specialty Start Date End Date Martin Martinez DO PCP - General 02/26/06 Moses Francois MD [address] [place] [phone] Obstetrics 09/22/23 documented as of this encounter
--- OUTSIDE RECORDS SUMMARY | 2025-03-30 10:50 | XMS_ITS | Encounter Summary ---
Author Organization [facility] Address [address] [place] [address] Care Team Providers Care Sap Basis Architect Name Role Phone Martin Martinez Primary Care Provider [phone] Moses Francois MD Unavailable Unavaila ble Moses Francois MD Unavailable [phone] Source Comments In the event this information is protected by the Federal Confidentiality of Alcohol and Drug AbusePatient Records regulations: The Federal rules restrict any use of the information to criminally investigate or prosecute any alcohol or drug abuse patient.[facility] Encounter Details Date Type Department Care Team (Late st Contact Info) Description 09/17/2022 GI Preprocedure Call Ambulatory Surgery [address] [place] [address] Adrian Chappell Jr., DO [address] [place] [address] [place] [address] Social History Tobacco Use Types Packs/Day Years Used Date Smoking Tobacco: Never Smokeless Tobacco: Never Alcohol Use Standard Drinks/Week Comments Not Currently 0 (1 standard drink = 0.6 oz pur e alcohol) Area Deprivation Index Answer Date Sammy rded National Score (1-100), lower number is lower ri sk Not on file 10/13/2020 State Score (1-10), lower number is lower risk N ot on file 10/13/2020 Data from: https://www.neighborhoodatlas.medicine.[facility]/. Last address used for calculation Not on file 10/13/2020 Comments Unknown Sex and Gender Information Value Date Recorded Sex Assigned at Not on file Legal Sex Female 8:02 AM EST Gender Identity Not on file Sexual Orientation Not on file Occupation Industry Job Start Date Job End Date [employer] Not on file Not on file Not on file COVID-19 Exposure Response Date Recorded In the last 10 days, have yo u been in contact with someone who was confirmed or suspected to have Coronavirus/COVID-19? No / Unsure 08/18/2022 3:16 PM EDT documented as of this encounter Plan of Treatment Upcoming Encounters Date Type Department Care Team (Late st Contact Info) Description 04/25/2025 1:30 PM EDT Office Visit Dermatology [address] [address] [place] [address] [place], [place] [phone] Return for 4-6 week [address] Dan for ILK inj 10/09/2025 3:25 PM EST Appointment Radiology [address] [place], [place] [phone] : Postmenopausal osteoporosis of multiple sites [M81.0] 01/01/2026 1:00 PM EST Office Visit Rheumatology [address] [place] [address] Nicci Coleman MD [address] [place] [address] follow documented as of this encounter Visit Diagnoses Not on filedocumented in this encounter Additional Health Concerns Infection Onset Date Last Indicated Resolved Time COVID-19 Rule-Out 06/02/2023 06/02/2023 06/02/2023 11:19 PM EDT documented as of this encounter Care Teams Sap Basis Architect Relationship Specialty Start Date End Date Martin Martinez DO PCP - General 02/26/06 Moses Francois MD [address] [place] [address] Obstetrics 09/22/23 09/22/23 Moses Francois MD [address] [place] [phone] Obstetrics 09/22/23 documented as of this encounter
--- OUTSIDE RECORDS SUMMARY | 2025-03-30 10:50 | XMS_ITS | Encounter Summary ---
Author Organization [facility] Address [address] [place] [address] Care Team Providers Care Equal Opportunity Representative Name Role Phone Martin Martinez DO Primary Care Provider [phone] Encounter Details Date Type Department Care Team (Late st Contact Info) Description 03/28/2024 Clinisync Result Encounter [facility] External Department Unsolicited Brisa Ocasio MD [address] [facility] [address] [place] [address] Social History Tobacco Use Types Packs/Day Years Used Date Smoking Tobacco: Never Smokeless Tobacco: Never Alcohol Use Standard Drinks/Week Comments Yes 1 (1 standard drink = 0.6 oz pure alcohol) caffeine intake: 1-2 cups per day Comments No Sex and Gender Information Value Date Recorded Sex Assigned at Not on file Legal Sex Female 6:49 PM EDT Gender Identity Not on file Sexual Orientation Not on file documented as of this encounter Plan of Treatment Upcoming Encounters Date Type Department Care Team (Late st Contact Info) Description 04/05/2025 10:15 AM EDT Office Visit [facility] [address] [facility] [address] [place] [address] Brisa Ocasio MD [address] [facility] [address] [place] [address] documented as of this encounter Procedures Procedure Name Priority Date/Time Associated Diagnosis Comments MM TOMOSYNTHESIS SCREENING BI 03/28/2024 11:29 AM EDT documented in this encounter Results * MM TOMOSYNTHESIS SCREENING BI (03/28/2024 11:29 AM EDT) Anatomical Region Laterality Modality Other 03/28/2024 11:2 9 AM EDT Narrative 03/28/2024 11:30 [place] [address] Mammography Report Signed Patient: MARKO SORIANO MR#: [id number] : 1975 Acct:[id number] Age/Sex: 48 / F ADM Date: 03/28/24 Loc: MAMMO Attending Dr: BRISA OCASIO Ordering Physician: BRISA OCASIO Results: Date of Service: 03/28/24 Follow Up: Procedure(s): MM tomosynthesis screening BI Accession Number(s): [id number] cc: Martin Martinez D.O.; BRISA OCASIO Patient Name: MARKO SORIANO MR#: [id number] : 1975 Exam Date: 03/28/2024 Ordering Doctor: DR BRISA OCASIO RADIOLOGY REPORT PROCEDURE: MM TOMOSYNTHESIS SCREENING BI COMPARISON: MG MAMM SCREEN 3D MONSERRAT CAD, 03/26/2023. MG MAMM SCREEN 3D MONSERRAT CAD, 03/24/2022. MG MAMM SCREEN 3D MONSERRAT CAD, 02/21/2021. MG MAMM MONSERRAT DIAG W CAD DIG, 08/26/2007. INDICATIONS: Screening Calculator Name NCI Breast Cancer Risk Assessment Tool 5 Year Breast Cancer Risk 3.20% Lifetime Breast Cancer Risk 25.30% Personal Breast Cancer No Personal Ovarian Cancer No Treatments None Family Cancers Father with prostate cancer at age 61; Uncle-paternal with prostate cancer at age 60; Uncle-paternal with prostate cancer at age 60; Grandmother-paternal with uterine cancer at age 40; Mother with breast cancer at age 70. LOCATION: [facility] BREAST COMPOSITION: The breasts are almost entirely fatty. FINDINGS: DIAGNOSTIC CATEGORY 2--BENIGN FINDING: RIGHT BREAST: No significant suspicious finding. Scattered benign-appearing calcifications are present. No significant change has occurred. LEFT BREAST: No significant suspicious finding. No significant change has occurred. RECOMMENDATIONS: ROUTINE MAMMOGRAM AND CLINICAL EVALUATION IN 12 MONTHS. PLEASE NOTE: A NORMAL MAMMOGRAM DOES NOT EXCLUDE THE POSSIBILITY OF BREAST CANCER. A CLINICALLY SUSPICIOUS PALPABLE LUMP SHOULD BE BIOPSIED. Dictated by: Tra Olivares M.D. on 03/28/2024 at 11:27 Approved by: Tra Olivares M.D. on 03/28/2024 at 11:29 Dictated By: Tra Olivares M.D. Signed By: 03/28/24 1130 DD/ 1129 TD/TT: Supervisor Shuttle Veneering: Procedure Note Radiology, Radiologist, MD - 03/28/2024 [place] [address] Mammography Report Signed Patient: MARKO SORIANO MMR#: [id number] : 1975Acct:[id number] Age/Sex: 48 / FADM Date: 03/28/24 Loc: MAMMO Attending Dr: BRISA OCASIO Ordering Physician: BRISA OCASIOResults: Date of Service: 03/28/24Follow Up: Procedure(s): MM tomosynthesis screening BI Accession Number(s): [id number] cc: Martin Martinez D.O.; BRISA OCASIO Patient Name: MARKO SORIANO MR#: [id number] : 1975 Exam Date: 03/28/2024 Ordering Doctor: DR BRISA OCASIO RADIOLOGY REPORT PROCEDURE: MM TOMOSYNTHESIS SCREENING BI COMPARISON: MG MAMM SCREEN 3D MONSERRAT CAD, 03/26/2023. MG MAMM SCREEN 3DBIL CAD, 03/24/2022. MG MAMM SCREEN 3D MONSERRAT CAD, 02/21/2021. MG MAMM MONSERRAT DIAG WCAD DIG, 08/26/2007. INDICATIONS: Screening Calculator Name NCI Breast Cancer Risk Assessment Tool 5 Year Breast Cancer Risk 3.20% Lifetime Breast Cancer Risk 25.30% Personal Breast Cancer No Personal Ovarian Cancer No Treatments None Family Cancers Father with prostate cancer at age 61; Uncle-paternalwith prostate cancer at age 60; Uncle-paternal with prostate cancer at age 60; Grandmother-paternal with uterine cancer at age 40; Mother with breast cancer at age 70. LOCATION: [facility] BREAST COMPOSITION: The breasts are almost entirely fatty. FINDINGS: DIAGNOSTIC CATEGORY 2--BENIGN FINDING: RIGHT BREAST: No significant suspicious finding. Scatteredbenign-appearing calcifications are present. No significant change has occurred. LEFT BREAST: No significant suspicious finding. No significant changehas occurred. RECOMMENDATIONS: ROUTINE MAMMOGRAM AND CLINICAL EVALUATION IN 12 MONTHS. PLEASE NOTE: A NORMAL MAMMOGRAM DOES NOT EXCLUDE THE POSSIBILITY OFBREAST CANCER. A CLINICALLY SUSPICIOUS PALPABLE LUMP SHOULD BE BIOPSIED. Dictated by: Tra Olivares M.D. on 03/28/2024 at 11:27 Approved by: Tra Olivares M.D. on 03/28/2024 at 11:29 Dictated By: Tra Olivares M.D. Signed By:03/28/24 1130 DD/ 1129 TD/TT: Supervisor Shuttle Veneering: us Brisa Ocasio MD [facility] Final Result documented in this encounter Visit Diagnoses Not on filedocumented in this encounter Care Teams Equal Opportunity Representative Relationship Specialty Start Date End Date Martin Martinez DO PCP - General Internal Medicine 04/27/23 documented as of this encounter
--- OUTSIDE RECORDS SUMMARY | 2025-03-30 10:50 | XMS_ITS | Encounter Summary ---
Author Organization [facility] Address [address] [place] [address] Care Team Providers Care Ophthalmic Asst Name Role Phone Martin Martinez DO Primary Care Provider [phone] Reason for Visit * Reason Onset Date Comments Med Refill 12/15/2023 Encounter Details Date Type Department Care Team (Late st Contact Info) Description 12/15/2023 Refill [facility] [address] [facility] [address] [place] [phone] Moses Francois MD [address] [facility] [address] [place] [address] Acute nonintractable headache, unspecified headache type Social History Tobacco Use Types Packs/Day Years [...] on file documented as of this encounter Miscellaneous Notes * Telephone Encounter - Shital Maldonado - 12/16/2023 7:30 AM EST Sent yesterday to pharmacy documented in this encounter Plan of Treatment Upcoming Encounters Date Type Department Care Team (Late st Contact Info) Description 04/05/2025 10:15 AM EDT Office Visit [facility] [address] [place] [address] Moses Francois MD [address] [facility] [address] [place] [address] documented as of this encounter Visit Diagnoses Diagnosis Acute nonintractable headache, unspecified headache type documented in this encounter Care Teams Ophthalmic Asst Relationship Specialty Start Date End Date Martin Martinez DO PCP - General Internal Medicine 04/27/23 documented as of this encounter
--- OUTSIDE RECORDS SUMMARY | 2025-03-30 10:50 | XMS_ITS | Encounter Summary ---
Author Organization [facility] Address [address] [place] [address] Care Team Providers Care Hole Filler Name Role Phone Martin Martinez Primary Care Provider [phone] Moses Francois MD Unavailable [phone] Source Comments In the event this information is protected by the Federal Confidentiality of Alcohol and Drug AbusePatient Records regulations: The Federal rules restrict any use of the information to criminally investigate or prosecute any alcohol or drug abuse patient.[facility] Encounter Details Date Type Department Care Team (Late st Contact Info) Description 03/19/2025 Get Medical Advice Dermatology [address] [place], [place] [phone] [place] [address] [place], [place] [phone] [place] Social History Tobacco Use Types Packs/Day Years Used Date Smoking Tobacco: Never Smokeless Tobacco: Never Alcohol Use Standard Drinks/Week Comments Not Currently 0 (1 standard drink = 0.6 oz pur e alcohol) Area Deprivation Index Answer Date Sammy rded National Score (1-100), lower number is lower ri sk 65 08/08/2024 State Score (1-10), lower number is lower risk 4 08/08/2024 Data from: https://www.neighborhoodatlas.medicine.[place].edu/. Last address used for calculation 6 [address] [...] 1:30 PM EDT Office Visit Dermatology [address] [address] [place] [address] [place] [address] Return for 4-6 week [address] Dan for ILK inj 10/09/2025 3:25 PM EST Appointment Radiology [address] [place], [place] [address] : Postmenopausal osteoporosis of multiple sites [M81.0] 01/01/2026 1:00 PM EST Office Visit Rheumatology [address] [place] [address] Nicci Coleman MD [address] [facility] [address] [facility] [address] [place], [place] [address] follow documented as of this encounter Visit Diagnoses Not on filedocumented in this encounter Care Teams Hole Filler Relationship Specialty Start Date End Date Martin Martinez DO PCP - General 02/26/06 Moses Francois MD [address] [place] [address] Obstetrics 09/22/23 documented as of this encounter
--- OUTSIDE RECORDS SUMMARY | 2025-03-30 10:50 | XMS_ITS | Encounter Summary ---
Author Organization [facility] Address [address] [place] [address] Care Team Providers Care Cyber Security Systems Engineer Name Role Phone Martin Martinez DO Primary Care Provider [phone] Reason for Visit * Reason Onset Date Comments Med Refill 08/07/2024 Encounter Details Date Type Department Care Team (Late st Contact Info) Description 08/07/2024 Refill [facility] [address] [facility] [address] [place] [address] Moses Francois MD [address] [facility] [address] [place] [address] Acute nonintractable headache, unspecified headache type Social [...] Office Visit [facility] [address] [facility] [address] [place] [address] Moses Francois MD [address] [facility] [address] [place] [address] documented as of this encounter Visit Diagnoses Diagnosis Acute nonintractable headache, unspecified headache type documented in this encounter Care Teams Cyber Security Systems Engineer Relationship Specialty Start Date End Date Martin Martinez DO PCP - General Internal Medicine 04/27/23 documented as of this encounter
--- OUTSIDE RECORDS SUMMARY | 2025-03-30 10:50 | XMS_ITS | Clinical Summary ---
Author Organization [facility] Address [address] [place] [address] Care Team Providers Care Performing Artist Name Role Phone Martin Martinez DO Primary Care Provider [phone] Allergies Active Allergy Reactions Criticality Noted Date Comments Cefaclor Hives,Unknown 09/23/2012 Ciprofloxacin Hives,Rash,Unknown Low 09/24/2022 Sumatriptan Anaphylaxis,Unknown High 09/23/2012 Respiratory Distress Other Reaction(s): Unknown Tramadol GI intolerance,Nause a Only,Unknown 04/07/2022 Nausea Other Reaction(s): GI Upset, Unknown Other Reaction(s): Unknown Medications Synthroid 100 MCG tablet Take 100 mcg by mouth in the morning. Take before meals. Active rosuvastatin (Crestor) 20 MG tablet Take 20 mg by mouth in the evening. Active ibuprofen 600 MG tablet Take 600 mg by mouth every 6 (six) hours if needed. Active QUEtiapine (SEROquel) 100 MG tablet Take 100 mg by mouth at bedtime. 3 Active hyoscyamine ER (Levbid) 0.375 MG 12 hr tablet Take 375 mcg by mouth in the morning and 375 mcg before bedtime. 3 Active baclofen (Lioresal) 5 MG tablet TAKE 1 TABLET BY MOUTH THREE TIMES A DAY NEEDED FOR MUSCLE SPASM 3 Active omeprazole (PriLOSEC) [address] capsule TAKE 1 CAPSULE BY MOUTH EVERY DAY ON AN EMPTY STOMACH 30 MINUTES BEFORE BREAKFAST 3 Active dicyclomine (Bentyl) 20 MG tablet Take 20 mg by mouth in the morning and 20 mg before bedtime. Active gabapentin (Neurontin) 100 MG capsule TAKE 1 CAPSULE BY MOUTH 3 TIMES A DAY NEEDED 30 3 Active gabapentin (Neurontin) 400 MG capsule Take 400 mg by mouth in the morning and 400 mg in the evening and 400 mg before bedtime. Active gabapentin (Neurontin) 600 MG tablet 2 capsules every 12 (twelve) hours Active valACYclovir (Valtrex) 1 g tablet Take 1,000 mg by mouth in the morning and 1,000 mg in the evening and 1,000 mg before bedtime. 4 Active progesterone 100 MG capsuleIndications :Hormone replacement therapy Take 1 capsule (100 mg) by mouth at bedtime 30 capsule 4 Active estradiol (Estrace) 0.5 MG tabletIndications: Symptomatic menopausal or female climacteric states TAKE 1 TABLET (0.5 MG) BY MOUTH IN THE MORNING 30 tablet 11 4 Active butalbital-acetami nophen-caffeine 50-325-40 MG tabletIndications: Acute nonintractable headache, unspecified headache type TAKE 1 TABLET BY MOUTH EVERY 4 HOURS NEEDED 30 tablet 5 5 Active progesterone 100 MG capsuleIndications :Hormone replacement therapy TAKE 1 CAPSULE BY MOUTH AT BEDTIME 30 capsule 1 5 Active Vit-Fe Fumarate-FA (M- Plus) 27-1 MG tabletIndications: Encounter for gynecological examination (general) (routine) without abnormal findings Take 1 tablet by mouth Daily 30 tablet 11 4 025 Active Problems Problem Noted Date Diagnosed Date Acute frontal sinusitis 06/23/2023 Chronic tension-type headache, not intractable 0 06/23/2023 Dysmenorrhea 06/23/2023 Endometriosis 06/23/2023 Endometriosis of uterus 06/23/2023 Episodic cluster headache, not intractable 06/23 Fibrocystic breast changes 06/23/2023 Posttraumatic stress disorder 06/23/2023 Hypothyroidism 06/23/2023 Indigestion 06/23/2023 Menopausal symptoms 06/23/2023 Menorrhagia with irregular cycle 06/23/2023 Migraine without status migrainosus, not intract able 06/23/2023 Lower abdominal pain 06/23/2023 Abnormal biliary HIDA scan 06/23/2023 Generalized anxiety disorder 01/28/2021 Obesity in , antepartum 11/15/2013 Previous delivery affecting , antepartum 11/15/2013 Maternal age 35+, multigravida, antepartum 11/14 Kel's thyroiditis 09/23/2012 Paresthesias 09/23/2012 Encounters Date Type Department Care Team Description 03/13/2025 Telephone [facility] [address] [place] [address] Brisa Ocasio MD 02/13/2025 Refill [facility] [address] [place] [address] Brisa Ocasio MD Hormone replacement therapy from Last 3 Months Immunizations Immunization Administration Dates Next Due Influenza, injectable, MDCK, preservative free, quadrivalent 08/21/2018 Influenza, injectable, quadr ivalent, preservative free 10/27/2022,08/08/2021,08/09/2020,2018,10/02/2016 Influenza, recombinant, quad rivalent, injectable, preservative free 09/18/2019 Influenza, seasonal, injecta ble, preservative free 10/18/2015 Moderna SARS-CoV-2 Vaccination 09/20/2021,2020,11/20/2020 Family History Medical History Relation Name Comments Heart disease Brother Hypertension Father Multiple myeloma Father Prostate cancer Father Colon cancer Father's Brother Prostate cancer Father's Brother Colon cancer Father's Sister Breast cancer Mother Hyperlipidemia Mother Hypertension Mother Osteoporosis Mother Heart disease Paternal Grandfather Uterine cancer Paternal Grandmother Relation Name Status Comments Brother Father Alive Father's Brother Father's Sister Mother Alive Paternal Grandfather Paternal Grandmother Social History Tobacco Use Types Packs/Day Years Used Date Smoking Tobacco: Never Smokeless Tobacco: Never Tobacco Cessation:Counseling Given: Not Answered Alcohol Use Standard Drinks/Week Comments Yes 1 (1 standard drink = 0.6 oz pure alcohol) caffeine intake: 1-2 cups per day Comments No Sex and Gender Information Value Date Recorded Sex Assigned at Not on file Legal Sex Female 6:49 PM EDT Gender Identity Not on file Sexual Orientation Not on file Last Filed Vital Signs Vital Sign Reading Time Taken Comments Blood Pressure 122/72 03/28/2024 2:15 PM EDT Pulse - - Temperature - - Respiratory Rate - - Oxygen Saturation - - Inhaled Oxygen Concentration - - Weight 66.2 kg (146 lb) 03/28/2024 2:15 PM EDT Height 157.5 cm (5' 2 ) 08/13/2023 10:42 AM EDT Body Mass Index 26.7 08/13/2023 10:42 AM EDT Plan of Treatment Upcoming Encounters Date Type Department Care Team (Late st Contact Info) Description 04/05/2025 10:15 AM EDT Office Visit [facility] [address] [place] [address] Brisa Ocasio MD [address] [facility] [address] [place] [address] Health Maintenance Due Date Last Done Comments CT Colonography 1974 FIT-DNA 1974 FIT 1974 FOBT 1975 Sigmoidoscopy 1974 Mammogram 03/28/2025 03/28/2024, 03/08, 03/24/2022, Additional history exists Influenza Vaccine (Season Ended) 2025 10/01/2023, 10/27/2022, 08/08/2021, Additional history exists Pap Smear 04/27/2026 04/27/2023, 10/17/2019 Cervical Cancer Screening 04/27/2028 HPV/Cotest 04/27/2028 04/27/2023 Colonoscopy 09/24/2032 09/24/2022, 09/08, 04/17/2022 Colorectal Cancer Screening 09/24/2032 Procedures Procedure Name Priority Date/Time Associated Diagnosis Comments MM TOMOSYNTHESIS SCREENING BI 03/28/2024 11:29 AM EDT THINPREP TIS PAP AND HPV MRNA E6/E7 WITH REFLEX TO HPV 16,18/45 Routine 04/27/2023 2:45 PM EDT COLONOSCOPY Routine 04/17/2022 12:00 PM EDT Abnormal weight loss Diarrhea, unspecified Functional dyspepsia Upper abdominal pain, unspecified from Last 3 Months or Most Recently Relevant to Health Maintenance Results * MM TOMOSYNTHESIS SCREENING BI (03/28/2024 11:29 AM EDT) Anatomical Region Laterality Modality Other 03/28/2024 11:2 9 AM EDT Narrative 03/28/2024 11:30 [place] [address] Mammography Report Signed Patient: JOÃO SORIANO MR#: [id number] : 1975 Acct:[id number] Age/Sex: 48 / F ADM Date: 03/28/24 Loc: MAMMO Attending Dr: BRISA OCASIO Ordering Physician: BRISA OCASIO Results: Date of Service: 03/28/24 Follow Up: Procedure(s): MM tomosynthesis screening BI Accession Number(s): [id number] cc: Martin Martinez D.O.; BRISA OCASIO Patient Name: JOÃO SORIANO MR#: [id number] : 1975 Exam Date: 03/28/2024 Ordering Doctor: [...] breast cancer at age 69. LOCATION: [facility] BREAST COMPOSITION: The breasts are almost entirely [...] Signed By: 03/28/24 1130 DD/ 1129 TD/TT: Orthotics Technician: Procedure Note Radiology, Radiologist, MD - 03/28/2024 [place] [address] Mammography Report Signed Patient: JOÃO SORIANO MMR#: [id number] : 1975Acct:[id number] Age/Sex: 48 / FADM Date: 03/28/24 Loc: MAMMO Attending Dr: BRISA OCASIO Ordering Physician: BRISA OCASIOResults: Date of Service: 03/28/24Follow Up: Procedure(s): MM tomosynthesis screening BI Accession Number(s): [id number] cc: Martin Martinez D.O.; BRISA OCASIO Patient Name: JOÃO SORIANO MR#: [id number] : 1975 Exam Date: 03/28/2024 Ordering Doctor: [...] breast cancer at age 69. LOCATION: [facility] BREAST COMPOSITION: The breasts are almost entirely [...] M.D. Signed By:03/28/24 1130 DD/ 1129 TD/TT: Orthotics Technician: us Brisa Ocasio MD [facility] Final Result * THINPREP TIS PAP AND HPV MRNA E6/E7 WITH REFLEX TO HPV 16,18/45 (04/27/2023 2:45 PM EDT) CLINICAL INFORMATION [facility] Comment:None given LMP [facility] Comment:None given PREV. PAP [facility] Comment:None given PREV. BX [facility] Comment:None given SOURCE [facility] Comment:None given STATEMENT OF ADEQUACY [facility] Comment: Satisfactory for evaluation. Endocervical/transformation zone component absent. INTERPRETATION/RESU LT [facility] Comment:Negative for intraep ithelial lesion or malignancy. COMMENT [facility] Comment: This Pap test has been evaluated with computer assisted technology. STRUCTURAL FITTER [facility] Comment: [facility], CT(ASCP) CT screening location: [facility], [address] [place] [address], [place] [address]. (ALWAYS MESSAGE) [facility] Comment: EXPLANATORY NOTE: The Pap is a screening test for cervical cancer. It is not a diagnostic test and is subject to false negative and false positive results. It is most reliable when a satisfactory sample, regularly obtained, is submitted with relevant clinical findings and history, and when the Pap result is evaluated along with historic and current clinical information. HPV MRNA E6/E7 Not Detected Not Detected [facility] Comment: Methodology: Manager Rehab-Mediated Amplification This assay detects E6/E7 viral messenger RNA (mRNA) from 14 high-risk HPV types (16,18,31,33,35,39,45,51,52,56,58,59,66,68). Cervical sources are required for HPV testing. If a vaginal source from a patient who has had a total hysterectomy with removal of cervix was submitted, please contact the testing laboratory for alternative testing options. For additional information, please refer to http://[email or web address] [place] [email or web address]/faq/YCX306a2 (This link if provided for information/ educational purposes only.) 04/27/2023 2:45 PM EDT 04/28/2023 3:50 AM EDT Narrative Resulting Agency Comment Performing Organization Information Site ID: [id number] Name: [facility] Address: [address] [place] [address], [address] [place] [id number] Director: Bam Ayala MD us Brisa Ocasio MD LAB CYTOLOGY ORDERABLES Final Result Performing Organization Address City/State/[facility] Co de Phone Number [facility] * Colonoscopy (04/17/2022 12:00 PM EDT) Anatomical Region Laterality Modality Endoscopy 04/17/2022 12:0 0 PM EDT Narrative 04/17/2022 12:00 PM EDT PERFORMED AT [facility] [place] LOCATION:[id number] Procedure Note CONVERSION, GENERIC - 03/24/2023 PERFORMED AT [facility] [place] LOCATION:[id number] Estrada Batista MD ENDOSCOPY PROCEDURE ORDERABL ES Final Result from Last 3 Months or Most Recently Relevant to Health Maintenance Insurance [employer] Care Teams Performing Artist Relationship Specialty Start Date End Date Martin Martinez DO PCP - General Internal Medicine 04/27/23
--- OUTSIDE RECORDS SUMMARY | 2025-03-30 10:50 | XMS_ITS | Encounter Summary ---
Author Organization [facility] Address [address] [place] [address] Care Team Providers Care Manager Environmental Health Name Role Phone Martin Martinez Primary Care Provider [phone] Moses Francois MD Unavailable [phone] Source Comments In the event this information is protected by the Federal Confidentiality of Alcohol and Drug AbusePatient Records regulations: The Federal rules restrict any use of the information to criminally investigate or prosecute any alcohol or drug abuse patient.[facility] Encounter Details Date Type Department Care Team (Late st Contact Info) Description 11/03/2024 Patient Msg Dermatology [address] [place] [address] [place] [address] [place] [address] Appointment Request Social History Tobacco Use Types Packs/Day Years Used Date Smoking Tobacco: Never Smokeless Tobacco: Never Alcohol Use Standard Drinks/Week Comments Not Currently 0 (1 standard drink = 0.6 oz pur e alcohol) Area Deprivation Index Answer Date Sammy rded National Score (1-100), lower number is lower ri sk 65 08/08/2024 State Score (1-10), lower number is lower risk 4 08/08/2024 Data from: https://www.neighborhoodatlas.medicine.[facility]/. Last address used for calculation 6 [...] 1:30 PM EDT Office Visit Dermatology [address] [address] [place] [address] [place] [address] Return for 4-6 week [address] Dan for ILK inj 10/09/2025 3:25 PM EST Appointment Radiology [address] [place], [place] [id number] : Postmenopausal osteoporosis of multiple sites [M81.0] 01/01/2026 1:00 PM EST Office Visit Rheumatology [address] [place] [address] Nicci Coleman MD [address] [place], [place] [phone] follow documented as of this encounter Visit Diagnoses Not on filedocumented in this encounter Care Teams Manager Environmental Health Relationship Specialty Start Date End Date Martin Martinez DO PCP - General 02/26/06 Moses Francois MD [address] [place] [address] Obstetrics 09/22/23 documented as of this encounter
--- OUTSIDE RECORDS SUMMARY | 2025-03-30 10:50 | XMS_ITS | Encounter Summary ---
Author Organization [facility] Address [address] [place] [address] Care Team Providers Care Mobile Web Application Developer Name Role Phone Martin Martinez Primary Care Provider [phone] Moses Francois MD Unavailable [phone] Source Comments In the event this information is protected by the Federal Confidentiality of Alcohol and Drug AbusePatient Records regulations: The Federal rules restrict any use of the information to criminally investigate or prosecute any alcohol or drug abuse patient.[facility] Encounter Details Date Type Department Care Team (Late st Contact Info) Description 11/18/2024 Get Medical Advice Dermatology [address] [place], [place] [id number] [place] [address] [place] [address] Hair loss Social History Tobacco Use Types Packs/Day Years Used Date Smoking Tobacco: Never Smokeless Tobacco: Never Alcohol Use Standard Drinks/Week Comments Not Currently 0 (1 standard drink = 0.6 oz pur e alcohol) Area Deprivation Index Answer Date Sammy rded National Score (1-100), lower number is lower ri sk 65 08/08/2024 State Score (1-10), lower number is lower risk 4 08/08/2024 Data from: https://www.neighborhoodatlas.medicine.[facility]/. Last address used for calculation [address] [...] 1:30 PM EDT Office Visit Dermatology [address] [address] [place] [address] [place] [address] Return for 4-6 week [address] Dan for ILK inj 10/09/2025 3:25 PM EST Appointment Radiology [address] [place], [place] [id number] : Postmenopausal osteoporosis of multiple sites [M81.0] 01/01/2026 1:00 PM EST Office Visit Rheumatology [address] [place] [address] Nicci Coleman MD [address] [place], [place] [phone] follow documented as of this encounter Visit Diagnoses Not on filedocumented in this encounter Care Teams Mobile Web Application Developer Relationship Specialty Start Date End Date Martin Martinez DO PCP - General 02/26/06 Moses Francois MD [address] [place] [address] Obstetrics 09/22/23 documented as of this encounter
--- OUTSIDE RECORDS SUMMARY | 2025-03-30 10:50 | XMS_ITS | Clinical Summary ---
Author Organization [facility] Address [facility] [place] [address] Care Team Providers Care Tank Hoop Bender Name Role Phone Martin Martinez DO Primary Care Provider [phone] Social History Tobacco Use Types Packs/Day Years Used Date Smoking Tobacco: Never Assessed Comments No Sex and Gender Information Value Date Recorded Sex Assigned at Not on file Legal Sex Female 2:00 PM EDT Gender Identity Not on file Sexual Orientation Not on file Plan of Treatment Health Maintenance Due Date Last Done Comments CT Colonography 1975 Colonoscopy 1974 Colorectal Cancer Screening/Monitoring 1974 Fecal DNA 1974 Fecal occult blood test (FOBT,FIT) 1974 Tetanus: Every 10yrs 1974 Wellness Visit 1977 Depression Screening/Follow-Up (PHQ-2/9) 1986 HIV Screening 1989 Hepatitis C Screening 1992 Pap Smear 1995 Cervical Cancer Screening 2004 HPV/Cotest 2004 COVID-19 Vaccine (2023- season) 2024 Pneumococcal Vaccine: Age 50+ (1 of 1 - PCV) 4 Zoster Vaccines (1 of 2) 2024 Influenza Vaccine (Season Ended) 2025 Insurance [employer] PPO Care Teams Tank Hoop Bender Relationship Specialty Start Date End Date Martin Martinez DO [address] [place] [address] [place] [address] PCP - General Internal Medicine 06/22/16
--- OUTSIDE RECORDS SUMMARY | 2025-03-30 10:50 | XMS_ITS | Encounter Summary ---
Author Organization [facility] Address [address] [place] [address] Care Team Providers Care Financial Planning Assistant Name Role Phone Martin Martinez Primary Care Provider [phone] Moses Francois MD Unavailable [phone] Source Comments In the event this information is protected by the Federal Confidentiality of Alcohol and Drug AbusePatient Records regulations: The Federal rules restrict any use of the information to criminally investigate or prosecute any alcohol or drug abuse patient.[facility] Encounter Details Date Type Department Care Team (Late st Contact Info) Description 11/02/2024 Get Medical Advice Dermatology [address] [place], [place] [phone] [place] [address] [place], [place] [phone] Hair loss Social History Tobacco Use Types [...] is lower risk 4 08/08/2024 Data from: https://www.neighborhoodatlas.medicine.[facility]/. Last address used for calculation 6 [...] 1:30 PM EDT Office Visit Dermatology [address] [address] [place] [address] [place] [address] Return for 4-6 week [address] Dan for ILK inj 10/09/2025 3:25 PM EST Appointment Radiology [address] [place], [place] [phone] : Postmenopausal osteoporosis of multiple sites [M81.0] 01/01/2026 1:00 PM EST Office Visit Rheumatology [address] [place] [address] Nicci Coleman MD [address] [place], [place] [phone] follow documented as of this encounter Visit Diagnoses Not on filedocumented in this encounter Care Teams Financial Planning Assistant Relationship Specialty Start Date End Date Martin Martinez DO PCP - General 02/26/06 Moses Francois MD [address] [place] [address] Obstetrics 09/22/23 documented as of this encounter
--- OUTSIDE RECORDS SUMMARY | 2025-03-30 10:50 | XMS_ITS | Encounter Summary ---
Author Organization [facility] Address [address] [place] [address] Care Team Providers Care Keg Header Name Role Phone Martin Martinez DO Primary Care Provider [phone] Encounter Details Date Type Department Care Team (Late st Contact Info) Description 04/08/2023 Abstract [facility] [address] [facility] [address] [place] [address] Moses Francois MD [address] [facility] [address] [place] [address] Social History Tobacco Use Types Packs/Day Years Used Date Smoking Tobacco: Never Assessed Comments Unknown Sex and Gender Information Value Date Recorded Sex Assigned at Not on file Legal Sex Female 6:49 PM EDT Gender Identity Not on file Sexual Orientation Not on file documented as of this encounter Plan of Treatment Upcoming Encounters Date Type Department Care Team (Late st Contact Info) Description 04/05/2025 10:15 AM EDT Office Visit [facility] [address] [facility] [address] [place] [address] Moses Francois MD [address] [facility] [address] [place] [address] documented as of this encounter Visit Diagnoses Not on filedocumented in this encounter Care Teams Keg Header Relationship Specialty Start Date End Date Martin Martinez DO PCP - General Internal Medicine 04/27/23 documented as of this encounter
--- OUTSIDE RECORDS SUMMARY | 2025-03-30 10:50 | XMS_ITS | Encounter Summary ---
Author Organization [facility] Address [address] [place] [address] Care Team Providers Care Pasta Maker Name Role Phone Martin Martinez DO Primary Care Provider [phone] Reason for Visit * Reason Comments Med Refill Medication no longer needed Encounter Details Date Type Department Care Team (Late st Contact Info) Description 09/16/[address] [facility] [address] [phone] Estrada Crawford MD [address] [facility] [address] [place] [address] Social History Tobacco Use Types Packs/Day Years [...] encounter Miscellaneous Notes * Telephone Encounter - Marija Weaver MA - 09/17/2023 11:54 AM EST Spoke to patient to confirm refill of zofran and where she wanted this called into. She said she did not need this medication and asked where the request came from. I told her the requesting pharmacy. She aplogized and said she no longer needs this medicine. documented in this encounter Plan of Treatment Upcoming Encounters Date Type Department Care Team (Late st Contact Info) Description 04/05/2025 10:15 AM EDT Office Visit [facility] [address] [facility] [address] [place] [address] Moses Francois MD [address] [facility] [address] [place] [address] documented as of this encounter Visit Diagnoses Not on filedocumented in this encounter Care Teams Pasta Maker Relationship Specialty Start Date End Date Martin Martinez DO PCP - General Internal Medicine 04/27/23 documented as of this encounter
--- OUTSIDE RECORDS SUMMARY | 2025-03-30 10:50 | XMS_ITS | Encounter Summary ---
Author Organization [facility] Address [address] [place] [address] Care Team Providers Care Home Health Aide Name Role Phone Martin Martinez Primary Care Provider [phone] Moses Francois MD Unavailable Unavaila ble Moses Francois MD Unavailable [phone] Source Comments In the event this information is protected by the Federal Confidentiality of Alcohol and Drug AbusePatient Records regulations: The Federal rules restrict any use of the information to criminally investigate or prosecute any alcohol or drug abuse patient.[facility] Encounter Details Date Type Department Care Team (Late st Contact Info) Description 06/11/2023 Patient Msg Gastroenterology [address] [place] [address] Provider, Ccf Results Social History Tobacco Use Types Packs/Day Years Used Date Smoking Tobacco: Never Smokeless Tobacco: Never Alcohol Use Standard Drinks/Week Comments Not Currently 0 (1 standard drink = 0.6 oz pur e alcohol) Area Deprivation Index Answer Date Sammy rded National Score (1-100), lower number is lower ri 57 12/01/2022 State Score (1-10), lower number is lower risk N ot on file 12/01/2022 Data from: https://www.neighborhoodatlas.medicine.[facility].edu/. Last address used for calculation [address] 12/01/2022 Comments Unknown Sex and Gender Information Value [...] 1:30 PM EDT Office Visit Dermatology [address] [address] [place] [address] [place] [address] Return for 4-6 week [address] Dan for ILK inj 10/09/2025 3:25 PM EST Appointment Radiology 5700 [place] [address] : Postmenopausal osteoporosis of multiple sites [M81.0] 01/01/2026 1:00 PM EST Office Visit Rheumatology [address] [place] [address] Nicci Coleman MD [address] [place] [address] follow documented as of this encounter Visit Diagnoses Not on filedocumented in this encounter Care Teams Home Health Aide Relationship Specialty Start Date End Date Martin Martinez DO PCP - General 02/26/06 Moses Francois MD [address] [place] [address] Obstetrics 09/22/23 09/22/23 Moses Francois MD [address] [place] [address] Obstetrics 09/22/23 documented as of this encounter
--- OUTSIDE RECORDS SUMMARY | 2025-03-30 10:50 | XMS_ITS | Encounter Summary ---
Author Organization [facility] Address [address] [place] [address] Care Team Providers Care Interface Designer Name Role Phone Martin Martinez Primary Care Provider [phone] Moses Francois MD Unavailable Unavaila ble Moses Francois MD Unavailable Source Comments In the event this information is protected by the Federal Confidentiality of Alcohol and Drug AbusePatient Records regulations: The Federal rules restrict any use of the information to criminally investigate or prosecute any alcohol or drug abuse patient.[facility] Encounter Details Date Type Department Care Team (Late st Contact Info) Description 08/03/2019 Patient Msg Family Medicine [address] [place] [address] Provider, Ccf Appointment Social History Tobacco Use Types Packs/Day Years Used Date Smoking Tobacco: Never Alcohol Use Standard Drinks/Week Comments Yes 0 (1 standard drink = 0.6 oz pur e alcohol) Comments Yes Sex and Gender Information Value Date Recorded [...] 04/25/2025 1:30 PM EDT Office Visit Dermatology [address] [address] [place] [address] [place] [address] Return for 4-6 week [address] Dan for ILK inj 10/09/2025 3:25 PM EST Appointment Radiology 5700 [place], [place] [id number] : Postmenopausal osteoporosis of multiple sites [M81.0] 01/01/2026 1:00 PM EST Office Visit Rheumatology [address] [place] [address] Nicci Coleman MD [address] [place], [place] [phone] follow documented as of this encounter Visit Diagnoses Not on filedocumented in this encounter Additional Health Concerns Infection Onset Date Last Indicated Resolved Time COVID-19 Rule-Out 06/02/2023 06/02/2023 06/02/2023 11:19 PM EDT documented as of this encounter Care Teams Interface Designer Relationship Specialty Start Date End Date Martin Martinez DO PCP - General 02/26/06 Moses Francois MD [address] [place] [address] Obstetrics 09/22/23 09/22/23 Moses Francois MD [address] [place] [phone] Obstetrics 09/22/23 documented as of this encounter
--- OUTSIDE RECORDS SUMMARY | 2025-03-30 10:50 | XMS_ITS | Encounter Summary ---
Author Organization [facility] Address [address] [place] [address] Care Team Providers Care Health Insurance Assessor Name Role Phone Martin Martinez Maria Dolores TORREZ Primary Care Provider [phone] Moses Francois MD Unavailable [phone] Source Comments In the event this information is protected by the Federal Confidentiality of Alcohol and Drug AbusePatient Records regulations: The Federal rules restrict any use of the information to criminally investigate or prosecute any alcohol or drug abuse patient.[facility] Encounter Details Date Type Department Care Team (Latest Contact Info) Description 03/23/2025 Travel Social History Tobacco Use Types Packs/Day Years Used Date Smoking Tobacco: Never Smokeless Tobacco: Never Alcohol Use Standard Drinks/Week Comments Not Currently 0 (1 standard drink = 0.6 oz pur e alcohol) Area Deprivation Index Answer Date Sammy rded National Score (1-100), lower number is lower ri sk 65 08/08/2024 State Score (1-10), lower number is lower risk 4 08/08/2024 Data from: https://www.neighborhoodatlas.medicine.[facility].edu/. Last address used for calculation 6 [...] 1:30 PM EDT Office Visit Dermatology [address] [address] [place] [address] [place] [address] Return for 4-6 week [address] Dan for ILK inj 10/09/2025 3:25 PM EST Appointment Radiology 5700 [place], [place] [id number] : Postmenopausal osteoporosis of multiple sites [M81.0] 01/01/2026 1:00 PM EST Office Visit Rheumatology [address] [place] [address] Nicci Coleman MD [address] [place] [address] follow documented as of this encounter Visit Diagnoses Not on filedocumented in this encounter Care Teams Health Insurance Assessor Relationship Specialty Start Date End Date Martin Martinez DO PCP - General 02/26/06 Moses Francois MD [address] [place] [address] Obstetrics 09/22/23 documented as of this encounter
--- OUTSIDE RECORDS SUMMARY | 2025-03-30 10:50 | XMS_ITS | Encounter Summary ---
Author Organization [facility] Address [address] [place] [address] Care Team Providers Care Plodding Machine Operator Name Role Phone Martin Martinez DO Primary Care Provider [phone] Moses Francois MD Unavailable Unavaila ble Moses Francois MD Unavailable [phone] Source Comments In the event this information is protected by the Federal Confidentiality of Alcohol and Drug AbusePatient Records regulations: The Federal rules restrict any use of the information to criminally investigate or prosecute any alcohol or drug abuse patient.[facility] Encounter Details Date Type Department Care Team (Late st Contact Info) Description 01/30/2016 Patient Msg Pain Management [address] [place], [place] [phone] Greer House MD [address] [place] [address] RE: Appointment Cancellation Request Social History Tobacco Use Types Packs/Day Years Used Date Smoking Tobacco: Never Alcohol Use Standard Drinks/Week Comments Yes 0 (1 standard drink = 0.6 oz pur e alcohol) Comments No Sex and Gender Information Value [...] 1:30 PM EDT Office Visit Dermatology [address] [address] [place] [address] [place] [address] Return for 4-6 week [address] Dan for ILK inj 10/09/2025 3:25 PM EST Appointment Radiology 5700 [place], [place] [phone] : Postmenopausal osteoporosis of multiple sites [M81.0] 01/01/2026 1:00 PM EST Office Visit Rheumatology [address] [place] [address] Nicci Coleman MD 5700 [place] [address] follow documented as of this encounter Visit Diagnoses Not on filedocumented in this encounter Additional Health Concerns Infection Onset Date Last Indicated Resolved Time COVID-19 Rule-Out 06/02/2023 06/02/2023 06/02/2023 11:19 PM EDT documented as of this encounter Care Teams Plodding Machine Operator Relationship Specialty Start Date End Date Martin Martinez DO PCP - General 02/26/06 Moses Francois MD [address] [place] [address] Obstetrics 09/22/23 09/22/23 Moses Francois MD [address] [place] [phone] Obstetrics 09/22/23 documented as of this encounter
--- OUTSIDE RECORDS SUMMARY | 2025-03-30 10:50 | XMS_ITS | Encounter Summary ---
Author Organization [facility] Address [address] [place] [address] Care Team Providers Care Pile Driver Operator Name Role Phone Martin Martinez DO Primary Care Provider Reason for Visit * Reason Comments Med Refill Encounter Details Date Type Department Care Team (Late st Contact Info) Description 05/19/2023 Refill [facility] [address] [facility] [address] [place] [address] Moses Francois MD [address] [facility] [address] [place] [address] Symptomatic menopausal or female climacteric states Social History Tobacco Use Types Packs/Day Years Used Date Smoking Tobacco: Never Smokeless Tobacco: Never Alcohol Use Standard Drinks/Week Comments Yes 1 (1 standard drink = 0.6 oz pur [...] Office Visit [facility] [address] [facility] [address] [place] [address] Moses Francois MD [address] [facility] [address] [place] [address] documented as of this encounter Visit Diagnoses Diagnosis Symptomatic menopausal or female climacteric states documented in this encounter Care Teams Pile Driver Operator Relationship Specialty Start Date End Date Martin Martinez DO PCP - General Internal Medicine 04/27/23 documented as of this encounter
--- OUTSIDE RECORDS SUMMARY | 2025-03-30 10:51 | XMS_ITS | Encounter Summary ---
Author Organization [facility] Address [address] [place] [address] Care Team Providers Care Supervisor Endless Track Vehicle Name Role Phone Martin Martinez Primary Care Provider [phone] Moses Francois MD Unavailable [phone] Source Comments In the event this information is protected by the Federal Confidentiality of Alcohol and Drug AbusePatient Records regulations: The Federal rules restrict any use of the information to criminally investigate or prosecute any alcohol or drug abuse patient.[facility] Encounter Details Date Type Department Care Team (Late st Contact Info) Description 07/20/2024 Get Medical Advice Dermatology [address] [place], [place] [phone] [place] [address] [place] [address] Tonie Social History Tobacco Use Types Packs/Day Years Used Date Smoking Tobacco: Never Smokeless Tobacco: Never Alcohol Use Standard Drinks/Week Comments Not Currently 0 (1 standard drink = 0.6 oz pur e alcohol) Area Deprivation Index Answer Date Sammy rded National Score (1-100), lower number is lower ri sk 57 12/01/2022 State Score (1-10), lower number is lower risk N ot on file 12/01/2022 Data from: https://www.neighborhoodatlas.medicine.[facility].edu/. Last address used for calculation 6 [...] 1:30 PM EDT Office Visit Dermatology [address] [address] [place] [address] [place] [address] Return for 4-6 week [address] Dan for ILK inj 10/09/2025 3:25 PM EST Appointment Radiology 5700 [place], [place] [id number] : Postmenopausal osteoporosis of multiple sites [M81.0] 01/01/2026 1:00 PM EST Office Visit Rheumatology [address] [place] [address] Nicci Coleman MD [address] [facility] [address] [address] [place], [place] [phone] follow documented as of this encounter Visit Diagnoses Not on filedocumented in this encounter Care Teams Supervisor Endless Track Vehicle Relationship Specialty Start Date End Date Martin Martinez DO PCP - General 02/26/06 Moses Francois MD [address] [place] [address] Obstetrics 09/22/23 documented as of this encounter
--- OUTSIDE RECORDS SUMMARY | 2025-03-30 10:51 | XMS_ITS | Clinical Summary ---
Author Organization [facility] Address [address] [place] [address] Care Team Providers Care Angio Technologist Name Role Phone Unavailable Primary Care Provider Unavailabl e Social History Tobacco Use Types Packs/Day Years Used Date Smoking Tobacco: Never Assessed Sex and Gender Information Value Date Recorded Sex Assigned at Not on file Gender Identity Not on file Sexual Orientation Not on file Plan of Treatment Not on file
--- OUTSIDE RECORDS SUMMARY | 2025-03-30 10:51 | XMS_ITS | Encounter Summary ---
Author Organization [facility] Address [address] [place] [address] Care Team Providers Care Pancake Professional Name Role Phone Martin Martinez Primary Care Provider [phone] Moses Francois MD Unavailable [phone] Source Comments In the event this information is protected by the Federal Confidentiality of Alcohol and Drug AbusePatient Records regulations: The Federal rules restrict any use of the information to criminally investigate or prosecute any alcohol or drug abuse patient.[facility] Encounter Details Date Type Department Care Team (Late st Contact Info) Description 10/10/2024 Get Medical Advice Dermatology [address] [place], [place] [phone] [place] [address] [place] [address] Scalp injections Social History Tobacco Use Types Packs/Day Years Used Date Smoking Tobacco: Never Smokeless Tobacco: Never Alcohol Use Standard Drinks/Week Comments Not Currently 0 (1 standard drink = 0.6 oz pur e alcohol) Area Deprivation Index Answer Date Sammy rded National Score (1-100), lower number is lower ri sk 65 08/08/2024 State Score (1-10), lower number is lower risk 4 08/08/2024 Data from: https://www.neighborhoodatlas.medicine.[facility]/. Last address used for [...] 1:30 PM EDT Office Visit Dermatology [address] [address] [place] [address] [place] [address] Return for 4-6 week [address] Dan for ILK inj 10/09/2025 3:25 PM EST Appointment Radiology 5700 [place], [place] [phone] : Postmenopausal osteoporosis of multiple sites [M81.0] 01/01/2026 1:00 PM EST Office Visit Rheumatology [address] [place] [address] Nicci Coleman MD 57[address] [place], [place] [address] follow documented as of this encounter Visit Diagnoses Not on filedocumented in this encounter Care Teams Pancake Professional Relationship Specialty Start Date End Date Martin Martinez DO PCP - General 02/26/06 Moses Francois MD [address] [place] [address] Obstetrics 09/22/23 documented as of this encounter
--- OUTSIDE RECORDS SUMMARY | 2025-03-30 10:51 | XMS_ITS | Encounter Summary ---
Author Organization [facility] Address [address] [place] [address] Care Team Providers Care Receiving Teller Name Role Phone Martin Martinez Primary Care Provider [phone] Moses Francois MD Unavailable [phone] Source Comments In the event this information is protected by the Federal Confidentiality of Alcohol and Drug AbusePatient Records regulations: The Federal rules restrict any use of the information to criminally investigate or prosecute any alcohol or drug abuse patient.[facility] Reason for Visit * Reason Onset Date Comments Refill Request 03/13/2025 Encounter Details Date Type Department Care Team (Late st Contact Info) Description 03/13/2025 Refill Dermatology [address] [place] [address] [place] [address] [place], [place] [phone] Refill Request Social History Tobacco Use Types Packs/Day Years Used Date Smoking Tobacco: Never Smokeless Tobacco: Never Alcohol Use Standard Drinks/Week Comments Not Currently 0 (1 standard drink = 0.6 oz pur e alcohol) Area Deprivation Index Answer Date Sammy rded National Score (1-100), lower number is lower ri sk 65 08/08/2024 State Score (1-10), lower number is lower risk 4 08/08/2024 Data from: https://www.neighborhoodatlas.medicine.[facility]/. Last address used for calculation [address] [...] encounter Miscellaneous Notes * Telephone Encounter - Reta Stanton MA - 03/13/2025 5:19 PM EDT Prescription Refill Information LAST APPOINTMENT: 02/27/2025 UPCOMING APPOINTMENT: 03/27/2025 Requested Prescriptions Pending Prescriptions Disp Refills fluocinonide (LIDEX) 0.05 % external solution 120 mL 3 Sig: Apply to affected areas on scalp 3x weekly. Leave on for at least 8 hrs. Scalp treatment only,do not apply to lengths. Reta Stanton MA documented in this encounter Plan of Treatment Upcoming Encounters Date Type Department Care Team (Late st Contact Info) Description 04/25/2025 1:30 PM EDT Office Visit Dermatology [address] [address] [place] [address] [place] [address] Return for 4-6 week [address] 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
--- OUTSIDE RECORDS SUMMARY | 2025-03-30 10:51 | XMS_ITS | Referral Summary ---
Author Organization [facility] Address [address] [place] [address] Care Team Providers Care Commercial Front Load Driver Name Role Phone Unavailable Primary Care Provider Unavailabl e Social History Tobacco Use Types Packs/Day Years Used Date Smoking Tobacco: Never Assessed Sex and Gender Information Value Date Recorded Sex Assigned at Not on file Gender Identity Not on file Sexual Orientation Not on file Plan of Treatment Not on file
--- OUTSIDE RECORDS SUMMARY | 2025-03-30 10:51 | XMS_ITS | Encounter Summary ---
Author Organization [facility] Address [address] [place] [address] Care Team Providers Care Toy Mechanic Name Role Phone Martin Martinez Primary Care Provider Moses Francois MD Unavailable Unavaila ble Moses Francois MD Unavailable [phone] Source Comments In the event this information is protected by the Federal Confidentiality of Alcohol and Drug AbusePatient Records regulations: The Federal rules restrict any use of the information to criminally investigate or prosecute any alcohol or drug abuse patient.[facility] Encounter Details Date Type Department Care Team (Late st Contact Info) Description 06/18/2023 Patient Msg Gastroenterology [address] [place] [address] Provider, Ccf consult Social History Tobacco Use Types Packs/Day Years [...] N ot on file 12/01/2022 Data from: https://www.neighborhoodatlas.medicine.[facility].edu/. Last address used for calculation [address] [...] 1:30 PM EDT Office Visit Dermatology [address] [address] [place] [address] [place] [address] Return for 4-6 week [address] Dan for ILK inj 10/09/2025 3:25 PM EST Appointment Radiology 5700 [place] [address] : Postmenopausal osteoporosis of multiple sites [M81.0] 01/01/2026 1:00 PM EST Office Visit Rheumatology [address] [place] [address] Nicci Coleman MD [address] [place] [address] follow documented as of this encounter Visit Diagnoses Not on filedocumented in this encounter Care Teams Toy Mechanic Relationship Specialty Start Date End Date Martin Martinez DO PCP - General 02/26/06 Moses Francois MD [address] [place] [address] Obstetrics 09/22/23 09/22/23 Moses Francois MD [address] [place] [address] Obstetrics 09/22/23 documented as of this encounter
--- OUTSIDE RECORDS SUMMARY | 2025-03-30 10:51 | XMS_ITS | Encounter Summary ---
Author Organization [facility] Address [address] [place] [address] Care Team Providers Care Division Manager Name Role Phone Martin Martinez Primary Care Provider [phone] Moses Francois MD Unavailable [phone] Source Comments In the event this information is protected by the Federal Confidentiality of Alcohol and Drug AbusePatient Records regulations: The Federal rules restrict any use of the information to criminally investigate or prosecute any alcohol or drug abuse patient.[facility] Encounter Details Date Type Department Care Team (Late st Contact Info) Description 07/18/2024 Get Medical Advice Dermatology [address] [place], [place] [phone] [place] [address] [place] [address] Injections Social History Tobacco Use Types Packs/Day Years [...] N ot on file 12/01/2022 Data from: https://www.neighborhoodatlas.medicine.[facility].edu/. Last address used for calculation 6 [...] 1:30 PM EDT Office Visit Dermatology [address] [address] [place] [address] [place] [address] Return for 4-6 week [address] Dan for ILK inj 10/09/2025 3:25 PM EST Appointment Radiology 5700 [place], [place] [address] : Postmenopausal osteoporosis of multiple sites [M81.0] 01/01/2026 1:00 PM EST Office Visit Rheumatology [address] [place] [address] Nicci Coleman MD [address] [facility] [address] [place], [place] [phone] follow documented as of this encounter Visit Diagnoses Not on filedocumented in this encounter Care Teams Division Manager Relationship Specialty Start Date End Date Martin Martinez DO PCP - General 02/26/06 Moses Francois MD [address] [place] [address] Obstetrics 09/22/23 documented as of this encounter
--- OUTSIDE RECORDS SUMMARY | 2025-03-30 10:51 | XMS_ITS | Encounter Summary ---
Author Organization [facility] Address [address] [place] [address] Care Team Providers Care Senior Commercial Loan Officer Name Role Phone Martin Martinez Maria Dolores TORREZ Primary Care Provider [phone] Moses Francois MD Unavailable Unavaila ble Moses Francois MD Unavailable [phone] Source Comments In the event this information is protected by the Federal Confidentiality of Alcohol and Drug AbusePatient Records regulations: The Federal rules restrict any use of the information to criminally investigate or prosecute any alcohol or drug abuse patient.[facility] Encounter Details Date Type Department Care Team (Late st Contact Info) Description 05/23/2023 Get Medical Advice Gastroenterology [address] [place] [address] Adrian Chappell Jr., DO [address] [place] [address] [place] [phone] Rx Social History Tobacco Use Types Packs/Day Years [...] N ot on file 12/01/2022 Data from: https://www.neighborhoodatlas.medicine.[facility]/. Last address used for calculation [...] encounter Miscellaneous Notes * Telephone Encounter - Clementina Simental MA - 05/24/2023 9:09 AM EDT Requested Prescriptions Pending Prescriptions Disp Refills dicyclomine (BENTYL) 20 mg tablet 60 tablet 2 Sig: Take 1 tablet by mouth twice daily. Please review and advise. Clementina Simental MA documented in this encounter Plan of Treatment Upcoming Encounters Date Type Department Care Team (Late st Contact Info) Description 04/25/2025 1:30 PM EDT Office Visit Dermatology [address] [address] [place] [address] [place], [place] [phone] Return for 4-6 week [address] Dan for ILK inj 10/09/2025 3:25 PM EST Appointment Radiology 5700 [place], [place] [phone] : Postmenopausal osteoporosis of multiple sites [M81.0] 01/01/2026 1:00 PM EST Office Visit Rheumatology [address] [place] [address] Nicci Coleman MD [address] [place], [place] [phone] follow documented as of this encounter Visit Diagnoses Diagnosis Irritable bowel syndrome with diarrhea Irritable bowel syndrome documented in this encounter Additional Health Concerns Infection Onset Date Last Indicated Resolved Time COVID-19 Rule-Out 06/02/2023 06/02/2023 06/02/2023 11:19 PM EDT documented as of this encounter Care Teams Senior Commercial Loan Officer Relationship Specialty Start Date End Date Martin Martinez DO PCP - General 02/26/06 Moses Francois MD [address] [facility] [place] [address] Obstetrics 09/22/23 09/22/23 Moses Francois MD [address] [place] [address] Obstetrics 09/22/23 documented as of this encounter
--- OUTSIDE RECORDS SUMMARY | 2025-03-30 10:51 | XMS_ITS | Encounter Summary ---
Author Organization [facility] Address [address] [place] [address] Care Team Providers Care Assistant Superintendent For Curriculum Name Role Phone Martin Martinez Primary Care Provider [phone] Moses Francois MD Unavailable [phone] Source Comments In the event this information is protected by the Federal Confidentiality of Alcohol and Drug AbusePatient Records regulations: The Federal rules restrict any use of the information to criminally investigate or prosecute any alcohol or drug abuse patient.[facility] Encounter Details Date Type Department Care Team (Late st Contact Info) Description 09/26/2024 Get Medical Advice Dermatology [address] [place], [place] [phone] [place] [address] [place] [address] Injections Social History Tobacco Use [...] risk 4 08/08/2024 Data from: https://www.neighborhoodatlas.medicine.[facility]/. Last address used for calculation [address] [...] encounter Miscellaneous Notes * Telephone Encounter - Ree Mcneil RN - 09/26/2024 4:39 PM EST Intralesional steroid/triamcinolone injections 08/29/2024 Due 10/13/2024 (every 6 weeks) Ree Mcneil RN September 26, 2024 4:41 PM documented in this encounter Plan of Treatment Upcoming Encounters Date Type Department Care Team (Late st Contact Info) Description 04/25/2025 1:30 PM EDT Office Visit Dermatology [address] [address] [place] [address] [place] [address] Return for 4-6 week [address] Dan for ILK inj 10/09/2025 3:25 PM EST Appointment Radiology 5700 [place], [place] [phone] : Postmenopausal osteoporosis of multiple sites [M81.0] 01/01/2026 1:00 PM EST Office Visit Rheumatology [address] [place] [address] Nicci Coleman MD 5700 [place], [place] [phone] follow documented as of this encounter Visit Diagnoses Not on filedocumented in this encounter Care Teams Assistant Superintendent For Curriculum Relationship Specialty Start Date End Date Martin Martinez DO PCP - General 02/26/06 Moses Francois MD [address] [place] [address] Obstetrics 09/22/23 documented as of this encounter
--- OUTSIDE RECORDS SUMMARY | 2025-03-30 10:51 | XMS_ITS | Encounter Summary ---
Author Organization [facility] Address [address] [place] [address] Care Team Providers Care Lithographic Plate Maker Name Role Phone Martin Martinez Primary Care Provider [phone] Moses Francois MD Unavailable [phone] Source Comments In the event this information is protected by the Federal Confidentiality of Alcohol and Drug AbusePatient Records regulations: The Federal rules restrict any use of the information to criminally investigate or prosecute any alcohol or drug abuse patient.[facility] Encounter Details Date Type Department Care Team (Late st Contact Info) Description 07/18/2024 Get Medical Advice Dermatology [address] [place], [place] [phone] [place] [address] [place] [address] Attn Tonie Social History Tobacco Use Types Packs/Day [...] N ot on file 12/01/2022 Data from: https://www.neighborhoodatlas.medicine.[facility]/. Last address used for calculation [...] PM EDT Office Visit Dermatology [address] [address] [place] [address] [place] [address] Return for 4-6 week [address] Dan for ILK inj 10/09/2025 3:25 PM EST Appointment Radiology 5700 [place], [place] [id number] : Postmenopausal osteoporosis of multiple sites [M81.0] 01/01/2026 1:00 PM EST Office Visit Rheumatology [address] [place] [address] Nicci Coleman MD [address] [facility] [address] [place], [place] [phone] follow documented as of this encounter Visit Diagnoses Not on filedocumented in this encounter Care Teams Lithographic Plate Maker Relationship Specialty Start Date End Date Martin Martinez DO PCP - General 02/26/06 Moses Francois MD [address] [place] [address] Obstetrics 09/22/23 documented as of this encounter
--- OUTSIDE RECORDS SUMMARY | 2025-03-30 10:51 | XMS_ITS | Encounter Summary ---
Author Organization [facility] Address [address] [place] [address] Care Team Providers Care Studio Data Analyst Name Role Phone Martin Martinez Primary Care Provider [phone] Moses Francois MD Unavailable [phone] Source Comments In the event this information is protected by the Federal Confidentiality of Alcohol and Drug AbusePatient Records regulations: The Federal rules restrict any use of the information to criminally investigate or prosecute any alcohol or drug abuse patient.[facility] Encounter Details Date Type Department Care Team (Late st Contact Info) Description 09/16/2024 Get Medical Advice Dermatology [address] [place], [place] [phone] [place] [address] [place] [address] Injections Social History Tobacco Use [...] lower risk 4 08/08/2024 Data from: https://www.neighborhoodatlas.medicine.[facility].edu/. Last address used for calculation 6 [...] 1:30 PM EDT Office Visit Dermatology [address] [address] [place] [address] [place] [address] Return for 4-6 week [address] Dan for ILK inj 10/09/2025 3:25 PM EST Appointment Radiology 5700 [place], [place] [phone] : Postmenopausal osteoporosis of multiple sites [M81.0] 01/01/2026 1:00 PM EST Office Visit Rheumatology [address] [place] [address] Nicci Coleman MD 5700 [place], [place] [phone] follow documented as of this encounter Visit Diagnoses Not on filedocumented in this encounter Care Teams Studio Data Analyst Relationship Specialty Start Date End Date Martin Martinez DO PCP - General 02/26/06 Moses Francois MD [address] [place] [address] Obstetrics 09/22/23 documented as of this encounter
--- OUTSIDE RECORDS SUMMARY | 2025-03-30 10:51 | XMS_ITS | Encounter Summary ---
Author Organization [facility] Address [address] [place] [address] Care Team Providers Care Communication And Outreach Manager Name Role Phone Martin Martinez Primary Care Provider [phone] Moses Francois MD Unavailable Unavaila ble Moses Francois MD Unavailable [phone] Source Comments In the event this information is protected by the Federal Confidentiality of Alcohol and Drug AbusePatient Records regulations: The Federal rules restrict any use of the information to criminally investigate or prosecute any alcohol or drug abuse patient.[facility] Encounter Details Date Type Department Care Team (Late st Contact Info) Description 01/31/2013 Patient Msg Medical Records [address] [place] [address] Provider, [facility] caregiver access Social History Tobacco Use Types Packs/Day Years Used Date Smoking Tobacco: Never Alcohol Use Standard Drinks/Week Comments Yes 0 (1 standard drink = 0.6 oz pur e alcohol) Comments Unknown Sex and Gender Information Value [...] 1:30 PM EDT Office Visit Dermatology [address] [address] [place] [address] [place] [address] Return for 4-6 week [address] Dan for ILK inj 10/09/2025 3:25 PM EST Appointment Radiology 5700 [place], [place] [phone] : Postmenopausal osteoporosis of multiple sites [M81.0] 01/01/2026 1:00 PM EST Office Visit Rheumatology [address] [place] [address] Nicci Coleman MD [address] [facility] [address] [place], [place] [phone] follow documented as of this encounter Visit Diagnoses Not on filedocumented in this encounter Additional Health Concerns Infection Onset Date Last Indicated Resolved Time COVID-19 Rule-Out 06/02/2023 06/02/2023 06/02/2023 11:19 PM EDT documented as of this encounter Care Teams Communication And Outreach Manager Relationship Specialty Start Date End Date Martin Martinez DO PCP - General 02/26/06 Moses Francois MD [address] [place] [address] Obstetrics 09/22/23 09/22/23 Moses Francois MD [address] [place] [phone] Obstetrics 09/22/23 documented as of this encounter
--- OUTSIDE RECORDS SUMMARY | 2025-03-30 10:51 | XMS_ITS | Encounter Summary ---
Author Organization [facility] Address [address] [place] [address] Care Team Providers Care Cattle Feeder Name Role Phone Martin Martinez Primary Care Provider [phone] Moses Francois MD Unavailable [phone] Source Comments In the event this information is protected by the Federal Confidentiality of Alcohol and Drug AbusePatient Records regulations: The Federal rules restrict any use of the information to criminally investigate or prosecute any alcohol or drug abuse patient.[facility] Encounter Details Date Type Department Care Team (Late st Contact Info) Description 07/07/2024 Get Medical Advice Dermatology [address] [place], [place] [phone] [place] [address] [place] [address] Appointment Social History Tobacco Use Types Packs/Day [...] N ot on file 12/01/2022 Data from: https://www.neighborhoodatlas.medicine.[facility].edu/. Last address used for calculation 6 [...] 1:30 PM EDT Office Visit Dermatology [address] [address] [place] [address] [place] [address] Return for 4-6 week [address] Dan for ILK inj 10/09/2025 3:25 PM EST Appointment Radiology 5700 [place], [place] [phone] : Postmenopausal osteoporosis of multiple sites [M81.0] 01/01/2026 1:00 PM EST Office Visit Rheumatology [address] [place] [address] Nicci Coleman MD [address] [facility] [address] [place], [place] [phone] follow documented as of this encounter Visit Diagnoses Not on filedocumented in this encounter Care Teams Cattle Feeder Relationship Specialty Start Date End Date Martin Martinez DO PCP - General 02/26/06 Moses Francois MD [address] [place] [address] Obstetrics 09/22/23 documented as of this encounter
--- OUTSIDE RECORDS SUMMARY | 2025-03-30 10:51 | XMS_ITS | Clinical Summary ---
Author Organization [facility] Address [address] [place] [address] Phone Care Team Providers Care Net Washer Name Role Phone Martin Martinez DO Primary Care Provider [phone] Social History Tobacco Use Types Packs/Day Years Used Date Smoking Tobacco: Never Assessed Comments Unknown Sex and Gender Information Value Date Recorded Sex Assigned at Not on file Legal Sex Female 3:47 PM EST Gender Identity Not on file Sexual Orientation Not on file Plan of Treatment Not on file Care Teams Net Washer Relationship Specialty Start Date End Date Martin Martinez DO PCP - General 12/25/14
--- OUTSIDE RECORDS SUMMARY | 2025-03-30 10:51 | XMS_ITS | Encounter Summary ---
Author Organization [facility] Address [address] [place] [address] Care Team Providers Care Breaker Layer Name Role Phone Martin Martinez Primary Care Provider Moses Francois MD Unavailable Unavaila ble Moses Francois MD Unavailable [phone] Source Comments In the event this information is protected by the Federal Confidentiality of Alcohol and Drug AbusePatient Records regulations: The Federal rules restrict any use of the information to criminally investigate or prosecute any alcohol or drug abuse patient.[facility] Encounter Details Date Type Department Care Team (Late st Contact Info) Description 04/19/2023 Patient Msg [facility] [address] [place] [address] Ankur Alberto, MS [address] [place] [address] Genetic Test Result Social History Tobacco Use Types Packs/Day Years [...] N ot on file 12/01/2022 Data from: https://www.neighborhoodatlas.medicine.[facility].edu/. Last address used for calculation 6 [...] 1:30 PM EDT Office Visit Dermatology [address] [address] [place] [address] [place] [address] Return for 4-6 week [address] Dan for ILK inj 10/09/2025 3:25 PM EST Appointment Radiology 5700 [place], [place] [phone] : Postmenopausal osteoporosis of multiple sites [M81.0] 01/01/2026 1:00 PM EST Office Visit Rheumatology [address] [place] [address] Nicci Coleman MD 57[address] [place], [place] [phone] follow documented as of this encounter Visit Diagnoses Not on filedocumented in this encounter Additional Health Concerns Infection Onset Date Last Indicated Resolved Time COVID-19 Rule-Out 06/02/2023 06/02/2023 06/02/2023 11:19 PM EDT documented as of this encounter Care Teams Breaker Layer Relationship Specialty Start Date End Date Martin Martinez DO PCP - General 02/26/06 Moses Francois MD [address] [facility] [place] [address] Obstetrics 09/22/23 09/22/23 Moses Francois MD [address] [place] [address] Obstetrics 09/22/23 documented as of this encounter
--- OUTSIDE RECORDS SUMMARY | 2025-03-30 10:51 | XMS_ITS | Encounter Summary ---
Author Organization [facility] Address [address] [place] [address] Care Team Providers Care Applications Trainer Name Role Phone Martin Martinez Primary Care Provider [phone] Moses Francois MD Unavailable [phone] Source Comments In the event this information is protected by the Federal Confidentiality of Alcohol and Drug AbusePatient Records regulations: The Federal rules restrict any use of the information to criminally investigate or prosecute any alcohol or drug abuse patient.[facility] Encounter Details Date Type Department Care Team (Late st Contact Info) Description 07/18/2024 Get Medical Advice Dermatology [address] [place], [place] [phone] [place] [address] [place] [address] Hair Social History Tobacco Use Types Packs/Day Years [...] N ot on file 12/01/2022 Data from: https://www.neighborhoodatlas.medicine.[facility].edu/. Last address used for calculation [address] [...] 1:30 PM EDT Office Visit Dermatology [address] [address] [place] [address] [place] [address] Return for 4-6 week [address] Dan for ILK inj 10/09/2025 3:25 PM EST Appointment Radiology 5700 [place], [place] [phone] : Postmenopausal osteoporosis of multiple sites [M81.0] 01/01/2026 1:00 PM EST Office Visit Rheumatology [address] [place] [address] Nicci Coleman MD [address] [place], [place] 1812[address] follow documented as of this encounter Visit Diagnoses Not on filedocumented in this encounter Care Teams Applications Trainer Relationship Specialty Start Date End Date Martin Martinez DO PCP - General 02/26/06 Moses Francois MD [address] [place] [address] Obstetrics 09/22/23 documented as of this encounter
--- OUTSIDE RECORDS SUMMARY | 2025-03-30 10:51 | XMS_ITS | Encounter Summary ---
Author Organization [facility] Address [address] [place] [address] Care Team Providers Care Chief Engineer Production Name Role Phone Martin Martinez Primary Care Provider [phone] Moses Francois MD Unavailable [phone] Source Comments In the event this information is protected by the Federal Confidentiality of Alcohol and Drug AbusePatient Records regulations: The Federal rules restrict any use of the information to criminally investigate or prosecute any alcohol or drug abuse patient.[facility] Encounter Details Date Type Department Care Team (Late st Contact Info) Description 07/13/2024 Get Medical Advice Dermatology [address] [place], [place] [phone] [place] [address] [place] [address] Biopsy Social History Tobacco Use Types Packs/Day Years [...] N ot on file 12/01/2022 Data from: https://www.neighborhoodatlas.medicine.[facility].edu/. Last address used for calculation [...] 1:30 PM EDT Office Visit Dermatology [address] [address] [place] [address] [place] [address] Return for 4-6 week [address] Dan for ILK inj 10/09/2025 3:25 PM EST Appointment Radiology 5700 [place], [place] [phone] : Postmenopausal osteoporosis of multiple sites [M81.0] 01/01/2026 1:00 PM EST Office Visit Rheumatology [address] [place] [address] Nicci Coleman MD [address] [facility] [place], [place] [phone] follow documented as of this encounter Visit Diagnoses Not on filedocumented in this encounter Care Teams Chief Engineer Production Relationship Specialty Start Date End Date Martin Martinez DO PCP - General 02/26/06 Moses Francois MD [address] [place] [address] Obstetrics 09/22/23 documented as of this encounter
--- OUTSIDE RECORDS SUMMARY | 2025-03-30 10:51 | XMS_ITS | Encounter Summary ---
Author Organization [facility] Address [address] [place] [address] Care Team Providers Care Twill Cutter Name Role Phone Martin Martinez Maria Dolores TORREZ Primary Care Provider [phone] Moses Francois MD Unavailable [phone] Source Comments In the event this information is protected by the Federal Confidentiality of Alcohol and Drug AbusePatient Records regulations: The Federal rules restrict any use of the information to criminally investigate or prosecute any alcohol or drug abuse patient.[facility] Encounter Details Date Type Department Care Team (Late st Contact Info) Description 03/12/2025 Get Medical Advice Dermatology [address] [place], [place] [phone] [place] [address] [place], [place] [phone] Face Social History Tobacco Use Types Packs/Day Years Used Date Smoking Tobacco: Never Smokeless Tobacco: Never Alcohol Use Standard Drinks/Week Comments Not Currently 0 (1 standard drink = 0.6 oz pur e alcohol) Area Deprivation Index Answer Date Sammy rded National Score (1-100), lower number is lower ri sk 65 08/08/2024 State Score (1-10), lower number is lower risk 4 08/08/2024 Data from: https://www.neighborhoodatlas.medicine.[facility].edu/. Last address used for calculation [address] [...] 1:30 PM EDT Office Visit Dermatology [address] [address] [place] [address] [place] [address] Return for 4-6 week [address] Dan for ILK inj 10/09/2025 3:25 PM EST Appointment Radiology [address] [place], [place] [address] : Postmenopausal osteoporosis of multiple sites [M81.0] 01/01/2026 1:00 PM EST Office Visit Rheumatology [address] [place] [address] Nicci Coleman MD [address] [facility] [address] [place], [place] [address] follow documented as of this encounter Visit Diagnoses Not on filedocumented in this encounter Care Teams Twill Cutter Relationship Specialty Start Date End Date Martin Martinez DO PCP - General 02/26/06 Moses Francois MD [address] [place] [address] Obstetrics 09/22/23 documented as of this encounter
--- OUTSIDE RECORDS SUMMARY | 2025-03-30 10:51 | XMS_ITS | Patient Health Record ---
Author Organization [facility] Address [address] [place] [address] Care Team Providers Care Armoring Machine Operator Name Role Phone Amber Rosario Primary Care Provider Allergies Allergen (clinical drug ingredient) Drug/Non Drug Allergy documented on EMR Reaction Allergy Type Onset Date Status cefaclor Cefaclor Unknown Drug Allergy Active sumatriptan Imitrex Unknown Drug Allergy Activ e tramadol Tramadol HCl Unknown Drug Allergy Acti ve Reason For Referral No Information Medications Medication SIG (Take, Route, Frequency, Duration) Notes Start Date End Date Status metFORMIN HCl 500 MG TAKE 1 TABLET BY MOUTH TWICE A DAY for 30 days Active hydrOXYzine Pamoate 25 MG 1-2 caps at bedtime Orally Once a day for 30 days As needed STOP Olanzapine 03/05/2025 Active Progesterone 100 MG 1 capsule at bedtime Orally Once a day for 30 days Active Gabapentin 600 MG TAKE 2 TABLETS BY MOUTH TWICE A DAY Active Estradiol 1 MG 1 tablet Orally Once a day Active Synthroid 100 MCG 1 tablet in the morning on an empty stomach Orally Once a day Active Plaquenil 200 MG as directed Orally Active dexAMETHasone 4 MG 1 tablet Orally twice a week Active Baclofen 5 MG TAKE 1 TABLET BY MOUTH THREE TIMES A DAY NEEDED FOR MUSCLE SPASM Not-Taking Social History Tobacco Use: Social History Observation Description Date Details (start date - stop date) Never Smoker NA - NA Tobacco Screen: Question Answer Notes Are you a: never smoker Alcohol Screening: Question Answer Notes Did you have a drink contain ing alcohol in the past year? Yes How often did you have a dri nk containing alcohol in the past year? Monthly or less (1 point) How many drinks did you have on a typical day when you were drinking in the past year? 1 or 2 (0 points) How often did you have six o r more drinks on one occasion in the past year? Never (0 points) Points 1 Interpretation Negative Depression Screening (PHQ-9): Question Answer Notes Little interest or pleasure in doing things Not at all Feeling down, depressed, or hopeless Not at all Trouble falling or staying asleep, or sleeping t oo much Not at all Feeling tired or having little energy Not at all Poor appetite or overeating Not at all Feeling bad about yourself-o r that you are a failure or have let yourself or your family down Not at all Trouble concentrating on thi ngs, such as reading the newspaper or watching television Not at all Moving or speaking so slowly that other people could have noticed. 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 [address] [place] [address] 03/05/2025 Amber Rosario BABS (generalized anxiety disorder) F41.1 and ADHD, predominantly inattentive type F90.0 [facility] [address] [place] [address] 03/22/2025 Amber Rosario ADHD, predominantly inattentive type F90.0 [facility] [address] [place] [address] 09/01/2024 Amber Rosario BABS (generalized anxiety disorder) F41.1 [place] [address] [place] [address] 11/21/2024 Amber Rosario Medication monitorin g encounter Z51.81 [place] [address] [place] [address] 11/24/2024 Amber Rosario [place] [address] [place] [address] 01/08/2025 Amber Rosario [facility] [address] [place] [address] 01/09/2025 Amber Rosario [facility] [address] [place] [address] 03/22/2025 Amber Rosario ADHD, predominantly inattentive type F90.0 Assessments Encounter Date Diagnosis (ICD Code) Assessment Notes Treatment Notes Treatment Clinical Notes Section Notes 09/01/2024 BABS (generalized anxiety disorder) (ICD-10 - F41.1) 11/21/2024 Medication monitoring encounter (ICD-10 - Z51.81) 03/05/2025 ADHD, predominantly inattentive type (ICD-10 - F90.0) . FDA approved stimulant medication for this age group. Discussed/Denies adverse effects from medication including HTN, tachycardia, insomnia, irritability, headache, or decreased appetite. . . Pharmacological management: . Alternative medication plans and off-label uses were discussed with the patient/guardian. All relevant side effects and potential adverse effects were discussed with the patient/guardian. Standard cautions and potential benefits were discussed. Patient/Guardian consented to the start/continuation of the treatment. . Medication list was reviewed and reconciled with the patient and or guardian. . 03/05/2025 BABS (generalized anxiety disorder) (ICD-10 - F41.1) start hydroxyzine at bedtime stop olanzapine due to side effects . . Informed consent obtained: YES, we discussed the diagnosis/diagnoses , the treatment options, treatment(s) recommended vs. no treatment. We discussed risks and benefits of treatment options, treatment recommendations vs. no treatment. . Discussed lifestyle/diet changes to help improve BMI. Recommend increasing activity, reducing portion sizes, limiting carbohydrates, increasing protein as appropriate. Discussed referral to structural metal fabricator apprentice if problem persists. . . Currently at low risk for self harm. Denies ongoing feelings of hopelessness. Denies ongoing suicidal ideation, intent or plan in session. . 03/22/2025 ADHD, predominantly inattentive type (ICD-10 - F90.0) 03/22/2025 ADHD, predominantly inattentive type (ICD-10 - F90.0) Plan Of Treatment Pending Test Test Name Order Date ECG 12 lead ECG 11/21/2024 Next Appt Details Provider Name:Amber Rosario, 06/04/2025 08:30:00 AM, [address], [place], [address], Insurance Providers Payer Name Payer Address Payer Phone Subscriber Number Group Number Insured Name Patient Relationship to Insured Coverage Start Date Coverage End Date [employer] [address] [place] [address] [id number] MARKO SORIANO Self - patient is the insured 1 Medical (General) History Medical History History ICD Code anxiety LPP, autoimmune hair loss Surgical History Surgery Date(Month/Year) hysterectomy, total with bilateral salpi bennett-oopherectomy (BSO) 09/2020 x 4 D&C x 5 appendectomy hernia ectopic exploratory laparoscopy x 2 oral surgery colonoscopy x 2 in 2022
--- OUTSIDE RECORDS SUMMARY | 2025-03-30 10:51 | XMS_ITS | Encounter Summary ---
Author Organization [facility] Address [address] [place] [address] Care Team Providers Care Transit Planning Manager Name Role Phone Martin Martinez Maria Dolores TORREZ Primary Care Provider [phone] Moses Francois MD Unavailable [phone] Source Comments In the event this information is protected by the Federal Confidentiality of Alcohol and Drug AbusePatient Records regulations: The Federal rules restrict any use of the information to criminally investigate or prosecute any alcohol or drug abuse patient.[facility] Encounter Details Date Type Department Care Team (Latest Contact Info) Description 03/27/2025 Travel Social History Tobacco Use Types Packs/Day Years Used Date Smoking Tobacco: Never Smokeless Tobacco: Never Alcohol Use Standard Drinks/Week Comments Not Currently 0 (1 standard drink = 0.6 oz pur e alcohol) Area Deprivation Index Answer Date Sammy rded National Score (1-100), lower number is lower ri sk 65 08/08/2024 State Score (1-10), lower number is lower risk 4 08/08/2024 Data from: https://www.neighborhoodatlas.medicine.[facility].edu/. Last address used for calculation 6 [...] 1:30 PM EDT Office Visit Dermatology [address] [address] [place] [address] [place] [address] Return for 4-6 week [address] Dan for ILK inj 10/09/2025 3:25 PM EST Appointment Radiology 5700 [place], [place] [id number] : Postmenopausal osteoporosis of multiple sites [M81.0] 01/01/2026 1:00 PM EST Office Visit Rheumatology [address] [place] [address] Nicci Coleman MD [address]00 [place] [address] follow documented as of this encounter Visit Diagnoses Not on filedocumented in this encounter Care Teams Transit Planning Manager Relationship Specialty Start Date End Date Martin Martinez DO PCP - General 02/26/06 Moses Francois MD [address] [place] [address] Obstetrics 09/22/23 documented as of this encounter
--- OUTSIDE RECORDS SUMMARY | 2025-03-30 10:51 | XMS_ITS | Encounter Summary ---
Author Organization [facility] Address [address] [place] [address] Care Team Providers Care Phlebotomy Supervisor Name Role Phone Martin Martinez Primary Care Provider [phone] Moses Francois MD Unavailable [phone] Source Comments In the event this information is protected by the Federal Confidentiality of Alcohol and Drug AbusePatient Records regulations: The Federal rules restrict any use of the information to criminally investigate or prosecute any alcohol or drug abuse patient.[facility] Encounter Details Date Type Department Care Team (Late st Contact Info) Description 07/11/2024 Get Medical Advice Dermatology [address] [place], [place] [id number] [place] [address] [place] [address] Meds Social History Tobacco Use Types Packs/Day Years [...] N ot on file 12/01/2022 Data from: https://www.neighborhoodatlas.medicine.[facility].edu/. Last address used for calculation [...] 1:30 PM EDT Office Visit Dermatology [address] [address] [place] [address] [place] [address] Return for 4-6 week [address] Dan for ILK inj 10/09/2025 3:25 PM EST Appointment Radiology 5700 [place], [place] [phone] : Postmenopausal osteoporosis of multiple sites [M81.0] 01/01/2026 1:00 PM EST Office Visit Rheumatology [address] [place] [address] Nicci Coleman MD [address] [place], [place] [phone] follow documented as of this encounter Visit Diagnoses Not on filedocumented in this encounter Care Teams Phlebotomy Supervisor Relationship Specialty Start Date End Date Martin Martinez DO PCP - General 02/26/06 Moses Francois MD [address] [place] [address] Obstetrics 09/22/23 documented as of this encounter
--- OUTSIDE RECORDS SUMMARY | 2025-03-30 10:52 | XMS_ITS | Encounter Summary ---
Author Organization [facility] Address [address] [place] [address] Care Team Providers Care Lidder Name Role Phone Martin Martinez Primary Care Provider [phone] Moses Francois MD Unavailable [phone] Source Comments In the event this information is protected by the Federal Confidentiality of Alcohol and Drug AbusePatient Records regulations: The Federal rules restrict any use of the information to criminally investigate or prosecute any alcohol or drug abuse patient.[facility] Encounter Details Date Type Department Care Team (Late st Contact Info) Description 12/12/2024 Patient Msg Dermatology [address] [place] [address] [place] [address] [place] [address] Appointment Request Social History Tobacco [...] is lower risk 4 08/08/2024 Data from: https://www.neighborhoodatlas.medicine.[facility]/. Last address used for calculation [address] [...] 1:30 PM EDT Office Visit Dermatology [address] [address] [place] [address] [place] [address] Return for 4-6 week [address] Dan for ILK inj 10/09/2025 3:25 PM EST Appointment Radiology 5700 [place], [place] [phone] : Postmenopausal osteoporosis of multiple sites [M81.0] 01/01/2026 1:00 PM EST Office Visit Rheumatology [address] [place] [address] Nicci Coleman MD [address] [place], [place] [phone] follow documented as of this encounter Visit Diagnoses Not on filedocumented in this encounter Care Teams Lidder Relationship Specialty Start Date End Date Martin Martinez DO PCP - General 02/26/06 Moses Francois MD [address] [place] [address] Obstetrics 09/22/23 documented as of this encounter
--- OUTSIDE RECORDS SUMMARY | 2025-03-30 10:52 | XMS_ITS | Encounter Summary ---
Author Organization [facility] Address [address] [place] [address] Care Team Providers Care Maintenance Of Way Superintendent Name Role Phone Martin Martinez Primary Care Provider [phone] Moses Francois MD Unavailable [phone] Source Comments In the event this information is protected by the Federal Confidentiality of Alcohol and Drug AbusePatient Records regulations: The Federal rules restrict any use of the information to criminally investigate or prosecute any alcohol or drug abuse patient.[facility] Encounter Details Date Type Department Care Team (Late st Contact Info) Description 11/21/2024 Get Medical Advice Dermatology [address] [place], [place] [phone] [place] [address] [place], [place] [phone] EKG Social History Tobacco Use Types Packs/Day Years Used Date Smoking Tobacco: Never Smokeless Tobacco: Never Alcohol Use Standard Drinks/Week Comments Not Currently 0 (1 standard drink = 0.6 oz pur e alcohol) Area Deprivation Index Answer Date Sammy rded National Score (1-100), lower number is lower ri sk 65 08/08/2024 State Score (1-10), lower number is lower risk 4 08/08/2024 Data from: https://www.neighborhoodatlas.medicine.[facility]/. Last address used for calculation [address] [...] 1:30 PM EDT Office Visit Dermatology [address] [address] [place] [address] [place] [address] Return for 4-6 week [address] Dan for ILK inj 10/09/2025 3:25 PM EST Appointment Radiology 5700 [place], [place] [phone] : Postmenopausal osteoporosis of multiple sites [M81.0] 01/01/2026 1:00 PM EST Office Visit Rheumatology [address] [place] [address] Nicci Coleman MD [address] [place], [place] [phone] follow documented as of this encounter Visit Diagnoses Not on filedocumented in this encounter Care Teams Maintenance Of Way Superintendent Relationship Specialty Start Date End Date Martin Martinez DO PCP - General 02/26/06 Moses Francois MD [address] [place] [address] Obstetrics 09/22/23 documented as of this encounter
--- OUTSIDE RECORDS SUMMARY | 2025-03-30 10:52 | XMS_ITS | Encounter Summary ---
Author Organization [facility] Address [address] [place] [address] Care Team Providers Care Airline Operations Agent Name Role Phone Martin Martinez Primary Care Provider [phone] Moses Francois MD Unavailable [phone] Source Comments In the event this information is protected by the Federal Confidentiality of Alcohol and Drug AbusePatient Records regulations: The Federal rules restrict any use of the information to criminally investigate or prosecute any alcohol or drug abuse patient.[facility] Encounter Details Date Type Department Care Team (Late st Contact Info) Description 11/21/2024 Get Medical Advice Dermatology [address] [place], [place] [phone] [place] [address] [place], [place] [phone] Labs Social History Tobacco Use Types Packs/Day Years Used Date Smoking Tobacco: Never Smokeless Tobacco: Never Alcohol Use Standard Drinks/Week Comments Not Currently 0 (1 standard drink = 0.6 oz pur e alcohol) Area Deprivation Index Answer Date Sammy rded National Score (1-100), lower number is lower ri sk 65 08/08/2024 State Score (1-10), lower number is lower risk 4 08/08/2024 Data from: https://www.neighborhoodatlas.medicine.[facility].edu/. Last address used for calculation [address] [...] 1:30 PM EDT Office Visit Dermatology [address] [address] [place] [address] [place] [address] Return for 4-6 week [address] Dan for ILK inj 10/09/2025 3:25 PM EST Appointment Radiology 5700 [place], [place] [id number] : Postmenopausal osteoporosis of multiple sites [M81.0] 01/01/2026 1:00 PM EST Office Visit Rheumatology [address] [place] [address] Nicci Coleman MD [address] [place], [place] [phone] follow documented as of this encounter Visit Diagnoses Not on filedocumented in this encounter Care Teams Airline Operations Agent Relationship Specialty Start Date End Date Martin Martinez DO PCP - General 02/26/06 Moses Francois MD [address] [place] [address] Obstetrics 09/22/23 documented as of this encounter
--- OUTSIDE RECORDS SUMMARY | 2025-03-30 10:52 | XMS_ITS | Encounter Summary ---
Author Organization [facility] Address [address] [place] [address] Care Team Providers Care Gas Appliance Adjuster Name Role Phone Martin Martinez Primary Care Provider [phone] Moses Francois MD Unavailable Unavaila ble Moses Francois MD Unavailable [phone] Source Comments In the event this information is protected by the Federal Confidentiality of Alcohol and Drug AbusePatient Records regulations: The Federal rules restrict any use of the information to criminally investigate or prosecute any alcohol or drug abuse patient.[facility] Encounter Details Date Type Department Care Team (Late st Contact Info) Description 09/17/2022 Patient Msg Ambulatory Surgery [address] [place] [address] Provider, [facility] Miralax prep instructions Social History Tobacco Use Types Packs/Day Years [...] N ot on file 10/13/2020 Data from: https://www.neighborhoodatlas.medicine.[facility].edu/. Last address used for calculation Not on [...] 1:30 PM EDT Office Visit Dermatology 2049 [place] [address] [place] [address] [place] [address] Return for 4-6 week [address] Dan for ILK inj 10/09/2025 3:25 PM EST Appointment Radiology 5700 [place], [place] [id number] : Postmenopausal osteoporosis of multiple sites [M81.0] 01/01/2026 1:00 PM EST Office Visit Rheumatology [address] [place] [address] Nicci Coleman MD [address] [place], [place] [phone] follow documented as of this encounter Visit Diagnoses Not on filedocumented in this encounter Additional Health Concerns Infection Onset Date Last Indicated Resolved Time COVID-19 Rule-Out 06/02/2023 06/02/2023 06/02/2023 11:19 PM EDT documented as of this encounter Care Teams Gas Appliance Adjuster Relationship Specialty Start Date End Date Martin Martinez DO PCP - General 4/21/06 Moses Francois MD [address] [facility] [place] [address] [facility] 09/22/23 09/22/23 Moses Francois MD [address] [place] [address] Obstetrics 09/22/23 documented as of this encounter
--- OUTSIDE RECORDS SUMMARY | 2025-03-30 10:52 | XMS_ITS | Encounter Summary ---
Author Organization [facility] Address [address] [place] [address] Care Team Providers Care Prepress Supervisor Name Role Phone Martin Martinez Maria Dolores TORREZ Primary Care Provider [phone] Moses Francois MD Unavailable Unavaila ble Moses Francois MD Unavailable [phone] Source Comments In the event this information is protected by the Federal Confidentiality of Alcohol and Drug AbusePatient Records regulations: The Federal rules restrict any use of the information to criminally investigate or prosecute any alcohol or drug abuse patient.[facility] Encounter Details Date Type Department Care Team (Late st Contact Info) Description 10/28/2022 Get Medical Advice Gastroenterology [address] [place] [address] Adrian Chappell Jr., DO [address] [place] [address] [place] [phone] Follow up Social History Tobacco Use Types Packs/Day Years [...] N ot on file 10/13/2020 Data from: https://www.neighborhoodatlas.medicine.[facility]/. Last address used for calculation Not on [...] 1:30 PM EDT Office Visit Dermatology [address] [place] [id number] [place] [address] [place], [place] [address] Return for 4-6 week [address] Dan for ILK inj 10/09/2025 3:25 PM EST Appointment Radiology [address] [place], [place] [phone] : Postmenopausal osteoporosis of multiple sites [M81.0] 01/01/2026 1:00 PM EST Office Visit Rheumatology [address] [place], [place] 37[address] Nicci Coleman MD [address] [place], [place] [phone] follow documented as of this encounter Visit Diagnoses Diagnosis Diarrhea, unspecified type- Primary Dyspepsia and disorder of function of stomach Dyspepsia and other specified disorders of function of stomach Pain of upper abdomen Abdominal pain, other specified site documented in this encounter Additional Health Concerns Infection Onset Date Last Indicated Resolved Time COVID-19 Rule-Out 06/02/2023 06/02/2023 06/02/2023 11:19 PM EDT documented as of this encounter Care Teams Prepress Supervisor Relationship Specialty Start Date End Date Martin Martinez DO PCP - General 02/26/06 Moses Francois MD [address] [place] [address] [facility] 09/22/23 09/22/23 Moses Francois MD [address] [place] [address] Obstetrics 09/22/23 documented as of this encounter
--- OUTSIDE RECORDS SUMMARY | 2025-03-30 10:52 | XMS_ITS | Encounter Summary ---
Author Organization [facility] Address [address] [place] [address] Care Team Providers Care Director Of National Sales Name Role Phone Martin Martinez Primary Care Provider [phone] Moses Francois MD Unavailable [phone] Source Comments In the event this information is protected by the Federal Confidentiality of Alcohol and Drug AbusePatient Records regulations: The Federal rules restrict any use of the information to criminally investigate or prosecute any alcohol or drug abuse patient.[facility] Encounter Details Date Type Department Care Team (Late st Contact Info) Description 11/22/2024 Get Medical Advice Dermatology [address] [place], [place] [phone] [place] [address] [place], [place] [phone] Plaquenil Social History Tobacco Use Types Packs/Day Years Used Date Smoking Tobacco: Never Smokeless Tobacco: Never Alcohol Use Standard Drinks/Week Comments Not Currently 0 (1 standard drink = 0.6 oz pur e alcohol) Area Deprivation Index Answer Date Sammy rded National Score (1-100), lower number is lower ri sk 65 08/08/2024 State Score (1-10), lower number is lower risk 4 08/08/2024 Data from: https://www.neighborhoodatlas.medicine.[facility]/. Last address used for calculation 6 [...] 1:30 PM EDT Office Visit Dermatology [address] [address] [place] [address] [place] [address] Return for 4-6 week [address] Dan for ILK inj 10/09/2025 3:25 PM EST Appointment Radiology 5700 [place], [place] [phone] : Postmenopausal osteoporosis of multiple sites [M81.0] 01/01/2026 1:00 PM EST Office Visit Rheumatology [address] [place] [address] Nicci Coleman MD [address] [place], [place] [address] follow documented as of this encounter Visit Diagnoses Not on filedocumented in this encounter Care Teams Director Of National Sales Relationship Specialty Start Date End Date Martin Martinez DO PCP - General 02/26/06 Moses Francois MD [address] [place] [address] Obstetrics 09/22/23 documented as of this encounter
--- OUTSIDE RECORDS SUMMARY | 2025-03-30 10:52 | XMS_ITS | Encounter Summary ---
Author Organization [facility] Address [address] [place] [address] Care Team Providers Care Research Recruiter Name Role Phone Martin Martinez Primary Care Provider [phone] Moses Francois MD Unavailable [phone] Source Comments In the event this information is protected by the Federal Confidentiality of Alcohol and Drug AbusePatient Records regulations: The Federal rules restrict any use of the information to criminally investigate or prosecute any alcohol or drug abuse patient.[facility] Encounter Details Date Type Department Care Team (Late st Contact Info) Description 01/17/2025 Get Medical Advice Dermatology [address] [place], [place] [id number] [place] [address] [place], [place] [phone] Minoxidil Social History Tobacco Use Types Packs/Day Years Used Date Smoking Tobacco: Never Smokeless Tobacco: Never Alcohol Use Standard Drinks/Week Comments Not Currently 0 (1 standard drink = 0.6 oz pur e alcohol) Area Deprivation Index Answer Date Sammy rded National Score (1-100), lower number is lower ri sk 65 08/08/2024 State Score (1-10), lower number is lower risk 4 08/08/2024 Data from: https://www.neighborhoodatlas.medicine.[facility]/. Last address used for calculation [address] [...] 1:30 PM EDT Office Visit Dermatology [address] [address] [place] [address] [place] [address] Return for 4-6 week [address] Dan for ILK inj 10/09/2025 3:25 PM EST Appointment Radiology [address] [place], [place] [id number] : Postmenopausal osteoporosis of multiple sites [M81.0] 01/01/2026 1:00 PM EST Office Visit Rheumatology [address] [place] [address] Nicci Coleman MD [address] [place], [place] [phone] follow documented as of this encounter Visit Diagnoses Not on filedocumented in this encounter Care Teams Research Recruiter Relationship Specialty Start Date End Date Martin Martinez DO PCP - General 02/26/06 Moses Francois MD [address] [place] [phone] Obstetrics 09/22/23 documented as of this encounter
--- OUTSIDE RECORDS SUMMARY | 2025-03-30 10:52 | XMS_ITS | Encounter Summary ---
Author Organization [facility] Address [address] [place] [address] Care Team Providers Care Power Shovel Operator Helper Name Role Phone Martin Martinez Primary Care Provider [phone] Moses Francois MD Unavailable [phone] Source Comments In the event this information is protected by the Federal Confidentiality of Alcohol and Drug AbusePatient Records regulations: The Federal rules restrict any use of the information to criminally investigate or prosecute any alcohol or drug abuse patient.[facility] Encounter Details Date Type Department Care Team (Late st Contact Info) Description 12/28/2024 Get Medical Advice Dermatology [address] [place], [place] [id number] [place] [address] [place] [address] Naltrexone Social History Tobacco Use Types Packs/Day Years [...] risk 4 08/08/2024 Data from: https://www.neighborhoodatlas.medicine.[facility].edu/. Last address used for calculation [address] [...] PM EDT Office Visit Dermatology [address] [address] [place] [address] [place] [address] Return for 4-6 week [address] Dan for ILK inj 10/09/2025 3:25 PM EST Appointment Radiology [address] [place], [place] [id number] : Postmenopausal osteoporosis of multiple sites [M81.0] 01/01/2026 1:00 PM EST Office Visit Rheumatology [address] [place] [address] Nicci Coleman MD [address] [place], [place] [phone] follow documented as of this encounter Visit Diagnoses Not on filedocumented in this encounter Care Teams Power Shovel Operator Helper Relationship Specialty Start Date End Date Martin Martinez DO PCP - General 02/26/06 Moses Francois MD [address] [place] [phone] Obstetrics 09/22/23 documented as of this encounter
--- OUTSIDE RECORDS SUMMARY | 2025-03-30 10:52 | XMS_ITS | Encounter Summary ---
Author Organization [facility] Address [facility] [place] [address] Care Team Providers Care Insecticide Supervisor Name Role Phone Martin Martinez Maria Dolores TORREZ Primary Care Provider [phone] Moses Francois MD Unavailable [phone] Source Comments In the event this information is protected by the Federal Confidentiality of Alcohol and Drug AbusePatient Records regulations: The Federal rules restrict any use of the information to criminally investigate or prosecute any alcohol or drug abuse patient.[facility] Encounter Details Date Type Department Care Team (Late st Contact Info) Description 12/11/2024 Patient [facility] HB-[address] [place] [address] Jihan Gonzalez RPh At your next appointment, choose [facility]. Social History Tobacco Use Types Packs/Day Years Used Date Smoking Tobacco: Never Smokeless Tobacco: Never Alcohol Use Standard Drinks/Week Comments Not Currently 0 (1 standard drink = 0.6 oz pur e alcohol) Area Deprivation Index Answer Date Sammy rded National Score (1-100), lower number is lower ri 65 08/08/2024 State Score (1-10), lower number is lower risk 4 08/08/2024 Data from: https://www.neighborhoodatlas.medicine[facility]/. Last address used for calculation 6 [...] PM EDT Office Visit Dermatology [address] [address] [place] [address] [place] [address] Return for 4-6 week [address] Dan for ILK inj 10/09/2025 3:25 PM EST Appointment Radiology [address] [place], [place] [phone] : Postmenopausal osteoporosis of multiple sites [M81.0] 01/01/2026 1:00 PM EST Office Visit Rheumatology [address] [place] [address] Nicci Coleman MD [address] [place] [address] follow documented as of this encounter Visit Diagnoses Not on filedocumented in this encounter Care Teams Insecticide Supervisor Relationship Specialty Start Date End Date Martin Martinez DO PCP - General 02/26/06 Moses Francois MD [address] [place] [address] Obstetrics 09/22/23 documented as of this encounter
--- OUTSIDE RECORDS SUMMARY | 2025-03-30 10:52 | XMS_ITS | Encounter Summary ---
Author Organization [facility] Address [address] [place] [address] Care Team Providers Care Parliamentary Archivist Name Role Phone Martin Martinez Primary Care Provider [phone] Moses Francois MD Unavailable [phone] Source Comments In the event this information is protected by the Federal Confidentiality of Alcohol and Drug AbusePatient Records regulations: The Federal rules restrict any use of the information to criminally investigate or prosecute any alcohol or drug abuse patient.[facility] Encounter Details Date Type Department Care Team (Late st Contact Info) Description 11/20/2024 Get Medical Advice Dermatology [address] [place], [place] [id number] [place] [address] [place] [address] Hair loss Social History Tobacco [...] is lower risk 4 08/08/2024 Data from: https://www.neighborhoodatlas.medicine.[facility]/. Last address used for [...] 1:30 PM EDT Office Visit Dermatology [address] [address] [place] [address] [place] [address] Return for 4-6 week [address] Dan for ILK inj 10/09/2025 3:25 PM EST Appointment Radiology [address] [place], [place] [phone] : Postmenopausal osteoporosis of multiple sites [M81.0] 01/01/2026 1:00 PM EST Office Visit Rheumatology [address] [place] [address] Nicci Coleman MD [address] [place], [place] [phone] follow documented as of this encounter Visit Diagnoses Not on filedocumented in this encounter Care Teams Parliamentary Archivist Relationship Specialty Start Date End Date Martin Martinez DO PCP - General 02/26/06 Moses Francois MD [address] [place] [phone] Obstetrics 09/22/23 documented as of this encounter
--- OUTSIDE RECORDS SUMMARY | 2025-03-30 10:52 | XMS_ITS | Clinical Summary ---
Author Organization [facility] Address [address] [place] [address] Care Team Providers Care Accounts Officer Name Role Phone JuanMartin Maria Dolores TORREZ Primary Care Provider [phone] Moses Francois MD Unavailable Allergies Active Allergy Reactions Criticality Noted Date Comments Cefaclor Hives 09/23/2012 Ciprofloxacin Hives 09/24/2022 Sumatriptan Succinate Anaphylaxis 09/23/2012 Respiratory Distress Tramadol GI Upset 08/18/2022 Nausea Medications Vit-Iron Fumarate-FA (CO- FA) 29-1 mg Tab Take 1 tab once daily 0 09/23/20 12 Active levothyroxine (SYNTHROID) 137 mcg tablet Take 1 tablet by mouth every morning. on an empty stomach. Wait one hour before eating or taking other medications. 90 tablet 0 01/02/20 14 Active Progesterone Micronized 100 mg inst Use 1 Suppository vaginally once daily. 0 06/16/20 16 Active estradiol (ESTRACE) 2 mg tablet with testoterone 07/30/20 22 Active rosuvastatin calcium (CRESTOR ORAL) Take by mouth. 05/18/20 22 Active metFORMIN (GLUCOPHAGE) 500 mg tablet TAKE 1 TABLET BY MOUTH TWICE A DAY FOR 90 DAYS 07/29/20 22 Active gabapentin (NEURONTIN) 600 mg tablet Take 1,200 mg by mouth three times a day. Active Ciclopirox 1 % shamIndications :Lichen planopilaris Use 2-3x weekly as needed. Massage shampoo into scalp until lather. Leave on for 3 to 5 minutes, then rinse thoroughly. 240 mL 5 08/08/20 24 Active naltrexone capsule 4.5 mg (CPD) Take 1 capsule by mouth once daily. 30 capsule 5 12/28/19 25 Active doxycycline monohydrate (MONODOX) 100 mg capsule Take 1 capsule by mouth two times a day. 180 capsule 01/16/20 25 Active Additional Information Patient not taking.Reported on 03/27/2025 OLANZapine (ZYPREXA) 7.5 mg tablet Take 7.5 mg by mouth daily at bedtime. Active dexAMETHasone (DECADRON) 4 mg tabletIndicatio ns:Lichen planopilaris Take 1 tab daily on Wednesday and Wednesday for 4 weeks 8 tablet 02/20/20 25 Active hydrOXYchloroQU INE (PLAQUENIL) 200 mg tabletIndicatio ns:Lichen planopilaris Take 1 tablet by mouth two times a day. 180 tablet 1 02/20/20 25 Active dexAMETHasone (DECADRON) 1 mg tabletIndicatio ns:Lichen planopilaris,Di sturbance of skin sensation Take 3 tablets daily on 2 consecutive days for 2 weeks. Then take 2 tablets daily on 2 consecutive days for 2 weeks then take 1 tablet on 2 consecutive days for 2 weeks then stop 24 tablet 02/28/20 25 Active fluocinonide (LIDEX) 0.05 % external solutionIndicat ions:Lichen planopilaris Apply to affected areas on scalp 3x weekly. Leave on for at least 8 hrs. Scalp treatment only, do not apply to lengths. 120 mL 3 03/17/20 25 Active fluocinonide (LIDEX) 0.05 % external solutionIndicat ions:Lichen planopilaris Apply to affected areas on scalp 3x weekly. Leave on for at least 8 hrs. Scalp treatment only, do not apply to lengths. 120 mL 3 08/08/20 24 025 Discontinued Hospital, Clinic, or Other Facility Administered Medication Ordered Dose Route Frequency Start Date End Date Status triamcinolone acetonide 20 mg injection (KeNALog 10) 20 mg INTRALESIONA EVERY 6 WEEKS 12/20/2024 Active triamcinolone acetonide 10 mg injection (KeNALog 10)Indications:Lic hen planopilaris,Distu rbance of skin sensation 10 mg INTRALESIONA ONCE 03/27/2025 Ended Active Problems Problem Noted Date Diagnosed Date Hair loss 02/06/2025 Thyroid disease 02/06/2025 Vitamin D deficiency 02/06/2025 Family history of rheumatoid arthritis Family history of osteoporosis in mother 025 Postmenopausal osteoporosis of multiple sites Previous delivery affecting , antepartum 11/15/2013 Obesity in , antepartum 11/15/2013 Maternal age 35+, multigravida, antepartum 11/14 Kel's thyroiditis 09/23/2012 Chronic fatigue 09/23/2012 Paresthesias 09/23/2012 Resolved Problems Problem Noted Date Diagnosed Date Resolved Date Diarrhea 09/24/2022 09/24/2022 Rectal bleeding 09/24/2022 09/24/2022 Abdominal pain 09/24/2022 09/24/2022 Other specified acquired hypothyroidism 09/23/2012 06/16/2016 Encounters Date Type Department Care Team Description 03/27/2025 11:15 AM EDT Office Visit Dermatology [id number] [place] [address] Roselyn Dan MD Lichen planopilaris (Primary Dx); Disturbance of skin sensation 03/27/2025 Travel 03/23/2025 9:[address] [facility] Dermatology [address] [place] [address] Roselyn Dan MD Facial erythema (Primary Dx) 03/23/2025 Travel 03/19/2025 Get Medical Advice [facility]atology [address] [facility] [place] [address] Roselyn Dan MD Sun burn 03/13/2025 Refill Dermatology [address] [place] [address] Mandy Calix MD Refill Request 03/13/2025 Get Medical Advice Dermatology [id number] [place] [address] [place] [address] Roselyn Dan MD Steroid 03/12/2025 Get Medical Advice Dermatology [address] [place] [address] Roselyn Dan MD Face 02/27/2025 11:30 AM EDT Office Visit Dermatology [id number] [place] [address] Roselyn Dan MD Lichen planopilaris (Primary Dx); Disturbance of skin sensation 02/11/2025 Telephone Rheumatology [address] [facility] [place], [place] [phone] Nicci Coleman MD Results 02/07/2025 Get Medical Advice Dermatology [id number] [place] [address] Roselyn Dan MD Labs 02/06/2025 10:00 AM EDT Office Visit Rheumatology [address] [place] [address] Nicci Coleman MD Hair loss (Primary Dx); Elevated LFTs; Anemia of chronic disease; Elevated sed rate; Elevated C-reactive protein (CRP); Vitamin D deficiency; Vitamin B12 deficiency; Screening-pulmonary TB; Postmenopausal osteoporosis of multiple sites; Iron deficiency; Thyroid disease; Hypotestosteronemia; Hyperuricemia; Mixed hyperlipidemia; Chronic fatigue; Family history of rheumatoid arthritis; Family history of osteoporosis in mother 02/02/2025 Get Medical Advice Dermatology [address] [place] [address] Roselyn Dan MD Steroid 01/26/2025 1:[address] [facility] Dermatology [address] [place] [address] Roselyn Dan MD Lichen planopilaris (Primary Dx) 01/26/2025 Travel 01/19/2025 4:20 PM EDT Nurse Visit Dermatology [address] [place] [address] Rej, Nurse Derm [facility] Lichen planopilaris (Primary Dx) 01/17/2025 Get Medical Advice Dermatology [address] [place] [address] Mandy Calix MD Minoxidil 01/15/2025 Refill Dermatology [address] [place] [address] [place] [address] Mandy Calix MD Refill Request 01/05/2025 1:00 PM EST Office Visit Dermatology [address] [place] [address] Mandy Calix MD Lichen planopilaris (Primary Dx); Encounter for medication management 01/01/2025 Telephone Dermatology [address] [place], [place] [phone] Mandy Calix MD Refill Request from Last 3 Months Family History Medical History Relation Comments None Brother None Daughter Cancer Father prostate Hypertension Father Rheumatoid Arthritis [Other] Father Osteoporosis Mother None Son Relation Status Comments Brother Daughter Father Mother Son Social History Tobacco Use Types Packs/Day Years Used Date Smoking Tobacco: Never Smokeless Tobacco: Never Tobacco Cessation:Counseling Given: Not Answered Alcohol Use Standard Drinks/Week Comments Not Currently 0 (1 standard drink = 0.6 oz pur e alcohol) Area Deprivation Index Answer Date Sammy rded National Score (1-100), lower number is lower ri sk 65 08/08/2024 State Score (1-10), lower number is lower risk 4 08/08/2024 Data from: https://www.neighborhoodatlas.medicine.[facility].edu/. Last address used for calculation [address] 08/08/2024 Comments Unknown Sex and Gender Information Value Date Recorded Sex Assigned at Not on file Legal Sex Female 8:02 AM EST Gender Identity Not on file Sexual Orientation Not on file Occupation Industry Job Start Date Job End Date [employer] Not on file Not on file Not on file Last Filed Vital Signs Vital Sign Reading Time Taken Comments Blood Pressure 135/79 02/06/2025 10:07 AM EDT Pulse 76 02/06/2025 10:07 AM EDT Temperature 36.9 C (98.4 F) 06/03/2023 12:18 AM EDT Respiratory Rate 16 06/03/2023 12:18 AM EDT Oxygen Saturation 99% 06/03/2023 12:18 AM EDT Inhaled Oxygen Concentration - - Weight 69 kg (152 lb 1.9 oz) 02/06/2025 10:07 AM EDT Height 157.5 cm (5' 2 ) 02/06/2025 10:07 AM EDT Body Mass Index 27.82 02/06/2025 10:07 AM EDT Plan of Treatment Upcoming Encounters Date Type Department Care Team (Late st Contact Info) Description 04/25/2025 1:30 PM EDT Office Visit Dermatology [address] [address] [place] [address] [place] [address] Return for 4-6 week [address] Dan for ILK inj 10/09/2025 3:25 PM EST Appointment Radiology [address] [place], [place] [phone] : Postmenopausal osteoporosis of multiple sites [M81.0] 01/01/2026 1:00 PM EST Office Visit Rheumatology [address] [place] [address] Nicci Coleman MD [address] [place], [place] [phone] follow Health Maintenance Due Date Last Done Comments Anxiety Screening 1992 Depression Screening 1992 HIV Screening 1992 DTaP,Tdap,Td Vaccine (1 - Tdap) 08/28/2014 4 Cervical Cancer Screening 06/08/2015 06/08/2012 CT Colonography 2019 Cologuard (FIT-DNA) 2019 Fecal Occult Blood 2019 Sigmoidoscopy 2019 Colonoscopy 09/24/2023 09/24/2022 Colorectal Cancer Screening 09/24/2023 Mammogram Screening 03/26/2024 03/26/2023, 03/26/2023, 03/24/2022, Additional history exists Covid-19 Vaccine (4 - 2023-2 5 season) 2024 09/20/2021, 12/18/2020, 11/20/2020 Pneumococcal Vaccine: 50+ (1 of 1 - PCV) 2024 Shingrix Vaccine (1 of 2) 2024 Influenza Vaccine (Season Ended) 2025 10/01/2023, 10/27/2022, 08/08/2021, Additional history exists Diabetes Screening 02/07/2028 02/06/2025, 0 06/02/2023, 11/05/2012, Additional history exists Lipid Screening 02/06/2030 02/06/2025, 10/10, 09/23/2012 Hepatitis C Screening Completed 02/06/2025 , 02/06/2025, 10/18/2015 Procedures Procedure Name Priority Date/Time Associated Diagnosis Comments PHOTO SCALP COMPLETE 02/27/2025 12:04 PM EDT HEP B CORE AB TOTAL Routine 02/06/2025 1 1:15 AM EDT Elevated LFTs HEP B SURF AB QUAL Routine 02/06/2025 11 :15 AM EDT Elevated LFTs HEP B SURF AG SCRN Routine 02/06/2025 11 :15 AM EDT Elevated LFTs HEPATITIS C ANTIBODY IA WITH CONFIRMATION Routine 02/06/2025 11:15 AM EDT Elevated LFTs FERRITIN BLD Routine 02/06/2025 11:15 AM EDT Iron deficiency IRON + TIBC Routine 02/06/2025 11:15 AM EDT Iron deficiency LIPID PANEL, FASTING Routine 02/06/2025 11:15 AM EDT Mixed hyperlipidemia TSH BLD Routine 02/06/2025 11:15 AM EDT Thyroid disease T4 FREE/FREE THYROX Routine 02/06/2025 1 1:15 AM EDT Thyroid disease T3 BLD Routine 02/06/2025 11:15 AM EDT Thyroid disease PROGESTERONE BLD Routine 02/06/2025 11:1 5 AM EDT Fatigue, unspecified type ESTRADIOL-17B BLD Routine 02/06/2025 11: 15 AM EDT Fatigue, unspecified type TESTOSTERONE, TOTAL BY IMMUNOASSAY (ADULT MALES, OR INDIVIDUALS ON TESTOSTERONE THERAPY) Routine 02/06/2025 11:15 AM EDT Hypotestosteronemia URIC ACID BLOOD Routine 02/06/2025 11:15 AM EDT Hyperuricemia VITAMIN B12 BLOOD Routine 02/06/2025 11: 15 AM EDT Vitamin B12 deficiency VITAMIN D 25 HYDROXY Routine 02/06/2025 11:15 AM EDT Vitamin D deficiency COMPLETE BLOOD COUNT Routine 02/06/2025 11:15 AM EDT Anemia of chronic disease COMPREHENSIVE METABOLIC PANEL Routine 02/06/2025 11:15 AM EDT Elevated LFTs BLOOD TB SCREEN Routine 02/06/2025 11:15 AM EDT Screening-pulmonary TB HEP REMOTE PANEL BL Routine 02/06/2025 1 1:15 AM EDT Elevated LFTs C-REACTIVE PROTEIN (CRP) Routine 02/06/2025 11:15 AM EDT Elevated sed rate Elevated C-reactive protein (CRP) SED RATE WESTERGREN Routine 02/06/2025 1 1:15 AM EDT Elevated sed rate Elevated C-reactive protein (CRP) PRESTON BY IFA WITH REFLEX Routine 02/06/2025 11:15 AM EDT Elevated sed rate CCP ANTIBODY IGG Routine 02/06/2025 11:1 5 AM EDT Elevated sed rate RHEUMATOID FACTOR BL Routine 02/06/2025 11:15 AM EDT Elevated sed rate COLONOSCOPY DIAGNOSTIC Routine 09/24/2022 1:52 PM EST Lower abdominal pain Diarrhea, unspecified type Loss of weight Blood in stool Diarrhea, unspecified type from Last 3 Months or Most Recently Relevant to Health Maintenance Results * PHOTO SCALP COMPLETE (02/27/2025 12:04 PM EDT) Anatomical Region Laterality Modality Other 02/27/2025 12:0 4 PM EDT [facility] Provider IMAGES Final Result * PRESTON BY IFA WITH REFLEX (02/06/2025 11:15 AM EDT) PRESTON Negative Negative 02/07/2025 2:46 PM EDT [facility] Comment: Anti-nuclear antibody test is used as an aid in diagnosis of systemic autoimmune diseases. Where positive and clinically warranted, follow-up using disease- specific testing is recommended. Low positive titers are not uncommon with advanced age, certain chronic infections, and malignancies among others. Test methodology: Indirect fluorescence immunoassay (IFA) using HEp-2 cells. Blood BLOOD SPECIMEN / Unknown Venipuncture / Unknown 02/06/2025 11:15 AM EDT 02/06/2025 11:16 AM EDT Nicci Coleman MD LABORATORY Final Result [facility] [address] [place] [address], * BLOOD TB SCREEN (02/06/2025 11:15 AM EDT) TB Nil 0.02 <=8.00 IU/mL 02/07/2025 3:43 PM EDT [facility] TB1 Ag minus Nil 0.01 <0.35 IU/mL 02/07/2025 3:43 PM EDT [facility] TB2 Ag minus Nil 0.00 <0.35 IU/mL 02/07/2025 3:43 PM EDT [facility] TB Result Negative 02/07/2025 3:43 PM EDT [facility] Mitogen minus Nil 3.36 >=0.50 IU/mL 02/07/2025 3:43 PM EDT [facility] TB Gamma Interpretation Infection with M. tuberculosis complex is unlikely. If latent tuberculosis infection is highly suspected, a negative result does not rule out the infection. Specimens from immunocompromised patients and those <5 years of age may show false negative results. In case of a contact investigation, please repeat 8-12 weeks after a known exposure. 02/07/2025 3:43 PM EDT [facility] Blood BLOOD SPECIMEN / Unknown Venipuncture / Unknown 02/06/2025 11:15 AM EDT 02/06/2025 11:16 AM EDT us Nicci Coleman MD LABORATORY Final Result Performing Organization Address City/[facility]/ZIP Co de Phone Number [facility] [address] [address], [place] * CCP ANTIBODY IGG (02/06/2025 11:15 AM EDT) [facility] CCP Antibody IgG Qualitative Negative Negative 02/07/2025 12:28 PM EDT [facility] Antibody, IgG <15 <20 Units 02/07/2025 12:28 PM EDT [facility] Blood BLOOD SPECIMEN / Unknown Venipuncture / Unknown 02/06/2025 11:15 AM EDT 02/06/2025 11:16 AM EDT Narrative [facility] - 02/07/2025 12:28 PM EDT This test is used as aid in diagnosis of Rheumatoid arthritis (RA). A negative result cannot rule out RA where clinically suspected. Clinical correlation is required. The following results were obtained with an ORDISSIMO QUANTA Lite CCP IgG ADELIA. Cyclic Citrullinated Peptide IgG values obtained with different manufacturers' assay methods may not be used interchangeably. The magnitude of the reported IgG levels cannot be correlated to an endpoint titer. us Nicci Coleman MD LABORATORY Final Result Performing Organization Address [facility] Co de Phone Number [facility] [address] [address], [place] * VITAMIN D 25 HYDROXY (02/06/2025 11:15 AM EDT) [facility] Vitamin D 25 Hydroxy 69.6 31.0 - 80.0 ng/mL 02/06/2025 5:51 PM EDT [facility] Blood BLOOD SPECIMEN / Unknown Venipuncture / Unknown 02/06/2025 11:15 AM EDT 02/06/2025 11:16 AM EDT us Nicci Coleman MD LABORATORY Final Result [facility] [address] [facility] [address] [place] [address], [place] * VITAMIN B12 (02/06/2025 11:15 AM EDT) Vitamin B12 534 232 - 1,245 pg/mL 02/06/2025 12:40 PM EDT [facility] Blood BLOOD SPECIMEN / Unknown Venipuncture / Unknown 02/06/2025 11:15 AM EDT 02/06/2025 11:16 AM EDT us Nicci Coleman MD LABORATORY Final Result [facility] [address] [facility] [place] [address], [place] * URIC ACID (02/06/2025 11:15 AM EDT) Uric Acid 5.1 2.5 - 6.6 mg/dL 02/06/2025 12:24 PM EDT [facility] Blood BLOOD SPECIMEN / Unknown Venipuncture / Unknown 02/06/2025 11:15 AM EDT 02/06/2025 11:16 AM EDT us Nicci Coleman MD LABORATORY Final Result [facility] [address] [facility] [place] [address], [place] * (ABNORMAL) TESTOSTERONE, TOTAL BY IMMUNOASSAY (ADULT MALES, OR INDIVIDUALS ON TESTOSTERONE THERAPY)(02/06/2025 11:15 AM EDT) Testosterone 55(H) <40 ng/dL 02/06/2025 5:26 PM EDT [facility] Blood BLOOD SPECIMEN / Unknown Venipuncture / Unknown 02/06/2025 11:15 AM EDT 02/06/2025 11:16 AM EDT Nicci Coleman MD LABORATORY Final Result [facility] [address] [facility] [address] [place] [address], [place] * THYROID STIMULATING HORMONE (02/06/2025 11:15 AM EDT) TSH 0.688 0.270 - 4.200 mIU/L 02/06/2025 12:29 PM EDT [facility] Comment: If the patient is , TSH reference range varies by gestational period: First Trimester (weeks 9-12): 0.180-2.990 mIU/L Second Trimester: 0.110-3.980 mIU/L Third Trimester: 0.480-4.710 mIU/L Librado Rodriguez et al. A Practical Approach for the Verifications and Determination of Site- and Trimester-Specific Reference Intervals for Thyroid Function tests in . Thyroid, 2019:29:3:412-420. Regulo E, et al. 2017 Guidelines of the [place] Thyroid Association for the Diagnosis and Management of Thyroid Disease during and the . Thyroid, 2017:27:3:315-389. Blood BLOOD SPECIMEN / Unknown Venipuncture / Unknown 02/06/2025 11:15 AM EDT 02/06/2025 11:16 AM EDT Nicci Coleman MD LABORATORY Final Result [facility] [address] [facility] [place] [address], [place] * T4 FREE/FREE THYROXINE (02/06/2025 11:15 AM EDT) Free T4 1.1 0.9 - 1.7 ng/dL 02/06/2025 5:26 PM EDT [facility] Blood BLOOD SPECIMEN / Unknown Venipuncture / Unknown 02/06/2025 11:15 AM EDT 02/06/2025 11:16 AM EDT us Nicci Coleman MD LABORATORY Final Result [facility] [address] [facility] [place] [id number], [place] * T3 (02/06/2025 11:15 AM EDT) T3 114 79 - 165 ng/dL 02/06/2025 5:26 PM EDT [facility] Blood BLOOD SPECIMEN / Unknown Venipuncture / Unknown 02/06/2025 11:15 AM EDT 02/06/2025 11:16 AM EDT us Nicci Coleman MD LABORATORY Final Result Performing Organization Address City/[facility]/ZIP Co de Phone Number [facility] [address] [place] [address], [place] * SEDIMENTATION RATE, WESTERGREN (02/06/2025 11:15 AM EDT) Sed Rate, Westergren 5 0 - 20 mm/hr 02/06/2025 2:52 PM EDT [facility] Blood BLOOD SPECIMEN / Unknown Venipuncture / Unknown 02/06/2025 11:15 AM EDT 02/06/2025 11:16 AM EDT us Nicci Coleman MD LABORATORY Final Result [facility] [address] [facility] [place] [id number], [place] * RHEUMATOID FACTOR (02/06/2025 11:15 AM EDT) Rheumatoid Factor <10 <16 IU/mL 02/06/2025 5:48 PM EDT [facility] Blood BLOOD SPECIMEN / Unknown Venipuncture / Unknown 02/06/2025 11:15 AM EDT 02/06/2025 11:16 AM EDT us Nicci Coleman MD LABORATORY Final Result [facility] [address] [facility] [address] [place] [address], [place] * PROGESTERONE (02/06/2025 11:15 AM EDT) Progesterone 2.1 See comment ng/mL 02/06/2025 12:29 PM EDT [facility] Comment: Menstrual Cycle Progesterone Reference Ranges: Follicular: <1.0 ng/mL Ovulation: <12.1 ng/mL Luteal: 1.8 to 23.9 ng/mL. Progesterone Reference Ranges vary by gestational period: First Trimester: 11.0 to 44.3 ng/mL Second Trimester: 25.4 to 83.3 ng/mL Third Trimester: 58.7 to 214 ng/mL Post menopausal Progesterone: <0.5 ng/mL Reference: 1. Progesterone (Progesterone III) [package insert V 1.0 Cymro]. [facility], [place], [place]. August 2015. Blood BLOOD SPECIMEN / Unknown Venipuncture / Unknown 02/06/2025 11:15 AM EDT 02/06/2025 11:16 AM EDT us Nicci Coleman MD LABORATORY Final Result [facility] [address] [facility] [place] [address], [place] * LIPID PANEL, FASTING (02/06/2025 11:15 AM EDT) Cholesterol, Total 155 <200 mg/dL 02/06/2025 12:35 PM EDT [facility] Comment: <200 mg/dL, Desirable 200-239 mg/dL, Borderline high >239 mg/dL, High Triglyceride 113 <150 mg/dL 02/06/2025 12:35 PM EDT [facility] Comment: <150 mg/dL, Normal 150-199 mg/dL, Borderline high 200-499 mg/dL, High >499 mg/dL, Very high HDL Cholesterol 75 >39 mg/dL 12:35 PM [facility] Comment: 40-59 mg/dL, Acceptable >59 mg/dL, High: Negative risk factor for coronary heart disease <40 mg/dL, Low: Positive risk factor for coronary heart disease Non HDL Cholesterol 80 <130 mg/dL 02/06/2025 12:35 PM [facility] Comment: <130 mg/dL, Optimal 130-159 mg/dL, Near optimal/above optimal 160-189 mg/dL, Borderline high 190-219 mg/dL, High >219 mg/dL, Very high Secondary prevention optimal non HDL Cholesterol levels are recommended to be <100 mg/dL Fasting Time 12 hrs 02/06/2025 12:35 PM [facility] VLDL Cholesterol 23 <30 mg/dL 02/07/20 12:35 PM [facility] TC:HDL Ratio 2.07 <5.10 02/06/2025 12:35 PM [facility] LDL Cholesterol, Calculated 57 <100 mg/dL 02/06/2025 12:35 PM [facility] Comment: <100 mg/dL, Optimal 100-129 mg/dL, Near optimal/above optimal 130-159 mg/dL, Borderline high 160-189 mg/dL, High >189 mg/dL, Very high Secondary prevention optimal LDL Cholesterol levels are recommended to be < 70 mg/dL LDL:HDL Ratio 0.76 <2.54 02/06/2025 12:35 PM [facility] Comment: Reference: 1. National Cholesterol Education Program ATP III Guideline At-A-Glance Quick Desk Reference: National Heart, Lung, and Blood [place]. National Institutes of Health. 2001: NIH Publication No. 01-3305. 2. An International Atherosclerosis Society position paper: global recommendations for the management of dyslipidemia: executive summary, Atherosclerosis. 2014: 232(2):410-413. Blood BLOOD SPECIMEN / Unknown Venipuncture / Unknown 02/06/2025 11:15 AM EDT 02/06/2025 11:16 AM EDT us Nicci Coleman MD LABORATORY Final Result [facility] [address] [place] [address], [place] * IRON AND TIBC (02/06/2025 11:15 AM EDT) Iron 88 41 - 186 ug/dL 02/06/2025 12:41 PM EDT [facility] TIBC 02/06/2025 12:41 PM EDT [facility] Comment:Unable to report Transferrin Saturation 02/06/2025 12:41 PM EDT [facility] Comment:Unable to report Blood BLOOD SPECIMEN / Unknown Venipuncture / Unknown 02/06/2025 11:15 AM EDT 02/06/2025 11:16 AM EDT us Nicci Coleman MD LABORATORY Final Result [facility] [address] [facility] [place] [address], [place] * HEPATITIS B SURFACE ANTIGEN (02/06/2025 11:15 AM EDT) HBsAg Negative Negative 02/06/2025 5:48 PM EDT [facility] Blood BLOOD SPECIMEN / Unknown Venipuncture / Unknown 02/06/2025 11:15 AM EDT 02/06/2025 11:16 AM EDT Nicci Coleman MD LABORATORY Final Result [facility] [address] [address], [place] * HEPATITIS B SURFACE ANTIBODY (02/06/2025 11:15 AM EDT) Hep B Surface Ab, Qual Positive 02/06/2025 5:48 PM EDT [facility] Comment:Consistent with sero logical evidence of immunity to Hepatitis B Virus. Hep B Surface Ab Quant 445.97 mIU/mL 02/06/2025 5:48 PM EDT [facility] Comment: <8 mIU/mL: No serological evidence of immunity to Hepatitis B Virus. >/= 8 to <12 mIU/mL: No serological evidence of immunity to Hepatitis B Virus. >/= 12 mIU/mL: Consistent with serological evidence of immunity to Hepatitis B Virus. Blood BLOOD SPECIMEN / Unknown Venipuncture / Unknown 02/06/2025 11:15 AM EDT 02/06/2025 11:16 AM EDT us Nicci Coleman MD LABORATORY Final Result Performing Organization Address [facility] Co de Phone Number [facility] [address] [address], [place] * HEPATITIS B CORE ANTIBODY TOTAL (02/06/2025 11:15 AM EDT) Hepatitis B Core Ab, Total Negative Negative 02/06/2025 5:47 PM EDT [facility] Comment:No evidence of curre nt or past infection with Hepatitis B virus. Should recent infection be suspected, repeat testing may be considered 3-4 weeks after this draw. Blood BLOOD SPECIMEN / Unknown Venipuncture / Unknown 02/06/2025 11:15 AM EDT 02/06/2025 11:16 AM EDT us Nicci Coleman MD LABORATORY Final Result Performing Organization Address [facility] de Phone Number [facility] [address] [address], [place] * FERRITIN (02/06/2025 11:15 AM EDT) Ferritin 154.9 14.7 - 205.1 ng/mL 02/06/2025 12:40 PM EDT [facility] Blood BLOOD SPECIMEN / Unknown Venipuncture / Unknown 02/06/2025 11:15 AM EDT 02/06/2025 11:16 AM EDT us Nicci Coleman MD LABORATORY Final Result Performing Organization Address City/[facility] Co de Phone Number [facility] [address] [place] [address], [place] * ESTRADIOL-17B BLD (02/06/2025 11:15 AM EDT) Pathologist [facility] Estradiol 17B <25 8 - 37 pg/mL 02/06/2025 12:27 PM T [facility] Comment: This test is not suitable for [...] 3243 pg/mL Second trimester : 1561 to 48353 pg/mL Third trimester : 8285 to >43937 pg/mL Post-menopausal Estradiol reference range: < 41 pg/mL Reference: 1. Estradiol - E2 (Estradiol III) [package insert V 3.0 Cymro]. [facility], [place], [place], April 2016. Blood BLOOD SPECIMEN / Unknown Venipuncture / Unknown 02/06/2025 11:15 AM EDT 02/06/2025 11:16 AM EDT us Nicci Coleman MD LABORATORY Final Result [facility] [address] [place] [address], * (ABNORMAL) COMPREHENSIVE METABOLIC PANEL (02/06/2025 11:15 AM EDT) Pathologist [facility] Protein, Total 6.2(L) 6.3 - 8.0 g/dL 02/06/2025 12:24 PM T [facility] Albumin 3.7(L) 3.9 - 4.9 g/dL 02/06/2025 12:24 PM [facility] Calcium, Total 9.2 8.5 - 10.2 mg/dL 02/06/2025 12:24 PM [facility] Bilirubin, Total 0.5 0.2 - 1.3 mg/dL 02/06/2025 12:24 PM [facility] Alkaline Phosphatase 96 34 - 123 U/L 02/06/2025 12:24 PM [facility] AST 68(H) 13 - 35 U/L 02/06/2025 12:24 PM [facility] ALT 88(H) 7 - 38 U/L 02/06/2025 12:24 PM [facility] Glucose 85 74 - 99 mg/dL 02/06/2025 12:24 PM [facility] Comment: The [place] [employer] (ADA) provides guidance for cutoff [...] Standards of Medical Care in Diabetes 2016, [place] [employer]. Diabetes Care. 2016.39(Suppl 1). BUN 14 7 - 21 mg/dL 02/06/2025 12:24 PM [facility] Creatinine 0.80 0.58 - 0.96 mg/dL 02/06/2025 12:24 PM [facility] Sodium 143 136 - 144 mmol/L 02/06/2025 12:24 PM [facility] Potassium 4.7 3.7 - 5.1 mmol/L 02/06/2025 12:24 PM [facility] Chloride 107 98 - 107 mmol/L 02/06/2025 12:24 PM [facility] CO2 22 22 - 30 mmol/L 02/06/2025 12:24 PM [facility] Anion Gap 14 8 - 15 mmol/L 02/06/2025 12:24 PM [facility] Estimated Glomerular Filtration Rate 90 >=60 mL/min/1. 73m 02/06/2025 12:24 PM [facility] Comment:Estimated Glomerular Filtration Rate (eGFR) is calculated using the 2020 CKD-EPI creatinine equation. This equation utilizes serum creatinine, sex, and age as parameters. The creatinine assay has traceable calibration to isotope dilution- mass spectrometry. Refer to KDIGO guidelines for clinical interpretation. In patients with unstable renal function, e.g. those with acute kidney injury, the eGFR may not accurately reflect actual GFR. Blood BLOOD SPECIMEN / Unknown Venipuncture / Unknown 02/06/2025 11:15 AM EDT 02/06/2025 11:16 AM EDT us Nicci Coleman MD LABORATORY Final Result [facility] [address] [facility] [place] [address], [place] * COMPLETE BLOOD COUNT (02/06/2025 11:15 AM EDT) WBC 6.93 3.70 - 11.00 k/uL 02/06/2025 11:46 AM [facility] RBC 4.59 3.90 - 5.20 m/uL 02/06/2025 11:46 AM [facility] Hemoglobin 13.8 11.5 - 15.5 g/dL 02/06/2025 11:46 AM [facility] Hematocrit 40.5 36.0 - 46.0 % 02/06/2025 11:46 AM [facility] MCV 88.2 80.0 - 100.0 fL 02/06/2025 11:46 AM [facility] MCH 30.1 26.0 - 34.0 pg 02/06/2025 11:46 AM [facility] MCHC 34.1 30.5 - 36.0 g/dL 02/06/2025 11:46 AM [facility] RDW-CV 13.8 11.5 - 15.0 % 02/06/2025 11:46 AM [facility] Platelet Count 256 150 - 400 k/uL 02/06/2025 11:46 AM [facility] MPV 11.7 9.0 - 12.7 fL 02/06/2025 11:46 AM [facility] Absolute nRBC <0.01 <0.01 k/uL 02/06/2025 11:46 AM [facility] Blood BLOOD SPECIMEN / Unknown Venipuncture / Unknown 02/06/2025 11:15 AM EDT 02/06/2025 11:16 AM EDT us Nicci Coleman MD LABORATORY Final Result [facility] [address] [facility] [place] [address], [place] * C-REACTIVE PROTEIN (02/06/2025 11:15 AM EDT) Pathologist [facility] CRP <0.3 <0.9 mg/dL 02/06/2025 12:27 PM EDT [facility] Blood BLOOD SPECIMEN / Unknown Venipuncture / Unknown 02/06/2025 11:15 AM EDT 02/06/2025 11:16 AM EDT us Nicci Coleman MD LABORATORY Final Result Performing Organization Address [facility] Co de Phone Number [facility] [address] [facility] [place] [address], [place] * HEPATITIS C ANTIBODY IA WITH CONFIRMATION (02/06/2025 11:15 AM EDT) [facility] Hep C Antibody IA Negative Negative 02/06/2025 5:58 PM EDT [facility] Comment:The result suggests no evidence of infection with Hepatitis C virus. Should recent infection be suspected, repeat testing may be considered 4-6 weeks after this draw. Blood BLOOD SPECIMEN / Unknown Venipuncture / Unknown 02/06/2025 11:15 AM EDT 02/06/2025 11:16 AM EDT us Nicci Coleman MD LABORATORY Final Result [facility] [address] [facility] [address] [place] [address], [place] * COLONOSCOPY DIAGNOSTIC (09/24/2022 1:52 PM EST) Anatomical Region Laterality Modality Other 09/24/2022 1:52 PM EST Narrative 09/24/2022 2:39 PM EST [place] [facility] Gastrointestinal Endoscopy Patient Name: João Warren Procedure Date: 09/24/2022 1:52 PM Date of : 1975 Admit Type: Outpatient Age: 47 Gender: Female Note Status: Finalized Procedure: Colonoscopy Indications: Generalized abdominal pain, Chronic diarrhea, Rectal bleeding, history of recent hemorrhoidal banding Providers: Adrian Chappell Jr, DO Patient Profile: This is a 47 year old female. Refer to note in patient chart for documentation of history and physical. Last Colonoscopy: within the past 6 months. Patient has symptoms of chronic global abdominal pain, chronic diarrhea and acute episode of bloody stool. Referring Physician: Latisha Hutchison (Referring MD) Medicines: Fentanyl 150 micrograms IV, Midazolam 8 mg IV Complications: No immediate complications. Requesting Provider: Procedure: Pre-Anesthesia Assessment: - Prior to the procedure, a History and Physical was performed, and patient medications and allergies were reviewed. The patient is competent. The risks and benefits of the procedure and the sedation options and risks were discussed with the patient. All questions were answered and informed consent was obtained. Patient identification and proposed procedure were verified by the physician and the nurse in the pre-procedure area in the endoscopy suite. Mental Status Examination: alert and oriented. Airway Examination: normal oropharyngeal airway and neck mobility. Respiratory Examination: clear to auscultation. CV Examination: normal. Prophylactic Antibiotics: The patient does not require prophylactic antibiotics. Prior Anticoagulants: The patient has taken no anticoagulant or antiplatelet agents. ASA Grade Assessment: II - A patient with mild systemic disease. After reviewing the risks and benefits, the patient was deemed in satisfactory condition to undergo the procedure. The anesthesia plan was to use moderate sedation / analgesia (conscious sedation). Immediately prior to administration of medications, the patient was re-assessed for adequacy to receive sedatives. The heart rate, respiratory rate, oxygen saturations, blood pressure, adequacy of pulmonary ventilation, and response to care were monitored throughout the procedure. The physical status of the patient was re-assessed after the procedure. After I obtained informed consent, the scope was passed under direct vision. Throughout the procedure, the patient's blood pressure, pulse, and oxygen saturations were monitored continuously. The Colonoscope was introduced through the anus and advanced to the terminal ileum, with identification of the appendiceal orifice and IC valve. The colonoscopy was performed with ease. The patient tolerated the procedure well. The quality of the bowel preparation was excellent. The quality of the bowel preparation was evaluated using the BBPS ([place] Bowel Preparation Scale) with scores of: Right Colon = 3, Transverse Colon = 3 and Left Colon = 3 (entire mucosa seen well with no residual staining, small fragments of stool or opaque liquid). The total BBPS score equals 9. The entire colon was well visualized. The terminal ileum, ileocecal valve, appendiceal orifice, and rectum were photographed. Moderate Sedation: Moderate (conscious) sedation was administered by the endoscopy nurse and supervised by the endoscopist. The following parameters were monitored: oxygen saturation, heart rate, blood pressure, and response to care. The administration of moderate sedation was initiated at 14:08 PM. Findings: The terminal ileum appeared normal. Normal mucosa was found in the entire colon. Biopsies for histology were taken with a cold forceps from the sigmoid colon for evaluation of microscopic colitis. External and internal hemorrhoids were found during retroflexion. The hemorrhoids were Grade II (internal hemorrhoids that prolapse but reduce spontaneously). Hemorrhoids were found on perianal exam. Impression: - The examined portion of the ileum was normal. - Normal mucosa in the entire examined colon. Biopsied to rule out microscopic colitis. - External and internal hemorrhoids. - Hemorrhoids found on perianal exam. Recommendation: - Discharge patient to home. - Resume regular diet. - Continue present medications. - Await pathology results. - Followup office. - Patient has a contact number available for emergencies. The signs and symptoms of potential delayed complications were discussed with the patient. Return to normal activities tomorrow. Written discharge instructions were provided to the patient. - Repeat colonoscopy in 10 years for screening purposes. Procedure Code(s): --- Professional --- 52189, Colonoscopy, flexible; with biopsy, single or multiple Diagnosis Code(s): --- Professional --- K64.1, Second degree hemorrhoids R10.84, Generalized abdominal pain K52.9, Noninfective gastroenteritis and colitis, unspecified K62.5, Hemorrhage of anus and rectum CPT copyright 2020 [place] [employer]. All rights reserved. The codes documented in this report are preliminary and upon flexo folder gluer operator review may be revised to meet current compliance requirements. Attending Participation: I personally performed the entire procedure. Scope In: 2:14:17 PM Scope Out: 2:26:48 PM MD Adrian Olmos Jr, DO 09/24/2022 2:36:30 PM This report has been signed electronically by Adrian Chappell Jr, DO Number of Addenda: 0 Note Initiated On: 09/24/2022 1:52 PM Estimated Blood Loss: Estimated blood loss: none. us Latisha Hutchison RN DIGESTIVE DISEASE Final Result from Last 3 Months or Most Recently Relevant to Health Maintenance Insurance [facility] PPO Member Subscriber Plan / Payer (Ef fective 2022-Present) Name:João Warren Relation to Subscriber:Self Name:João Warren Payer ID:Not on file Type:PPO Address: [place] [id number] Care Teams Accounts Officer Relationship Specialty Start Date End Date Martin Martinez DO PCP - General 02/26/06 Moses Francois MD [address] [place] [address] Obstetrics 09/22/23
--- OUTSIDE RECORDS SUMMARY | 2025-03-30 10:52 | XMS_ITS | Encounter Summary ---
Author Organization [facility] Address [address] [place] [address] Care Team Providers Care Commercial Manager Name Role Phone Martin Martinez Primary Care Provider [phone] Moses Francois MD Unavailable [phone] Source Comments In the event this information is protected by the Federal Confidentiality of Alcohol and Drug AbusePatient Records regulations: The Federal rules restrict any use of the information to criminally investigate or prosecute any alcohol or drug abuse patient.[facility] Encounter Details Date Type Department Care Team (Late st Contact Info) Description 11/21/2024 Get Medical Advice Dermatology [address] [place], [place] [id number] [place] [address] [place], [place] [phone] Plaquenil Social History Tobacco Use Types Packs/Day Years Used Date Smoking Tobacco: Never Smokeless Tobacco: Never Alcohol Use Standard Drinks/Week Comments Not Currently 0 (1 standard drink = 0.6 oz pur e alcohol) Area Deprivation Index Answer Date Sammy rded National Score (1-100), lower number is lower ri sk 65 08/08/2024 State Score (1-10), lower number is lower risk 4 08/08/2024 Data from: https://www.neighborhoodatlas.medicine.[facility]/. Last address used for calculation 6 [...] PM EDT Office Visit Dermatology [address] [place] [address] [place] [address] [place] [address] Return for 4-6 week [address] 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
[2025-03-30 11:22] LABS: Alanine Aminotransferase 71 U/L (14-59); Albumin Globulin Ratio 1.3; Albumin Level 3.7 g/dL (3.4-5.0); Alkaline Phosphatase 97 U/L (46-116); Aspartate Amino Transferase 80 U/L (15-37); Bilirubin Direct 0.1 mg/dL (0.0-0.2); Bilirubin Total 0.6 mg/dL (0.2-1.0); Globulin 2.9 g/dL; Total Protein 6.6 g/dL (6.4-8.2)
== END 2025-03-30 10:48 | disposition home or self-care (01) ==
LOC: LAB 10:48
PROVIDERS: PCP Internal Medicine; Visit Provider Internal Medicine
DX: R74.01 Elevation of levels of liver transaminase levels (principal); Z12.31 Encounter for screening mammogram for malignant neoplasm of breast; Z80.3 Family history of malignant neoplasm of breast; Z80.42 Family history of malignant neoplasm of prostate; Z80.8 Family history of malignant neoplasm of other organs or systems
CPT/HCPCS: 36415; 77063; 77067; 80076